=== PATIENT | male | born 1950 | race Caucasian/White ===

== ENCOUNTER 2017-07-26 08:55 | Inpatient (IN) | payer MEDICARE, OTHER ==
[~2017-07-26] VITALS: Ht 182.9 cm; Wt 92.6 kg
[2017-07-26] VITALS (19 sets, daily range): BP systolic 104–133; BP diastolic 60–84; PULSE 81–120; RESP 14–25; TEMP 99.1–101.7; O2SAT 87–100
[~2017-07-26 08:55] MED LIST: ASPI81TA82 PO; KLOR20TA6 PO; MULT-65 PO; PROT40TA PO; SODI1 PO; TOPR50TA PO; VITA100T54 PO
[2017-07-26] MEDS ORDERED: PROPOFOL 1000 MG/100 ML INJ 100 ML ONE (09:00)
[2017-07-26] MEDS ORDERED: PROPOFOL 1000 MG/100 ML INJ 100 ML IV PRN (09:15)
[2017-07-26] MEDS ORDERED: VANCOMYCIN INJ 1,000 MG in SODIUM CHLOR 0.9% 250 ML INJ 250 ML IV ONE (09:15)
[2017-07-26] MEDS ORDERED: SODIUM CHLOR 0.9% 1000 ML INJ 1,000 ML IV ONE ×2 (09:15)
[2017-07-26] MEDS ORDERED: fentaNYL DRIP 250 ML IV PRN ×2 (09:15→12:00)
[2017-07-26] MEDS ORDERED: AZTREONAM INJ 1,000 MG in SODIUM CHLORIDE 0.9% INJ 100 ML IV ONE (09:15)
[2017-07-26 09:35] LABS: BASOPHIL # 0.2 TH/MM3 (0-0.2); HEMATOCRIT 32.4 % (39.0-51.0); HEMO FLAGS DIFF FINAL; LYMPH % 13.5 % (9.0-44.0); LYMPHOCYTE # 2.2 TH/MM3 (1.0-4.8); MEAN CELL VOLUME 93.3 FL (80.0-100.0); MEAN CORPUSCULAR HEMOGLOBIN 31.1 PG (27.0-34.0); MEAN CORPUSCULAR HGB CONC 33.4 % (32.0-36.0); NEUT % 74.5 % (16.0-70.0); PLATELET COUNT 391 TH/MM3 (150-450); RED BLOOD COUNT 3.47 MIL/MM3 (4.50-5.90); RED CELL DISTRIBUTION WIDTH 21.6 % (11.6-17.2); WHITE BLOOD COUNT 16.1 TH/MM3 (4.0-11.0)
[2017-07-26 09:46] LABS: BLOOD, URINE SMALL (NEG); COMMENT (UR) CULTURE INDICATED; CULTURE IF INDICATED CULTURE INDICATED; GLUCOSE,URINE NEG (NEG); HYALINE CAST, URINE 7 /lpf (RARE); KETONE, URINE 10 mg/dL (NEG); MUCUS URINE FEW /lpf (OCC); NITRITE,URINE NEG (NEG); PH, URINE 5.5 (5.0-8.5); SQUAMOUS EPITHELIAL CELL URINE 1 /hpf (0-5); URINE COLOR YELLOW (YELLW/STRAW)
[2017-07-26 09:47] LABS: BLOOD GAS BASE EXCESS -4.5 mmol/L (-2-2); BLOOD GAS CARBOXYHEMOGLOBIN 1.5 % (0-4); BLOOD GAS HCO3 19 mmol/L (22-26); BLOOD GAS METHEMOGLOBIN 0.3 % (0-2); BLOOD GAS O2 HGB SATURATION 99 % (90-100); BLOOD GAS OXYGEN CONTENT 13.9 Vol % (12.0-20.0); BLOOD GAS PCO2 30 mmHg (38-42); BLOOD GAS PO2 306 mmHG (61-120); BLOOD GAS TOTAL HGB 9.5 G/DL (12.0-16.0); CRITICAL VALUE NO; DRAW SITE LT BRACHIAL; FIO2 100 %; NUMBER OF ARTERIAL PUNCTURES 1; OXYGEN DEVICE VENT; STAT YES; TEMP CORR TO 98.6; ULNAR PULSE PRESENT; VENT SETTINGS AC500/16/PEEP5
[2017-07-26 09:48] LABS: APTT (PATIENT) 32.9 SEC (24.3-30.1); INTERNATIONAL NORMALIZED RATIO 1.4 RATIO
[2017-07-26] MEDS ORDERED: ETOMIDATE 20 MG/10 ML VIAL ONE (09:48)
[2017-07-26] MEDS ORDERED: SUCCINYLCHOLINE CHLORIDE 200 MG/10 ML VIAL ONE (09:48)
[2017-07-26 09:49] LABS: ANION GAP 10 MEQ/L (5-15); AST (GOT) 31 U/L (15-37); BICARBONATE 21.2 MEQ/L (21.0-32.0); BLOOD UREA NITROGEN 18 MG/DL (7-18); CHLORIDE 98 MEQ/L (98-107); GLOMERULAR FILTRATION RATE 69 ML/MIN (>89); POTASSIUM 4.7 MEQ/L (3.5-5.1); SODIUM (NA) 129 MEQ/L (136-145)
[2017-07-26 09:50] LABS: ALT (GPT) 14 U/L (12-78)
[2017-07-26 09:54] LABS: ALKALINE PHOSPHATASE 63 U/L (45-117); CREATINE KINASE 337 U/L (39-308); TOTAL BILIRUBIN ADULT 0.5 MG/DL (0.2-1.0)
[2017-07-26 10:01] LABS: BACTERIA, URINE FEW /hpf
[2017-07-26 10:06] LABS: CKMB 2.9 NG/ML (0.5-3.6)
--- NOTE | 2017-07-26 10:10 | RADRPT ---
EXAM DATE/TIME: 07/26/2017 09:42 [facility] COMPARISON: No previous studies available for comparison. INDICATIONS : Post procedure. Intubation. MEDICAL HISTORY : None. SURGICAL HISTORY : None. ENCOUNTER: Initial ACUITY: 1 day PAIN SCORE: Non-responsive. LOCATION: Bilateral chest FINDINGS: Endotracheal tube has its tip approximately 3 cm above the yunior in good position. A nasogastric tu be has its tip in the stomach. The heart is enlarged. The pulmonary vascular pattern is normal. Th e lungs are clear. CONCLUSION: 1. Endotracheal tube and nasogastric tube in good positions. 2. Cardiomegaly. 3. No acute focal pulmonary infiltrate or pulmonary vascular congestion. Reji Corcoran MD on July 26, 2017 at 10:01 Board Certified Radiologist. This report was verified electronically.
--- NOTE | 2017-07-26 10:11 | PD ---
HPI Chief Complaint: Altered Mental Status Time Seen by Provider: 09:05 Travel History International Travel<30 days: No (UTO) Contact w/Intl Traveler<30days: No (UTO) Traveled to known affect area: No (UTO) History of Present Illness HPI 67-year-old male was brought by EMS from local alf for altered mental status. Patient was found to have a fever and unresponsive this morning. Temperature was 102.5 at the local alf. Last seen normal was yesterday. EMS was called. Attempts to intubate the patient at the scene was unsuccessful. Patient was given bag valve mask assisted ventilation and transported to the ED for evaluation. Patient has history of hypertension, generalized weakness and anxiety. Patient also has history of alcohol dependence, atrial fibrillation. Patient on doxycycline, folic acid, lorazepam , magnesium oxide, metoprolol, multivitamins, calcium, thiamine. Patient was observed to have diarrhea in the ED. PFSH Past Medical History Cancer: Yes (PROSTATE, TREATED WITH RADIATION THERAPY, SKIN CANCER) Cardiovascular Problems: Yes (ATRIAL FIBRILLATION) Diabetes: No GERD: Yes Hepatitis: No Hiatal Hernia: No Hypertension: Yes Respiratory: No Thyroid Disease: No Past Surgical History Abdominal Surgery: Yes (INGUINAL HERNIA AND HYDROCELE SURGERY CHILD) Pacemaker: No Other Surgery: Yes Social History Alcohol Use: Yes Tobacco Use: No Substance Use: Yes Allergies-Medications (Allergen,Severity, Reaction): Coded Allergies: penicillin G (Unverified Allergy, Severe, ITCHINESS, 07/26/17) Reported Meds & Prescriptions Reported Meds & Active Scripts Active Review of Systems ROS Limitations: Altered Mental Status, Unresponsive Physical Exam Narrative GENERAL: Well-nourished, well-developed patient. SKIN: Focused skin assessment warm/dry. HEAD: Normocephalic. EYES: No scleral icterus. No injection or drainage. Pupils dilated nonreactive bilaterally NECK: Supple, trachea midline. No JVD or lymphadenopathy. CARDIOVASCULAR: Regular rate and rhythm without murmurs, gallops, or rubs. RESPIRATORY: Patient with agonal breathing. Rhonchi bibasilar. GASTROINTESTINAL: Abdomen soft, non-tender, nondistended. MUSCULOSKELETAL: No cyanosis, or edema. BACK: Nontender without obvious deformity. No CVA tenderness. Neurologic exam: Patient's unresponsive. Data Data Last Documented VS Vital Signs Date Time Temp Pulse Resp B/P (MAP) Pulse Ox O2 Delivery O2 Flow Rate FiO2 07/26/17 10:02 92 16 133/74 (93) 100 Ventilator 100 07/26/17 09:00 15.00 07/26/17 08:55 101.7 Orders Orders Propofol 1000 Mg/100 Ml Inj (Diprivan 10 (07/26/17 09:00) Electrocardiogram (07/26/17 09:05) Complete Blood Count With Diff (07/26/17 09:05) Comprehensive Metabolic Panel (07/26/17 09:05) Creatine Kinase (Cpk) (07/26/17 09:05) Troponin I (07/26/17 09:05) B-Type Natriuretic Peptide (07/26/17 09:05) Prothrombin Time / Inr (Pt) (07/26/17 09:05) Act Partial Throm Time (Ptt) (07/26/17 09:05) Arterial Blood Gas (Abg) (07/26/17 09:05) Blood Culture (07/26/17 09:05) Urinalysis - C+S If Indicated (07/26/17 09:05) Chest, Single Ap (07/26/17 09:05) Ct Brain W/O Iv Contrast(Rout) (07/26/17 09:05) Iv Access Insert/Monitor (07/26/17 09:05) Ecg Monitoring (07/26/17 09:05) Oximetry (07/26/17 09:05) Urinary Catheter Insert/Apply (07/26/17 09:05) Prem-Gastric Tube Insert/Mon (07/26/17 09:05) Sodium Chlor 0.9% 1000 Ml Inj (Ns 1000 M (07/26/17 09:15) Sodium Chlor 0.9% 1000 Ml Inj (Ns 1000 M (07/26/17 09:15) Propofol 1000 Mg/100 Ml Inj (Diprivan 10 (07/26/17 09:15) ^ Infusion (07/26/17 09:09) RASS (07/26/17 09:09) Neurological Rass Scale DANIEL.Q2H (07/26/17 09:09) Neurological Rass Scale Q30MX2,Q2HX4,Q4H (07/26/17 09:09) Fentanyl Drip (Fentanyl Drip) (07/26/17 09:15) Lactic Acid Sepsis Protocol (07/26/17 09:10) Restraints Non-Violent DANEIL.Q3H (07/26/17 09:11) Vancomycin Inj (Vancomycin Inj) (07/26/17 09:15) Aztreonam Inj (Azactam Inj) (07/26/17 09:15) Rotavirus Ag Detection (Stool) (07/26/17 09:13) C Diff Toxin Pcr (07/26/17 09:13) Etomidate Inj (Amidate Inj) (07/26/17 09:48) Succinylcholine Inj (Quelicin Inj) (07/26/17 09:48) CKMB (07/26/17 09:17) CKMB% (07/26/17 09:17) Urine Culture (07/26/17 09:17) Lumbar Puncture (07/26/17 ) Vital Signs (Adult) .On admission (07/26/17 10:11) Notify Radiology (07/26/17 10:11) Diet Npo (07/26/17 Lunch) Labs Laboratory Tests Test 07/26/17 09:17 07/26/17 09:40 White Blood Count 16.1 TH/MM3 Red Blood Count 3.47 MIL/MM3 Hemoglobin 10.8 GM/DL Hematocrit 32.4 % Mean Corpuscular Volume 93.3 FL Mean Corpuscular Hemoglobin 31.1 PG Mean Corpuscular Hemoglobin Concent 33.4 % Red Cell Distribution Width 21.6 % Platelet Count 391 TH/MM3 Mean Platelet Volume 8.9 FL Neutrophils (%) (Auto) 74.5 % Lymphocytes (%) (Auto) 13.5 % Monocytes (%) (Auto) 11.0 % Eosinophils (%) (Auto) 0.0 % Basophils (%) (Auto) 1.0 % Neutrophils # (Auto) 12.0 TH/MM3 Lymphocytes # (Auto) 2.2 TH/MM3 Monocytes # (Auto) 1.8 TH/MM3 Eosinophils # (Auto) 0.0 TH/MM3 Basophils # (Auto) 0.2 TH/MM3 CBC Comment DIFF FINAL Differential Comment Prothrombin Time 16.0 SEC Prothromb Time International Ratio 1.4 RATIO Activated Partial Thromboplast Time 32.9 SEC Urine Color YELLOW Urine Turbidity CLEAR Urine pH 5.5 Urine Specific [place] 1.035 Urine Protein 30 mg/dL Urine Glucose (UA) NEG mg/dL Urine Ketones 10 mg/dL Urine Occult Blood SMALL Urine Nitrite NEG Urine Bilirubin NEG Urine Urobilinogen 2.0 MG/DL Urine Leukocyte Esterase SMALL Urine RBC 14 /hpf Urine WBC 13 /hpf Urine Squamous Epithelial Cells 1 /hpf Urine Bacteria FEW /hpf Urine Hyaline Casts 7 /lpf Urine Mucus FEW /lpf Microscopic Urinalysis Comment CULTURE INDICATED Blood Urea Nitrogen 18 MG/DL Creatinine 1.07 MG/DL Random Glucose 106 MG/DL Total Protein 7.1 GM/DL Albumin 2.7 GM/DL Calcium Level 8.8 MG/DL Alkaline Phosphatase 63 U/L Aspartate Amino Transf (AST/SGOT) 31 U/L Alanine Aminotransferase (ALT/SGPT) 14 U/L Total Bilirubin 0.5 MG/DL Sodium Level 129 MEQ/L Potassium Level 4.7 MEQ/L Chloride Level 98 MEQ/L Carbon Dioxide Level 21.2 MEQ/L Anion Gap 10 MEQ/L Estimat Glomerular Filtration Rate 69 ML/MIN Lactic Acid Level 1.5 mmol/L Total Creatine Kinase 337 U/L Creatine Kinase MB 2.9 NG/ML Creatine Kinase MB % 0.9 % Troponin I 0.05 NG/ML B-Type Natriuretic Peptide 318 PG/ML Blood Gas Puncture Site LT BRACHIAL Blood Gas Patient Temperature 98.6 Blood Gas HCO3 19 mmol/L Blood Gas Base Excess -4.5 mmol/L Blood Gas Oxygen Saturation 99 % Arterial Blood pH 7.43 Arterial Blood Partial Pressure CO2 30 mmHg Arterial Blood Partial Pressure O2 306 mmHG Arterial Blood Oxygen Content 13.9 Vol % Arterial Blood Carboxyhemoglobin 1.5 % Arterial Blood Methemoglobin 0.3 % Blood Gas Hemoglobin 9.5 G/DL Oxygen Delivery Device VENT Blood Gas Ventilator Setting AC500/16/PEEP5 Blood Gas Inspired Oxygen 100 % [facility] Medical Decision Making Medical Screen Exam Complete: Yes Emergency Medical Condition: Yes Medical Record Reviewed: Yes Interpretation(s) 10:13 AM. ABG pH 7.43. PCO2 30. PO2 306. CBC WBC 16.1. Hemoglobin 10.8 hematocrit 32.4. Platelets 391. 74 neutrophil. Sodium 129. Lactic acid 1.5. BNP 318. Cardiac enzymes are normal. INR 1.4. UA positive with WBC and bacteria. Differential Diagnosis Differential diagnosis including sepsis, pneumonia, UTI, TIA, CVA, SD, dehydration, meningitis Narrative Course 67-year-old male was found unresponsive and fever this morning. Patient was intubated ED. Moderate amount of aspirated material suctioned from the ET tube post intubation. Patient was observed to have diarrhea in the ED. Stool culture and study pending. Normal saline solution 2 L IV bolus. Vancomycin 1 g IV. Azactam 1 g IV. Propofol and fentanyl as needed for sedation. Critical Care Narrative Aggregate critical care time was 90 minutes. Time to perform other separately billable procedures was not included in the critical care time. My time did not include minutes spent treating any other patients simultaneously or on activities that did not directly contribute to the patient's treatment. The services I provided to this patient were to treat and/or prevent clinically significant deterioration that could result in: I provided critical care services requiring my management, as noted below: Chart data review, documentation time, medication orders and management, vital sign assessments/reviewing monitor data, ordering and reviewing lab tests, ordering and interpreting/reviewing x-rays and diagnostic studies, care of the patient and discussion of the patient with the admitting physicians. Procedures Procedure Narrative After the risks and benefits were discussed the following procedure was performed: INTUBATION: The patient was put in optimal position for the procedure. The patient was intubated with a an 8 Wolof cuffed endotracheal tube. Tube placement was confirmed by visualization of the tube and balloon passing through the cords, capnometry and subsequent chest x-ray. Breath sounds were equal and well aerated bilaterally postintubation. No breath sounds over stomach. Patient tolerated procedure well. Diagnosis Primary Impression: Sepsis Qualified Codes: A41.9 - Sepsis, unspecified organism Additional Impressions: Respiratory failure Qualified Codes: J96.01 - Acute respiratory failure with hypoxia UTI (urinary tract infection) Qualified Codes: N30.00 - Acute cystitis without hematuria Hyponatremia Admitting Information Admitting Physician Requests: Mike Wilkinson MD Jul 26, 2017 10:10
[2017-07-26] MEDS ORDERED: Vancomycin Consult Pharmacy 1 EA OTHER SCH (10:30)
[2017-07-26] MEDS ORDERED: POTASSIUM CHLOR 20 MEQ PREMIX 100 ML IV PRN ×2 (10:30)
[2017-07-26] MEDS ORDERED: MAGNESIUM OXIDE 400 MG TAB PO PRN (10:30)
[2017-07-26] MEDS ORDERED: POTASSIUM PHOSPHATE MONOBASIC 500 MG TAB PO PRN (10:30)
[2017-07-26] MEDS ORDERED: RESP: ALBUTEROL 2.5 MG/IPRATROPIUM 0.5 MG NEB (PRN) INH (10:30)
[2017-07-26] MEDS ORDERED: SODIUM PHOSPHATE INJ 30 MMOL in SODIUM CHLOR 0.9% 250 ML INJ 240 ML IV PRN (10:30)
[2017-07-26] MEDS ORDERED: MISCELLANEOUS NURSING INFORMATION XX SCH (10:30)
[2017-07-26] MEDS ORDERED: ACETAMINOPHEN 325 MG TAB PO PRN (10:30)
[2017-07-26] MEDS ORDERED: POTASSIUM PHOSPHATE INJ 30 MMOL in SODIUM CHLOR 0.9% 250 ML INJ 250 ML IV PRN (10:30)
[2017-07-26] MEDS ORDERED: POTASSIUM PHOSPHATE MONOBASIC 500 MG TAB PO/TUBE PRN (10:30)
[2017-07-26] MEDS ORDERED: MAGNESIUM SULFATE INJ 2 GM in SODIUM CHLORIDE 0.9% INJ 96 ML IV PRN (10:30)
[2017-07-26] MEDS ORDERED: POTASSIUM CHLOR 40 MEQ PREMIX 100 ML IV PRN ×2 (10:30)
[2017-07-26] MEDS ORDERED: ONDANSETRON HCL 4 MG/2 ML VIAL IV PUSH PRN (10:30)
[2017-07-26] MEDS ORDERED: DEXTROSE 50% IN WATER 50 ML VIAL(D50) IV PUSH PRN (10:30)
[2017-07-26] MEDS ORDERED: MAGNESIUM SULFATE INJ 4 GM in SODIUM CHLORIDE 0.9% INJ 92 ML IV PRN (10:30)
[2017-07-26] MEDS ORDERED: CHLORHEXIDINE GLUCONATE 2 % 1 PACK (2 CLOTHS) TOP PRN (10:30)
[2017-07-26] MEDS ORDERED: DOXY100C PO (10:34)
[2017-07-26] MEDS ORDERED: MAGN400T2 PO (10:35)
[2017-07-26] MEDS ORDERED: MULTTAB67 PO (10:35)
[2017-07-26] MEDS ORDERED: VITA100T54 PO (10:35)
[2017-07-26] MEDS ORDERED: LORA0.5T PO (10:35)
[2017-07-26] MEDS ORDERED: [UNRECOGNIZED DRUG - CODE] PO (10:35)
[2017-07-26] MEDS ORDERED: METO25TA3 PO (10:35)
[2017-07-26] MEDS ORDERED: FOLI400T PO (10:35)
--- NOTE | 2017-07-26 10:58 | RADRPT ---
EXAM DATE/TIME: 07/26/2017 10:05 [facility] COMPARISON: No previous studies available for comparison. INDICATIONS : Altered mental status. RADIATION DOSE: 56.41 CTDIvol (mGy) MEDICAL HISTORY : Cardiovascular disease. Hypertension. Carcinoma, prostate. SURGICAL HISTORY : None. ENCOUNTER: Initial ACUITY: 1 day PAIN SCALE: Non-responsive LOCATION: cranial TECHNIQUE: Multiple contiguous axial images were obtained of the head. Using automated exposure control and adj ustment of the mA and/or kV according to patient size, radiation dose was kept as low as reasonably a chievable to obtain optimal diagnostic quality images. DICOM format image data is available electro nically for review and comparison. FINDINGS: CEREBRUM: Mild cerebral atrophy is noted. Moderate periventricular and subcortical white matter small vessel is chemic changes are noted bilaterally. No evidence of midline shift, mass lesion, hemorrhage or acute infarction. No extra-axial fluid collections are seen. POSTERIOR FOSSA: The cerebellum and brainstem are intact. The 4th ventricle is midline. The cerebellopontine angle i s unremarkable. EXTRACRANIAL: The visualized portion of the orbits is intact. SKULL: The calvaria is intact. No evidence of skull fracture. CONCLUSION: 1. Moderate periventricular and subcortical white matter small vessel ischemic changes bilaterally. 2. Mild cerebral atrophy. 3. No acute infarct, acute hemorrhage, mass effect or extra-axial fluid collections. Reji Corcoran MD on July 26, 2017 at 10:55 Board Certified Radiologist. This report was verified electronically.
[2017-07-26 11:24] LABS: C. DIFF EPI 027 PRESUMPTIVE NEGATIVE (NEGATIVE)
[2017-07-26] MEDS: INSULIN NovoLIN REGULAR SUPPLEMENTAL SCALE SQ SCH ×2 (12:00→18:00)
--- NOTE | 2017-07-26 13:00 | HHI.HP ---
HPI Service Critical Care Medicine Primary Care Physician Unknown Admission Diagnosis sepsis. Respiratory failure. UTI. Hyponatremia. Diagnosis: Chief Complaint: Fever, altered mental status Travel History International Travel<30 Days: No (UTO) Contact w/Intl Traveler <30 Da: No (UTO) Traveled to Known Affected Are: No (UTO) Sepsis Criteria SIRS Criteria (2 or more): Temp > 100.9 or < 96.8 Sepsis Criteria (SIRS+source): Infect source susp/known Severe Sepsis (+one): Organ Dysfunction Criteria Outcome: Meets sepsis criteria, Meets severe sepsis criteria History of Present Illness History of Present Illness HPI 67-year-old male who is a shelter resident with a medical history significant for alcohol dependence, atrial fibrillation, hypertension, generalized weakness and anxiety was brought to the ER by EMS for altered mental status. Patient was noted to have fever and been started on doxycycline a day prior to admission. He had a temperature of 102.5 at the shelter this morning. EMS attempt at intubating patient at the scene was unsuccessful. He was brought to the ER with bag valve mask assisted ventilation. Patient was intubated in the ER following his arrival and placed on mechanical ventilation. He was diagnosed to have sepsis and was initiated on empiric antibiotics including IV vancomycin and aztreonam obtaining blood and sputum cultures. A lumbar puncture was ordered to be done by IR. Patient was accepted for admission by critical care medicine service. When I evaluated the patient in the ER he was sedated with propofol, orally intubated on mechanical ventilation. The ER nurse he just had significant diarrhea which tested negative for C. difficile. History was obtained by reviewing records and discussion with ER physician and nursing staff. PFSH Past Medical History Cancer: Yes (PROSTATE, TREATED WITH RADIATION THERAPY, SKIN CANCER) Cardiovascular Problems: Yes (ATRIAL FIBRILLATION) Diabetes: No GERD: Yes Hepatitis: No Hiatal Hernia: No Hypertension: Yes Respiratory: No Thyroid Disease: No Past Surgical History Abdominal Surgery: Yes (INGUINAL HERNIA AND HYDROCELE SURGERY CHILD) Pacemaker: No Other Surgery: Yes Social History Alcohol Use: Yes Tobacco Use: No Substance Use: Yes Allergies-Medications (Allergen,Severity, Reaction): Coded Allergies: penicillin G (Unverified Allergy, Severe, ITCHINESS, 07/26/17) Reported Meds & Prescriptions Reported Meds & Active Scripts Active Calcium, doxycycline, folic acid, lorazepam 0.5 mg by mouth every 8 hourly when necessary, magnesium oxide, metoprolol 25 mg by mouth twice a day, MVI, thiamine Review of Systems ROS Limitations: Altered Mental Status, Unresponsive, orally intubated on mechanical ventilation Physical Exam Vital Signs Vital Signs Date Time Temp Pulse Resp B/P (MAP) Pulse Ox O2 Delivery O2 Flow Rate FiO2 07/26/17 12:19 07/26/17 12:12 100 15.00 07/26/17 11:40 100 40 07/26/17 11:23 100.8 81 14 115/60 (78) 100 Ventilator 45 07/26/17 10:25 100.9 81 14 120/70 (87) 100 Ventilator 45 07/26/17 10:22 100 100 07/26/17 10:02 92 16 133/74 (93) 100 Ventilator 100 07/26/17 09:50 100 45 07/26/17 09:20 100 100 07/26/17 09:15 100 07/26/17 09:00 16 100 Ventilator 100 07/26/17 09:00 100 07/26/17 09:00 96 Bag Valve 15.00 07/26/17 08:55 101.7 120 16 130/84 (99) 87 Physical Exam HEENT/ Neuro: Sedated, orally intubated, Pallor present, no icterus, tongue/ mucosa moist. Pupils 3 mm bilaterally equal and reactive to light. Neck: Neck stiffness noted, No JVD Chest/Pulm: on mech vent, good air entry bilaterally, no wheezing or crackles. Bilateral rhonchi. CVS: S1-S2 irregular, no murmur GI/abdomen: soft, nontender, bowel sounds sluggish Extremities: warm bilaterally, no edema Laboratory Laboratory Tests Test 07/26/17 09:17 07/26/17 09:40 White Blood Count 16.1 Red Blood Count 3.47 Hemoglobin 10.8 Hematocrit 32.4 Mean Corpuscular Volume 93.3 Mean Corpuscular Hemoglobin 31.1 Mean Corpuscular Hemoglobin Concent 33.4 Red Cell Distribution Width 21.6 Platelet Count 391 Mean Platelet Volume 8.9 Neutrophils (%) (Auto) 74.5 Lymphocytes (%) (Auto) 13.5 Monocytes (%) (Auto) 11.0 Eosinophils (%) (Auto) 0.0 Basophils (%) (Auto) 1.0 Neutrophils # (Auto) 12.0 Lymphocytes # (Auto) 2.2 Monocytes # (Auto) 1.8 Eosinophils # (Auto) 0.0 Basophils # (Auto) 0.2 CBC Comment DIFF FINAL Differential Comment Prothrombin Time 16.0 Prothromb Time International Ratio 1.4 Activated Partial Thromboplast Time 32.9 Urine Color YELLOW Urine Turbidity CLEAR Urine pH 5.5 Urine Specific [place] 1.035 Urine Protein 30 Urine Glucose (UA) NEG Urine Ketones 10 Urine Occult Blood SMALL Urine Nitrite NEG Urine Bilirubin NEG Urine Urobilinogen 2.0 Urine Leukocyte Esterase SMALL Urine RBC 14 Urine WBC 13 Urine Squamous Epithelial Cells 1 Urine Bacteria FEW Urine Hyaline Casts 7 Urine Mucus FEW Microscopic Urinalysis Comment CULTURE INDICATED Stool C. difficile Toxin (PCR) NEGATIVE Stl C. difficile Toxin Epiderm 027 PRESUMPTIVE NEGATIVE Blood Urea Nitrogen 18 Creatinine 1.07 Random Glucose 106 Total Protein 7.1 Albumin 2.7 Calcium Level 8.8 Alkaline Phosphatase 63 Aspartate Amino Transf (AST/SGOT) 31 Alanine Aminotransferase (ALT/SGPT) 14 Total Bilirubin 0.5 Sodium Level 129 Potassium Level 4.7 Chloride Level 98 Carbon Dioxide Level 21.2 Anion Gap 10 Estimat Glomerular Filtration Rate 69 Lactic Acid Level 1.5 Total Creatine Kinase 337 Creatine Kinase MB 2.9 Creatine Kinase MB % 0.9 Troponin I 0.05 B-Type Natriuretic Peptide 318 Blood Gas Puncture Site LT BRACHIAL Blood Gas Patient Temperature 98.6 Blood Gas HCO3 19 Blood Gas Base Excess -4.5 Blood Gas Oxygen Saturation 99 Arterial Blood pH 7.43 Arterial Blood Partial Pressure CO2 30 Arterial Blood Partial Pressure O2 306 Arterial Blood Oxygen Content 13.9 Arterial Blood Carboxyhemoglobin 1.5 Arterial Blood Methemoglobin 0.3 Blood Gas Hemoglobin 9.5 Oxygen Delivery Device VENT Blood Gas Ventilator Setting AC500/16/PEEP5 Blood Gas Inspired Oxygen 100 Date/Time Source Procedure Growth Status 07/26/17 09:17 Blood Peripheral Aerobic Blood Culture Pending Received 07/26/17 09:17 Blood Peripheral Anaerobic Blood Culture Pending Received 07/26/17 09:17 Stool Stool Rotavirus Antigen - Final NEGATIVE - ROTAVIRUS ANTIGEN IS ABSEN... Complete 07/26/17 10:40 Sputum Endotracheal Gram Stain Pending Received 07/26/17 10:40 Sputum Endotracheal Sputum Culture Pending Received 07/26/17 09:17 Urine Random Urine Urine Culture Pending Received Result Diagram: 07/26/1791607/26/1717 Imaging Last Impressions Head CT 07/26/17904 Signed Impressions: Service Date/Time: Wednesday, July 26, 2017 10:05 - CONCLUSION: 1. Moderate periventricular and subcortical white matter small vessel ischemic changes bilaterally. 2. Mild cerebral atrophy. 3. No acute infarct, acute hemorrhage , mass effect or extra-axial fluid collections. Reji Corcoran MD Chest X-Ray 07/26/17904 Signed Impressions: Service Date/Time: Wednesday, July 26, 2017 09:42 - CONCLUSION: 1. Endotracheal tube and nasogastric tube in good positions. 2. Cardiomegaly. 3. No acute focal pulmonary infiltrate or pulmonary vascular congestion. Reji Corcoran MD Septic Shock Reassessment Heart: Irregular Lungs: Course Skin: Warm Peripheral Pulses: Bounding Right Radial Capillary Refill: Brisk Caprini VTE Risk Assessment Caprini VTE Risk Assessment: Mod/High Risk (score >= 2) Caprini Risk Assessment Model Point Value = 1 Point Value = 2 Point Value = 3 Point Value = 5 Age 41-60 Minor surgery BMI > 25 kg/m2 Swollen legs Varicose veins or History of unexplained or recurrent spontaneous Oral contraceptives or hormone replacement Sepsis (< 1 month) Serious lung disease, including pneumonia (< 1 month) Abnormal pulmonary function Acute myocardial infarction Congestive heart failure (< 1 month) History of inflammatory bowel disease Medical patient at bed rest Age 61-74 Arthroscopic surgery Major open surgery (> 45 min) Laparoscopic surgery (> 45 min) Malignancy Confined to bed (> 72 hours) Immobilizing plaster cast Central venous access Age >= 75 History of VTE Family history of VTE Factor V Leiden Prothrombin [id number] Lupus anticoagulant Anticardiolipin antibodies Elevated serum homocysteine Heparin-induced thrombocytopenia Other congenital or acquired thrombophilia Stroke (< 1 month) Elective arthroplasty Hip, pelvis, or leg fracture Acute spinal cord injury (< 1 month) Prophylaxis Regimen Total Risk Factor Score Risk Level Prophylaxis Regimen 0-1 Low Early ambulation 2 Moderate Order ONE of the following: *Sequential Compression Device (SCD) *Heparin 5000 units SQ BID 3-4 Higher Order ONE of the following medications: *Heparin 5000 units SQ TID *Enoxaparin/Lovenox 40 mg SQ daily (WT < 150 kg, CrCl > 30 mL/min) *Enoxaparin/Lovenox 30 mg SQ daily (WT < 150 kg, CrCl > 10-29 mL/min) *Enoxaparin/Lovenox 30 mg SQ BID (WT < 150 kg, CrCl > 30 mL/min) AND/OR *Sequential Compression Device (SCD) 5 or more Highest Order ONE of the following medications: *Heparin 5000 units SQ TID (Preferred with Epidurals) *Enoxaparin/Lovenox 40 mg SQ daily (WT < 150 kg, CrCl > 30 mL/min) *Enoxaparin/Lovenox 30 mg SQ daily (WT < 150 kg, CrCl > 10-29 mL/min) *Enoxaparin/Lovenox 30 mg SQ BID (WT < 150 kg, CrCl > 30 mL/min) AND *Sequential Compression Device (SCD) Assessment and Plan Assessment and Plan 67-year-old male with: Severe Sepsis Encephalopathy : Delirium secondary to sepsis vs possible meningitis, worsened by hyponatremia Hyponatremia Suspected aspiration (prehospital) Pneumonia alcohol dependence atrial fibrillation H/o hypertension H/o generalized weakness anxiety Plan: Neuro: Sedation with propofol while intubated, daily sedation vacation. Awaiting lumbar puncture for CSF studies and culture. Follow neuro status. We' ll obtain EEG. Cardiovascular: IV hydration, watch for hypotension. Resume beta bell tomorrow if no hypotension or if patient has issues with A. fib with RVR. Pulmonary: Continue mechanical ventilation, vent bundle, bronchodilators as needed. Sputum sent for Gram stain and cultures. Suspect aspiration. Daily C Pap trials starting tomorrow. GI/liver: Start tube feeds and advanced to goal as tolerated. Renal/: IV hydration, strict intake output, monitor and replete elect lites, follow BUN/creatinine. Hyponatremia noted. On normal saline currently. Follow sodium. ID: Follow-up cultures. CSF to be sent for Gram stain and cultures following LP. Empiric antibiotic coverage with IV aztreonam/vancomycin/Flagyl. ID consult requested. Heme: Follow CBC and coags. Endocrine: SSI for glycemic control if needed. Prophylaxis: Pepcid/SCDs/subcutaneous heparin on hold for lumbar puncture. Discussed with ID physician Dr. Mcdonnell who will be evaluating patient. Condition critical Time spent on critical care excluding procedures 60 minutes Kvng Orellana MD Jul 26, 2017 13:00
[2017-07-26 13:35] LABS: BLOOD GAS BASE EXCESS -4.4 mmol/L (-2-2); BLOOD GAS CARBOXYHEMOGLOBIN 1.5 % (0-4); BLOOD GAS HCO3 19 mmol/L (22-26); BLOOD GAS METHEMOGLOBIN 0.8 % (0-2); BLOOD GAS O2 HGB SATURATION 96 % (90-100); BLOOD GAS OXYGEN CONTENT 13.3 Vol % (12.0-20.0); BLOOD GAS PCO2 31 mmHg (38-42); BLOOD GAS PO2 109 mmHg (61-120); BLOOD GAS TOTAL HGB 9.7 G/DL (12.0-16.0); TEMP CORR TO 98.6
[2017-07-26 13:36] LABS: CRITICAL VALUE NO; OXYGEN DEVICE VENTILATOR
[2017-07-26 13:37] LABS: DRAW SITE RT RADIAL; FIO2 40 %; NUMBER OF ARTERIAL PUNCTURES 1; STAT NO; ULNAR PULSE PRESENT
--- NOTE | 2017-07-26 14:02 | PD.CONS ---
History of Present Illness Service Infectious Diseases Consult Requested By Dr Jon Orellana Reason for Consult Evaluate patient with sepsis Primary Care Physician Unknown Diagnoses: History of Present Illness Patient seen and examined. Records reviewed. Patient is a 67-year-old male, and to the hospital for fever and unresponsiveness on the day of admission. He was apparently normal the day prior to admission. However the day prior to admission he had a temperature and apparently was started on doxycycline. EMS was called, and they tried intubating the patient but was not successful. He had a fever of 102+ on the day of admission. Patient in the ED got intubated, and apparently during intubation there was a lot of what looks like stomach contents during the intubation. Was no mention that he had any nausea or vomiting prior to admission. No mention of any diarrhea or any shortness of breath or congestion. CT of the head did not show any acute infarct or bleed. Chest x- ray was normal. He had diarrhea, and the stool tested negative for C. difficile toxin. His urinalysis showed some mild pyuria. A Garcia was inserted in the emergency room. Infectious disease consultation has been requested to evaluate the patient. Review of Systems ROS Limitations: Clinical Condition, Intubated Past Family Social History Allergies: Coded Allergies: penicillin G (Unverified Allergy, Severe, ITCHINESS, 07/26/17) Past Medical History Skin cancer Prostate CA Atrial fib GERD Hypertension Past Surgical History Inguinal Hernia surgery [place] Reported Medications I attest that I obtained, updated or reviewed the home and current medications. Reported Meds & Active Scripts Active Reported Vitamin B-1 (Thiamine HCl) 100 Mg Tab 100 Mg PO DAILY Parva-Robert 250 Tablet (Calcium Carb, Gluconate/Vit D2) 250 Mg Calcium-100 Unit Tablet 1 Tab PO DAILY Multiple Vitamin 1 Tab 1 Tab PO DAILY Metoprolol Tartrate 25 Mg Tab 25 Mg PO BID Magnesium Oxide 400 Mg Tab 400 Mg PO DAILY Lorazepam 0.5 Mg Tab 0.5 Mg PO Q8H PRN Folic Acid 0.4 Mg Tab 1 Mg PO DAILY Doxycycline Hyclate 100 Mg Cap 100 Mg PO BID Active Ordered Medications I attest that I obtained, updated or reviewed the home and current medications. Current Medications Medications (Trade) Dose Ordered Sig/Bunny Route Start Time Stop Time Status Last Admin Fentanyl Citrate 250 ml @ 5 mls/hr TITRATE PRN IV 07/26/17 12:00 Propofol 100 ml @ 2.46 mls/hr TITRATE PRN IV 07/26/17 12:00 (Mag-Ox) 800 mg UNSCH PRN PO 07/26/17 10:30 Magnesium Sulfate 4 gm/Sodium Chloride 100 ml @ 50 mls/hr UNSCH PRN IV 07/26/17 10:30 Magnesium Sulfate 2 gm/Sodium Chloride 100 ml @ 50 mls/hr UNSCH PRN IV 07/26/17 10:30 Potassium Chloride 100 ml @ 50 mls/hr Q2H PRN IV 07/26/17 10:30 Potassium Chloride 100 ml @ 50 mls/hr Q2H PRN IV 07/26/17 10:30 Potassium Chloride 100 ml @ 50 mls/hr Q2H PRN IV 07/26/17 10:30 Potassium Chloride 100 ml @ 25 mls/hr UNSCH PRN IV 07/26/17 10:30 (K-Phos) 2,000 mg Q4H PRN PO 07/26/17 10:30 (K-Phos) 2,000 mg UNSCH PRN PO/TUBE 07/26/17 10:30 Potassium Phosphate 30 mmol/ Sodium Chloride 260 ml @ 42 mls/hr UNSCH PRN IV 07/26/17 10:30 Sodium Phosphate 30 mmol/Sodium Chloride 250 ml @ 42 mls/hr UNSCH PRN IV 07/26/17 10:30 (Peridex 0.12% Liq) 15 ml BID@08,20 MT 07/26/17 20:00 (D50w (Vial) Inj) 25 ml UNSCH PRN IV PUSH 07/26/17 10:30 (NovoLIN R SUPPLEMENTAL SCALE) 1 Q6HR SQ 07/26/17 12:00 (Duoneb Neb) 1 ampule Q6HR NEB INH 07/26/17 16:00 (Duoneb Neb) 1 ampule Q2HR NEB PRN INH 07/26/17 10:30 Sodium Chloride 1,000 ml @ 84 mls/hr [id number] IV 07/26/17 11:30 (Tylenol) 650 mg Q6H PRN PO 07/26/17 10:30 (Pepcid Inj) 20 mg Q12HR IV PUSH 07/26/17 21:00 (Zofran Inj) 4 mg Q6H PRN IV PUSH 07/26/17 10:30 Miscellaneous Information 1 Q361D XX 07/26/17 10:30 (Chlorhexidine 2% Cloth) 3 pack Taper DAILY@04 TOP 07/27/17 04:00 07/23/18 03:59 (Chlorhexidine 2% Cloth) 3 pack UNSCH PRN TOP 07/26/17 10:30 Pharmacy Profile Note 0 ml @ 0 mls/hr UNSCH OTHER 07/26/17 10:30 Metronidazole 100 ml @ 100 mls/hr Q8H IV 07/26/17 12:00 Aztreonam 2000 mg/ Sodium Chloride 100 ml @ 200 mls/hr Q8H IV 07/26/17 17:00 (Folate) 1 mg DAILY PO 07/27/17 09:00 (Mag-Ox) 400 mg DAILY@1100 PO 07/27/17 11:00 (Vitamin B1) 100 mg DAILY PO 07/27/17 09:00 (Oscal-D 250-125) 250 mg DAILY PO 07/27/17 09:00 (Theragran) 1 tab DAILY PO 07/27/17 09:00 Vancomycin HCl 1500 mg/Sodium Chloride 515 ml @ 250 mls/hr Q12H IV 07/26/17 18:00 Miscellaneous Information SPECIFIC LAB TO BE DRAWN:VANCOMYCIN TROUGH DATE TO... ONCE ONCE .XX 07/28/17 05:45 07/28/17 05:46 Family History Non-contributory Social History Resides in SNF Prior hx of ETOH No smoking No illicit drugs Physical Exam Vital Signs Vital Signs Date Time Temp Pulse Resp B/P (MAP) Pulse Ox O2 Delivery O2 Flow Rate FiO2 07/26/17 12:19 07/26/17 12:15 97 40 07/26/17 12:12 100 15.00 07/26/17 11:40 100 40 07/26/17 11:23 100.8 81 14 115/60 (78) 100 Ventilator 45 07/26/17 10:25 100.9 81 14 120/70 (87) 100 Ventilator 45 07/26/17 10:22 100 100 07/26/17 10:02 92 16 133/74 (93) 100 Ventilator 100 07/26/17 09:50 100 45 07/26/17 09:20 100 100 07/26/17 09:15 100 07/26/17 09:00 16 100 Ventilator 100 07/26/17 09:00 100 07/26/17 09:00 96 Bag Valve 15.00 07/26/17 08:55 101.7 120 16 130/84 (99) 87 Physical Exam GENERAL: Patient is a well-nourished, well-developed male, sedated, intubated , not in respiratory distress. SKIN: Warm and dry. No generalized rash, no ecchymoses and no evidence of embolic lesions. HEAD: Atraumatic. Normocephalic. No temporal wasting, or tenderness. EYES: [place] conjunctiva. No petechia or hemorrhage. Pupils equal, round and reactive to light. No scleral icterus. No injection or drainage. EARS, NOSE AND THROAT: Nose without bleeding or purulent nasal discharge. He is orally intubated. NECK: Trachea midline. Supple CARDIOVASCULAR: Regular rate and rhythm. There is a systolic murmur heard on the left precordium. RESPIRATORY: Clear to auscultation. Coarse breath sounds bilaterally. Breath sounds equal bilaterally. No rales, wheezing or rhonchi ABDOMEN: Soft, nondistended, no reaction to palpation. Bowel sounds present and normoactive. No guarding. No organomegaly. EXTREMITIES: No clubbing, cyanosis, or edema.No joint effusion, has good ROM. No calf tenderness. Well perfused and warm. NEUROLOGICAL: Sedated, no Babinski, no ankle clonus PSYCHIATRIC: Unable to assess LINE: No evidence of infection Laboratory Laboratory Tests Test 07/26/17 09:17 07/26/17 09:40 07/26/17 13:17 White Blood Count 16.1 Red Blood Count 3.47 Hemoglobin 10.8 Hematocrit 32.4 Mean Corpuscular Volume 93.3 Mean Corpuscular Hemoglobin 31.1 Mean Corpuscular Hemoglobin Concent 33.4 Red Cell Distribution Width 21.6 Platelet Count 391 Mean Platelet Volume 8.9 Neutrophils (%) (Auto) 74.5 Lymphocytes (%) (Auto) 13.5 Monocytes (%) (Auto) 11.0 Eosinophils (%) (Auto) 0.0 Basophils (%) (Auto) 1.0 Neutrophils # (Auto) 12.0 Lymphocytes # (Auto) 2.2 Monocytes # (Auto) 1.8 Eosinophils # (Auto) 0.0 Basophils # (Auto) 0.2 CBC Comment DIFF FINAL Differential Comment Prothrombin Time 16.0 Prothromb Time International Ratio 1.4 Activated Partial Thromboplast Time 32.9 Urine Color YELLOW Urine Turbidity CLEAR Urine pH 5.5 Urine Specific [place] 1.035 Urine Protein 30 Urine Glucose (UA) NEG Urine Ketones 10 Urine Occult Blood SMALL Urine Nitrite NEG Urine Bilirubin NEG Urine Urobilinogen 2.0 Urine Leukocyte Esterase SMALL Urine RBC 14 Urine WBC 13 Urine Squamous Epithelial Cells 1 Urine Bacteria FEW Urine Hyaline Casts 7 Urine Mucus FEW Microscopic Urinalysis Comment CULTURE INDICATED Stool C. difficile Toxin (PCR) NEGATIVE Stl C. difficile Toxin Epiderm 027 PRESUMPTIVE NEGATIVE Blood Urea Nitrogen 18 Creatinine 1.07 Random Glucose 106 Total Protein 7.1 Albumin 2.7 Calcium Level 8.8 Alkaline Phosphatase 63 Aspartate Amino Transf (AST/SGOT) 31 Alanine Aminotransferase (ALT/SGPT) 14 Total Bilirubin 0.5 Sodium Level 129 Potassium Level 4.7 Chloride Level 98 Carbon Dioxide Level 21.2 Anion Gap 10 Estimat Glomerular Filtration Rate 69 Lactic Acid Level 1.5 Total Creatine Kinase 337 Creatine Kinase MB 2.9 Creatine Kinase MB % 0.9 Troponin I 0.05 B-Type Natriuretic Peptide 318 Blood Gas Puncture Site LT BRACHIAL RT RADIAL Blood Gas Patient Temperature 98.6 98.6 Blood Gas HCO3 19 19 Blood Gas Base Excess -4.5 -4.4 Blood Gas Oxygen Saturation 99 96 Arterial Blood pH 7.43 7.41 Arterial Blood Partial Pressure CO2 30 31 Arterial Blood Partial Pressure O2 306 109 Arterial Blood Oxygen Content 13.9 13.3 Arterial Blood Carboxyhemoglobin 1.5 1.5 Arterial Blood Methemoglobin 0.3 0.8 Blood Gas Hemoglobin 9.5 9.7 Oxygen Delivery Device VENT VENTILATOR Blood Gas Ventilator Setting AC500/16/PEEP5 Blood Gas Inspired Oxygen 100 40 Date/Time Source Procedure Growth Status 07/26/17 09:17 Blood Peripheral Aerobic Blood Culture Pending Received 07/26/17 09:17 Blood Peripheral Anaerobic Blood Culture Pending Received 07/26/17 09:17 Stool Stool Rotavirus Antigen - Final NEGATIVE - ROTAVIRUS ANTIGEN IS ABSEN... Complete 07/26/17 10:40 Sputum Endotracheal Gram Stain Pending Received 07/26/17 10:40 Sputum Endotracheal Sputum Culture Pending Received 07/26/17 09:17 Urine Random Urine Urine Culture Pending Received Result Diagram: 07/26/1791607/26/[address] 07/26/17904 Signed Impressions: Service Date/Time: Wednesday, July 26, 2017 10:05 - CONCLUSION: 1. Moderate periventricular and subcortical white matter small vessel ischemic changes bilaterally. 2. Mild cerebral atrophy. 3. No acute infarct, acute hemorrhage , mass effect or extra-axial fluid collections. Reji Corcoran MD Chest X-Ray 07/26/17 0905 Signed Impressions: Service Date/Time: Wednesday, July 26, 2017 09:42 - CONCLUSION: 1. Endotracheal tube and nasogastric tube in good positions. 2. Cardiomegaly. 3. No acute focal pulmonary infiltrate or pulmonary vascular congestion. Reji Corcoran MD Assessment and Plan Assessment and Plan IMPRESSION Sepsis on presentation, acute febrile illness, patient SNF resident, prob aspirated Respiratory failure, likely aspiration Hx ETOH abuse Mild pyuria, no garcia in [place] RECOMMENDATION Follow C/S LP has been ordered because of ?meningitis, difficult to flex neck Continue empiric Abx: Vancomycin, Azactam Repeat CXR in AM Monitor progress Follow temps Will determine course of Abx depending on his clinical course I will follow along with you Thank you for this consultation Discussed Condition With D/W Sindhu Cagle MD Jul 26, 2017 14:02
[2017-07-26] MEDS: PROPOFOL 1000 MG/100 ML INJ 100 ML IV PRN ×2 (14:22→21:17)
[2017-07-26] MEDS: metroNIDAZOLE 500 MG INJ 100 ML IV SCH ×2 (14:48→20:13)
[2017-07-26] MEDS: SODIUM CHLOR 0.9% 1000 ML INJ 1,000 ML IV SCH ×2 (14:49→21:17)
[2017-07-26] MEDS: AZTREONAM INJ 2,000 MG in SODIUM CHLORIDE 0.9% INJ 100 ML IV SCH (16:24)
--- NOTE | 2017-07-26 17:46 | PD.RAD ---
Post Procedure Progress Note Pre Procedure Diagnosis: (1) Sepsis Post Procedure Diagnosis: (1) Sepsis Procedure Date: Jul 26, 2017 Supervising Radiologist: Herbert Lion Proceduralist/Assist: Hallie Ricks, RT(R), Madeline Monroy RT(R)(CV) Anesthesia: Local Plan of Activity Patient to Unit: Critical Care Patient Condition: Critical See PACS Report for procedural detail/treatment Spinal Procedure Lumbar Puncture L3-L4 Fluid Removal (CCs): 11 Fluid Description: Herbert Cid MD Jul 26, 2017 17:45
--- NOTE | 2017-07-26 17:58 | RADRPT ---
EXAM DATE/TIME: 07/26/2017 17:11 [facility] COMPARISON: No previous studies available for comparison. INDICATIONS : Pattient with fever and AMS. MEDICAL HISTORY : 1. ETOH abuse 2. A fib 3. Prostate cancer 4. HTN SURGICAL HISTORY : 1.Hernia repair ENCOUNTER: Initial ACUITY: 1 day PAIN SCORE: Nonresponsive. LUMBAR PUNCTURE TIME: 1720 hours FLUORO TIME: 0.9 minutes IMAGE SERIES: 1 ACCESS LEVEL: L4-5 FLUID: 11 cc of clear CSF was collected and sent to the laboratory for analysis. PROCEDURE : 1. Fluoroscopic guided lumbar puncture. The risks, benefits and alternatives to the procedure were explained and verbal and written consent w as obtained. The site was prepped in sterile fashion. Full sterile technique was used, including ca p, mask, sterile gloves and gown and a large sterile sheet. Hand hygiene and 2% chlorhexidine and/or betadine/alcohol prep was utilized per protocol for cutaneous antisepsis. The skin and subcutaneous tissues were infiltrated with local anesthetic solution. With fluoroscopic guidance the lumbar thecal sac was punctured at the level above. The fluid describ ed above was removed without difficulty. The patient tolerated the procedure well and there were no complications. CONCLUSION: Uncomplicated fluoroscopically guided lumbar puncture. Herbert Lion MD on July 26, 2017 at 17:57 Board Certified Radiologist. This report was verified electronically.
[2017-07-26] MEDS ORDERED: VANCOMYCIN INJ 1,500 MG in SODIUM CHLORID 0.9% 500 ML INJ 500 ML IV SCH (18:00)
[2017-07-26 19:09] LABS: GROSS BLOOD TUBE #1 0 (0); GROSS BLOOD TUBE #2 0 (0); SUPERNATE COLOR TUBE #1 CLEAR (CLEAR); SUPERNATE COLOR TUBE #2 CLEAR (CLEAR); VOLUME TUBE # 2 2.5 ML
[2017-07-26 19:10] LABS: SUPERNATE COLOR TUBE #3 CLEAR (CLEAR); SUPERNATE COLOR TUBE #4 CLEAR (CLEAR); VOLUME TUBE # 4 1.8 ML
[2017-07-26 19:11] LABS: CSF LYMPHOCYTES 4 %; CSF MONOCYTES 4 %; CSF NEUTROPHILS 92 %; WBC TUBE #4 27 /MM3 (0-10)
[2017-07-26] MEDS: VANCOMYCIN INJ 1,500 MG in SODIUM CHLORID 0.9% 500 ML INJ 500 ML IV SCH (20:13)
[2017-07-26] MEDS: CHLORHEXIDINE 0.12% (ORAL KIT) 15 ML CUP MT SCH (20:13)
[2017-07-26] MEDS: FAMOTIDINE 20 MG/2 ML VIAL IV PUSH SCH (20:14)
[2017-07-26] MEDS: RESP: ALBUTEROL 2.5 MG/IPRATROPIUM 0.5 MG NEB (SCH) INH (20:53)
--- NOTE | 2017-07-26 21:21 | EKG ---
Date Performed: 07/26/2017 Time Performed: 09:43:01 PTAGE: 67 years EKG: ATRIAL FIBRILLATION LOW QRS VOLTAGE IN EXTREMITY LEADS MODERATE T-WAVE ABNORMALITY ABNORMAL ECG PREVIOUS TRACING : 07/20/2004 12.55 Compared to the previous tracing SR no longer present DOCTOR: Delmer Altman Interpretating Date/Time 07/26/2017 21:21:17
[2017-07-26] MEDS ORDERED: VANCOMYCIN INJ 1,250 MG in SODIUM CHLOR 0.9% 250 ML INJ 250 ML IV SCH (21:30)
--- NOTE | 2017-07-26 21:57 | MG ---
cc: OMAR SAMSON MD Lab No: Date: 07/26/2017 Age: Sex: M Race: DATE OF [address] Orellana MEDICAL HISTORY Fever, altered mental status, unresponsive, history of hypertension, anxiety, alcohol dependence atrial fibrillation, prostate cancer, skin cancer, substance use. MEDICATIONS 1. Diprivan. 2. Doxycycline. 3. Folic acid. 4. Lorazepam. 5. Magnesium oxide. 6. Metoprolol. 7. Thiamine. DESCRIPTION The background activity is 5-6 theta, located posteriorly bilateral and symmetrical superimposed by beta activity. Hyperventilation was not done. Photic stimulation did not elicit driving response. The EEG recording is contaminated by excessive movement artifact. There were no electrographic seizures or epileptiform discharges noted during the recording. During the recording there is reported shivering with no electroencephalographic correlate is evident. INTERPRETATION This is a drowsy EEG. Generalized background slowing may indicate an encephalopathic pattern that may be related to medication effect, metabolic, or hypoxic encephalopathy. Absence of electrographic seizures or epileptiform discharges does not rule out diagnosis of epilepsy. Beta activity is a nonspecific finding that may be related to medication adverse effect like benzos or barbiturates. Clinical correlation is recommended. Omar Samson MD RGO/KK /9:36 PM /9:50 PM MTDD
[2017-07-27] VITALS (37 sets, daily range): BP systolic 104–152; BP diastolic 65–95; PULSE 77–109; RESP 20–35; TEMP 97.1–98.8; O2SAT 96–100
[2017-07-27] MEDS: AZTREONAM INJ 2,000 MG in SODIUM CHLORIDE 0.9% INJ 100 ML IV SCH ×3 (00:23→18:10)
[2017-07-27] MEDS: RESP: ALBUTEROL 2.5 MG/IPRATROPIUM 0.5 MG NEB (SCH) INH ×3 (03:50→21:15)
[2017-07-27] MEDS: metroNIDAZOLE 500 MG INJ 100 ML IV SCH ×3 (03:55→23:38)
[2017-07-27] MEDS: CHLORHEXIDINE GLUCONATE 2 % 1 PACK (2 CLOTHS) TOP SCH (03:55)
[2017-07-27] MEDS: PROPOFOL 1000 MG/100 ML INJ 100 ML IV PRN (03:56)
[2017-07-27] MEDS: INSULIN NovoLIN REGULAR SUPPLEMENTAL SCALE SQ SCH ×5 (06:00→23:40)
[2017-07-27] MEDS: CHLORHEXIDINE 0.12% (ORAL KIT) 15 ML CUP MT SCH ×2 (07:40→20:00)
[2017-07-27] MEDS: VANCOMYCIN INJ 1,500 MG in SODIUM CHLORID 0.9% 500 ML INJ 500 ML IV SCH ×2 (07:40→23:00)
[2017-07-27] MEDS: THIAMINE HCL 100 MG TAB PO SCH (09:31)
[2017-07-27] MEDS: FAMOTIDINE 20 MG/2 ML VIAL IV PUSH SCH ×2 (09:31→23:37)
[2017-07-27] MEDS: MULTIVITAMIN TAB PO SCH (09:31)
[2017-07-27] MEDS: FOLIC ACID 1 MG TAB PO SCH (09:31)
[2017-07-27] MEDS: CALCIUM/VITAMIN D 250 MG/125 U TAB PO SCH (09:31)
[2017-07-27] MEDS: MAGNESIUM OXIDE 400 MG TAB PO SCH (09:31)
--- NOTE | 2017-07-27 10:29 | HHI.IDPN ---
Subjective Subjective Remarks Patient is a 67-year-old male, and to the hospital for fever and unresponsiveness on the day of admission. He was apparently normal the day prior to admission. However the day prior to admission he had a temperature and apparently was started on doxycycline. EMS was called, and they tried intubating the patient but was not successful. He had a fever of 102+ on the day of admission. Patient in the ED got intubated, and apparently during intubation there was a lot of what looks like stomach contents during the intubation. Was no mention that he had any nausea or vomiting prior to admission. No mention of any diarrhea or any shortness of breath or congestion. CT of the head did not show any acute infarct or bleed. Chest x- ray was normal. He had diarrhea, and the stool tested negative for C. difficile toxin. His urinalysis showed some mild pyuria. A Garcia was inserted in the emergency room. Infectious disease consultation has been requested to evaluate the patient. Notes reviewed Temps ok BP ok He is on CPAP Has a lot of secretions from mouth, drooling CXR with increased infiltrate on R Legio and pneumo Ag negative INfluenza neg BC pending Sputum pending LP 27 WBC, mostly neutrophil, protein slightly up Antibiotics I attest that I obtained, updated or reviewed the home and current medications. Azactam Flagyl Vancomycin Current Medications Medications (Trade) Dose Ordered Sig/Bunny Route Start Time Stop Time Status Last Admin Fentanyl Citrate 250 ml @ 5 mls/hr TITRATE PRN IV 07/26/17 12:00 Propofol 100 ml @ 2.46 mls/hr TITRATE PRN IV 07/26/17 12:00 07/27/17 03:56 (Mag-Ox) 800 mg UNSCH PRN PO 07/26/17 10:30 Magnesium Sulfate 4 gm/Sodium Chloride 100 ml @ 50 mls/hr UNSCH PRN IV 07/26/17 10:30 Magnesium Sulfate 2 gm/Sodium Chloride 100 ml @ 50 mls/hr UNSCH PRN IV 07/26/17 10:30 Potassium Chloride 100 ml @ 50 mls/hr Q2H PRN IV 07/26/17 10:30 Potassium Chloride 100 ml @ 50 mls/hr Q2H PRN IV 07/26/17 10:30 Potassium Chloride 100 ml @ 50 mls/hr Q2H PRN IV 07/26/17 10:30 Potassium Chloride 100 ml @ 25 mls/hr UNSCH PRN IV 07/26/17 10:30 (K-Phos) 2,000 mg Q4H PRN PO 07/26/17 10:30 (K-Phos) 2,000 mg UNSCH PRN PO/TUBE 07/26/17 10:30 Potassium Phosphate 30 mmol/ Sodium Chloride 260 ml @ 42 mls/hr UNSCH PRN IV 07/26/17 10:30 Sodium Phosphate 30 mmol/Sodium Chloride 250 ml @ 42 mls/hr UNSCH PRN IV 07/26/17 10:30 (Peridex 0.12% Liq) 15 ml BID@08,20 MT 07/26/17 20:00 07/27/17 07:40 (D50w (Vial) Inj) 25 ml UNSCH PRN IV PUSH 07/26/17 10:30 (NovoLIN R SUPPLEMENTAL SCALE) 1 Q6HR SQ 07/26/17 12:00 (Duoneb Neb) 1 ampule Q6HR NEB INH 07/26/17 16:00 07/27/17 03:50 (Duoneb Neb) 1 ampule Q2HR NEB PRN INH 07/26/17 10:30 Sodium Chloride 1,000 ml @ 84 mls/hr [id number] IV 07/26/17 11:30 07/26/17 14:49 (Tylenol) 650 mg Q6H PRN PO 07/26/17 10:30 (Pepcid Inj) 20 mg Q12HR IV PUSH 07/26/17 21:00 07/27/17 09:31 (Zofran Inj) 4 mg Q6H PRN IV PUSH 07/26/17 10:30 Miscellaneous Information 1 [id number] XX 07/26/17 10:30 (Chlorhexidine 2% Cloth) 3 pack Taper DAILY@04 TOP 07/27/17 04:00 07/23/18 03:59 07/27/17 03:55 (Chlorhexidine 2% Cloth) 3 pack UNSCH PRN TOP 07/26/17 10:30 Pharmacy Profile Note 0 ml @ 0 mls/hr UNSCH OTHER 07/26/17 10:30 Metronidazole 100 ml @ 100 mls/hr Q8H IV 07/26/17 12:00 07/27/17 03:55 Aztreonam 2000 mg/ Sodium Chloride 100 ml @ 200 mls/hr Q8H IV 07/26/17 17:00 07/27/17 10:07 (Folate) 1 mg DAILY PO 07/27/17 09:00 07/27/17 09:31 (Mag-Ox) 400 mg DAILY@1100 PO 07/27/17 11:00 07/27/17 09:31 (Vitamin B1) 100 mg DAILY PO 07/27/17 09:00 07/27/17 09:31 (Oscal-D 250-125) 250 mg DAILY PO 07/27/17 09:00 07/27/17 09:31 (Theragran) 1 tab DAILY PO 07/27/17 09:00 07/27/17 09:31 Miscellaneous Information SPECIFIC LAB TO BE DRAWN:VANCOMYCIN TROUGH DATE TO... ONCE ONCE .XX 07/28/17 07:45 07/28/17 07:46 Vancomycin HCl 1500 mg/Sodium Chloride 515 ml @ 250 mls/hr Q12H IV 07/26/17 20:00 07/27/17 07:40 Lines PIV Past Medical History Skin cancer Prostate CA Atrial fib GERD Hypertension Past Surgical History Inguinal Hernia surgery Hydroco[place] Allergies: Coded Allergies: penicillin G (Unverified Allergy, Severe, ITCHINESS, 07/26/17) Objective . Vital Signs Date Time Temp Pulse Resp B/P (MAP) Pulse Ox O2 Delivery O2 Flow Rate FiO2 07/27/17 07:57 100 35 07/27/17 06:00 79 07/27/17 04:08 100 35 07/27/17 04:00 77 07/27/17 04:00 98.3 77 23 115/68 (84) 100 07/27/17 04:00 35 07/27/17 02:00 83 07/27/17 01:06 100 35 07/27/17 00:00 40 07/27/17 00:00 82 07/27/17 00:00 98.7 82 22 104/67 (79) 100 07/26/17 22:09 100 40 07/26/17 22:00 82 07/26/17 20:00 40 07/26/17 20:00 85 07/26/17 20:00 99.1 85 25 104/63 (77) 99 07/26/17 19:10 99 40 07/26/17 17:00 100 100 07/26/17 16:04 99 40 07/26/17 16:00 35 07/26/17 16:00 100.6 07/26/17 12:19 07/26/17 12:15 97 40 07/26/17 12:12 100 15.00 07/26/17 11:40 100 40 07/26/17 11:23 100.8 81 14 115/60 (78) 100 Ventilator 45 07/26/17 10:25 100.9 81 14 120/70 (87) 100 Ventilator 45 07/26/17 10:22 100 100 07/27/17 07/27/17 07/28/17 15:00 23:00 07:00 Intake Total 48 ml Balance 48 ml Intake IV Total 48 ml . Laboratory Tests Test 07/26/17 09:17 White Blood Count 16.1 TH/MM3 Red Blood Count 3.47 MIL/MM3 Hemoglobin 10.8 GM/DL Hematocrit 32.4 % Mean Corpuscular Volume 93.3 FL Mean Corpuscular Hemoglobin 31.1 PG Mean Corpuscular Hemoglobin Concent 33.4 % Red Cell Distribution Width 21.6 % Platelet Count 391 TH/MM3 Mean Platelet Volume 8.9 FL Neutrophils (%) (Auto) 74.5 % Lymphocytes (%) (Auto) 13.5 % Monocytes (%) (Auto) 11.0 % Eosinophils (%) (Auto) 0.0 % Basophils (%) (Auto) 1.0 % Neutrophils # (Auto) 12.0 TH/MM3 Lymphocytes # (Auto) 2.2 TH/MM3 Monocytes # (Auto) 1.8 TH/MM3 Eosinophils # (Auto) 0.0 TH/MM3 Basophils # (Auto) 0.2 TH/MM3 CBC Comment DIFF FINAL Differential Comment Laboratory Tests Test 07/26/17 09:17 Blood Urea Nitrogen 18 MG/DL Creatinine 1.07 MG/DL Random Glucose 106 MG/DL Total Protein 7.1 GM/DL Albumin 2.7 GM/DL Calcium Level 8.8 MG/DL Alkaline Phosphatase 63 U/L Aspartate Amino Transf (AST/SGOT) 31 U/L Alanine Aminotransferase (ALT/SGPT) 14 U/L Total Bilirubin 0.5 MG/DL Sodium Level 129 MEQ/L Potassium Level 4.7 MEQ/L Chloride Level 98 MEQ/L Carbon Dioxide Level 21.2 MEQ/L Anion Gap 10 MEQ/L Estimat Glomerular Filtration Rate 69 ML/MIN Lactic Acid Level 1.5 mmol/L Total Creatine Kinase 337 U/L Creatine Kinase MB 2.9 NG/ML Creatine Kinase MB % 0.9 % Troponin I 0.05 NG/ML B-Type Natriuretic Peptide 318 PG/ML Microbiology Date/Time Source Procedure Growth Status 07/26/17 09:17 Blood Peripheral Aerobic Blood Culture Pending Received 07/26/17 09:17 Blood Peripheral Anaerobic Blood Culture Pending Received 07/26/17 09:02 Blood Peripheral Aerobic Blood Culture Pending Received 07/26/17 09:02 Blood Peripheral Anaerobic Blood Culture Pending Received 07/26/17 17:20 Cerebral Spinal Fluid Lumbar Puncture Gram Stain - Final Resulted 07/26/17 17:20 Cerebral Spinal Fluid Lumbar Puncture CSF Culture - Preliminary NO GROWTH IN 24 HOURS. Resulted 07/26/17 09:17 Stool Stool Rotavirus Antigen - Final NEGATIVE - ROTAVIRUS ANTIGEN IS ABSEN... Complete 07/26/17 18:45 Nasal Washing Influenza Types A,B Antigen (VICTORIA) - Final NEGATIVE FOR FLU A AND B ANTIGEN.... Complete 07/26/17 10:40 Sputum Endotracheal Gram Stain - Final Resulted 07/26/17 10:40 Sputum Endotracheal Sputum Culture Pending Resulted 07/26/17 09:17 Urine Catheterized Urine Legionella Antigen - Final PRESUMPTIVE NEGATIVE FOR LEGIONELLA P... Complete 07/26/17 09:17 Urine Catheterized Urine Streptococcus pneumoniae Antigen (M - Final PRESUMPTIVE NEGATIVE FOR STREPTOCOCCU... Complete 07/26/17 09:17 Urine Random Urine Urine Culture Pending Received Imaging Head CT 07/26/17904 Signed Impressions: Service Date/Time: Wednesday, July 26, 2017 10:05 - CONCLUSION: 1. Moderate periventricular and subcortical white matter small vessel ischemic changes bilaterally. 2. Mild cerebral atrophy. 3. No acute infarct, acute hemorrhage , mass effect or extra-axial fluid collections. Reji Corcoran MD Chest X-Ray 07/26/17904 Signed Impressions: Service Date/Time: Wednesday, July 26, 2017 09:42 - CONCLUSION: 1. Endotracheal tube and nasogastric tube in good positions. 2. Cardiomegaly. 3. No acute focal pulmonary infiltrate or pulmonary vascular congestion. Reji Corcoran MD Lumbar Puncture Fluoroscopy 07/26/17 0000 Signed Impressions: Service Date/Time: Wednesday, July 26, 2017 17:11 - CONCLUSION: Uncomplicated fluoroscopically guided lumbar puncture. Herbert Lion MD Physical Exam GENERAL: Awake, on the vent, NAD SKIN: Warm and dry. No generalized rash, no ecchymoses and no evidence of embolic lesions. HEAD: Atraumatic. Normocephalic. No temporal wasting, or tenderness. EYES: [place] conjunctiva. No petechia or hemorrhage. Pupils equal, round and reactive to light. No scleral icterus. No injection or drainage. EARS, NOSE AND THROAT: Nose without bleeding or purulent nasal discharge. He is orally intubated. NECK: Trachea midline. Supple CARDIOVASCULAR: Regular rate and rhythm. There is a systolic murmur heard on the left precordium. RESPIRATORY: Clear to auscultation. Coarse breath sounds bilaterally. Breath sounds equal bilaterally. No rales, wheezing or rhonchi ABDOMEN: Soft, nondistended, not tender. Bowel sounds present and normoactive. No guarding. No organomegaly. EXTREMITIES: No clubbing, cyanosis, or edema.No joint effusion, has good ROM. No calf tenderness. Well perfused and warm. NEUROLOGICAL: Awake and focusing PSYCHIATRIC: Unable to assess LINE: No evidence of infection Assessment & Plan Remarks IMPRESSION Sepsis on presentation, acute febrile illness, patient SNF resident, prob aspirated Encephalopathy, ?SZ episode LP only 27 WBC Respiratory failure, likely aspiration Hx ETOH abuse Mild pyuria, no garcia in [place] RECOMMENDATION Follow C/S Continue empiric Abx: Vancomycin, Azactam Monitor progress Follow temps Will determine course of Abx depending on his clinical course Weaning per CCM D/W Sindhu Cagle MD Jul 27, 2017 10:29
--- NOTE | 2017-07-27 10:35 | RADRPT ---
EXAM DATE/TIME: 07/27/2017 08:54 [facility] COMPARISON: CHEST SINGLE AP, July 26, 2017, 9:42. INDICATIONS : Respiratory Failure. MEDICAL HISTORY : Cardiovascular disease. Hypertension. Carcinoma, prostate SURGICAL HISTORY : None. ENCOUNTER: Subsequent ACUITY: 2 days PAIN SCORE: Non-responsive. LOCATION: Bilateral chest FINDINGS: The endotracheal tube has its tip 4 cm above the yunior. The nasogastric is coiled in the stomach. Left basilar atelectasis is noted. The heart is stable. The pulmonary vascular pattern is normal. The lungs are otherwise clear. CONCLUSION: 1. Endotracheal tube and nasogastric tube in good positions. 2. Left basilar atelectasis. Reji Corcoran MD on July 27, 2017 at 10:25 Board Certified Radiologist. This report was verified electronically.
[2017-07-27] MEDS: SODIUM CHLOR 0.9% 1000 ML INJ 1,000 ML IV SCH ×2 (11:21→23:37)
--- NOTE | 2017-07-27 11:28 | HHI.CCPN ---
Subjective Remarks/Hospital Course 07/26: 67-year-old male who is a shelter resident with a medical history significant for alcohol dependence, atrial fibrillation, hypertension, generalized weakness and anxiety was brought to the ER by EMS for altered mental status. Patient was noted to have fever and been started on doxycycline a day prior to admission. He had a temperature of 102.5 at the shelter this morning. EMS attempt at intubating patient at the scene was unsuccessful. He was brought to the ER with bag valve mask assisted ventilation. Patient was intubated in the ER following his arrival and placed on mechanical ventilation. He was diagnosed to have sepsis and was initiated on empiric antibiotics including IV vancomycin and aztreonam obtaining blood and sputum cultures. A lumbar puncture was ordered to be done by IR. Patient was accepted for admission by critical care medicine service. When I evaluated the patient in the ER he was sedated with propofol, orally intubated on mechanical ventilation. The ER nurse he just had significant diarrhea which tested negative for C. difficile. History was obtained by reviewing records and discussion with ER physician and nursing staff. 07/27: Arousable off sedation, has spontaneous eye opening. Orally intubated on mechanical ventilation currently. Objective Vital Signs Date Time Temp Pulse Resp B/P (MAP) Pulse Ox O2 Delivery O2 Flow Rate FiO2 07/27/17 07:57 100 35 07/27/17 06:00 79 07/27/17 04:00 98.3 23 115/68 (84) 07/26/17 12:12 15.00 07/26/17 11:23 Ventilator Intake and Output 07/27/17 07/27/17 07/28/17 08:00 16:00 00:00 Intake Total 348 ml Output Total 650 ml Balance -302 ml Result Diagram: 07/26/1717 07/26/17916 Other Results Microbiology Date/Time Source Procedure Growth Status 07/26/17 09:17 Stool Stool Rotavirus Antigen - Final NEGATIVE - ROTAVIRUS ANTIGEN IS ABSEN... Complete 07/26/17 18:45 Nasal Washing Influenza Types A,B Antigen ([facility]CTORIA) - Final NEGATIVE FOR FLU A AND B ANTIGEN.... Complete 07/26/17 09:17 Urine Catheterized Urine Legionella Antigen - Final PRESUMPTIVE NEGATIVE FOR LEGIONELLA P... Complete 07/26/17 09:17 Urine Catheterized Urine Streptococcus pneumoniae Antigen (M - Final PRESUMPTIVE NEGATIVE FOR STREPTOCOCCU... Complete Laboratory Tests Test 07/26/17 13:17 Blood Gas Puncture Site RT RADIAL Blood Gas Patient Temperature 98.6 Blood Gas HCO3 19 mmol/L (22-26) Blood Gas Base Excess -4.4 mmol/L (-2-2) Blood Gas Oxygen Saturation 96 % (90-100) Arterial Blood pH 7.41 (7.380-7.420) Arterial Blood Partial Pressure CO2 31 mmHg (38-42) Arterial Blood Partial Pressure O2 109 mmHg (61-120) Arterial Blood Oxygen Content 13.3 Vol % (12.0-20.0) Arterial Blood Carboxyhemoglobin 1.5 % (0-4) Arterial Blood Methemoglobin 0.8 % (0-2) Blood Gas Hemoglobin 9.7 G/DL (12.0-16.0) Oxygen Delivery Device VENTILATOR Blood Gas Ventilator Setting Blood Gas Inspired Oxygen 40 % Imaging Last Impressions Head CT 07/26/17904 Signed Impressions: Service Date/Time: Wednesday, July 26, 2017 10:05 - CONCLUSION: 1. Moderate periventricular and subcortical white matter small vessel ischemic changes bilaterally. 2. Mild cerebral atrophy. 3. No acute infarct, acute hemorrhage , mass effect or extra-axial fluid collections. Reji Corcoran MD Chest X-Ray 07/26/17904 Signed Impressions: Service Date/Time: Wednesday, July 26, 2017 09:42 - CONCLUSION: 1. Endotracheal tube and nasogastric tube in good positions. 2. Cardiomegaly. 3. No acute focal pulmonary infiltrate or pulmonary vascular congestion. Reji Corcoran MD Objective Remarks HEENT/ Neuro: Arouses off sedation, orally intubated, Pallor present, no icterus , tongue/ mucosa moist. Pupils 3 mm bilaterally equal and reactive to light. Not following commands, attempts to upper extremities but not much movement. Neck: Neck stiffness noted, No JVD Chest/Pulm: on mech vent, good air entry bilaterally, no wheezing or crackles. Bilateral rhonchi. CVS: S1-S2 irregular, no murmur GI/abdomen: soft, nontender, bowel sounds sluggish Extremities: warm bilaterally, no edema A/P Assessment and Plan 67-year-old male with: Severe Sepsis Encephalopathy : Delirium secondary to sepsis vs possible meningitis, worsened by hyponatremia Hyponatremia Suspected aspiration (prehospital) Pneumonia alcohol dependence atrial fibrillation H/o hypertension H/o generalized weakness anxiety Plan: Neuro: Sedation with propofol while intubated, daily sedation vacation. Status post lumbar puncture - CSF with elevated WBCs at 27 slightly elevated protein and normal glucose, culture pending the CSF does not suggest bacterial meningitis. Follow neuro status. F/U EEG. Cardiovascular: IV hydration, watch for hypotension. Resume beta bell if no hypotension or if patient has issues with A. fib with RVR. Pulmonary: On mechanical ventilation, vent bundle, bronchodilators as needed. Sputum sent for Gram stain and cultures. Suspect aspiration. Daily C Pap trials to decide extubation GI/liver: Continue tube feeds and advance to goal as tolerated. Hold this morning for possible extubation if patient tolerates C Pap trial Renal/: IV hydration, strict intake output, monitor and replete elect lites, follow BUN/creatinine. Hyponatremia noted. On normal saline currently. Follow sodium. ID: Follow-up cultures. CSF sent for Gram stain and cultures following LP. CSF with elevated WBCs slightly elevated protein. Empiric antibiotic coverage with IV aztreonam/vancomycin/Flagyl. ID consulted and following. Heme: Follow CBC and coags. . Endocrine: SSI for glycemic control if needed. Prophylaxis: Pepcid/SCDs/start subcutaneous heparin on 07/28 (was held for LP) Condition critical Time spent on critical care excluding procedures 35 minutes Kvng Orellana MD Jul 27, 2017 11:28
[2017-07-27 12:24] LABS: AUTOMATED NEUTROPHIL # 11.4 TH/MM3 (1.8-7.7); BASOPHIL # 0.1 TH/MM3 (0-0.2); BASOPHIL % 0.6 % (0.0-2.0); EOSINOPHIL # 0.1 TH/MM3 (0-0.4); HEMATOCRIT 30.2 % (39.0-51.0); HEMO FLAGS DIFF FINAL; LYMPH % 8.6 % (9.0-44.0); LYMPHOCYTE # 1.2 TH/MM3 (1.0-4.8); MEAN CELL VOLUME 95.9 FL (80.0-100.0); MEAN CORPUSCULAR HEMOGLOBIN 29.9 PG (27.0-34.0); MEAN CORPUSCULAR HGB CONC 31.1 % (32.0-36.0); MONO % 7.8 % (0.0-8.0); PLATELET COUNT 222 TH/MM3 (150-450); RED BLOOD COUNT 3.15 MIL/MM3 (4.50-5.90)
[2017-07-27 12:30] LABS: ALT (GPT) 9 U/L (12-78); ANION GAP 11 MEQ/L (5-15); AST (GOT) 33 U/L (15-37); BICARBONATE 20.1 MEQ/L (21.0-32.0); BLOOD UREA NITROGEN 13 MG/DL (7-18); CHLORIDE 102 MEQ/L (98-107); GLOMERULAR FILTRATION RATE 184 ML/MIN (>89); POTASSIUM 4.2 MEQ/L (3.5-5.1); SODIUM (NA) 133 MEQ/L (136-145)
[2017-07-27 12:31] LABS: ALKALINE PHOSPHATASE 61 U/L (45-117); TOTAL BILIRUBIN ADULT 0.4 MG/DL (0.2-1.0)
[2017-07-28] VITALS (20 sets, daily range): BP systolic 139–163; BP diastolic 77–104; PULSE 90–107; RESP 29–40; TEMP 98.1–100; O2SAT 92–99
[2017-07-28] MEDS: AZTREONAM INJ 2,000 MG in SODIUM CHLORIDE 0.9% INJ 100 ML IV SCH ×2 (02:18→08:01)
[2017-07-28] MEDS: CHLORHEXIDINE GLUCONATE 2 % 1 PACK (2 CLOTHS) TOP SCH (02:18)
[2017-07-28] MEDS: RESP: ALBUTEROL 2.5 MG/IPRATROPIUM 0.5 MG NEB (SCH) INH ×4 (03:26→20:01)
[2017-07-28] MEDS: INSULIN NovoLIN REGULAR SUPPLEMENTAL SCALE SQ SCH ×3 (06:00→18:00)
[2017-07-28] MEDS: metroNIDAZOLE 500 MG INJ 100 ML IV SCH ×3 (06:06→21:14)
[2017-07-28] MEDS: CHLORHEXIDINE 0.12% (ORAL KIT) 15 ML CUP MT SCH ×2 (08:00→20:00)
[2017-07-28] MEDS: MULTIVITAMIN TAB PO SCH (08:01)
[2017-07-28] MEDS: FAMOTIDINE 20 MG/2 ML VIAL IV PUSH SCH ×2 (08:01→21:13)
[2017-07-28] MEDS: CALCIUM/VITAMIN D 250 MG/125 U TAB PO SCH (08:01)
[2017-07-28] MEDS: THIAMINE HCL 100 MG TAB PO SCH (08:01)
[2017-07-28] MEDS: FOLIC ACID 1 MG TAB PO SCH (08:01)
[2017-07-28] MEDS ORDERED: PHARMACY ORDERED LAB ONE (10:45)
[2017-07-28] MEDS: VANCOMYCIN INJ 1,500 MG in SODIUM CHLORID 0.9% 500 ML INJ 500 ML IV SCH (14:35)
[2017-07-28] MEDS: SODIUM CHLOR 0.9% 1000 ML INJ 1,000 ML IV SCH (14:35)
[2017-07-28] MEDS: MAGNESIUM OXIDE 400 MG TAB PO SCH (14:36)
--- NOTE | 2017-07-28 14:56 | HHI.IDPN ---
Subjective Subjective Remarks Patient is a 67-year-old male, and to the hospital for fever and unresponsiveness on the day of admission. He was apparently normal the day prior to admission. However the day prior to admission he had a temperature and apparently was started on doxycycline. EMS was called, and they tried intubating the patient but was not successful. He had a fever of 102+ on the day of admission. Patient in the ED got intubated, and apparently during intubation there was a lot of what looks like stomach contents during the intubation. Was no mention that he had any nausea or vomiting prior to admission. No mention of any diarrhea or any shortness of breath or congestion. CT of the head did not show any acute infarct or bleed. Chest x- ray was normal. He had diarrhea, and the stool tested negative for C. difficile toxin. His urinalysis showed some mild pyuria. A Garcia was inserted in the emergency room. Infectious disease consultation has been requested to evaluate the patient. Notes reviewed Patient has been extubated Temps ok Good sats on RA Has moist cough CSF C/S negative Sputum normal jessica CXR with L base infiltrate Legio and pneumo Ag negative INfluenza neg BC pending Sputum pending LP 27 WBC, mostly neutrophil, protein slightly up Antibiotics I attest that I obtained, updated or reviewed the home and current medications. Azactam Flagyl Vancomycin Current Medications Medications (Trade) Dose Ordered Sig/Bunny Route Start Time Stop Time Status Last Admin Fentanyl Citrate 250 ml @ 5 mls/hr TITRATE PRN IV 07/26/17 12:00 Propofol 100 ml @ 2.46 mls/hr TITRATE PRN IV 07/26/17 12:00 07/27/17 03:56 (Mag-Ox) 800 mg UNSCH PRN PO 07/26/17 10:30 Magnesium Sulfate 4 gm/Sodium Chloride 100 ml @ 50 mls/hr UNSCH PRN IV 07/26/17 10:30 Magnesium Sulfate 2 gm/Sodium Chloride 100 ml @ 50 mls/hr UNSCH PRN IV 07/26/17 10:30 Potassium Chloride 100 ml @ 50 mls/hr Q2H PRN IV 07/26/17 10:30 Potassium Chloride 100 ml @ 50 mls/hr Q2H PRN IV 07/26/17 10:30 Potassium Chloride 100 ml @ 50 mls/hr Q2H PRN IV 07/26/17 10:30 Potassium Chloride 100 ml @ 25 mls/hr UNSCH PRN IV 07/26/17 10:30 (K-Phos) 2,000 mg Q4H PRN PO 07/26/17 10:30 (K-Phos) 2,000 mg UNSCH PRN PO/TUBE 07/26/17 10:30 Potassium Phosphate 30 mmol/ Sodium Chloride 260 ml @ 42 mls/hr UNSCH PRN IV 07/26/17 10:30 Sodium Phosphate 30 mmol/Sodium Chloride 250 ml @ 42 mls/hr UNSCH PRN IV 07/26/17 10:30 (Peridex 0.12% Liq) 15 ml BID@08,20 MT 07/26/17 20:00 07/27/17 07:40 (D50w (Vial) Inj) 25 ml UNSCH PRN IV PUSH 07/26/17 10:30 (NovoLIN R SUPPLEMENTAL SCALE) 1 Q6HR SQ 07/26/17 12:00 (Duoneb Neb) 1 ampule Q6HR NEB INH 07/26/17 16:00 07/28/17 08:46 (Duoneb Neb) 1 ampule Q2HR NEB PRN INH 07/26/17 10:30 Sodium Chloride 1,000 ml @ 84 mls/hr [id number] IV 07/26/17 11:30 07/28/17 14:35 (Tylenol) 650 mg Q6H PRN PO 07/26/17 10:30 (Pepcid Inj) 20 mg Q12HR IV PUSH 07/26/17 21:00 07/28/17 08:01 (Zofran Inj) 4 mg Q6H PRN IV PUSH 07/26/17 10:30 Miscellaneous Information 1 Q361D XX 07/26/17 10:30 (Chlorhexidine 2% Cloth) 3 pack Taper DAILY@04 TOP 07/27/17 04:00 07/23/18 03:59 07/28/17 02:18 (Chlorhexidine 2% Cloth) 3 pack UNSCH PRN TOP 07/26/17 10:30 Pharmacy Profile Note 0 ml @ 0 mls/hr UNSCH OTHER 07/26/17 10:30 Aztreonam 2000 mg/ Sodium Chloride 100 ml @ 200 mls/hr Q8H IV 07/26/17 17:00 07/28/17 08:01 (Folate) 1 mg DAILY PO 07/27/17 09:00 07/28/17 08:01 (Mag-Ox) 400 mg DAILY@1100 PO 07/27/17 11:00 07/28/17 14:36 (Vitamin B1) 100 mg DAILY PO 07/27/17 09:00 07/28/17 08:01 (Oscal-D 250-125) 250 mg DAILY PO 07/27/17 09:00 07/28/17 08:01 (Theragran) 1 tab DAILY PO 07/27/17 09:00 07/28/17 08:01 Metronidazole 100 ml @ 100 mls/hr Q8H IV 07/27/17 23:00 07/28/17 14:28 Vancomycin HCl 1500 mg/Sodium Chloride 515 ml @ 250 mls/hr Q12H IV 07/27/17 23:00 07/28/17 14:35 Lines PIV Past Medical History Skin cancer Prostate CA Atrial fib GERD Hypertension Past Surgical History Inguinal Hernia surgery Hydrocoele Allergies: Coded Allergies: penicillin G (Unverified Allergy, Severe, ITCHINESS, 07/26/17) Objective . Vital Signs Date Time Temp Pulse Resp B/P (MAP) Pulse Ox O2 Delivery O2 Flow Rate FiO2 07/28/17 14:00 94 29 163/88 (113) 94 07/28/17 13:00 91 31 153/92 (112) 93 07/28/17 12:00 92 29 157/97 (117) 94 07/28/17 12:00 98.1 07/28/17 10:00 99 32 150/82 (104) 95 07/28/17 09:00 100 33 145/86 (105) 99 07/28/17 08:46 96 21 07/28/17 08:00 90 31 142/88 (106) 98 07/28/17 08:00 98.6 07/28/17 08:00 95 07/28/17 06:00 96 07/28/17 04:00 107 07/28/17 04:00 98.6 107 36 139/91 (107) 95 07/28/17 02:00 91 07/28/17 00:00 98.3 98 35 161/77 (105) 96 07/28/17 00:00 98 07/27/17 22:00 109 07/27/17 21:13 99 Nasal Cannula 3.00 07/27/17 20:00 98.5 109 34 146/82 (103) 96 07/27/17 20:00 109 07/27/17 19:30 97 35 150/73 (98) 99 07/27/17 19:00 104 30 142/66 (91) 100 07/27/17 18:30 100 33 135/75 (95) 99 07/27/17 18:00 99 07/27/17 18:00 99 34 125/76 (92) 98 07/27/17 17:30 102 32 152/81 (104) 99 07/27/17 17:00 99 30 126/79 (95) 100 07/27/17 16:30 97 31 137/80 (99) 100 07/27/17 16:00 98.2 98 31 125/65 (85) 98 07/27/17 16:00 98 07/27/17 15:30 100 33 137/74 (95) 99 07/27/17 15:00 105 35 135/68 (90) 100 . Laboratory Tests Test 07/27/17 11:33 White Blood Count 14.0 TH/MM3 Red Blood Count 3.15 MIL/MM3 Hemoglobin 9.4 GM/DL Hematocrit 30.2 % Mean Corpuscular Volume 95.9 FL Mean Corpuscular Hemoglobin 29.9 PG Mean Corpuscular Hemoglobin Concent 31.1 % Red Cell Distribution Width 21.0 % Platelet Count 222 TH/MM3 Mean Platelet Volume 9.0 FL Neutrophils (%) (Auto) 82.0 % Lymphocytes (%) (Auto) 8.6 % Monocytes (%) (Auto) 7.8 % Eosinophils (%) (Auto) 1.0 % Basophils (%) (Auto) 0.6 % Neutrophils # (Auto) 11.4 TH/MM3 Lymphocytes # (Auto) 1.2 TH/MM3 Monocytes # (Auto) 1.1 TH/MM3 Eosinophils # (Auto) 0.1 TH/MM3 Basophils # (Auto) 0.1 TH/MM3 CBC Comment DIFF FINAL Differential Comment Laboratory Tests Test 07/27/17 11:33 Blood Urea Nitrogen 13 MG/DL Creatinine 0.46 MG/DL Random Glucose 103 MG/DL Total Protein 6.5 GM/DL Albumin 2.3 GM/DL Calcium Level 8.5 MG/DL Alkaline Phosphatase 61 U/L Aspartate Amino Transf (AST/SGOT) 33 U/L Alanine Aminotransferase (ALT/SGPT) 9 U/L Total Bilirubin 0.4 MG/DL Sodium Level 133 MEQ/L Potassium Level 4.2 MEQ/L Chloride Level 102 MEQ/L Carbon Dioxide Level 20.1 MEQ/L Anion Gap 11 MEQ/L Estimat Glomerular Filtration Rate 184 ML/MIN Microbiology Date/Time Source Procedure Growth Status 07/26/17 09:17 Blood Peripheral Aerobic Blood Culture - Preliminary NO GROWTH IN 2 DAYS Resulted 07/26/17 09:17 Blood Peripheral Anaerobic Blood Culture - Preliminary NO GROWTH IN 2 DAYS Resulted 07/26/17 09:02 Blood Peripheral Aerobic Blood Culture - Preliminary NO GROWTH IN 2 DAYS Resulted 07/26/17 09:02 Blood Peripheral Anaerobic Blood Culture - Preliminary NO GROWTH IN 2 DAYS Resulted 07/26/17 17:20 Cerebral Spinal Fluid Lumbar Puncture Gram Stain - Final Resulted 07/26/17 17:20 Cerebral Spinal Fluid Lumbar Puncture CSF Culture - Preliminary NO GROWTH IN 48 HOURS. Resulted 07/26/17 09:17 Stool Stool Rotavirus Antigen - Final NEGATIVE - ROTAVIRUS ANTIGEN IS ABSEN... Complete 07/26/17 18:45 Nasal Washing Influenza Types A,B Antigen (VICTORIA) - Final NEGATIVE FOR FLU A AND B ANTIGEN.... Complete 07/26/17 10:40 Sputum Endotracheal Gram Stain - Final Complete 07/26/17 10:40 Sputum Endotracheal Sputum Culture - Final HEAVY GROWTH NORMAL RESPIRATORY JESSICA Complete 07/26/17 09:17 Urine Catheterized Urine Legionella Antigen - Final PRESUMPTIVE NEGATIVE FOR LEGIONELLA P... Complete 07/26/17 09:17 Urine Catheterized Urine Streptococcus pneumoniae Antigen (M - Final PRESUMPTIVE NEGATIVE FOR STREPTOCOCCU... Complete 07/26/17 09:17 Urine Random Urine Urine Culture - Final NO GROWTH IN 48 HOURS. Complete Imaging Chest X-Ray 07/27/17 0000 Signed Impressions: Service Date/Time: Thursday, July 27, 2017 08:54 - CONCLUSION: 1. Endotracheal tube and nasogastric tube in good positions. 2. Left basilar atelectasis. Reji Corcoran MD Head CT 07/26/17 0905 Signed Impressions: Service Date/Time: Wednesday, July 26, 2017 10:05 - CONCLUSION: 1. Moderate periventricular and subcortical white matter small vessel ischemic changes bilaterally. 2. Mild cerebral atrophy. 3. No acute infarct, acute hemorrhage , mass effect or extra-axial fluid collections. Reji Corcoran MD Chest X-Ray 07/26/17904 Signed Impressions: Service Date/Time: Wednesday, July 26, 2017 09:42 - CONCLUSION: 1. Endotracheal tube and nasogastric tube in good positions. 2. Cardiomegaly. 3. No acute focal pulmonary infiltrate or pulmonary vascular congestion. Reji Corcoran MD Lumbar Puncture Fluoroscopy 07/26/17 Signed Impressions: Service Date/Time: Wednesday, July 26, 2017 17:11 - CONCLUSION: Uncomplicated fluoroscopically guided lumbar puncture. Herbert Lion MD Head CT 07/26/17904 Signed Impressions: Service Date/Time: Wednesday, July 26, 2017 10:05 - CONCLUSION: 1. Moderate periventricular and subcortical white matter small vessel ischemic changes bilaterally. 2. Mild cerebral atrophy. 3. No acute infarct, acute hemorrhage , mass effect or extra-axial fluid collections. Reji Corcoran MD Chest X-Ray 07/26/17904 Signed Impressions: Service Date/Time: Wednesday, July 26, 2017 09:42 - CONCLUSION: 1. Endotracheal tube and nasogastric tube in good positions. 2. Cardiomegaly. 3. No acute focal pulmonary infiltrate or pulmonary vascular congestion. Reji Corcoran MD Lumbar Puncture Fluoroscopy 07/26/17 Signed Impressions: Service Date/Time: Wednesday, July 26, 2017 17:11 - CONCLUSION: Uncomplicated fluoroscopically guided lumbar puncture. Herbert Lion MD Physical Exam GENERAL: Awake, NAD, has moist cough SKIN: Warm and dry. No generalized rash, no ecchymoses and no evidence of embolic lesions. HEAD: Atraumatic. Normocephalic. No temporal wasting, or tenderness. EYES: [place] conjunctiva. No petechia or hemorrhage. Pupils equal, round and reactive to light. No scleral icterus. No injection or drainage. EARS, NOSE AND THROAT: Nose without bleeding or purulent nasal discharge. NECK: Trachea midline. Supple CARDIOVASCULAR: Regular rate and rhythm. There is a systolic murmur heard on the left precordium. RESPIRATORY: Coarse breath sounds bilaterally. Breath sounds equal bilaterally. No rales, wheezing or rhonchi ABDOMEN: Soft, nondistended, not tender. Bowel sounds present and normoactive. No guarding. No organomegaly. EXTREMITIES: No clubbing, cyanosis, or edema. No calf tenderness. Well perfused and warm. NEUROLOGICAL: Awake and focusing PSYCHIATRIC: CAlm LINE: No evidence of infection Assessment & Plan Remarks IMPRESSION Sepsis on presentation, acute febrile illness, patient SNF resident, prob aspirated Encephalopathy, ?SZ episode LP only 27 WBC Respiratory failure, likely aspiration Hx ETOH abuse Mild pyuria, no garcia in [place] RECOMMENDATION Stop Vanco Change to Rocephin Stop Azactam Continue Flagyl Monitor progress Follow Sindhu Camarillo MD Jul 28, 2017 14:56
[2017-07-28] MEDS: cefTRIAXone INJ 2,000 MG in SODIUM CHLORIDE 0.9% INJ 100 ML IV SCH (17:32)
--- NOTE | 2017-07-28 18:08 | HHI.PR ---
Subjective Remarks Patient continues disoriented, agitated, confused. denies pain. Discussed with nursing. We'll order speech eval. Objective Vital Signs Date Time Temp Pulse Resp B/P (MAP) Pulse Ox O2 Delivery O2 Flow Rate FiO2 07/28/17 15:00 96 07/28/17 14:26 93 07/28/17 14:00 94 29 163/88 (113) 94 07/28/17 14:00 94 07/28/17 13:00 91 31 153/92 (112) 93 07/28/17 13:00 91 07/28/17 12:00 92 29 157/97 (117) 94 07/28/17 12:00 98.1 07/28/17 12:00 92 07/28/17 11:00 92 07/28/17 10:00 99 07/28/17 10:00 99 32 150/82 (104) 95 07/28/17 09:00 100 33 145/86 (105) 99 07/28/17 08:46 96 21 07/28/17 08:00 90 31 142/88 (106) 98 07/28/17 08:00 98.6 07/28/17 08:00 95 07/28/17 06:00 96 07/28/17 04:00 107 07/28/17 04:00 98.6 107 36 139/91 (107) 95 07/28/17 02:00 91 07/28/17 00:00 98.3 98 35 161/77 (105) 96 07/28/17 00:00 98 07/27/17 22:00 109 07/27/17 21:13 99 Nasal Cannula 3.00 07/27/17 20:00 98.5 109 34 146/82 (103) 96 07/27/17 20:00 109 07/27/17 19:30 97 35 150/73 (98) 99 07/27/17 19:00 104 30 142/66 (91) 100 07/27/17 18:30 100 33 135/75 (95) 99 I/O 07/27/17 07/27/17 07/27/17 07/28/17 07/28/17 07/28/17 07:00 15:00 23:00 07:00 15:00 23:00 Intake Total 300 ml 763 ml 666 ml 1800 ml 600 ml Output Total 650 ml 300 ml 450 ml Balance -350 ml 763 ml 366 ml 1350 ml 600 ml Intake IV Total 300 ml 763 ml 666 ml 1800 ml 600 ml Output Urine Total 650 ml 300 ml 450 ml # Bowel Movements 1 1 Result Diagram: 07/27/17 1133 07/27/17 1133 Objective Remarks GENERAL: Patient lying in bed restrained. Disoriented. SKIN: Warm and dry. HEAD: Normocephalic. EYES: No scleral icterus. No injection or drainage. NECK: Supple, trachea midline. No JVD or lymphadenopathy. CARDIOVASCULAR: Regular rate and rhythm without murmurs, gallops, or rubs. RESPIRATORY: Breath sounds equal bilaterally. No accessory muscle use. GASTROINTESTINAL: Abdomen soft, non-tender, nondistended. MUSCULOSKELETAL: No cyanosis, or edema. BACK: Nontender without obvious deformity. No CVA tenderness. A/P Assessment and Plan //Severe Sepsis //Encephalopathy : Delirium secondary to sepsis vs possible meningitis, worsened by Hyponatremia, fever, suspected aspiration -LP not concerning for meningitis. -Leukocytes 14.0 yesterday. Repeat CBC, CMP. -Still requiring restraints. -Start on Ativan twice daily, Seroquel for agitation. //Hyponatremia. Improving. Sodium 133. //Suspected aspiration pneumonia (prehospital) -Chest x-ray reviewed. Antibiotics as above. -Consult speech therapy -Continue antibiotics as per infectious disease. //alcohol dependence -Patient was at custodial, however unclear if he was still able to get alcohol. -Patient does have tachycardia, tachypnea, will place on Ativan for withdrawal. Continue to monitor. //atrial fibrillation H/o hypertension -Heart rate elevated in the 90s. Pressure reviewed and acceptable. Restart metoprolol. //H/o generalized weakness -Continue PT/OT Discharge Planning Continues disoriented, restrained. pending speech eval. pt/ot lives at custodial. Geovany Henriquez MD Jul 28, 2017 18:08
[2017-07-28] MEDS ORDERED: DEXTROSE 50% IN WATER 50 ML SYRINGE ONE (18:41)
[2017-07-28 18:48] LABS: AUTOMATED NEUTROPHIL # 7.7 TH/MM3 (1.8-7.7); BASOPHIL # 0.1 TH/MM3 (0-0.2); BASOPHIL % 0.9 % (0.0-2.0); EOSINOPHIL # 0.3 TH/MM3 (0-0.4); EOSINOPHIL % 3.1 % (0.0-4.0); HEMATOCRIT 26.3 % (39.0-51.0); HEMO FLAGS DIFF FINAL; LYMPH % 12.8 % (9.0-44.0); LYMPHOCYTE # 1.3 TH/MM3 (1.0-4.8); MEAN CELL VOLUME 93.6 FL (80.0-100.0); MEAN CORPUSCULAR HEMOGLOBIN 30.5 PG (27.0-34.0); MEAN CORPUSCULAR HGB CONC 32.6 % (32.0-36.0); MONO % 8.1 % (0.0-8.0); NEUT % 75.1 % (16.0-70.0); PLATELET COUNT 196 TH/MM3 (150-450); RED BLOOD COUNT 2.81 MIL/MM3 (4.50-5.90); RED CELL DISTRIBUTION WIDTH 21.8 % (11.6-17.2); WHITE BLOOD COUNT 10.2 TH/MM3 (4.0-11.0)
[2017-07-28 19:07] LABS: ALKALINE PHOSPHATASE 58 U/L (45-117); ALT (GPT) 9 U/L (12-78); ANION GAP 9 MEQ/L (5-15); AST (GOT) 23 U/L (15-37); BICARBONATE 21.2 MEQ/L (21.0-32.0); BLOOD UREA NITROGEN 9 MG/DL (7-18); CHLORIDE 106 MEQ/L (98-107); GLOMERULAR FILTRATION RATE 175 ML/MIN (>89); POTASSIUM 3.3 MEQ/L (3.5-5.1); SODIUM (NA) 136 MEQ/L (136-145); TOTAL BILIRUBIN ADULT 0.5 MG/DL (0.2-1.0)
[2017-07-28] MEDS ORDERED: LORazepam 1 MG TAB PO SCH (21:00)
[2017-07-28] MEDS: LORazepam 1 MG TAB PO SCH (21:14)
[2017-07-28] MEDS: QUEtiapine FUMARATE 25 MG TAB PO SCH (21:14)
[2017-07-28] MEDS: METOPROLOL TARTRATE 25 MG TAB PO SCH (21:14)
[2017-07-29] VITALS (48 sets, daily range): BP systolic 123–172; BP diastolic 80–102; PULSE 87–100; RESP 28–60; TEMP 97.8–99.5; O2SAT 94–100
[2017-07-29] MEDS ORDERED: ENALAPRILAT 1.25 MG/ML VIAL IV PUSH ONE (00:45)
[2017-07-29] MEDS: RESP: ALBUTEROL 2.5 MG/IPRATROPIUM 0.5 MG NEB (SCH) INH ×4 (04:00→20:24)
[2017-07-29] MEDS: CHLORHEXIDINE GLUCONATE 2 % 1 PACK (2 CLOTHS) TOP SCH (04:00)
[2017-07-29] MEDS: SODIUM CHLOR 0.9% 1000 ML INJ 1,000 ML IV SCH ×2 (04:33→11:00)
[2017-07-29] MEDS: INSULIN NovoLIN REGULAR SUPPLEMENTAL SCALE SQ SCH ×4 (04:34→18:00)
[2017-07-29] MEDS: metroNIDAZOLE 500 MG INJ 100 ML IV SCH ×3 (07:10→22:19)
[2017-07-29] MEDS: CHLORHEXIDINE 0.12% (ORAL KIT) 15 ML CUP MT SCH ×2 (08:00→20:00)
[2017-07-29] MEDS: CALCIUM/VITAMIN D 250 MG/125 U TAB PO SCH (09:00)
--- NOTE | 2017-07-29 13:57 | HHI.IDPN ---
Subjective Subjective Remarks Patient is a 67-year-old male, and to the hospital for fever and unresponsiveness on the day of admission. He was apparently normal the day prior to admission. However the day prior to admission he had a temperature and apparently was started on doxycycline. EMS was called, and they tried intubating the patient but was not successful. He had a fever of 102+ on the day of admission. Patient in the ED got intubated, and apparently during intubation there was a lot of what looks like stomach contents during the intubation. Was no mention that he had any nausea or vomiting prior to admission. No mention of any diarrhea or any shortness of breath or congestion. CT of the head did not show any acute infarct or bleed. Chest x- ray was normal. He had diarrhea, and the stool tested negative for C. difficile toxin. His urinalysis showed some mild pyuria. A Garcia was inserted in the emergency room. Infectious disease consultation has been requested to evaluate the patient. Notes reviewed Patient has been extubated Temps ok Good sats on RA Has moist cough CSF C/S negative Sputum normal jessica CXR with L base infiltrate Legio and pneumo Ag negative INfluenza neg BC pending Sputum pending LP 27 WBC, mostly neutrophil, protein slightly up Antibiotics I attest that I obtained, updated or reviewed the home and current medications. Rocephin Flagyl Current Medications Medications (Trade) Dose Ordered Sig/Bunny Route Start Time Stop Time Status Last Admin Fentanyl Citrate 250 ml @ 5 mls/hr TITRATE PRN IV 07/26/17 12:00 Propofol 100 ml @ 2.46 mls/hr TITRATE PRN IV 07/26/17 12:00 07/27/17 03:56 (Mag-Ox) 800 mg UNSCH PRN PO 07/26/17 10:30 Magnesium Sulfate 4 gm/Sodium Chloride 100 ml @ 50 mls/hr UNSCH PRN IV 07/26/17 10:30 Magnesium Sulfate 2 gm/Sodium Chloride 100 ml @ 50 mls/hr UNSCH PRN IV 07/26/17 10:30 Potassium Chloride 100 ml @ 50 mls/hr Q2H PRN IV 07/26/17 10:30 Potassium Chloride 100 ml @ 50 mls/hr Q2H PRN IV 07/26/17 10:30 Potassium Chloride 100 ml @ 50 mls/hr Q2H PRN IV 07/26/17 10:30 Potassium Chloride 100 ml @ 25 mls/hr UNSCH PRN IV 07/26/17 10:30 (K-Phos) 2,000 mg Q4H PRN PO 07/26/17 10:30 (K-Phos) 2,000 mg UNSCH PRN PO/TUBE 07/26/17 10:30 Potassium Phosphate 30 mmol/ Sodium Chloride 260 ml @ 42 mls/hr UNSCH PRN IV 07/26/17 10:30 Sodium Phosphate 30 mmol/Sodium Chloride 250 ml @ 42 mls/hr UNSCH PRN IV 07/26/17 10:30 (Peridex 0.12% Liq) 15 ml BID@08,20 MT 07/26/17 20:00 07/27/17 07:40 (D50w (Vial) Inj) 25 ml UNSCH PRN IV PUSH 07/26/17 10:30 07/28/17 18:43 (NovoLIN R SUPPLEMENTAL SCALE) 1 Q6HR SQ 07/26/17 12:00 (Duoneb Neb) 1 ampule Q6HR NEB INH 07/26/17 16:00 07/29/17 08:20 (Duoneb Neb) 1 ampule Q2HR NEB PRN INH 07/26/17 10:30 Sodium Chloride 1,000 ml @ 84 mls/hr [id number] IV 07/26/17 11:30 07/29/17 04:33 (Tylenol) 650 mg Q6H PRN PO 07/26/17 10:30 (Pepcid Inj) 20 mg Q12HR IV PUSH 07/26/17 21:00 07/28/17 21:13 (Zofran Inj) 4 mg Q6H PRN IV PUSH 07/26/17 10:30 Miscellaneous Information 1 Q361D XX 07/26/17 10:30 (Chlorhexidine 2% Cloth) 3 pack Taper DAILY@04 TOP 07/27/17 04:00 07/23/18 03:59 07/28/17 02:18 (Chlorhexidine 2% Cloth) 3 pack UNSCH PRN TOP 07/26/17 10:30 (Folate) 1 mg DAILY PO 07/27/17 09:00 07/28/17 08:01 (Mag-Ox) 400 mg DAILY@1100 PO 07/27/17 11:00 07/28/17 14:36 (Vitamin B1) 100 mg DAILY PO 07/27/17 09:00 07/28/17 08:01 (Oscal-D 250-125) 250 mg DAILY PO 07/27/17 09:00 07/28/17 08:01 (Theragran) 1 tab DAILY PO 07/27/17 09:00 07/28/17 08:01 Metronidazole 100 ml @ 100 mls/hr Q8H IV 07/27/17 23:00 07/29/17 07:10 Ceftriaxone Sodium 2000 mg/ Sodium Chloride 100 ml @ 200 mls/hr Q24H IV 07/28/17 16:00 07/28/17 17:32 (Lopressor) 25 mg BID PO 07/28/17 21:00 07/28/17 21:14 (SEROquel) 25 mg BID PO 07/28/17 21:00 07/28/17 21:14 (Ativan) 0.5 mg Q12HR PO 07/28/17 21:00 07/28/17 21:14 Lines PIV Past Medical History Skin cancer Prostate CA Atrial fib GERD Hypertension Past Surgical History Inguinal Hernia surgery Hydrocoele Allergies: Coded Allergies: penicillin G (Unverified Allergy, Severe, ITCHINESS, 07/26/17) Objective . Vital Signs Date Time Temp Pulse Resp B/P (MAP) Pulse Ox O2 Delivery O2 Flow Rate FiO2 07/29/17 08:21 98 Nasal Cannula 3.00 07/29/17 06:00 98 07/29/17 04:00 99.4 95 36 123/96 (105) 96 07/29/17 04:00 95 07/29/17 02:00 92 07/29/17 00:00 93 07/29/17 00:00 99.5 93 39 159/85 (109) 99 07/28/17 22:00 94 07/28/17 20:01 97 Nasal Cannula 4.00 07/28/17 20:00 100.0 104 40 156/104 (121) 92 07/28/17 20:00 104 07/28/17 18:00 99 07/28/17 18:00 99 33 156/86 (109) 94 07/28/17 17:00 105 32 149/91 (110) 94 07/28/17 17:00 105 07/28/17 16:00 106 07/28/17 16:00 98.8 07/28/17 16:00 106 35 148/81 (103) 93 07/28/17 15:00 96 07/28/17 14:26 93 07/28/17 14:00 94 29 163/88 (113) 94 07/28/17 14:00 94 . Laboratory Tests Test 07/28/17 17:47 White Blood Count 10.2 TH/MM3 Red Blood Count 2.81 MIL/MM3 Hemoglobin 8.6 GM/DL Hematocrit 26.3 % Mean Corpuscular Volume 93.6 FL Mean Corpuscular Hemoglobin 30.5 PG Mean Corpuscular Hemoglobin Concent 32.6 % Red Cell Distribution Width 21.8 % Platelet Count 196 TH/MM3 Mean Platelet Volume 9.1 FL Neutrophils (%) (Auto) 75.1 % Lymphocytes (%) (Auto) 12.8 % Monocytes (%) (Auto) 8.1 % Eosinophils (%) (Auto) 3.1 % Basophils (%) (Auto) 0.9 % Neutrophils # (Auto) 7.7 TH/MM3 Lymphocytes # (Auto) 1.3 TH/MM3 Monocytes # (Auto) 0.8 TH/MM3 Eosinophils # (Auto) 0.3 TH/MM3 Basophils # (Auto) 0.1 TH/MM3 CBC Comment DIFF FINAL Differential Comment Laboratory Tests Test 07/28/17 17:47 Blood Urea Nitrogen 9 MG/DL Creatinine 0.48 MG/DL Random Glucose 92 MG/DL Total Protein 6.3 GM/DL Albumin 2.3 GM/DL Calcium Level 8.6 MG/DL Alkaline Phosphatase 58 U/L Aspartate Amino Transf (AST/SGOT) 23 U/L Alanine Aminotransferase (ALT/SGPT) 9 U/L Total Bilirubin 0.5 MG/DL Sodium Level 136 MEQ/L Potassium Level 3.3 MEQ/L Chloride Level 106 MEQ/L Carbon Dioxide Level 21.2 MEQ/L Anion Gap 9 MEQ/L Estimat Glomerular Filtration Rate 175 ML/MIN Microbiology Date/Time Source Procedure Growth Status 07/26/17 17:20 Cerebral Spinal Fluid Lumbar Puncture Gram Stain - Final Complete 07/26/17 17:20 Cerebral Spinal Fluid Lumbar Puncture CSF Culture - Final NO GROWTH IN 72 HOURS Complete 07/26/17 18:45 Nasal Washing Influenza Types A,B Antigen ([facility]) - Final NEGATIVE FOR FLU A AND B ANTIGEN.... Complete Imaging Chest X-Ray 07/27/17 Signed Impressions: Service Date/Time: Thursday, July 27, 2017 08:54 - CONCLUSION: 1. Endotracheal tube and nasogastric tube in good positions. 2. Left basilar atelectasis. Reji Corcoran MD Head CT 07/26/17904 Signed Impressions: Service Date/Time: Wednesday, July 26, 2017 10:05 - CONCLUSION: 1. Moderate periventricular and subcortical white matter small vessel ischemic changes bilaterally. 2. Mild cerebral atrophy. 3. No acute infarct, acute hemorrhage , mass effect or extra-axial fluid collections. Reji Corcoran MD Chest X-Ray 07/26/17904 Signed Impressions: Service Date/Time: Wednesday, July 26, 2017 09:42 - CONCLUSION: 1. Endotracheal tube and nasogastric tube in good positions. 2. Cardiomegaly. 3. No acute focal pulmonary infiltrate or pulmonary vascular congestion. Reji Corcoran MD Lumbar Puncture Fluoroscopy 07/26/17 Signed Impressions: Service Date/Time: Wednesday, July 26, 2017 17:11 - CONCLUSION: Uncomplicated fluoroscopically guided lumbar puncture. Herbert Lion MD Head CT 07/26/17904 Signed Impressions: Service Date/Time: Wednesday, July 26, 2017 10:05 - CONCLUSION: 1. Moderate periventricular and subcortical white matter small vessel ischemic changes bilaterally. 2. Mild cerebral atrophy. 3. No acute infarct, acute hemorrhage , mass effect or extra-axial fluid collections. Reji Corcoran MD Chest X-Ray 07/26/17904 Signed Impressions: Service Date/Time: Wednesday, July 26, 2017 09:42 - CONCLUSION: 1. Endotracheal tube and nasogastric tube in good positions. 2. Cardiomegaly. 3. No acute focal pulmonary infiltrate or pulmonary vascular congestion. Reji Corcoran MD Lumbar Puncture Fluoroscopy 07/26/17 Signed Impressions: Service Date/Time: Wednesday, July 26, 2017 17:11 - CONCLUSION: Uncomplicated fluoroscopically guided lumbar puncture. Herbert Lion MD Physical Exam GENERAL: Awake, NAD, occ answers SKIN: Warm and dry. No generalized rash, no ecchymoses and no evidence of embolic lesions. HEAD: Atraumatic. Normocephalic. No temporal wasting, or tenderness. EYES: [place] conjunctiva. No petechia or hemorrhage. Pupils equal, round and reactive to light. No scleral icterus. No injection or drainage. EARS, NOSE AND THROAT: Nose without bleeding or purulent nasal discharge. NECK: Trachea midline. Supple CARDIOVASCULAR: Regular rate and rhythm. There is a systolic murmur heard on the left precordium. RESPIRATORY: Coarse breath sounds bilaterally. e. No guarding. No organomegaly. EXTREMITIES: No clubbing, cyanosis, or edema. No calf tenderness. Well perfused and warm. NEUROLOGICAL: Awake and focusing PSYCHIATRIC: CAlm LINE: No evidence of infection Assessment & Plan Remarks IMPRESSION Sepsis on presentation, acute febrile illness, patient SNF resident, prob aspirated Encephalopathy, ?SZ episode LP only 27 WBC Respiratory failure, likely aspiration - stable post extubation Hx ETOH abuse Mild pyuria, no garcia in [place] RECOMMENDATION Change to Rocephin Continue Flagyl Give 7 days Abx If able to swallow, could change Abx to oral Monitor progress Clinically doing well from ID standpoint D/W Sindhu Cagle MD Jul 29, 2017 13:57
[2017-07-29] MEDS: THIAMINE HCL 100 MG TAB PO SCH (14:51)
[2017-07-29] MEDS: MAGNESIUM OXIDE 400 MG TAB PO SCH (14:51)
[2017-07-29] MEDS: FOLIC ACID 1 MG TAB PO SCH (14:51)
[2017-07-29] MEDS: METOPROLOL TARTRATE 25 MG TAB PO SCH ×2 (14:51→22:19)
[2017-07-29] MEDS: LORazepam 1 MG TAB PO SCH ×2 (14:51→22:19)
[2017-07-29] MEDS: MULTIVITAMIN TAB PO SCH (14:52)
[2017-07-29] MEDS: QUEtiapine FUMARATE 25 MG TAB PO SCH ×2 (14:52→22:19)
[2017-07-29] MEDS: FAMOTIDINE 20 MG/2 ML VIAL IV PUSH SCH ×2 (14:52→22:18)
--- NOTE | 2017-07-29 15:46 | HHI.PR ---
Subjective Remarks In bed, appears sleepy, confused . No fever or chills. Doesn't interact much . Denies any pain . With some sob, not coughing. No n/v/d/c. Failed swallow eval Objective Vitals Vital Signs Date Time Temp Pulse Resp B/P (MAP) Pulse Ox O2 Delivery O2 Flow Rate FiO2 07/29/17 14:30 93 07/29/17 14:15 96 07/29/17 14:00 92 07/29/17 13:45 95 07/29/17 13:30 92 07/29/17 13:15 92 07/29/17 13:00 94 07/29/17 12:45 93 07/29/17 12:30 92 07/29/17 12:30 97.9 92 32 158/87 (110) 100 07/29/17 12:15 92 36 153/83 (106) 98 07/29/17 12:15 92 07/29/17 12:00 94 30 154/95 (114) 99 07/29/17 12:00 94 07/29/17 11:45 96 32 172/86 (114) 95 07/29/17 11:30 95 35 152/90 (110) 97 07/29/17 11:15 92 31 145/84 (104) 97 07/29/17 11:00 91 29 143/83 (103) 97 07/29/17 10:45 92 31 146/90 (108) 98 07/29/17 10:30 100 34 162/91 (114) 98 07/29/17 10:15 93 30 135/80 (98) 96 07/29/17 10:00 94 07/29/17 10:00 95 28 161/85 (110) 97 07/29/17 09:47 96 34 153/87 (109) 97 07/29/17 09:45 95 32 159/100 (119) 98 07/29/17 09:30 98 38 170/99 (122) 98 07/29/17 09:15 96 33 158/88 (111) 98 07/29/17 09:00 96 33 151/92 (111) 97 07/29/17 08:45 99 32 163/84 (110) 98 07/29/17 08:30 95 35 150/95 (113) 100 07/29/17 08:21 98 Nasal Cannula 3.00 07/29/17 08:15 97 31 156/86 (109) 97 07/29/17 08:00 97.9 07/29/17 08:00 97 07/29/17 08:00 97 29 154/94 (114) 97 07/29/17 06:00 98 07/29/17 04:00 99.4 95 36 123/96 (105) 96 07/29/17 04:00 95 07/29/17 02:00 92 07/29/17 00:00 93 07/29/17 00:00 99.5 93 39 159/85 (109) 99 07/28/17 22:00 94 07/28/17 20:01 97 Nasal Cannula 4.00 07/28/17 20:00 100.0 104 40 156/104 (121) 92 07/28/17 20:00 104 07/28/17 18:00 99 07/28/17 18:00 99 33 156/86 (109) 94 07/28/17 17:00 105 32 149/91 (110) 94 07/28/17 17:00 105 07/28/17 16:00 106 07/28/17 16:00 98.8 07/28/17 16:00 106 35 148/81 (103) 93 I/O 07/28/17 07/28/17 07/28/17 07/29/17 07/29/17 07/29/17 07:00 15:00 23:00 07:00 15:00 23:00 Intake Total 1800 ml 1820 ml 1089 ml Output Total 450 ml 500 ml 450 ml Balance 1350 ml 1320 ml 639 ml Intake Oral 120 ml 0 ml IV Total 1800 ml 1700 ml 1089 ml Output Urine Total 450 ml 500 ml 450 ml # Bowel Movements 0 0 Result Diagram: 07/28/17 1747 07/28/17 1747 Imaging Last Impressions Chest X-Ray 07/27/17 0000 Signed Impressions: Service Date/Time: Thursday, July 27, 2017 08:54 - CONCLUSION: 1. Endotracheal tube and nasogastric tube in good positions. 2. Left basilar atelectasis. Reji Corcoran MD Head CT 07/26/17 0905 Signed Impressions: Service Date/Time: Wednesday, July 26, 2017 10:05 - CONCLUSION: 1. Moderate periventricular and subcortical white matter small vessel ischemic changes bilaterally. 2. Mild cerebral atrophy. 3. No acute infarct, acute hemorrhage , mass effect or extra-axial fluid collections. Reji Corcoran MD Lumbar Puncture Fluoroscopy 07/26/17 0000 Signed Impressions: Service Date/Time: Wednesday, July 26, 2017 17:11 - CONCLUSION: Uncomplicated fluoroscopically guided lumbar puncture. Herbert Lion MD Objective Remarks GENERAL: Patient lying in bed restrained. Disoriented. SKIN: Warm and dry. HEAD: Normocephalic. EYES: No scleral icterus. No injection or drainage. NECK: Supple, trachea midline. No JVD or lymphadenopathy. CARDIOVASCULAR: Regular rate and rhythm without murmurs, gallops, or rubs. RESPIRATORY: Breath sounds equal bilaterally. No accessory muscle use. GASTROINTESTINAL: Abdomen soft, non-tender, nondistended. MUSCULOSKELETAL: No cyanosis, or edema. BACK: Nontender without obvious deformity. No CVA tenderness. A/P Assessment and Plan Severe Sepsis Encephalopathy : Delirium secondary to sepsis vs possible meningitis, worsened by Hyponatremia, fever, suspected aspiration LP not concerning for meningitis. Leukocytes 14.0 yesterday. Repeat CBC, CMP. Still requiring restraints. Start on Ativan twice daily, Seroquel for agitation. Hyponatremia. Improving. Sodium 133. Suspected aspiration pneumonia (prehospital) Chest x-ray reviewed. Antibiotics as above. Consult speech therapy Continue antibiotics as per infectious disease. NPO, started tube feedings as he failed swallow eval Dysphagia Hypoglycemia 2/2 no PO intake, received 1 amp dextrose, BS better controlled, hypoglycemic protocol, insert tube feedings, as he failed swallow evaluation . Start TF Jevity 1.5 w/goal rate of 60 ml/hr. Quick Sketch Artist also consulted for eval. Patient might be a candidate for PEG tube Alcohol dependence Patient was at care home, however unclear if he was still able to get alcohol. Patient does have tachycardia, tachypnea, will place on Ativan for withdrawal. Continue to monitor. Atrial fibrillation H/o hypertension Heart rate elevated in the 90s. Pressure reviewed and acceptable. Restart metoprolol. H/o generalized weakness -Continue PT/OT Discharge Planning Continues disoriented, restrained. Failed speech evaluation, ordered feeding tube dunhoff, to evaluate patien tmight need PEG tube. Quick Sketch Artist consulted for feeding tube PT/OT Lives at care home. Alysa Espinoza MD Jul 29, 2017 15:46
--- NOTE | 2017-07-29 15:57 | RADRPT ---
EXAM DATE/TIME: 07/29/2017 14:40 [facility] COMPARISON: No previous studies available for comparison. INDICATIONS : Post NG tube placement. MEDICAL HISTORY : Cardiovascular disease. Hypertension. Carcinoma, prostate SURGICAL HISTORY : None. ENCOUNTER: Initial ACUITY: 1 day PAIN SCORE: 0/10 LOCATION: abdomen FINDINGS: Feeding tube fundus of the stomach. Nonspecific large and small bowel gas. CONCLUSION: Tube fundus of the stomach Eric Duarte MD FACR on July 29, 2017 at 15:54 Board Certified Radiologist. This report was verified electronically.
[2017-07-29] MEDS: cefTRIAXone INJ 2,000 MG in SODIUM CHLORIDE 0.9% INJ 100 ML IV SCH (19:15)
[2017-07-30] VITALS (14 sets, daily range): BP systolic 159–176; BP diastolic 85–92; PULSE 92–107; RESP 33–62; TEMP 98.4–99.9; O2SAT 97–100
[2017-07-30] MEDS: RESP: ALBUTEROL 2.5 MG/IPRATROPIUM 0.5 MG NEB (SCH) INH ×3 (03:36→15:33)
[2017-07-30] MEDS: CHLORHEXIDINE GLUCONATE 2 % 1 PACK (2 CLOTHS) TOP SCH (04:00)
[2017-07-30] MEDS: metroNIDAZOLE 500 MG INJ 100 ML IV SCH ×3 (05:44→22:44)
[2017-07-30] MEDS: INSULIN NovoLIN REGULAR SUPPLEMENTAL SCALE SQ SCH ×4 (05:45→18:00)
[2017-07-30] MEDS: SODIUM CHLOR 0.9% 1000 ML INJ 1,000 ML IV SCH ×3 (05:45→22:46)
[2017-07-30 06:26] LABS: AUTOMATED NEUTROPHIL # 6.1 TH/MM3 (1.8-7.7); BASOPHIL # 0.1 TH/MM3 (0-0.2); BASOPHIL % 1.1 % (0.0-2.0); EOSINOPHIL # 0.4 TH/MM3 (0-0.4); EOSINOPHIL % 4.9 % (0.0-4.0); HEMATOCRIT 26.4 % (39.0-51.0); HEMO FLAGS DIFF FINAL; LYMPH % 14.8 % (9.0-44.0); LYMPHOCYTE # 1.3 TH/MM3 (1.0-4.8); MEAN CELL VOLUME 92.8 FL (80.0-100.0); MEAN CORPUSCULAR HEMOGLOBIN 30.6 PG (27.0-34.0); MEAN CORPUSCULAR HGB CONC 32.9 % (32.0-36.0); MONO % 7.6 % (0.0-8.0); NEUT % 71.6 % (16.0-70.0); PLATELET COUNT 227 TH/MM3 (150-450); RED BLOOD COUNT 2.85 MIL/MM3 (4.50-5.90); RED CELL DISTRIBUTION WIDTH 21.5 % (11.6-17.2); WHITE BLOOD COUNT 8.5 TH/MM3 (4.0-11.0)
[2017-07-30 06:43] LABS: BICARBONATE 20.8 MEQ/L (21.0-32.0); MAGNESIUM 1.4 MG/DL (1.5-2.5); POTASSIUM 3.1 MEQ/L (3.5-5.1)
--- NOTE | 2017-07-30 08:27 | HHI.PR ---
Subjective Remarks More awake and alert today, knows his name. Says she a no pain at this time. Feels sob. Has nausea no vomiting , no diarrhea. Started tube feedings yesterday. Feels tired and appears chronically ill . Objective Vitals Vital Signs Date Time Temp Pulse Resp B/P (MAP) Pulse Ox O2 Delivery O2 Flow Rate FiO2 07/30/17 06:00 101 07/30/17 04:00 93 07/30/17 04:00 99.5 93 53 166/91 (116) 97 07/30/17 02:00 92 07/30/17 00:00 99.3 92 62 165/92 (116) 97 07/30/17 00:00 92 07/29/17 22:00 93 07/29/17 20:00 91 07/29/17 20:00 97.8 91 35 158/102 (120) 98 07/29/17 19:00 91 38 150/90 (110) 98 07/29/17 19:00 91 07/29/17 18:45 89 07/29/17 18:45 89 39 160/94 (116) 98 07/29/17 18:30 89 52 146/86 (106) 98 07/29/17 18:30 89 07/29/17 18:15 87 07/29/17 18:15 87 40 146/88 (107) 99 07/29/17 18:00 90 45 138/88 (105) 95 07/29/17 18:00 90 07/29/17 17:45 89 07/29/17 17:45 89 42 152/87 (108) 97 07/29/17 17:30 89 39 148/101 (117) 98 07/29/17 17:30 89 07/29/17 17:15 87 07/29/17 17:15 87 30 135/82 (99) 97 07/29/17 17:00 87 07/29/17 17:00 87 44 130/84 (99) 94 07/29/17 16:45 88 07/29/17 16:45 88 39 123/88 (100) 97 07/29/17 16:30 87 32 143/82 (102) 96 07/29/17 16:30 87 07/29/17 16:15 88 07/29/17 16:15 88 59 127/82 (97) 95 07/29/17 16:00 98.4 07/29/17 16:00 89 07/29/17 16:00 89 60 139/88 (105) 97 07/29/17 14:30 93 07/29/17 14:15 96 07/29/17 14:00 92 07/29/17 13:45 95 07/29/17 13:30 92 07/29/17 13:15 92 07/29/17 13:00 94 07/29/17 12:45 93 07/29/17 12:30 92 07/29/17 12:30 97.9 92 32 158/87 (110) 100 07/29/17 12:15 92 36 153/83 (106) 98 07/29/17 12:15 92 07/29/17 12:00 94 30 154/95 (114) 99 07/29/17 12:00 94 07/29/17 11:45 96 32 172/86 (114) 95 07/29/17 11:30 95 35 152/90 (110) 97 07/29/17 11:15 92 31 145/84 (104) 97 07/29/17 11:00 91 29 143/83 (103) 97 07/29/17 10:45 92 31 146/90 (108) 98 07/29/17 10:30 100 34 162/91 (114) 98 07/29/17 10:15 93 30 135/80 (98) 96 07/29/17 10:00 94 07/29/17 10:00 95 28 161/85 (110) 97 07/29/17 09:47 96 34 153/87 (109) 97 07/29/17 09:45 95 32 159/100 (119) 98 07/29/17 09:30 98 38 170/99 (122) 98 07/29/17 09:15 96 33 158/88 (111) 98 07/29/17 09:00 96 33 151/92 (111) 97 07/29/17 08:45 99 32 163/84 (110) 98 07/29/17 08:30 95 35 150/95 (113) 100 I/O 07/29/17 07/29/17 07/29/17 07/30/17 07/30/17 07/30/17 07:00 15:00 23:00 07:00 15:00 23:00 Intake Total 1089 ml 340 ml 2778 ml Output Total 450 ml 750 ml 450 ml Balance 639 ml -410 ml 2328 ml Intake Oral 0 ml 120 ml IV Total 1089 ml 100 ml 2036 ml Tube Feeding 742 ml Other 120 ml Output Urine Total 450 ml 750 ml 450 ml # Bowel Movements 0 0 1 Result Diagram: 07/30/17 0446 07/30/17 0446 Imaging Last Impressions Abdomen X-Ray 07/29/17 0000 Signed Impressions: Service Date/Time: Saturday, July 29, 2017 14:40 - CONCLUSION: Tube fundus of the stomach Eric Duarte MD FACR Chest X-Ray 07/27/17 0000 Signed Impressions: Service Date/Time: Thursday, July 27, 2017 08:54 - CONCLUSION: 1. Endotracheal tube and nasogastric tube in good positions. 2. Left basilar atelectasis. Reji Corcoran MD Head CT 07/26/17 0905 Signed Impressions: Service Date/Time: Wednesday, July 26, 2017 10:05 - CONCLUSION: 1. Moderate periventricular and subcortical white matter small vessel ischemic changes bilaterally. 2. Mild cerebral atrophy. 3. No acute infarct, acute hemorrhage , mass effect or extra-axial fluid collections. Reji Corcoran MD Lumbar Puncture Fluoroscopy 07/26/17 0000 Signed Impressions: Service Date/Time: Wednesday, July 26, 2017 17:11 - CONCLUSION: Uncomplicated fluoroscopically guided lumbar puncture. Herbert Lion MD Objective Remarks GENERAL: Patient lying in bed in restraines. More awake today. Disoriented. Appears chorionically ill. SKIN: Warm and dry. HEAD: Normocephalic. EYES: No scleral icterus. No injection or drainage. NECK: Supple, trachea midline. No JVD or lymphadenopathy. CARDIOVASCULAR: Regular rate and rhythm without murmurs, gallops, or rubs. RESPIRATORY: Breath sounds equal bilaterally. No accessory muscle use. GASTROINTESTINAL: Abdomen soft, non-tender, nondistended. MUSCULOSKELETAL: No cyanosis, or edema. BACK: Nontender without obvious deformity. No CVA tenderness. A/P Assessment and Plan Severe Sepsis Encephalopathy : Delirium secondary to sepsis vs possible meningitis, worsened by Hyponatremia, fever, suspected aspiration LP not concerning for meningitis. Leukocytes 14.0 yesterday. Repeat CBC, CMP. Still requiring restraints. Start on Ativan twice daily, Seroquel for agitation. Hyponatremia. Improving. Sodium 133. Suspected aspiration pneumonia (prehospital), patient resides to residential, likely aspiration pneumonia Chest x-ray reviewed. Antibiotics as above. Consult speech therapy Continue antibiotics as per infectious disease. NPO, started tube feedings as he failed swallow eval Seen by ID specilait appreciate recommendations. Change to Rocephin, Continue Flagyl, Give 7 days Abx. If able to swallow, could change Abx to oral per ID specialist Dysphagia Hypoglycemia 2/2 no PO intake, received 1 amp dextrose, BS better controlled, hypoglycemic protocol, insert tube feedings, as he failed swallow evaluation . Start TF Jevity 1.5 w/goal rate of 60 ml/hr. Six Sigma Black Belt Engineer also consulted for eval. Patient might be a candidate for PEG tube Alcohol dependence Patient was at residential, however unclear if he was still able to get alcohol. Patient does have tachycardia, tachypnea, will place on Ativan for withdrawal. Continue to monitor. Atrial fibrillation H/o hypertension Heart rate elevated in the 90s. Pressure reviewed and acceptable. Restart metoprolol. H/o generalized weakness -Continue PT/OT Discharge Planning Continues disoriented, restrained. Failed speech evaluation, ordered feeding tube dubhoff, to evaluate patient might need PEG tube. Six Sigma Black Belt Engineer consulted for feeding tube. PT/OT Lives at residential. Alysa Espinoza MD Jul 30, 2017 08:27
[2017-07-30] MEDS: CALCIUM/VITAMIN D 250 MG/125 U TAB PO SCH (10:24)
[2017-07-30] MEDS: MAGNESIUM OXIDE 400 MG TAB PO SCH (10:25)
[2017-07-30] MEDS: METOPROLOL TARTRATE 25 MG TAB PO SCH ×2 (10:25→22:45)
[2017-07-30] MEDS: QUEtiapine FUMARATE 25 MG TAB PO SCH ×2 (10:25→22:45)
[2017-07-30] MEDS: THIAMINE HCL 100 MG TAB PO SCH (10:25)
[2017-07-30] MEDS: FOLIC ACID 1 MG TAB PO SCH (10:25)
[2017-07-30] MEDS: LORazepam 1 MG TAB PO SCH ×2 (10:25→22:46)
[2017-07-30] MEDS: FAMOTIDINE 20 MG/2 ML VIAL IV PUSH SCH ×2 (10:26→22:45)
[2017-07-30] MEDS: MULTIVITAMIN TAB PO SCH (10:26)
[2017-07-30] MEDS: CHLORHEXIDINE 0.12% (ORAL KIT) 15 ML CUP MT SCH ×2 (10:27→20:00)
[2017-07-30] MEDS: cefTRIAXone INJ 2,000 MG in SODIUM CHLORIDE 0.9% INJ 100 ML IV SCH (17:01)
[2017-07-30] MEDS ORDERED: POTASSIUM BICARBONATE 25 MEQ EFFERVESCENT TAB PO ONE (17:45)
[2017-07-30] MEDS ORDERED: MAGNESIUM OXIDE 400 MG TAB PO ONE (17:45)
[2017-07-31] VITALS (11 sets, daily range): BP systolic 135–177; BP diastolic 80–103; PULSE 85–101; RESP 18–39; TEMP 97–100.9; O2SAT 89–100
[2017-07-31] MEDS: SODIUM CHLOR 0.9% 1000 ML INJ 1,000 ML IV SCH ×2 (01:55→11:03)
[2017-07-31] MEDS: CHLORHEXIDINE GLUCONATE 2 % 1 PACK (2 CLOTHS) TOP SCH (04:00)
[2017-07-31] MEDS: INSULIN NovoLIN REGULAR SUPPLEMENTAL SCALE SQ SCH ×4 (06:00→17:45)
[2017-07-31 06:12] LABS: AUTOMATED NEUTROPHIL # 6.4 TH/MM3 (1.8-7.7); BASOPHIL # 0.1 TH/MM3 (0-0.2); EOSINOPHIL # 0.4 TH/MM3 (0-0.4); EOSINOPHIL % 4.1 % (0.0-4.0); HEMATOCRIT 26.4 % (39.0-51.0); HEMO FLAGS DIFF FINAL; LYMPH % 16.5 % (9.0-44.0); LYMPHOCYTE # 1.5 TH/MM3 (1.0-4.8); MEAN CELL VOLUME 92.8 FL (80.0-100.0); MEAN CORPUSCULAR HEMOGLOBIN 30.4 PG (27.0-34.0); MEAN CORPUSCULAR HGB CONC 32.7 % (32.0-36.0); NEUT % 68.4 % (16.0-70.0); PLATELET COUNT 224 TH/MM3 (150-450); RED BLOOD COUNT 2.84 MIL/MM3 (4.50-5.90); RED CELL DISTRIBUTION WIDTH 21.6 % (11.6-17.2); WHITE BLOOD COUNT 9.3 TH/MM3 (4.0-11.0)
[2017-07-31] MEDS: metroNIDAZOLE 500 MG INJ 100 ML IV SCH ×3 (06:35→23:17)
[2017-07-31 06:39] LABS: BICARBONATE 24.7 MEQ/L (21.0-32.0); MAGNESIUM 1.3 MG/DL (1.5-2.5); POTASSIUM 3.1 MEQ/L (3.5-5.1)
--- NOTE | 2017-07-31 07:46 | HHI.DS ---
Discharge Summary Admission Date Jul 26, 2017 at 10:33 Admitting Diagnosis sepsis. Respiratory failure. UTI. Hyponatremia. Brief History - From Admission History of Present Illness HPI 67-year-old male who is a longterm resident with a medical history significant for alcohol dependence, atrial fibrillation, hypertension, generalized weakness and anxiety was brought to the ER by EMS for altered mental status. Patient was noted to have fever and been started on doxycycline a day prior to admission. He had a temperature of 102.5 at the longterm this morning. EMS attempt at intubating patient at the scene was unsuccessful. He was brought to the ER with bag valve mask assisted ventilation. Patient was intubated in the ER following his arrival and placed on mechanical ventilation. He was diagnosed to have sepsis and was initiated on empiric antibiotics including IV vancomycin and aztreonam obtaining blood and sputum cultures. A lumbar puncture was ordered to be done by IR. Patient was accepted for admission by critical care medicine service. When I evaluated the patient in the ER he was sedated with propofol, orally intubated on mechanical ventilation. The ER nurse he just had significant diarrhea which tested negative for C. difficile. History was obtained by reviewing records and discussion with ER physician and nursing staff. PFSH Past Medical History Cancer: Yes (PROSTATE, TREATED WITH RADIATION THERAPY, SKIN CANCER) Cardiovascular Problems: Yes (ATRIAL FIBRILLATION) Diabetes: No GERD: Yes Hepatitis: No Hiatal Hernia: No Hypertension: Yes Respiratory: No Thyroid Disease: No Past Surgical History Abdominal Surgery: Yes (INGUINAL HERNIA AND HYDROCELE SURGERY CHILD) Pacemaker: No Other Surgery: Yes Social History Alcohol Use: Yes Tobacco Use: No Substance Use: Yes Allergies-Medications (Allergen,Severity, Reaction): Coded Allergies: penicillin G (Unverified Allergy, Severe, ITCHINESS, 07/26/17) Reported Meds & Prescriptions Reported Meds & Active Scripts Active Calcium, doxycycline, folic acid, lorazepam 0.5 mg by mouth every 8 hourly when necessary, magnesium oxide, metoprolol 25 mg by mouth twice a day, MVI, thiamine Review of Systems ROS Limitations: Altered Mental Status, Unresponsive, orally intubated on mechanical ventilation CBC/BMP: 07/31/17 0439 07/31/17 0439 Significant Findings Laboratory Tests Test 07/28/17 14:15 07/28/17 17:47 07/30/17 04:46 07/31/17 04:39 Vancomycin Level Trough 12.3 MCG/ML (5.0-10.0) Red Blood Count 2.81 MIL/MM3 (4.50-5.90) 2.85 MIL/MM3 (4.50-5.90) 2.84 MIL/MM3 (4.50-5.90) Hemoglobin 8.6 GM/DL (13.0-17.0) 8.7 GM/DL (13.0-17.0) 8.6 GM/DL (13.0-17.0) Hematocrit 26.3 % (39.0-51.0) 26.4 % (39.0-51.0) 26.4 % (39.0-51.0) Red Cell Distribution Width 21.8 % (11.6-17.2) 21.5 % (11.6-17.2) 21.6 % (11.6-17.2) Neutrophils (%) (Auto) 75.1 % (16.0-70.0) 71.6 % (16.0-70.0) Monocytes (%) (Auto) 8.1 % (0.0-8.0) 10.0 % (0.0-8.0) Creatinine 0.48 MG/DL (0.60-1.30) 0.44 MG/DL (0.60-1.30) 0.51 MG/DL (0.60-1.30) Total Protein 6.3 GM/DL (6.4-8.2) Albumin 2.3 GM/DL (3.4-5.0) Alanine Aminotransferase (ALT/SGPT) 9 U/L (12-78) Potassium Level 3.3 MEQ/L (3.5-5.1) 3.1 MEQ/L (3.5-5.1) 3.1 MEQ/L (3.5-5.1) Eosinophils (%) (Auto) 4.9 % (0.0-4.0) 4.1 % (0.0-4.0) Blood Urea Nitrogen 6 MG/DL (7-18) 6 MG/DL (7-18) Magnesium Level 1.4 MG/DL (1.5-2.5) 1.3 MG/DL (1.5-2.5) Carbon Dioxide Level 20.8 MEQ/L (21.0-32.0) Random Glucose 120 MG/DL (74-106) Calcium Level 8.3 MG/DL (8.5-10.1) PE at Discharge GENERAL: Patient lying in bed in restraines. More awake today. Disoriented. Appears chorionically ill. SKIN: Warm and dry. HEAD: Normocephalic. EYES: No scleral icterus. No injection or drainage. NECK: Supple, trachea midline. No JVD or lymphadenopathy. CARDIOVASCULAR: Regular rate and rhythm without murmurs, gallops, or rubs. RESPIRATORY: Breath sounds equal bilaterally. No accessory muscle use. GASTROINTESTINAL: Abdomen soft, non-tender, nondistended. MUSCULOSKELETAL: No cyanosis, or edema. BACK: Nontender without obvious deformity. No CVA tenderness. Alysa Espinoza MD Jul 31, 2017 07:46
--- NOTE | 2017-07-31 07:46 | HHI.PR ---
Subjective Remarks In bed more awake and alert. Denies chest pain or sob. Still on restraints as he is agitated on/off. With temp 100.9 overnight. NPO might need PEG tube. Objective Vitals Vital Signs Date Time Temp Pulse Resp B/P (MAP) Pulse Ox O2 Delivery O2 Flow Rate FiO2 07/31/17 06:00 96 07/31/17 04:00 96 07/31/17 04:00 99.5 96 150/93 (112) 99 07/31/17 02:00 98 07/31/17 00:00 100.9 95 161/89 (113) 89 07/31/17 00:00 95 07/30/17 22:00 101 07/30/17 20:00 107 07/30/17 20:00 99.9 107 159/85 (109) 97 07/30/17 19:45 98 Nasal Cannula 4.00 07/30/17 18:00 101 07/30/17 16:00 98.8 97 38 161/89 (113) 97 07/30/17 16:00 97 07/30/17 14:00 93 07/30/17 12:00 95 07/30/17 12:00 98.6 95 35 164/86 (112) 99 07/30/17 10:00 95 07/30/17 08:00 98.4 98 33 176/87 (116) 07/30/17 08:00 98 I/O 07/30/17 07/30/17 07/30/17 07/31/17 07/31/17 07/31/17 07:00 15:00 23:00 07:00 15:00 23:00 Intake Total 2778 ml 1922 ml 737 ml Output Total 450 ml 350 ml 350 ml Balance 2328 ml 1572 ml 387 ml IV Total 2036 ml 1200 ml 100 ml Tube Feeding 742 ml 722 ml 637 ml Output Urine Total 450 ml 350 ml 350 ml # Bowel Movements 1 2 3 Result Diagram: 07/31/17 0439 07/31/17438 Imaging Last Impressions Abdomen X-Ray 07/29/17 0000 Signed Impressions: Service Date/Time: Saturday, July 29, 2017 14:40 - CONCLUSION: Tube fundus of the stomach Eric Duarte MD FACR Chest X-Ray 07/27/17 0000 Signed Impressions: Service Date/Time: Thursday, July 27, 2017 08:54 - CONCLUSION: 1. Endotracheal tube and nasogastric tube in good positions. 2. Left basilar atelectasis. Reji Corcoran MD Head CT 07/26/17 0905 Signed Impressions: Service Date/Time: Wednesday, July 26, 2017 10:05 - CONCLUSION: 1. Moderate periventricular and subcortical white matter small vessel ischemic changes bilaterally. 2. Mild cerebral atrophy. 3. No acute infarct, acute hemorrhage , mass effect or extra-axial fluid collections. Reji Corcoran MD Lumbar Puncture Fluoroscopy 07/26/17 0000 Signed Impressions: Service Date/Time: Wednesday, July 26, 2017 17:11 - CONCLUSION: Uncomplicated fluoroscopically guided lumbar puncture. Herbert Lion MD Objective Remarks GENERAL: Patient lying in bed in restraines. More awake today. Disoriented. Appears chorionically ill. SKIN: Warm and dry. HEAD: Normocephalic. EYES: No scleral icterus. No injection or drainage. NECK: Supple, trachea midline. No JVD or lymphadenopathy. CARDIOVASCULAR: Regular rate and rhythm without murmurs, gallops, or rubs. RESPIRATORY: Breath sounds equal bilaterally. No accessory muscle use. GASTROINTESTINAL: Abdomen soft, non-tender, nondistended. MUSCULOSKELETAL: No cyanosis, or edema. BACK: Nontender without obvious deformity. No CVA tenderness. A/P Assessment and Plan Severe Sepsis Encephalopathy : Delirium secondary to sepsis vs possible meningitis, worsened by Hyponatremia, fever, suspected aspiration LP not concerning for meningitis. Leukocytes 14.0 yesterday. Repeat CBC, CMP. Still requiring restraints. Start on Ativan twice daily, Seroquel for agitation. Hyponatremia. Improving. Sodium 133. Suspected aspiration pneumonia (prehospital), [facility], likely aspiration pneumonia Chest x-ray reviewed. Antibiotics as above. Consult speech therapy Continue antibiotics as per infectious disease. NPO, started tube feedings as he failed swallow eval Seen by ID specilait appreciate recommendations. Change to Rocephin, Continue Flagyl, Give 7 days Abx. If able to swallow, could change Abx to oral per ID specialist Dysphagia Hypoglycemia 2/2 no PO intake, received 1 amp dextrose, BS better controlled, hypoglycemic protocol, insert tube feedings, as he failed swallow evaluation . Started TF Jevity 1.5 w/goal rate of 60 ml/hr. General Car Yard Supervisor also consulted for eval. Patient might be a candidate for PEG tube Alcohol dependence Patient was at jail, however unclear if he was still able to get alcohol. Patient does have tachycardia, tachypnea, will place on Ativan for withdrawal. Continue to monitor. Atrial fibrillation H/o hypertension Heart rate elevated in the 90s. Pressure reviewed and acceptable. Restart metoprolol. H/o generalized weakness -Continue PT/OT Discharge Planning Continues disoriented, restrained. Failed speech evaluation, ordered feeding tube dubhoff, patient might need PEG tube. General Car Yard Supervisor consulted for feeding tube. Started TF Jevity 1.5 w/goal rate of 60 ml/hr. PT/OT Lives at jail. Alysa Espinoza MD Jul 31, 2017 07:46
[2017-07-31] MEDS ORDERED: POTASSIUM CHLORIDE 25 MEQ EFFERVESCENT TAB PO ONE (08:00)
[2017-07-31] MEDS ORDERED: LORazepam 1 MG TAB PO PRN (08:15)
[2017-07-31] MEDS: THIAMINE HCL 100 MG TAB PO SCH (08:24)
[2017-07-31] MEDS: QUEtiapine FUMARATE 25 MG TAB PO SCH ×2 (08:24→20:41)
[2017-07-31] MEDS: METOPROLOL TARTRATE 25 MG TAB PO SCH ×2 (08:24→20:44)
[2017-07-31] MEDS: FOLIC ACID 1 MG TAB PO SCH (08:24)
[2017-07-31] MEDS: MULTIVITAMIN TAB PO SCH (08:24)
[2017-07-31] MEDS: CHLORHEXIDINE 0.12% (ORAL KIT) 15 ML CUP MT SCH ×2 (08:25→20:45)
[2017-07-31] MEDS: FAMOTIDINE 20 MG/2 ML VIAL IV PUSH SCH ×2 (08:25→20:44)
[2017-07-31] MEDS: MAGNESIUM SULFATE 1 GM PREMIX 100 ML IV SCH ×2 (08:25→11:02)
[2017-07-31] MEDS: CALCIUM/VITAMIN D 250 MG/125 U TAB PO SCH (08:26)
[2017-07-31] MEDS: MAGNESIUM OXIDE 400 MG TAB PO SCH (11:51)
[2017-07-31] MEDS: cefTRIAXone INJ 2,000 MG in SODIUM CHLORIDE 0.9% INJ 100 ML IV SCH (17:46)
[2017-08-01] VITALS (7 sets, daily range): BP systolic 150–173; BP diastolic 70–98; PULSE 77–104; RESP 19–22; TEMP 97–98.9; O2SAT 95–99
[2017-08-01] MEDS: INSULIN NovoLIN REGULAR SUPPLEMENTAL SCALE SQ SCH ×4 (00:01→18:16)
[2017-08-01] MEDS: CHLORHEXIDINE GLUCONATE 2 % 1 PACK (2 CLOTHS) TOP SCH (03:56)
[2017-08-01] MEDS: metroNIDAZOLE 500 MG INJ 100 ML IV SCH ×2 (05:58→15:38)
[2017-08-01] MEDS: QUEtiapine FUMARATE 25 MG TAB PO SCH (08:22)
[2017-08-01] MEDS: CALCIUM/VITAMIN D 250 MG/125 U TAB PO SCH (08:22)
[2017-08-01] MEDS: THIAMINE HCL 100 MG TAB PO SCH (08:22)
[2017-08-01] MEDS: MULTIVITAMIN TAB PO SCH (08:22)
[2017-08-01] MEDS: METOPROLOL TARTRATE 25 MG TAB PO SCH (08:22)
[2017-08-01] MEDS: FOLIC ACID 1 MG TAB PO SCH (08:22)
[2017-08-01] MEDS: FAMOTIDINE 20 MG/2 ML VIAL IV PUSH SCH ×2 (08:23→20:58)
[2017-08-01] MEDS ORDERED: POTASSIUM CHLORIDE 10 MEQ CONTROLLED RELEASE TAB PO ONE (09:30)
[2017-08-01 10:18] LABS: AUTOMATED NEUTROPHIL # 5.8 TH/MM3 (1.8-7.7); BASOPHIL # 0.1 TH/MM3 (0-0.2); BASOPHIL % 0.6 % (0.0-2.0); EOSINOPHIL # 0.6 TH/MM3 (0-0.4); EOSINOPHIL % 6.9 % (0.0-4.0); HEMATOCRIT 25.8 % (39.0-51.0); HEMO FLAGS DIFF FINAL; LYMPH % 16.3 % (9.0-44.0); LYMPHOCYTE # 1.4 TH/MM3 (1.0-4.8); MEAN CELL VOLUME 90.6 FL (80.0-100.0); MEAN CORPUSCULAR HEMOGLOBIN 29.5 PG (27.0-34.0); MEAN CORPUSCULAR HGB CONC 32.5 % (32.0-36.0); MONO % 8.8 % (0.0-8.0); NEUT % 67.4 % (16.0-70.0); PLATELET COUNT 249 TH/MM3 (150-450); RED BLOOD COUNT 2.85 MIL/MM3 (4.50-5.90); RED CELL DISTRIBUTION WIDTH 21.4 % (11.6-17.2); WHITE BLOOD COUNT 8.6 TH/MM3 (4.0-11.0)
[2017-08-01] MEDS: CHLORHEXIDINE 0.12% (ORAL KIT) 15 ML CUP MT SCH ×2 (10:35→20:00)
[2017-08-01] MEDS: MAGNESIUM OXIDE 400 MG TAB PO SCH (10:39)
--- NOTE | 2017-08-01 10:52 | HHI.PR ---
Subjective Remarks Follow-up for altered mental status and infection Patient able to give me his name. Otherwise he is not able to answer any questions but he can follow commands. I did as if he any shortness of breathing and he stated yes. Deny any pain. Discussed with patient's nurse. Patient currently restraints secondary to confusion which is causing him to pull out lines and tubes and endanger himself and others. Objective Vitals Vital Signs Date Time Temp Pulse Resp B/P (MAP) Pulse Ox O2 Delivery O2 Flow Rate FiO2 08/01/17 07:54 97.6 77 20 158/89 (112) 95 08/01/17 04:00 97.7 104 22 168/90 (116) 95 08/01/17 00:00 97.0 83 20 150/70 (96) 98 07/31/17 21:10 99 Nasal Cannula 4.00 07/31/17 20:00 97.0 92 22 160/80 (106) 100 07/31/17 16:54 98.3 101 18 177/103 (127) 96 07/31/17 12:00 97.8 85 18 135/83 (100) 100 I/O 07/31/17 07/31/17 07/31/17 08/01/17 08/01/17 08/01/17 07:00 15:00 23:00 07:00 15:00 23:00 Intake Total 737 ml 544 ml 1727 ml 200 ml Output Total 350 ml 350 ml 450 ml Balance 387 ml 194 ml 1727 ml -450 ml 200 ml IV Total 100 ml 200 ml 1158 ml Tube Feeding 637 ml 344 ml 569 ml Tube Irrigant 200 ml Output Urine Total 350 ml 350 ml 450 ml # Bowel Movements 3 0 1 1 Result Diagram: 08/01/17 0843 07/31/17 0439 Objective Remarks GENERAL: Patient lying in bed in restraints. NECK: Supple, trachea midline. No JVD or lymphadenopathy. CARDIOVASCULAR: Regular rate and rhythm without murmurs, gallops, or rubs. RESPIRATORY: Diffuse rhonchi and cough during examination. No accessory muscle use. GASTROINTESTINAL: Abdomen soft, non-tender, nondistended. NEURO: Awake and does follow commands and can only give me his first name. Motor grossly intact. Medications and IVs Current Medications Propofol 100 ml @ As Directed STK-MED ONCE .ROUTE ; Start 07/26/17 at 09:00; Stop 07/26/17 at 09:01; Status DC Sodium Chloride 1,000 ml @ 999 mls/hr BOLUS ONCE IV Last administered on 09:35; Start 07/26/17 at 09:15; Stop 07/26/17 at 10:15; Status DC Sodium Chloride 1,000 ml @ 999 mls/hr BOLUS ONCE IV Last administered on 09:36; Start 07/26/17 at 09:15; Stop 07/26/17 at 10:15; Status DC Propofol 100 ml @ 0 mls/hr TITRATE PRN IV Ordered RASS Last administered on 09:35; Start 07/26/17 at 09:15; Stop 07/26/17 at 11:31; Status DC Fentanyl Citrate 250 ml @ 5 mls/hr TITRATE PRN IV SEDATION; Start 07/26/17 at 09:15; Stop 07/26/17 at 11:32; Status DC Vancomycin HCl 1000 mg/Sodium Chloride 250 ml @ 250 mls/hr ONCE ONCE IV Last administered on 07/26/17 09:52; Start 07/26/17 at 09:15; Stop 07/26/17 at 10 :14; Status DC Aztreonam 1000 mg/ Sodium Chloride 100 ml @ 200 mls/hr ONCE ONCE IV Last administered on 07/26/17 10:56; Start 07/26/17 at 09:15; Stop 07/26/17 at 09 :44; Status DC Etomidate (Amidate Inj) 20 mg STK-MED ONCE .ROUTE ; Start 07/26/17 at 09:48; Stop 07/26/17 at 09:49; Status DC Succinylcholine Chloride (Quelicin Inj) 200 mg STK-MED ONCE .ROUTE ; Start at 09:48; Stop 07/26/17 at 09:49; Status DC Fentanyl Citrate 250 ml @ 5 mls/hr TITRATE PRN IV SEDATION; Start 07/26/17 at 12:00 Propofol 100 ml @ 2.46 mls/hr TITRATE PRN IV SEDATION Last administered on 03:56; Start 07/26/17 at 12:00 Magnesium Oxide (Mag-Ox) 800 mg UNSCH PRN PO For Magnesium 1.2 - 1.6 mg/dL; Start 07/26/17 at 10:30; Stop 08/01/17 at 08:31; Status DC Magnesium Sulfate 4 gm/Sodium Chloride 100 ml @ 50 mls/hr UNSCH PRN IV For Magnesium 0.9 - 1.1 mg/dL; Start 07/26/17 at 10:30; Stop 08/01/17 at 08:31; Status DC Magnesium Sulfate 2 gm/Sodium Chloride 100 ml @ 50 mls/hr UNSCH PRN IV For Magnesium 1.2 - 1.6 mg/dL; Start 07/26/17 at 10:30; Stop 08/01/17 at 08:31; Status DC Potassium Chloride 100 ml @ 50 mls/hr Q2H PRN IV For Potassium 2.8 - 3.2 mEq/L ; Start 07/26/17 at 10:30; Stop 08/01/17 at 08:31; Status DC Potassium Chloride 100 ml @ 50 mls/hr Q2H PRN IV For Potassium 3.3 - 3.5 mEq/L ; Start 07/26/17 at 10:30; Stop 08/01/17 at 08:31; Status DC Potassium Chloride 100 ml @ 50 mls/hr Q2H PRN IV For Potassium 2.8 - 3.2 mEq/L ; Start 07/26/17 at 10:30; Stop 08/01/17 at 08:31; Status DC Potassium Chloride 100 ml @ 25 mls/hr UNSCH PRN IV For Potassium 3.3 - 3.5 mEq /L; Start 07/26/17 at 10:30; Stop 08/01/17 at 08:31; Status DC Potassium Phosphate (K-Phos) 2,000 mg Q4H PRN PO For Phosphorus < 2.5 mg/dL; Start 07/26/17 at 10:30; Stop 08/01/17 at 08:31; Status DC Potassium Phosphate (K-Phos) 2,000 mg UNSCH PRN PO/TUBE SEE LABEL COMMENTS; Start 07/26/17 at 10:30; Stop 08/01/17 at 08:31; Status DC Potassium Phosphate 30 mmol/ Sodium Chloride 260 ml @ 42 mls/hr UNSCH PRN IV SEE LABEL COMMENTS; Start 07/26/17 at 10:30; Stop 08/01/17 at 08:31; Status DC Sodium Phosphate 30 mmol/Sodium Chloride 250 ml @ 42 mls/hr UNSCH PRN IV For Phosphorus < 2.5 mg/dL; Start 07/26/17 at 10:30; Stop 08/01/17 at 08:31; Status DC Chlorhexidine Gluconate (Peridex 0.12% Liq) 15 ml BID@08,20 MT Last administered on 08/01/17 10:35; Start 07/26/17 at 20:00 Dextrose (D50w (Vial) Inj) 25 ml UNSCH PRN IV PUSH HYPOGLYCEMIA-SEE COMMENTS Last administered on 07/28/17 18:43; Start 07/26/17 at 10:30 Insulin Human Regular (NovoLIN R SUPPLEMENTAL SCALE) 1 Q6HR SQ ; Start at 12:00 Albuterol/ Ipratropium (Duoneb Neb) 1 ampule Q6HR NEB INH Last administered on 07/30/17 15:33; Start 07/26/17 at 16:00; Stop 07/30/17 at 15:59; Status DC Albuterol/ Ipratropium (Duoneb Neb) 1 ampule Q2HR NEB PRN INH WHEEZING; Start 07/26/17 at 10:30 Sodium Chloride 1,000 ml @ 84 mls/hr [id number] IV Last administered on 01:55; Start 07/26/17 at 11:30 Acetaminophen (Tylenol) 650 mg Q6H PRN PO PAIN 1-10 AND/OR FEVER >101F Last administered on 07/30/17 23:18; Start 07/26/17 at 10:30 Famotidine (Pepcid Inj) 20 mg Q12HR IV PUSH Last administered on 08/01/17 08: 23; Start 07/26/17 at 21:00 Ondansetron HCl (Zofran Inj) 4 mg Q6H PRN IV PUSH NAUSEA OR VOMITING; Start at 10:30 Miscellaneous Information 1 [id number] XX ; Start 07/26/17 at 10:30 Chlorhexidine Gluconate (Chlorhexidine 2% Cloth) Taper DAILY@04 TOP Last administered on 07/31/17 04:00; Start 07/27/17 at 04:00; Stop 10/28/18 at 03: 59 Chlorhexidine Gluconate (Chlorhexidine 2% Cloth) 3 pack UNSCH PRN TOP HYGIENIC CARE; Start 07/26/17 at 10:30 Pharmacy Profile Note 0 ml @ 0 mls/hr UNSCH OTHER ; Start 07/26/17 at 10:30; Stop 07/28/17 at 14:58; Status DC Metronidazole 100 ml @ 100 mls/hr Q8H IV Last administered on 07/27/17 11:21 ; Start 07/26/17 at 12:00; Stop 07/27/17 at 23:24; Status DC Aztreonam 2000 mg/ Sodium Chloride 100 ml @ 200 mls/hr Q8H IV Last administered on 07/28/17 08:01; Start 07/26/17 at 17:00; Stop 07/28/17 at 14: 58; Status DC Vancomycin HCl 1250 mg/Sodium Chloride 262.5 ml @ 250 mls/hr Q12H IV ; Start 07/26/17 at 21:30; Status UNV Folic Acid (Folate) 1 mg DAILY PO Last administered on 08/01/17 08:22; Start 07/27/17 at 09:00 Magnesium Oxide (Mag-Ox) 400 mg DAILY@1100 PO Last administered on 08/01/17 10 :39; Start 07/27/17 at 11:00 Thiamine HCl (Vitamin B1) 100 mg DAILY PO Last administered on 08/01/17 08:22 ; Start 07/27/17 at 09:00 Calcium/Vitamin D (Oscal-D 250-125) 250 mg DAILY PO Last administered on 08:22; Start 07/27/17 at 09:00 Multivitamins (Theragran) 1 tab DAILY PO Last administered on 08/01/17 08:22; Start 07/27/17 at 09:00 Vancomycin HCl 1500 mg/Sodium Chloride 515 ml @ 250 mls/hr Q12H IV ; Start at 18:00; Stop 07/26/17 at 20:03; Status DC Miscellaneous Information SPECIFIC LAB TO BE DRAWN:VANCOMYCIN TROUGH DATE TO... ONCE ONCE .XX ; Start 07/28/17 at 10:45; Stop 07/28/17 at 10:46; Status DC Vancomycin HCl 1500 mg/Sodium Chloride 515 ml @ 250 mls/hr Q12H IV Last administered on 07/27/17 07:40; Start 07/26/17 at 20:00; Stop 07/27/17 at 23: 25; Status DC Metronidazole 100 ml @ 100 mls/hr Q8H IV Last administered on 08/01/17 05:58 ; Start 07/27/17 at 23:00; Stop 08/02/17 at 12:00 Vancomycin HCl 1500 mg/Sodium Chloride 515 ml @ 250 mls/hr Q12H IV Last administered on 07/28/17 14:35; Start 07/27/17 at 23:00; Stop 07/28/17 at 14:58 ; Status DC Ceftriaxone Sodium 2000 mg/ Sodium Chloride 100 ml @ 200 mls/hr Q24H IV Last administered on 07/31/17 17:46; Start 07/28/17 at 16:00; Stop 08/02/17 at 23:00 Metoprolol Tartrate (Lopressor) 25 mg BID PO Last administered on 08/01/17 08: 22; Start 07/28/17 at 21:00 Lorazepam (Ativan) 1 mg Q12HR PO ; Start 07/28/17 at 21:00; Stop 07/28/17 at 21: 00; Status DC Quetiapine Fumarate (SEROquel) 25 mg BID PO Last administered on 08/01/17 08: 22; Start 07/28/17 at 21:00 Lorazepam (Ativan) 0.5 mg Q12HR PO Last administered on 07/30/17 22:46; Start 07/28/17 at 21:00; Stop 07/31/17 at 08:02; Status DC Dextrose (D50w (Syr) Inj) 50 ml STK-MED ONCE .ROUTE ; Start 07/28/17 at 18:41; Stop 07/28/17 at 18:42; Status DC Enalaprilat (Vasotec Inj) 1.25 mg ONCE ONCE IV PUSH Last administered on 04:33; Start 07/29/17 at 00:45; Stop 07/29/17 at 00:46; Status DC Enalaprilat (Vasotec Inj) 2.5 mg Q6H PRN IV PUSH SBP>160, DBP>90; Start at 09:45 Potassium Bicarbonate (Effer-K Eff) 50 meq ONCE ONCE PO Last administered on 07/30/17 18:29; Start 07/30/17 at 17:45; Stop 07/30/17 at 17:53; Status DC Magnesium Oxide (Mag-Ox) 800 mg ONCE ONCE PO Last administered on 07/30/17 18 :30; Start 07/30/17 at 17:45; Stop 07/30/17 at 17:53; Status DC Potassium Bicarb/ Potassium Chloride (K-Lyte Cl Eff) 50 meq ONCE ONCE PO Last administered on 07/31/17 08:24; Start 07/31/17 at 08:00; Stop 07/31/17 at 08:01; Status DC Lorazepam (Ativan) 0.5 mg Q12HR PRN PO anxiety ; Start 07/31/17 at 08:15 Magnesium Sulfate/ Dextrose 100 ml @ 100 mls/hr Q1H IV Last administered on 11:02; Start 07/31/17 at 09:00; Stop 07/31/17 at 10:59; Status DC Potassium Chloride (KCl) 30 meq ONCE ONCE PO ; Start 08/01/17 at 09:30; Stop 08/01/17 at 10:48; Status DC Potassium Bicarb/ Potassium Chloride (K-Lyte Cl Eff) 25 meq ONCE ONCE PO ; Start 08/01/17 at 11:00; Stop 08/01/17 at 11:01 A/P Assessment and Plan Severe Sepsis Encephalopathy : Delirium secondary to sepsis vs possible meningitis, worsened by Hyponatremia, fever, suspected aspiration LP not concerning for meningitis. Leukocytes 14.0 yesterday. Repeat CBC, CMP. Still requiring restraints but mental status improving. on Ativan twice daily, Seroquel for agitation. Discussed with patient's nurse if it continues to improve we'll need to try to remove restraints to see how he does without restraints. Hyponatremia. Improving. Sodium 133. Suspected aspiration pneumonia (prehospital), patient resides to [facility], likely aspiration pneumonia Chest x-ray reviewed. Antibiotics as above. Speech therapist consulted. Continue antibiotics as per infectious disease. NPO, started tube feedings as he failed swallow eval Seen by ID specilait appreciate recommendations. Change to Rocephin, Continue Flagyl, Give 7 days Abx. If able to swallow, could change Abx to oral per ID specialist Dysphagia Hypoglycemia 2/2 no PO intake, received 1 amp dextrose, BS better controlled, hypoglycemic protocol, insert tube feedings, as he failed swallow evaluation . on TF Jevity 1.5 w/goal rate of 60 ml/hr. Oil Dispenser also consulted for eval. Alcohol dependence Patient was at [facility], however unclear if he was still able to get alcohol. We'll continue to monitor clinically. Atrial fibrillation H/o hypertension Heart rate elevated in the 90s. Pressure reviewed and acceptable. On metoprolol. H/o generalized weakness -Continue PT/OT Discharge Planning Discussed with patient's nurse today if his confusion resolves and he is not agitated will try to remove restraints to see how he does. Celestina Tobin MD Aug 01, 2017 10:52
[2017-08-01 10:54] LABS: BICARBONATE 25.8 MEQ/L (21.0-32.0); POTASSIUM 3.4 MEQ/L (3.5-5.1)
[2017-08-01] MEDS ORDERED: POTASSIUM CHLORIDE 25 MEQ EFFERVESCENT TAB PO ONE (11:00)
[2017-08-01] MEDS: SODIUM CHLOR 0.9% 1000 ML INJ 1,000 ML IV SCH (13:47)
[2017-08-01] MEDS: cefTRIAXone INJ 2,000 MG in SODIUM CHLORIDE 0.9% INJ 100 ML IV SCH (16:45)
--- NOTE | 2017-08-01 21:56 | RADRPT ---
EXAM DATE/TIME: 08/01/2017 21:24 [facility] COMPARISON: ABDOMEN SINGLE VIEW, July 29, 2017, 14:40. CHEST SINGLE AP, July 27, 2017, 8:54. INDICATIONS : Dobhoff reinsertion. MEDICAL HISTORY : Cardiovascular disease. Hypertension Carcinoma, prostatic. SURGICAL HISTORY : None. ENCOUNTER: Initial ACUITY: 1 day PAIN SCORE: 0/10 LOCATION: Left abdomen FINDINGS: Single view of the abdomen demonstrates feeding tube distal tip in the proximal stomach. There is mil d diffuse gaseous distention similar to the prior study. Otherwise, no significant change. CONCLUSION: Feeding tube distal tip in the proximal stomach. Mik Leslie MD on August 01, 2017 at 21:53 Board Certified Radiologist. This report was verified electronically.
[2017-08-02] VITALS (9 sets, daily range): BP systolic 138–170; BP diastolic 78–108; PULSE 80–92; RESP 18–20; TEMP 97.4–98.7; O2SAT 97–98
[2017-08-02] MEDS: METOPROLOL TARTRATE 25 MG TAB PO SCH ×3 (00:18→20:10)
[2017-08-02] MEDS: QUEtiapine FUMARATE 25 MG TAB PO SCH ×2 (00:18→08:34)
[2017-08-02] MEDS: ENALAPRILAT 2.5 MG/2 ML VIAL IV PUSH PRN ×2 (01:18→18:48)
--- NOTE | 2017-08-02 01:54 | RADRPT ---
EXAM DATE/TIME: 08/02/2017 01:23 [facility] COMPARISON: ABDOMEN SINGLE VIEW, July 29, 2017, 14:40. INDICATIONS : Dobhoff placement. MEDICAL HISTORY : Cardiovascular disease. Hypertension Carcinoma, prostatic. SURGICAL HISTORY : None. ENCOUNTER: Subsequent ACUITY: 4 - 6 days PAIN SCORE: 0/10 LOCATION: Bilateral abdomen FINDINGS: Examination of the abdomen demonstrates a normal bowel gas pattern. No free air is identified. No o rganomegaly is evident. Osseous structures are intact. CONCLUSION: No evidence of obstruction. Dobbhoff tube in the antrum of the stomach Herbert Lion MD on August 02, 2017 at 1:52 Board Certified Radiologist. This report was verified electronically.
[2017-08-02] MEDS: metroNIDAZOLE 500 MG INJ 100 ML IV SCH ×2 (01:59→06:44)
[2017-08-02] MEDS: CHLORHEXIDINE GLUCONATE 2 % 1 PACK (2 CLOTHS) TOP SCH (04:00)
[2017-08-02] MEDS: SODIUM CHLOR 0.9% 1000 ML INJ 1,000 ML IV SCH ×2 (04:51→22:15)
[2017-08-02] MEDS: INSULIN NovoLIN REGULAR SUPPLEMENTAL SCALE SQ SCH ×4 (06:00→18:05)
[2017-08-02] MEDS: CALCIUM/VITAMIN D 250 MG/125 U TAB PO SCH (08:34)
[2017-08-02] MEDS: MULTIVITAMIN TAB PO SCH (08:34)
[2017-08-02] MEDS: FAMOTIDINE 20 MG/2 ML VIAL IV PUSH SCH ×2 (08:34→20:10)
[2017-08-02] MEDS: THIAMINE HCL 100 MG TAB PO SCH (08:35)
[2017-08-02] MEDS: FOLIC ACID 1 MG TAB PO SCH (08:35)
[2017-08-02] MEDS: CHLORHEXIDINE 0.12% (ORAL KIT) 15 ML CUP MT SCH ×2 (08:35→20:00)
[2017-08-02] MEDS: amLODIPine BESYLATE 5 MG TAB PO SCH (09:59)
--- NOTE | 2017-08-02 10:00 | HHI.PR ---
Subjective Remarks Follow-up for medical conditions and assessment plan Patient is sleeping and hard to keep up. I spoke to his nurse who stated that he was awake this morning and still confused but able to tell him his first name and follows some commands. He also stated that patient is having diarrhea but does not have a bad odor to it. Otherwise no other events overnight. Objective Vitals Vital Signs Date Time Temp Pulse Resp B/P (MAP) Pulse Ox O2 Delivery O2 Flow Rate FiO2 08/02/17 09:27 97 Nasal Cannula 2.00 08/02/17 05:33 98.3 92 19 163/95 (117) 98 08/02/17 00:30 98.4 89 19 170/94 (119) 98 08/01/17 21:58 98 Nasal Cannula 2.00 08/01/17 20:30 98.5 93 19 173/98 (123) 97 08/01/17 16:29 98.9 93 20 155/88 (110) 97 08/01/17 12:23 97.9 85 20 158/87 (110) 99 I/O 08/01/17 08/01/17 08/01/17 08/02/17 08/02/17 08/02/17 07:00 15:00 23:00 07:00 15:00 23:00 Intake Total 200 ml 540 ml Output Total 450 ml 251 ml 550 ml Balance -450 ml 200 ml 289 ml -550 ml Tube Feeding 540 ml Tube Irrigant 200 ml Output Urine Total 450 ml 250 ml 550 ml Stool Total 1 ml # Voids 1 # Bowel Movements 1 1 1 Result Diagram: 08/01/1743 08/01/17 0843 Objective Remarks GENERAL: Patient lying in bed in restraints. NECK: Supple, trachea midline. No JVD or lymphadenopathy. CARDIOVASCULAR: Regular rate and rhythm without murmurs, gallops, or rubs. RESPIRATORY: Diffuse rhonchi. No accessory muscle use. GASTROINTESTINAL: Abdomen soft, non-tender, nondistended. NEURO: Patient very sleepy but does wake up with stimuli. Medications and IVs Current Medications Propofol 100 ml @ As Directed STK-MED ONCE .ROUTE ; Start 07/26/17 at 09:00; Stop 07/26/17 at 09:01; Status DC Sodium Chloride 1,000 ml @ 999 mls/hr BOLUS ONCE IV Last administered on t 09:35; Start 07/26/17 at 09:15; Stop 07/26/17 at 10:15; Status DC Sodium Chloride 1,000 ml @ 999 mls/hr BOLUS ONCE IV Last administered on 09:36; Start 07/26/17 at 09:15; Stop 07/26/17 at 10:15; Status DC Propofol 100 ml @ 0 mls/hr TITRATE PRN IV Ordered RASS Last administered on 09:35; Start 07/26/17 at 09:15; Stop 07/26/17 at 11:31; Status DC Fentanyl Citrate 250 ml @ 5 mls/hr TITRATE PRN IV SEDATION; Start 07/26/17 at 09:15; Stop 07/26/17 at 11:32; Status DC Vancomycin HCl 1000 mg/Sodium Chloride 250 ml @ 250 mls/hr ONCE ONCE IV Last administered on 07/26/17 09:52; Start 07/26/17 at 09:15; Stop 07/26/17 at 10 :14; Status DC Aztreonam 1000 mg/ Sodium Chloride 100 ml @ 200 mls/hr ONCE ONCE IV Last administered on 07/26/17 10:56; Start 07/26/17 at 09:15; Stop 07/26/17 at 09 :44; Status DC Etomidate (Amidate Inj) 20 mg STK-MED ONCE .ROUTE ; Start 07/26/17 at 09:48; Stop 07/26/17 at 09:49; Status DC Succinylcholine Chloride (Quelicin Inj) 200 mg STK-MED ONCE .ROUTE ; Start at 09:48; Stop 07/26/17 at 09:49; Status DC Fentanyl Citrate 250 ml @ 5 mls/hr TITRATE PRN IV SEDATION; Start 07/26/17 at 12:00 Propofol 100 ml @ 2.46 mls/hr TITRATE PRN IV SEDATION Last administered on 03:56; Start 07/26/17 at 12:00 Magnesium Oxide (Mag-Ox) 800 mg UNSCH PRN PO For Magnesium 1.2 - 1.6 mg/dL; Start 07/26/17 at 10:30; Stop 08/01/17 at 08:31; Status DC Magnesium Sulfate 4 gm/Sodium Chloride 100 ml @ 50 mls/hr UNSCH PRN IV For Magnesium 0.9 - 1.1 mg/dL; Start 07/26/17 at 10:30; Stop 08/01/17 at 08:31; Status DC Magnesium Sulfate 2 gm/Sodium Chloride 100 ml @ 50 mls/hr UNSCH PRN IV For Magnesium 1.2 - 1.6 mg/dL; Start 07/26/17 at 10:30; Stop 08/01/17 at 08:31; Status DC Potassium Chloride 100 ml @ 50 mls/hr Q2H PRN IV For Potassium 2.8 - 3.2 mEq/L ; Start 07/26/17 at 10:30; Stop 08/01/17 at 08:31; Status DC Potassium Chloride 100 ml @ 50 mls/hr Q2H PRN IV For Potassium 3.3 - 3.5 mEq/L ; Start 07/26/17 at 10:30; Stop 08/01/17 at 08:31; Status DC Potassium Chloride 100 ml @ 50 mls/hr Q2H PRN IV For Potassium 2.8 - 3.2 mEq/L ; Start 07/26/17 at 10:30; Stop 08/01/17 at 08:31; Status DC Potassium Chloride 100 ml @ 25 mls/hr UNSCH PRN IV For Potassium 3.3 - 3.5 mEq /L; Start 07/26/17 at 10:30; Stop 08/01/17 at 08:31; Status DC Potassium Phosphate (K-Phos) 2,000 mg Q4H PRN PO For Phosphorus < 2.5 mg/dL; Start 07/26/17 at 10:30; Stop 08/01/17 at 08:31; Status DC Potassium Phosphate (K-Phos) 2,000 mg UNSCH PRN PO/TUBE SEE LABEL COMMENTS; Start 07/26/17 at 10:30; Stop 08/01/17 at 08:31; Status DC Potassium Phosphate 30 mmol/ Sodium Chloride 260 ml @ 42 mls/hr UNSCH PRN IV SEE LABEL COMMENTS; Start 07/26/17 at 10:30; Stop 08/01/17 at 08:31; Status DC Sodium Phosphate 30 mmol/Sodium Chloride 250 ml @ 42 mls/hr UNSCH PRN IV For Phosphorus < 2.5 mg/dL; Start 07/26/17 at 10:30; Stop 08/01/17 at 08:31; Status DC Chlorhexidine Gluconate (Peridex 0.12% Liq) 15 ml BID@08,20 MT Last administered on 08/02/17 08:35; Start 07/26/17 at 20:00 Dextrose (D50w (Vial) Inj) 25 ml UNSCH PRN IV PUSH HYPOGLYCEMIA-SEE COMMENTS Last administered on 07/28/17 18:43; Start 07/26/17 at 10:30 Insulin Human Regular (NovoLIN R SUPPLEMENTAL SCALE) 1 Q6HR SQ ; Start at 12:00 Albuterol/ Ipratropium (Duoneb Neb) 1 ampule Q6HR NEB INH Last administered on 07/30/17 15:33; Start 07/26/17 at 16:00; Stop 07/30/17 at 15:59; Status DC Albuterol/ Ipratropium (Duoneb Neb) 1 ampule Q2HR NEB PRN INH WHEEZING Last administered on 08/01/17 21:56; Start 07/26/17 at 10:30 Sodium Chloride 1,000 ml @ 84 mls/hr [id number] IV Last administered on 04:51; Start 07/26/17 at 11:30 Acetaminophen (Tylenol) 650 mg Q6H PRN PO PAIN 1-10 AND/OR FEVER >101F Last administered on 07/30/17 23:18; Start 07/26/17 at 10:30 Famotidine (Pepcid Inj) 20 mg Q12HR IV PUSH Last administered on 08/02/17 08: 34; Start 07/26/17 at 21:00 Ondansetron HCl (Zofran Inj) 4 mg Q6H PRN IV PUSH NAUSEA OR VOMITING; Start at 10:30 Miscellaneous Information 1 Q361D XX ; Start 07/26/17 at 10:30 Chlorhexidine Gluconate (Chlorhexidine 2% Cloth) Taper DAILY@04 TOP Last administered on 07/31/17 04:00; Start 07/27/17 at 04:00; Stop 07/23/18 at 03: 59 Chlorhexidine Gluconate (Chlorhexidine 2% Cloth) 3 pack UNSCH PRN TOP HYGIENIC CARE; Start 07/26/17 at 10:30 Pharmacy Profile Note 0 ml @ 0 mls/hr UNSCH OTHER ; Start 07/26/17 at 10:30; Stop 07/28/17 at 14:58; Status DC Metronidazole 100 ml @ 100 mls/hr Q8H IV Last administered on 07/27/17 11:21 ; Start 07/26/17 at 12:00; Stop 07/27/17 at 23:24; Status DC Aztreonam 2000 mg/ Sodium Chloride 100 ml @ 200 mls/hr Q8H IV Last administered on 07/28/17 08:01; Start 07/26/17 at 17:00; Stop 07/28/17 at 14: 58; Status DC Vancomycin HCl 1250 mg/Sodium Chloride 262.5 ml @ 250 mls/hr Q12H IV ; Start 07/26/17 at 21:30; Status UNV Folic Acid (Folate) 1 mg DAILY PO Last administered on 08/02/17 08:35; Start 07/27/17 at 09:00 Magnesium Oxide (Mag-Ox) 400 mg DAILY@1100 PO Last administered on 08/01/17 10 :39; Start 07/27/17 at 11:00 Thiamine HCl (Vitamin B1) 100 mg DAILY PO Last administered on 08/02/17 08:35 ; Start 07/27/17 at 09:00 Calcium/Vitamin D (Oscal-D 250-125) 250 mg DAILY PO Last administered on 08:34; Start 07/27/17 at 09:00 Multivitamins (Theragran) 1 tab DAILY PO Last administered on 08/02/17 08:34; Start 07/27/17 at 09:00 Vancomycin HCl 1500 mg/Sodium Chloride 515 ml @ 250 mls/hr Q12H IV ; Start at 18:00; Stop 07/26/17 at 20:03; Status DC Miscellaneous Information SPECIFIC LAB TO BE DRAWN:VANCOMYCIN TROUGH DATE TO... ONCE ONCE .XX ; Start 07/28/17 at 10:45; Stop 07/28/17 at 10:46; Status DC Vancomycin HCl 1500 mg/Sodium Chloride 515 ml @ 250 mls/hr Q12H IV Last administered on 07/27/17 07:40; Start 07/26/17 at 20:00; Stop 07/27/17 at 23: 25; Status DC Metronidazole 100 ml @ 100 mls/hr Q8H IV Last administered on 08/02/17 06:44 ; Start 07/27/17 at 23:00; Stop 08/02/17 at 12:00 Vancomycin HCl 1500 mg/Sodium Chloride 515 ml @ 250 mls/hr Q12H IV Last administered on 07/28/17 14:35; Start 07/27/17 at 23:00; Stop 07/28/17 at 14:58 ; Status DC Ceftriaxone Sodium 2000 mg/ Sodium Chloride 100 ml @ 200 mls/hr Q24H IV Last administered on 08/01/17 16:45; Start 07/28/17 at 16:00; Stop 08/02/17 at 23:00 Metoprolol Tartrate (Lopressor) 25 mg BID PO Last administered on 08/02/17 08: 34; Start 07/28/17 at 21:00 Lorazepam (Ativan) 1 mg Q12HR PO ; Start 07/28/17 at 21:00; Stop 07/28/17 at 21: 00; Status DC Quetiapine Fumarate (SEROquel) 25 mg BID PO Last administered on 08/02/17 08: 34; Start 07/28/17 at 21:00; Stop 08/02/17 at 09:41; Status DC Lorazepam (Ativan) 0.5 mg Q12HR PO Last administered on 07/30/17 22:46; Start 07/28/17 at 21:00; Stop 07/31/17 at 08:02; Status DC Dextrose (D50w (Syr) Inj) 50 ml STK-MED ONCE .ROUTE ; Start 07/28/17 at 18:41; Stop 07/28/17 at 18:42; Status DC Enalaprilat (Vasotec Inj) 1.25 mg ONCE ONCE IV PUSH Last administered on 04:33; Start 07/29/17 at 00:45; Stop 07/29/17 at 00:46; Status DC Enalaprilat (Vasotec Inj) 2.5 mg Q6H PRN IV PUSH SBP>160, DBP>90 Last administered on 08/02/17 01:18; Start 07/30/17 at 09:45 Potassium Bicarbonate (Effer-K Eff) 50 meq ONCE ONCE PO Last administered on 07/30/17 18:29; Start 07/30/17 at 17:45; Stop 07/30/17 at 17:53; Status DC Magnesium Oxide (Mag-Ox) 800 mg ONCE ONCE PO Last administered on 07/30/17 18 :30; Start 07/30/17 at 17:45; Stop 07/30/17 at 17:53; Status DC Potassium Bicarb/ Potassium Chloride (K-Lyte Cl Eff) 50 meq ONCE ONCE PO Last administered on 07/31/17 08:24; Start 07/31/17 at 08:00; Stop 07/31/17 at 08:01; Status DC Lorazepam (Ativan) 0.5 mg Q12HR PRN PO anxiety ; Start 07/31/17 at 08:15; Stop 08/02/17 at 09:41; Status DC Magnesium Sulfate/ Dextrose 100 ml @ 100 mls/hr Q1H IV Last administered on 11:02; Start 07/31/17 at 09:00; Stop 07/31/17 at 10:59; Status DC Potassium Chloride (KCl) 30 meq ONCE ONCE PO ; Start 08/01/17 at 09:30; Stop 08/01/17 at 10:48; Status DC Potassium Bicarb/ Potassium Chloride (K-Lyte Cl Eff) 25 meq ONCE ONCE PO Last administered on 08/01/17 13:47; Start 08/01/17 at 11:00; Stop 08/01/17 at 11:01; Status DC Amlodipine Besylate (Norvasc) 5 mg DAILY PO ; Start 08/02/17 at 09:15 A/P Assessment and Plan Severe Sepsis Encephalopathy : Delirium secondary to sepsis vs possible meningitis, worsened by Hyponatremia, fever, suspected aspiration LP not concerning for meningitis. Leukocytes 14.0 yesterday. Repeat CBC, CMP. Still requiring restraints but patient is very sleepy today. Will DC Seroquel due to sedation. He was not getting any Ativan but will also discontinue that. Hyponatremia, resolved Today sodium is 139 Suspected aspiration pneumonia (prehospital), patient resides to half-way, likely aspiration pneumonia Chest x-ray reviewed. Antibiotics as above. Speech therapist consulted. Continue antibiotics as per infectious disease. NPO, started tube feedings as he failed swallow eval Seen by ID specilait appreciate recommendations. Change to Rocephin, Continue Flagyl, Give 7 days Abx. If able to swallow, could change Abx to oral per ID specialist Dysphagia Hypoglycemia 2/2 no PO intake, received 1 amp dextrose, BS better controlled, hypoglycemic protocol, insert tube feedings, as he failed swallow evaluation . on TF Jevity 1.5 w/goal rate of 60 ml/hr. Locomotive Oiler also consulted for eval. Alcohol dependence Patient was at half-way, however unclear if he was still able to get alcohol. Will continue to monitor clinically. Atrial fibrillation H/o hypertension Heart rate elevated in the 90s. Pressure reviewed and acceptable. On metoprolol. H/o generalized weakness -Continue PT/OT Diarrhea he was given antibiotics and is currently on Flagyl. Will get C. difficile toxin. Continue to monitor. Uncontrolled hypertension Add amlodipine 5 mg by mouth daily. Patient also has when necessary IV Vasotec if unable to take oral medication. Discharge Planning Patient continues to be in restraints and confused. Celestina Tobin MD Aug 02, 2017 10:00
[2017-08-02] MEDS: MAGNESIUM OXIDE 400 MG TAB PO SCH (11:58)
--- NOTE | 2017-08-02 13:06 | HHI.IDPN ---
Subjective Subjective Remarks Patient is a 67-year-old male, and to the hospital for fever and unresponsiveness on the day of admission. He was apparently normal the day prior to admission. However the day prior to admission he had a temperature and apparently was started on doxycycline. EMS was called, and they tried intubating the patient but was not successful. He had a fever of 102+ on the day of admission. Patient in the ED got intubated, and apparently during intubation there was a lot of what looks like stomach contents during the intubation. Was no mention that he had any nausea or vomiting prior to admission. No mention of any diarrhea or any shortness of breath or congestion. CT of the head did not show any acute infarct or bleed. Chest x- ray was normal. He had diarrhea, and the stool tested negative for C. difficile toxin. His urinalysis showed some mild pyuria. A Garcia was inserted in the emergency room. Infectious disease consultation has been requested to evaluate the patient. Notes reviewed D/W RN Patient is lethargic Has Dobhoff tube for feeding and po meds To finish Abx today CSF C/S negative Sputum normal jessica CXR with L base infiltrate [place] and pneumo Ag negative INfluenza neg BC negative LP 27 WBC, mostly neutrophil, protein slightly up Antibiotics Rocephin Flagyl Lines PIV Past Medical History Skin cancer Prostate CA Atrial fib GERD Hypertension Past Surgical History Inguinal Hernia surgery [place] Allergies: Coded Allergies: penicillin G (Unverified Allergy, Severe, ITCHINESS, 07/26/17) Objective . Vital Signs Date Time Temp Pulse Resp B/P (MAP) Pulse Ox O2 Delivery O2 Flow Rate FiO2 08/02/17 12:14 97.4 80 20 162/94 (116) 97 08/02/17 09:27 97 Nasal Cannula 2.00 08/02/17 07:00 97.4 80 20 162/94 (116) 97 08/02/17 05:33 98.3 92 19 163/95 (117) 98 08/02/17 00:30 98.4 89 19 170/94 (119) 98 08/01/17 21:58 98 Nasal Cannula 2.00 08/01/17 20:30 98.5 93 19 173/98 (123) 97 08/01/17 16:29 98.9 93 20 155/88 (110) 97 08/02/17 08/02/17 08/03/17 15:00 23:00 07:00 Intake Total 1130 ml Balance 1130 ml Tube Feeding 830 ml Tube Irrigant 300 ml . Laboratory Tests Test 08/01/17 08:43 White Blood Count 8.6 TH/MM3 Red Blood Count 2.85 MIL/MM3 Hemoglobin 8.4 GM/DL Hematocrit 25.8 % Mean Corpuscular Volume 90.6 FL Mean Corpuscular Hemoglobin 29.5 PG Mean Corpuscular Hemoglobin Concent 32.5 % Red Cell Distribution Width 21.4 % Platelet Count 249 TH/MM3 Mean Platelet Volume 8.9 FL Neutrophils (%) (Auto) 67.4 % Lymphocytes (%) (Auto) 16.3 % Monocytes (%) (Auto) 8.8 % Eosinophils (%) (Auto) 6.9 % Basophils (%) (Auto) 0.6 % Neutrophils # (Auto) 5.8 TH/MM3 Lymphocytes # (Auto) 1.4 TH/MM3 Monocytes # (Auto) 0.8 TH/MM3 Eosinophils # (Auto) 0.6 TH/MM3 Basophils # (Auto) 0.1 TH/MM3 CBC Comment DIFF FINAL Differential Comment Laboratory Tests Test 08/01/17 08:43 Blood Urea Nitrogen 5 MG/DL Creatinine 0.43 MG/DL Random Glucose 108 MG/DL Calcium Level 8.6 MG/DL Sodium Level 139 MEQ/L Potassium Level 3.4 MEQ/L Chloride Level 104 MEQ/L Carbon Dioxide Level 25.8 MEQ/L Anion Gap 9 MEQ/L Estimat Glomerular Filtration Rate 199 ML/MIN Imaging Abdomen X-Ray 08/02/17 0000 Signed Impressions: Service Date/Time: Wednesday, August 02, 2017 01:23 - CONCLUSION: No evidence of obstruction. Dobbhoff tube in the antrum of the stomach Herbert Lion MD Chest X-Ray 08/01/17 0000 Signed Impressions: Service Date/Time: Tuesday, August 01, 2017 21:24 - CONCLUSION: Feeding tube distal tip in the proximal stomach. Mik Leslie MD Chest X-Ray 07/27/17 0000 Signed Impressions: Service Date/Time: Thursday, July 27, 2017 08:54 - CONCLUSION: 1. Endotracheal tube and nasogastric tube in good positions. 2. Left basilar atelectasis. Reji Corcoran MD Head CT 07/26/17904 Signed Impressions: Service Date/Time: Wednesday, July 26, 2017 10:05 - CONCLUSION: 1. Moderate periventricular and subcortical white matter small vessel ischemic changes bilaterally. 2. Mild cerebral atrophy. 3. No acute infarct, acute hemorrhage , mass effect or extra-axial fluid collections. Reji Corcoran MD Chest X-Ray 07/26/17904 Signed Impressions: Service Date/Time: Wednesday, July 26, 2017 09:42 - CONCLUSION: 1. Endotracheal tube and nasogastric tube in good positions. 2. Cardiomegaly. 3. No acute focal pulmonary infiltrate or pulmonary vascular congestion. Reji Corcoran MD Lumbar Puncture Fluoroscopy 07/26/17 Signed Impressions: Service Date/Time: Wednesday, July 26, 2017 17:11 - CONCLUSION: Uncomplicated fluoroscopically guided lumbar puncture. Herbert Lion MD Head CT 07/26/17904 Signed Impressions: Service Date/Time: Wednesday, July 26, 2017 10:05 - CONCLUSION: 1. Moderate periventricular and subcortical white matter small vessel ischemic changes bilaterally. 2. Mild cerebral atrophy. 3. No acute infarct, acute hemorrhage , mass effect or extra-axial fluid collections. Reji Corcoran MD Chest X-Ray 07/26/17904 Signed Impressions: Service Date/Time: Wednesday, July 26, 2017 09:42 - CONCLUSION: 1. Endotracheal tube and nasogastric tube in good positions. 2. Cardiomegaly. 3. No acute focal pulmonary infiltrate or pulmonary vascular congestion. Reji Corcoran MD Lumbar Puncture Fluoroscopy 07/26/17 Signed Impressions: Service Date/Time: Wednesday, July 26, 2017 17:11 - CONCLUSION: Uncomplicated fluoroscopically guided lumbar puncture. Herbert Lion MD Physical Exam GENERAL: Lethargic, not in distress SKIN: Warm and dry. No generalized rash, no ecchymoses and no evidence of embolic lesions. HEAD: Atraumatic. Normocephalic. No temporal wasting, or tenderness. EYES: [place] conjunctiva. No petechia or hemorrhage. Pupils equal, round and reactive to light. No scleral icterus. EARS, NOSE AND THROAT: Nose without bleeding or purulent nasal discharge. NECK: Trachea midline. Supple CARDIOVASCULAR: Regular rate and rhythm. There is a systolic murmur heard on the left precordium. RESPIRATORY: Has scattered wheezing R>L EXTREMITIES: No clubbing, cyanosis, or edema. No calf tenderness. Well perfused and warm. NEUROLOGICAL: Lethargic PSYCHIATRIC: Unable to assess LINE: No evidence of infection Assessment & Plan Remarks IMPRESSION Sepsis on presentation, acute febrile illness, patient SNF resident, prob aspirated Encephalopathy, ?SZ episode - has lethargy again LP only 27 WBC Respiratory failure, likely aspiration - stable post extubation Hx ETOH abuse Mild pyuria, no garcia in [place] RECOMMENDATION Change to Rocephin Continue Flagyl To finish Abx today Spoke with RN, sister and brother willl be coming to visit Needs to address treatment plans and goals D/W Sindhu Cagle MD Aug 02, 2017 13:06
[2017-08-02] MEDS: cefTRIAXone INJ 2,000 MG in SODIUM CHLORIDE 0.9% INJ 100 ML IV SCH (15:31)
--- NOTE | 2017-08-02 18:37 | HHI.PR ---
Subjective Remarks Follow-up for altered mental status and infection Pt encountered laying a bed, spoke when his name was called. Upon examination a heart murmur was noted and he reported he had it "for about 6 -8 years". Pt was in wrist restraints yet complied with requests. He denied pain/discomfort. Pt denied fever, cough, shortness of breath, malaise. Objective Vitals Vital Signs Date Time Temp Pulse Resp B/P (MAP) Pulse Ox O2 Delivery O2 Flow Rate FiO2 08/02/17 17:44 98.7 80 20 170/108 (128) 97 08/02/17 12:14 97.4 80 20 162/94 (116) 97 08/02/17 09:27 97 Nasal Cannula 2.00 08/02/17 07:00 97.4 80 20 162/94 (116) 97 08/02/17 05:33 98.3 92 19 163/95 (117) 98 08/02/17 00:30 98.4 89 19 170/94 (119) 98 08/01/17 21:58 98 Nasal Cannula 2.00 08/01/17 20:30 98.5 93 19 173/98 (123) 97 I/O 08/01/17 08/01/17 08/01/17 08/02/17 08/02/17 08/02/17 07:00 15:00 23:00 07:00 15:00 23:00 Intake Total 200 ml 540 ml 1130 ml 0 ml Output Total 450 ml 251 ml 550 ml Balance -450 ml 200 ml 289 ml -550 ml 1130 ml 0 ml Intake Oral 0 ml Tube Feeding 540 ml 830 ml Tube Irrigant 200 ml 300 ml Output Urine Total 450 ml 250 ml 550 ml Stool Total 1 ml # Voids 1 # Bowel Movements 1 1 1 3 Result Diagram: 08/01/17 0843 08/01/17 0843 Imaging Last Impressions Abdomen X-Ray 08/02/17 0000 Signed Impressions: Service Date/Time: Wednesday, August 02, 2017 01:23 - CONCLUSION: No evidence of obstruction. Dobbhoff tube in the antrum of the stomach Herbert Lion MD Chest X-Ray 08/01/17 0000 Signed Impressions: Service Date/Time: Tuesday, August 01, 2017 21:24 - CONCLUSION: Feeding tube distal tip in the proximal stomach. Mik Leslie MD Head CT 07/26/17 0905 Signed Impressions: Service Date/Time: Wednesday, July 26, 2017 10:05 - CONCLUSION: 1. Moderate periventricular and subcortical white matter small vessel ischemic changes bilaterally. 2. Mild cerebral atrophy. 3. No acute infarct, acute hemorrhage , mass effect or extra-axial fluid collections. Reji Corcoran MD Lumbar Puncture Fluoroscopy 07/26/17 0000 Signed Impressions: Service Date/Time: Wednesday, July 26, 2017 17:11 - CONCLUSION: Uncomplicated fluoroscopically guided lumbar puncture. Herbert Lion MD Objective Remarks GENERAL: Pt encountered laying abed, NAD, in wrist restraints. SKIN: Warm and dry. HEAD: Normocephalic. EYES: No scleral icterus. No injection or drainage. NECK: Supple, trachea midline. No lymphadenopathy. CARDIOVASCULAR: Regular rate and rhythm without gallops or rubs. Systolic murmur noted 3/6. RESPIRATORY: Breath sounds equal bilaterally. No accessory muscle use. GASTROINTESTINAL: Abdomen soft, non-tender, nondistended. MUSCULOSKELETAL: No cyanosis, or edema. PSYCHIATRIC: Pt was alert at start of interview but became lethargic as session continued. He could not name current location, month, year, or [place] president. He stated the President was "[place]" and then said "that's not right." Medications and IVs Current Medications Medications (Trade) Dose Ordered Sig/Bunny Route Start Time Stop Time Status Last Admin Fentanyl Citrate 250 ml @ 5 mls/hr TITRATE PRN IV 07/26/17 12:00 Propofol 100 ml @ 2.46 mls/hr TITRATE PRN IV 07/26/17 12:00 07/27/17 03:56 (Peridex 0.12% Liq) 15 ml BID@08,20 MT 07/26/17 20:00 08/02/17 08:35 (D50w (Vial) Inj) 25 ml UNSCH PRN IV PUSH 07/26/17 10:30 07/28/17 18:43 (NovoLIN R SUPPLEMENTAL SCALE) 1 Q6HR SQ 07/26/17 12:00 (Duoneb Neb) 1 ampule Q2HR NEB PRN INH 07/26/17 10:30 08/01/17 21:56 Sodium Chloride 1,000 ml @ 84 mls/hr [id number] IV 07/26/17 11:30 08/02/17 04:51 (Tylenol) 650 mg Q6H PRN PO 07/26/17 10:30 07/30/17 23:18 (Pepcid Inj) 20 mg Q12HR IV PUSH 07/26/17 21:00 08/02/17 08:34 (Zofran Inj) 4 mg Q6H PRN IV PUSH 07/26/17 10:30 Miscellaneous Information 1 Q361D XX 07/26/17 10:30 (Chlorhexidine 2% Cloth) Taper DAILY@04 TOP 07/27/17 04:00 07/23/18 03:59 07/31/17 04:00 (Chlorhexidine 2% Cloth) 3 pack UNSCH PRN TOP 07/26/17 10:30 (Folate) 1 mg DAILY PO 07/27/17 09:00 08/02/17 08:35 (Mag-Ox) 400 mg DAILY@1100 PO 07/27/17 11:00 08/02/17 11:58 (Vitamin B1) 100 mg DAILY PO 07/27/17 09:00 08/02/17 08:35 (Oscal-D 250-125) 250 mg DAILY PO 07/27/17 09:00 08/02/17 08:34 (Theragran) 1 tab DAILY PO 07/27/17 09:00 08/02/17 08:34 Ceftriaxone Sodium 2000 mg/ Sodium Chloride 100 ml @ 200 mls/hr Q24H IV 07/28/17 16:00 08/02/17 23:00 08/02/17 15:31 (Lopressor) 25 mg BID PO 07/28/17 21:00 08/02/17 08:34 (Vasotec Inj) 2.5 mg Q6H PRN IV PUSH 07/30/17 09:45 08/02/17 01:18 (Norvasc) 5 mg DAILY PO 08/02/17 09:15 08/02/17 09:59 Urinary Catheter: Yes A/P Assessment and Plan 67-year-old male who is a prison resident with a medical history significant for alcohol dependence, atrial fibrillation, hypertension, generalized weakness and anxiety was brought to the ER by EMS for altered mental status. Behavioral issues: Pt in wrist restraints. Monitor behavior. Sepsis: Antibiotics continue. Afebrile. Hypertension: PRN medication administered. Severe Sepsis Encephalopathy : Delirium secondary to sepsis vs possible meningitis, worsened by Hyponatremia, fever, suspected aspiration LP not concerning for meningitis. Leukocytes 14.0 yesterday. Repeat CBC, CMP. Still requiring restraints but patient is very sleepy today. Will DC Seroquel due to sedation. He was not getting any Ativan but will also discontinue that. Hyponatremia, resolved Today sodium is 139 Suspected aspiration pneumonia (prehospital), patient resides to prison, likely aspiration pneumonia Chest x-ray reviewed. Antibiotics as above. Speech therapist consulted. Continue antibiotics as per infectious disease. NPO, started tube feedings as he failed swallow eval Seen by ID specialist appreciate recommendations. Change to Rocephin, Continue Flagyl, Give 7 days Abx. If able to swallow, could change Abx to oral per ID specialist Dysphagia Hypoglycemia 2/2 no PO intake, received 1 amp dextrose, BS better controlled, hypoglycemic protocol, insert tube feedings, as he failed swallow evaluation . on TF Jevity 1.5 w/goal rate of 60 ml/hr. Highway Technician also consulted for eval. Alcohol dependence Patient was at prison, however unclear if he was still able to get alcohol. Will continue to monitor clinically. Atrial fibrillation H/o hypertension Heart rate elevated in the 90s. Pressure reviewed and acceptable. On metoprolol. H/o generalized weakness -Continue PT/OT Diarrhea he was given antibiotics and is currently on Flagyl. Will get C. difficile toxin. Continue to monitor. Uncontrolled hypertension Add amlodipine 5 mg by mouth daily. Patient also has when necessary IV Vasotec if unable to take oral medication. Discussed with pt, RN, and Dr. Tobin. Discharge Planning Patient continues to be in restraints and confused. Plan is for pt to evidence appropriate behavior and be out of restraints before being transferred to a receiving facility. Attending Statement Patient continues to be in restraints and confused. Plan is for pt to evidence appropriate behavior and be out of restraints before he can be discharged to a receiving facility. Gold De Leon Jr. Aug 02, 2017 18:37
--- NOTE | 2017-08-02 23:54 | RADRPT ---
EXAM DATE/TIME: 08/02/2017 23:28 [facility] COMPARISON: ABDOMEN SINGLE VIEW, August 02, 2017, 1:23. INDICATIONS : Dobhoff placement. MEDICAL HISTORY : Cardiovascular disease. Carcinoma, prostatic. Hypertension. SURGICAL HISTORY : None. ENCOUNTER: Subsequent ACUITY: 4 - 6 days PAIN SCORE: Non-responsive. LOCATION: upper quadrant abdomen. FINDINGS: Examination of the abdomen demonstrates a normal bowel gas pattern. No free air is identified. No o rganomegaly is evident. Osseous structures are intact. CONCLUSION: No evidence of obstruction. Dobbhoff tube in the body the stomach Herbert iLon MD on August 02, 2017 at 23:53 Board Certified Radiologist. This report was verified electronically.
[2017-08-03] VITALS (7 sets, daily range): BP systolic 140–170; BP diastolic 83–92; PULSE 80–97; RESP 18–20; TEMP 97.5–98.1; O2SAT 95–98
--- NOTE | 2017-08-03 01:59 | RADRPT ---
EXAM DATE/TIME: 08/03/2017 01:33 [facility] COMPARISON: ABDOMEN SINGLE VIEW, August 02, 2017, 23:28. INDICATIONS : Dobhoff placement. MEDICAL HISTORY : Hypertension. Cardiovascular disease. Carcinoma, prostatic. SURGICAL HISTORY : None. ENCOUNTER: Subsequent ACUITY: 4 - 6 days PAIN SCORE: Non-responsive. LOCATION: upper quadrant abdomen. FINDINGS: Examination of the abdomen demonstrates a normal bowel gas pattern. No free air is identified. No o rganomegaly is evident. Osseous structures are intact. CONCLUSION: No evidence of obstruction. Dobbhoff tube in the stomach Herbert Lion MD on August 03, 2017 at 1:58 Board Certified Radiologist. This report was verified electronically.
[2017-08-03] MEDS: CHLORHEXIDINE GLUCONATE 2 % 1 PACK (2 CLOTHS) TOP SCH (04:00)
[2017-08-03] MEDS: INSULIN NovoLIN REGULAR SUPPLEMENTAL SCALE SQ SCH ×4 (05:49→17:15)
[2017-08-03] MEDS: CHLORHEXIDINE 0.12% (ORAL KIT) 15 ML CUP MT SCH ×2 (08:00→21:57)
[2017-08-03] MEDS: METOPROLOL TARTRATE 25 MG TAB PO SCH ×2 (08:39→21:57)
[2017-08-03] MEDS: FOLIC ACID 1 MG TAB PO SCH (08:39)
[2017-08-03] MEDS: THIAMINE HCL 100 MG TAB PO SCH (08:39)
[2017-08-03] MEDS: CALCIUM/VITAMIN D 250 MG/125 U TAB PO SCH (08:39)
[2017-08-03] MEDS: MULTIVITAMIN TAB PO SCH (08:40)
[2017-08-03] MEDS: amLODIPine BESYLATE 5 MG TAB PO SCH (08:40)
--- NOTE | 2017-08-03 10:21 | HHI.PR ---
Subjective Remarks Follow-up for pneumonia and altered mental status Patient is confused but is much more alert today. He also follows commands. He is able to give me his first and last name but cannot tell me location and date. He stated that he thinks he is at home. Patient has no complaints. Deny any pain or shortness of breathing. Otherwise no other acute events. Objective Vitals Vital Signs Date Time Temp Pulse Resp B/P (MAP) Pulse Ox O2 Delivery O2 Flow Rate FiO2 08/03/17 09:59 140/83 (102) 08/03/17 08:00 97.9 90 18 158/91 (113) 98 08/03/17 07:18 97.5 97 20 156/92 (113) 97 08/03/17 01:15 97.6 82 20 152/90 (110) 96 08/02/17 20:09 89 143/78 (99) 08/02/17 20:00 97.6 80 18 138/83 (101) 98 08/02/17 17:44 98.7 80 20 170/108 (128) 97 08/02/17 12:14 97.4 80 20 162/94 (116) 97 I/O 08/02/17 08/02/17 08/02/17 08/03/17 08/03/17 08/03/17 07:00 15:00 23:00 07:00 15:00 23:00 Intake Total 1130 ml 0 ml Output Total 550 ml Balance -550 ml 1130 ml 0 ml Intake Oral 0 ml Tube Feeding 830 ml Tube Irrigant 300 ml Output Urine Total 550 ml # Bowel Movements 3 Result Diagram: 08/01/1743 08/01/17 0843 Objective Remarks GENERAL: Patient lying in bed in restraints and is not agitated. NECK: Supple, trachea midline. No JVD or lymphadenopathy. CARDIOVASCULAR: Regular rate and rhythm without murmurs, gallops, or rubs. RESPIRATORY: Diffuse rhonchi. No accessory muscle use. GASTROINTESTINAL: Abdomen soft, non-tender, nondistended. NEURO: Patient is alert but confused. He does follow commands. Motor is grossly intact. Medications and IVs Current Medications Propofol 100 ml @ As Directed STK-MED ONCE .ROUTE ; Start 07/26/17 at 09:00; Stop 07/26/17 at 09:01; Status DC Sodium Chloride 1,000 ml @ 999 mls/hr BOLUS ONCE IV Last administered on 09:35; Start 07/26/17 at 09:15; Stop 07/26/17 at 10:15; Status DC Sodium Chloride 1,000 ml @ 999 mls/hr BOLUS ONCE IV Last administered on 09:36; Start 07/26/17 at 09:15; Stop 07/26/17 at 10:15; Status DC Propofol 100 ml @ 0 mls/hr TITRATE PRN IV Ordered RASS Last administered on 09:35; Start 07/26/17 at 09:15; Stop 07/26/17 at 11:31; Status DC Fentanyl Citrate 250 ml @ 5 mls/hr TITRATE PRN IV SEDATION; Start 07/26/17 at 09:15; Stop 07/26/17 at 11:32; Status DC Vancomycin HCl 1000 mg/Sodium Chloride 250 ml @ 250 mls/hr ONCE ONCE IV Last administered on 07/26/17 09:52; Start 07/26/17 at 09:15; Stop 07/26/17 at 10 :14; Status DC Aztreonam 1000 mg/ Sodium Chloride 100 ml @ 200 mls/hr ONCE ONCE IV Last administered on 07/26/17 10:56; Start 07/26/17 at 09:15; Stop 07/26/17 at 09 :44; Status DC Etomidate (Amidate Inj) 20 mg STK-MED ONCE .ROUTE ; Start 07/26/17 at 09:48; Stop 07/26/17 at 09:49; Status DC Succinylcholine Chloride (Quelicin Inj) 200 mg STK-MED ONCE .ROUTE ; Start at 09:48; Stop 07/26/17 at 09:49; Status DC Fentanyl Citrate 250 ml @ 5 mls/hr TITRATE PRN IV SEDATION; Start 07/26/17 at 12:00 Propofol 100 ml @ 2.46 mls/hr TITRATE PRN IV SEDATION Last administered on 03:56; Start 07/26/17 at 12:00 Magnesium Oxide (Mag-Ox) 800 mg UNSCH PRN PO For Magnesium 1.2 - 1.6 mg/dL; Start 07/26/17 at 10:30; Stop 08/01/17 at 08:31; Status DC Magnesium Sulfate 4 gm/Sodium Chloride 100 ml @ 50 mls/hr UNSCH PRN IV For Magnesium 0.9 - 1.1 mg/dL; Start 07/26/17 at 10:30; Stop 08/01/17 at 08:31; Status DC Magnesium Sulfate 2 gm/Sodium Chloride 100 ml @ 50 mls/hr UNSCH PRN IV For Magnesium 1.2 - 1.6 mg/dL; Start 07/26/17 at 10:30; Stop 08/01/17 at 08:31; Status DC Potassium Chloride 100 ml @ 50 mls/hr Q2H PRN IV For Potassium 2.8 - 3.2 mEq/L ; Start 07/26/17 at 10:30; Stop 08/01/17 at 08:31; Status DC Potassium Chloride 100 ml @ 50 mls/hr Q2H PRN IV For Potassium 3.3 - 3.5 mEq/L ; Start 07/26/17 at 10:30; Stop 08/01/17 at 08:31; Status DC Potassium Chloride 100 ml @ 50 mls/hr Q2H PRN IV For Potassium 2.8 - 3.2 mEq/L ; Start 07/26/17 at 10:30; Stop 08/01/17 at 08:31; Status DC Potassium Chloride 100 ml @ 25 mls/hr UNSCH PRN IV For Potassium 3.3 - 3.5 mEq /L; Start 07/26/17 at 10:30; Stop 08/01/17 at 08:31; Status DC Potassium Phosphate (K-Phos) 2,000 mg Q4H PRN PO For Phosphorus < 2.5 mg/dL; Start 07/26/17 at 10:30; Stop 08/01/17 at 08:31; Status DC Potassium Phosphate (K-Phos) 2,000 mg UNSCH PRN PO/TUBE SEE LABEL COMMENTS; Start 07/26/17 at 10:30; Stop 08/01/17 at 08:31; Status DC Potassium Phosphate 30 mmol/ Sodium Chloride 260 ml @ 42 mls/hr UNSCH PRN IV SEE LABEL COMMENTS; Start 07/26/17 at 10:30; Stop 08/01/17 at 08:31; Status DC Sodium Phosphate 30 mmol/Sodium Chloride 250 ml @ 42 mls/hr UNSCH PRN IV For Phosphorus < 2.5 mg/dL; Start 07/26/17 at 10:30; Stop 08/01/17 at 08:31; Status DC Chlorhexidine Gluconate (Peridex 0.12% Liq) 15 ml BID@08,20 MT Last administered on 08/03/17 08:00; Start 07/26/17 at 20:00 Dextrose (D50w (Vial) Inj) 25 ml UNSCH PRN IV PUSH HYPOGLYCEMIA-SEE COMMENTS Last administered on 07/28/17 18:43; Start 07/26/17 at 10:30 Insulin Human Regular (NovoLIN R SUPPLEMENTAL SCALE) 1 Q6HR SQ ; Start at 12:00 Albuterol/ Ipratropium (Duoneb Neb) 1 ampule Q6HR NEB INH Last administered on 07/30/17 15:33; Start 07/26/17 at 16:00; Stop 07/30/17 at 15:59; Status DC Albuterol/ Ipratropium (Duoneb Neb) 1 ampule Q2HR NEB PRN INH WHEEZING Last administered on 08/01/17 21:56; Start 07/26/17 at 10:30 Sodium Chloride 1,000 ml @ 84 mls/hr [id number] IV Last administered on 22:15; Start 07/26/17 at 11:30 Acetaminophen (Tylenol) 650 mg Q6H PRN PO PAIN 1-10 AND/OR FEVER >101F Last administered on 07/30/17 23:18; Start 07/26/17 at 10:30 Famotidine (Pepcid Inj) 20 mg Q12HR IV PUSH Last administered on 08/02/17 20: 10; Start 07/26/17 at 21:00 Ondansetron HCl (Zofran Inj) 4 mg Q6H PRN IV PUSH NAUSEA OR VOMITING; Start at 10:30 Miscellaneous Information 1 Q361D XX ; Start 07/26/17 at 10:30 Chlorhexidine Gluconate (Chlorhexidine 2% Cloth) Taper DAILY@04 TOP Last administered on 07/31/17 04:00; Start 07/27/17 at 04:00; Stop 07/23/18 at 03: 59 Chlorhexidine Gluconate (Chlorhexidine 2% Cloth) 3 pack UNSCH PRN TOP HYGIENIC CARE; Start 07/26/17 at 10:30 Pharmacy Profile Note 0 ml @ 0 mls/hr UNSCH OTHER ; Start 07/26/17 at 10:30; Stop 07/28/17 at 14:58; Status DC Metronidazole 100 ml @ 100 mls/hr Q8H IV Last administered on 07/27/17 11:21 ; Start 07/26/17 at 12:00; Stop 07/27/17 at 23:24; Status DC Aztreonam 2000 mg/ Sodium Chloride 100 ml @ 200 mls/hr Q8H IV Last administered on 07/28/17 08:01; Start 07/26/17 at 17:00; Stop 07/28/17 at 14: 58; Status DC Vancomycin HCl 1250 mg/Sodium Chloride 262.5 ml @ 250 mls/hr Q12H IV ; Start 07/26/17 at 21:30; Status UNV Folic Acid (Folate) 1 mg DAILY PO Last administered on 08/03/17 08:39; Start 07/27/17 at 09:00 Magnesium Oxide (Mag-Ox) 400 mg DAILY@1100 PO Last administered on 08/02/17 11 :58; Start 07/27/17 at 11:00 Thiamine HCl (Vitamin B1) 100 mg DAILY PO Last administered on 08/03/17 08:39 ; Start 07/27/17 at 09:00 Calcium/Vitamin D (Oscal-D 250-125) 250 mg DAILY PO Last administered on 08:39; Start 07/27/17 at 09:00 Multivitamins (Theragran) 1 tab DAILY PO Last administered on 08/03/17 08:40; Start 07/27/17 at 09:00 Vancomycin HCl 1500 mg/Sodium Chloride 515 ml @ 250 mls/hr Q12H IV ; Start at 18:00; Stop 07/26/17 at 20:03; Status DC Miscellaneous Information SPECIFIC LAB TO BE DRAWN:VANCOMYCIN TROUGH DATE TO... ONCE ONCE .XX ; Start 07/28/17 at 10:45; Stop 07/28/17 at 10:46; Status DC Vancomycin HCl 1500 mg/Sodium Chloride 515 ml @ 250 mls/hr Q12H IV Last administered on 07/27/17 07:40; Start 07/26/17 at 20:00; Stop 07/27/17 at 23: 25; Status DC Metronidazole 100 ml @ 100 mls/hr Q8H IV Last administered on 08/02/17 06:44 ; Start 07/27/17 at 23:00; Stop 08/02/17 at 12:00; Status DC Vancomycin HCl 1500 mg/Sodium Chloride 515 ml @ 250 mls/hr Q12H IV Last administered on 07/28/17 14:35; Start 07/27/17 at 23:00; Stop 07/28/17 at 14:58 ; Status DC Ceftriaxone Sodium 2000 mg/ Sodium Chloride 100 ml @ 200 mls/hr Q24H IV Last administered on 08/02/17 15:31; Start 07/28/17 at 16:00; Stop 08/02/17 at 23:00 ; Status DC Metoprolol Tartrate (Lopressor) 25 mg BID PO Last administered on 08/03/17 08: 39; Start 07/28/17 at 21:00 Lorazepam (Ativan) 1 mg Q12HR PO ; Start 07/28/17 at 21:00; Stop 07/28/17 at 21: 00; Status DC Quetiapine Fumarate (SEROquel) 25 mg BID PO Last administered on 08/02/17 08: 34; Start 07/28/17 at 21:00; Stop 08/02/17 at 09:41; Status DC Lorazepam (Ativan) 0.5 mg Q12HR PO Last administered on 07/30/17 22:46; Start 07/28/17 at 21:00; Stop 07/31/17 at 08:02; Status DC Dextrose (D50w (Syr) Inj) 50 ml STK-MED ONCE .ROUTE ; Start 07/28/17 at 18:41; Stop 07/28/17 at 18:42; Status DC Enalaprilat (Vasotec Inj) 1.25 mg ONCE ONCE IV PUSH Last administered on 04:33; Start 07/29/17 at 00:45; Stop 07/29/17 at 00:46; Status DC Enalaprilat (Vasotec Inj) 2.5 mg Q6H PRN IV PUSH SBP>160, DBP>90 Last administered on 08/02/17 18:48; Start 07/30/17 at 09:45 Potassium Bicarbonate (Effer-K Eff) 50 meq ONCE ONCE PO Last administered on 07/30/17 18:29; Start 07/30/17 at 17:45; Stop 07/30/17 at 17:53; Status DC Magnesium Oxide (Mag-Ox) 800 mg ONCE ONCE PO Last administered on 07/30/17 18 :30; Start 07/30/17 at 17:45; Stop 07/30/17 at 17:53; Status DC Potassium Bicarb/ Potassium Chloride (K-Lyte Cl Eff) 50 meq ONCE ONCE PO Last administered on 07/31/17 08:24; Start 07/31/17 at 08:00; Stop 07/31/17 at 08:01; Status DC Lorazepam (Ativan) 0.5 mg Q12HR PRN PO anxiety ; Start 07/31/17 at 08:15; Stop 08/02/17 at 09:41; Status DC Magnesium Sulfate/ Dextrose 100 ml @ 100 mls/hr Q1H IV Last administered on 11:02; Start 07/31/17 at 09:00; Stop 07/31/17 at 10:59; Status DC Potassium Chloride (KCl) 30 meq ONCE ONCE PO ; Start 08/01/17 at 09:30; Stop 08/01/17 at 10:48; Status DC Potassium Bicarb/ Potassium Chloride (K-Lyte Cl Eff) 25 meq ONCE ONCE PO Last administered on 08/01/17 13:47; Start 08/01/17 at 11:00; Stop 08/01/17 at 11:01; Status DC Amlodipine Besylate (Norvasc) 5 mg DAILY PO Last administered on 08/03/17 08: 40; Start 08/02/17 at 09:15 A/P Assessment and Plan Severe Sepsis Encephalopathy : Delirium secondary to sepsis vs possible meningitis, worsened by Hyponatremia, fever, suspected aspiration LP not concerning for meningitis. Leukocytes 14.0 yesterday. Repeat CBC, CMP. Still requiring restraints but patient is very sleepy today. Patient much more alert today but confused. He may have an underlying dementia due to his alcoholism. Hyponatremia, resolved Today sodium is 139 Suspected aspiration pneumonia (prehospital), [facility], likely aspiration pneumonia Chest x-ray reviewed. Antibiotics as above. Continue antibiotics as per infectious disease. NPO, started tube feedings as he failed swallow eval Seen by ID specilait appreciate recommendations. Change to Rocephin, Continue Flagyl, Give 7 days Abx. If able to swallow, could change Abx to oral per ID specialist Since patient is much more alert today and does follow commands will consult speech therapist for swallow eval. Dysphagia Hypoglycemia 2/2 no PO intake, received 1 amp dextrose, BS better controlled, hypoglycemic protocol, insert tube feedings, as he failed swallow evaluation . on TF Jevity 1.5 w/goal rate of 60 ml/hr. Patient much more alert today will consult speech therapist for a swallow eval. Alcohol dependence Patient was at jail, however unclear if he was still able to get alcohol. Will continue to monitor clinically. Atrial fibrillation H/o hypertension Heart rate elevated in the 90s. Pressure reviewed and acceptable. On metoprolol. H/o generalized weakness -Continue PT/OT Diarrhea Patient currently on Flagyl. C. difficile negative. Uncontrolled hypertension Blood pressure better controlled on amlodipine. Patient also has when necessary IV Vasotec if unable to take oral medication. Discharge Planning Patient is alert. He is confused but not agitated. He may have a underlying dementia secondary to his alcoholism. Since he is alert and following commands will have speech therapist reevaluate his swallowing. Discussed with patient's nurse. Celestina Tobin MD Aug 03, 2017 10:21
[2017-08-03] MEDS: SODIUM CHLOR 0.9% 1000 ML INJ 1,000 ML IV SCH (10:56)
[2017-08-03] MEDS: MAGNESIUM OXIDE 400 MG TAB PO SCH (10:56)
[2017-08-03] MEDS: FAMOTIDINE 20 MG/2 ML VIAL IV PUSH SCH ×2 (10:56→21:56)
[2017-08-03] MEDS: ENALAPRILAT 2.5 MG/2 ML VIAL IV PUSH PRN (22:04)
[2017-08-04] VITALS (7 sets, daily range): BP systolic 138–169; BP diastolic 79–98; PULSE 77–99; RESP 18–20; TEMP 97.8–99; O2SAT 93–97
[2017-08-04] MEDS: INSULIN NovoLIN REGULAR SUPPLEMENTAL SCALE SQ SCH ×4 (00:14→18:12)
[2017-08-04] MEDS ORDERED: amLODIPine BESYLATE 5 MG TAB PO ONE (02:30)
[2017-08-04] MEDS: SODIUM CHLOR 0.9% 1000 ML INJ 1,000 ML IV SCH ×4 (02:30→16:51)
[2017-08-04] MEDS: CHLORHEXIDINE GLUCONATE 2 % 1 PACK (2 CLOTHS) TOP SCH (03:34)
[2017-08-04 05:51] LABS: C. DIFF EPI 027 PRESUMPTIVE NEGATIVE (NEGATIVE)
[2017-08-04] MEDS: CHLORHEXIDINE 0.12% (ORAL KIT) 15 ML CUP MT SCH ×2 (08:00→20:16)
[2017-08-04 08:07] LABS: HEMATOCRIT 26.9 % (39.0-51.0); MEAN CELL VOLUME 89.7 FL (80.0-100.0); MEAN CORPUSCULAR HEMOGLOBIN 29.8 PG (27.0-34.0); MEAN CORPUSCULAR HGB CONC 33.2 % (32.0-36.0); PLATELET COUNT 328 TH/MM3 (150-450); RED CELL DISTRIBUTION WIDTH 21.9 % (11.6-17.2); REVIEW FLAG FINAL; WHITE BLOOD COUNT 8.2 TH/MM3 (4.0-11.0)
[2017-08-04 08:21] LABS: BICARBONATE 26.5 MEQ/L (21.0-32.0); POTASSIUM 3.5 MEQ/L (3.5-5.1)
[2017-08-04] MEDS: THIAMINE HCL 100 MG TAB PO SCH (08:32)
[2017-08-04] MEDS: METOPROLOL TARTRATE 25 MG TAB PO SCH ×2 (08:32→20:15)
[2017-08-04] MEDS: CALCIUM/VITAMIN D 250 MG/125 U TAB PO SCH (08:32)
[2017-08-04] MEDS: MULTIVITAMIN TAB PO SCH (08:32)
[2017-08-04] MEDS: FOLIC ACID 1 MG TAB PO SCH (08:32)
[2017-08-04] MEDS: amLODIPine BESYLATE 5 MG TAB PO SCH (08:32)
[2017-08-04] MEDS: FAMOTIDINE 20 MG/2 ML VIAL IV PUSH SCH ×2 (08:33→20:15)
--- NOTE | 2017-08-04 09:34 | HHI.PR ---
Subjective Remarks Follow-up for confusion Patient is awake but confused. He is restrained. He is not agitated. He does follow commands. He is not able to give me his name, location or answer really any questions. Spoke to patient's nurse who stated that he is more agitated at night. Objective Vitals Vital Signs Date Time Temp Pulse Resp B/P (MAP) Pulse Ox O2 Delivery O2 Flow Rate FiO2 08/04/17 08:18 98.6 99 18 169/98 (121) 97 08/04/17 04:00 99.0 95 20 150/89 (109) 95 08/04/17 00:00 97.8 77 18 164/93 (116) 93 08/03/17 20:00 98.1 93 18 170/87 (114) 95 08/03/17 16:00 97.9 80 18 160/90 (113) 96 08/03/17 12:00 97.7 83 18 159/87 (111) 95 08/03/17 09:59 140/83 (102) I/O 08/03/17 08/03/17 08/03/17 08/04/17 08/04/17 08/04/17 07:00 15:00 23:00 07:00 15:00 23:00 Intake Total 400 ml 457 ml 661 ml Output Total 400 ml Balance 400 ml 457 ml 661 ml -400 ml IV Total 457 ml 661 ml Tube Feeding 400 ml Output Urine Total 400 ml # Voids 2 # Bowel Movements 1 1 Result Diagram: 08/04/17 0707 08/04/17 0707 Objective Remarks GENERAL: Patient lying in bed in restraints and is not agitated. NECK: Supple, trachea midline. No JVD or lymphadenopathy. CARDIOVASCULAR: Regular rate and rhythm without murmurs, gallops, or rubs. RESPIRATORY: CTA B/L. No accessory muscle use. GASTROINTESTINAL: Abdomen soft, non-tender, nondistended. NEURO: Patient is alert but confused. He does follow commands. Motor is grossly intact. Medications and IVs Current Medications Propofol 100 ml @ As Directed STK-MED ONCE .ROUTE ; Start 07/26/17 at 09:00; Stop 07/26/17 at 09:01; Status DC Sodium Chloride 1,000 ml @ 999 mls/hr BOLUS ONCE IV Last administered on t 09:35; Start 07/26/17 at 09:15; Stop 07/26/17 at 10:15; Status DC Sodium Chloride 1,000 ml @ 999 mls/hr BOLUS ONCE IV Last administered on 09:36; Start 07/26/17 at 09:15; Stop 07/26/17 at 10:15; Status DC Propofol 100 ml @ 0 mls/hr TITRATE PRN IV Ordered RASS Last administered on 09:35; Start 07/26/17 at 09:15; Stop 07/26/17 at 11:31; Status DC Fentanyl Citrate 250 ml @ 5 mls/hr TITRATE PRN IV SEDATION; Start 07/26/17 at 09:15; Stop 07/26/17 at 11:32; Status DC Vancomycin HCl 1000 mg/Sodium Chloride 250 ml @ 250 mls/hr ONCE ONCE IV Last administered on 07/26/17 09:52; Start 07/26/17 at 09:15; Stop 07/26/17 at 10 :14; Status DC Aztreonam 1000 mg/ Sodium Chloride 100 ml @ 200 mls/hr ONCE ONCE IV Last administered on 07/26/17 10:56; Start 07/26/17 at 09:15; Stop 07/26/17 at 09 :44; Status DC Etomidate (Amidate Inj) 20 mg STK-MED ONCE .ROUTE ; Start 07/26/17 at 09:48; Stop 07/26/17 at 09:49; Status DC Succinylcholine Chloride (Quelicin Inj) 200 mg STK-MED ONCE .ROUTE ; Start at 09:48; Stop 07/26/17 at 09:49; Status DC Fentanyl Citrate 250 ml @ 5 mls/hr TITRATE PRN IV SEDATION; Start 07/26/17 at 12:00 Propofol 100 ml @ 2.46 mls/hr TITRATE PRN IV SEDATION Last administered on 03:56; Start 07/26/17 at 12:00 Magnesium Oxide (Mag-Ox) 800 mg UNSCH PRN PO For Magnesium 1.2 - 1.6 mg/dL; Start 07/26/17 at 10:30; Stop 08/01/17 at 08:31; Status DC Magnesium Sulfate 4 gm/Sodium Chloride 100 ml @ 50 mls/hr UNSCH PRN IV For Magnesium 0.9 - 1.1 mg/dL; Start 07/26/17 at 10:30; Stop 08/01/17 at 08:31; Status DC Magnesium Sulfate 2 gm/Sodium Chloride 100 ml @ 50 mls/hr UNSCH PRN IV For Magnesium 1.2 - 1.6 mg/dL; Start 07/26/17 at 10:30; Stop 08/01/17 at 08:31; Status DC Potassium Chloride 100 ml @ 50 mls/hr Q2H PRN IV For Potassium 2.8 - 3.2 mEq/L ; Start 07/26/17 at 10:30; Stop 08/01/17 at 08:31; Status DC Potassium Chloride 100 ml @ 50 mls/hr Q2H PRN IV For Potassium 3.3 - 3.5 mEq/L ; Start 07/26/17 at 10:30; Stop 08/01/17 at 08:31; Status DC Potassium Chloride 100 ml @ 50 mls/hr Q2H PRN IV For Potassium 2.8 - 3.2 mEq/L ; Start 07/26/17 at 10:30; Stop 08/01/17 at 08:31; Status DC Potassium Chloride 100 ml @ 25 mls/hr UNSCH PRN IV For Potassium 3.3 - 3.5 mEq /L; Start 07/26/17 at 10:30; Stop 08/01/17 at 08:31; Status DC Potassium Phosphate (K-Phos) 2,000 mg Q4H PRN PO For Phosphorus < 2.5 mg/dL; Start 07/26/17 at 10:30; Stop 08/01/17 at 08:31; Status DC Potassium Phosphate (K-Phos) 2,000 mg UNSCH PRN PO/TUBE SEE LABEL COMMENTS; Start 07/26/17 at 10:30; Stop 08/01/17 at 08:31; Status DC Potassium Phosphate 30 mmol/ Sodium Chloride 260 ml @ 42 mls/hr UNSCH PRN IV SEE LABEL COMMENTS; Start 07/26/17 at 10:30; Stop 08/01/17 at 08:31; Status DC Sodium Phosphate 30 mmol/Sodium Chloride 250 ml @ 42 mls/hr UNSCH PRN IV For Phosphorus < 2.5 mg/dL; Start 07/26/17 at 10:30; Stop 08/01/17 at 08:31; Status DC Chlorhexidine Gluconate (Peridex 0.12% Liq) 15 ml BID@08,20 MT Last administered on 08/04/17 08:00; Start 07/26/17 at 20:00 Dextrose (D50w (Vial) Inj) 25 ml UNSCH PRN IV PUSH HYPOGLYCEMIA-SEE COMMENTS Last administered on 07/28/17 18:43; Start 07/26/17 at 10:30 Insulin Human Regular (NovoLIN R SUPPLEMENTAL SCALE) 1 Q6HR SQ ; Start at 12:00 Albuterol/ Ipratropium (Duoneb Neb) 1 ampule Q6HR NEB INH Last administered on 07/30/17 15:33; Start 07/26/17 at 16:00; Stop 07/30/17 at 15:59; Status DC Albuterol/ Ipratropium (Duoneb Neb) 1 ampule Q2HR NEB PRN INH WHEEZING Last administered on 08/01/17 21:56; Start 07/26/17 at 10:30 Sodium Chloride 1,000 ml @ 84 mls/hr [id number] IV Last administered on 02:30; Start 07/26/17 at 11:30 Acetaminophen (Tylenol) 650 mg Q6H PRN PO PAIN 1-10 AND/OR FEVER >101F Last administered on 07/30/17 23:18; Start 07/26/17 at 10:30 Famotidine (Pepcid Inj) 20 mg Q12HR IV PUSH Last administered on 08/04/17 08: 33; Start 07/26/17 at 21:00 Ondansetron HCl (Zofran Inj) 4 mg Q6H PRN IV PUSH NAUSEA OR VOMITING; Start at 10:30 Miscellaneous Information 1 [id number] XX ; Start 07/26/17 at 10:30 Chlorhexidine Gluconate (Chlorhexidine 2% Cloth) Taper DAILY@04 TOP Last administered on 07/31/17 04:00; Start 07/27/17 at 04:00; Stop 07/23/18 at 03: 59 Chlorhexidine Gluconate (Chlorhexidine 2% Cloth) 3 pack UNSCH PRN TOP HYGIENIC CARE; Start 07/26/17 at 10:30 Pharmacy Profile Note 0 ml @ 0 mls/hr UNSCH OTHER ; Start 07/26/17 at 10:30; Stop 07/28/17 at 14:58; Status DC Metronidazole 100 ml @ 100 mls/hr Q8H IV Last administered on 07/27/17 11:21 ; Start 07/26/17 at 12:00; Stop 07/27/17 at 23:24; Status DC Aztreonam 2000 mg/ Sodium Chloride 100 ml @ 200 mls/hr Q8H IV Last administered on 07/28/17 08:01; Start 07/26/17 at 17:00; Stop 07/28/17 at 14: 58; Status DC Vancomycin HCl 1250 mg/Sodium Chloride 262.5 ml @ 250 mls/hr Q12H IV ; Start 07/26/17 at 21:30; Status UNV Folic Acid (Folate) 1 mg DAILY PO Last administered on 08/04/17 08:32; Start 07/27/17 at 09:00 Magnesium Oxide (Mag-Ox) 400 mg DAILY@1100 PO Last administered on 08/03/17 10 :56; Start 07/27/17 at 11:00 Thiamine HCl (Vitamin B1) 100 mg DAILY PO Last administered on 08/04/17 08:32 ; Start 07/27/17 at 09:00 Calcium/Vitamin D (Oscal-D 250-125) 250 mg DAILY PO Last administered on 08:32; Start 07/27/17 at 09:00 Multivitamins (Theragran) 1 tab DAILY PO Last administered on 08/04/17 08:32; Start 07/27/17 at 09:00 Vancomycin HCl 1500 mg/Sodium Chloride 515 ml @ 250 mls/hr Q12H IV ; Start at 18:00; Stop 07/26/17 at 20:03; Status DC Miscellaneous Information SPECIFIC LAB TO BE DRAWN:VANCOMYCIN TROUGH DATE TO... ONCE ONCE .XX ; Start 07/28/17 at 10:45; Stop 07/28/17 at 10:46; Status DC Vancomycin HCl 1500 mg/Sodium Chloride 515 ml @ 250 mls/hr Q12H IV Last administered on 07/27/17 07:40; Start 07/26/17 at 20:00; Stop 07/27/17 at 23: 25; Status DC Metronidazole 100 ml @ 100 mls/hr Q8H IV Last administered on 08/02/17 06:44 ; Start 07/27/17 at 23:00; Stop 08/02/17 at 12:00; Status DC Vancomycin HCl 1500 mg/Sodium Chloride 515 ml @ 250 mls/hr Q12H IV Last administered on 07/28/17 14:35; Start 07/27/17 at 23:00; Stop 07/28/17 at 14:58 ; Status DC Ceftriaxone Sodium 2000 mg/ Sodium Chloride 100 ml @ 200 mls/hr Q24H IV Last administered on 08/02/17 15:31; Start 07/28/17 at 16:00; Stop 08/02/17 at 23:00 ; Status DC Metoprolol Tartrate (Lopressor) 25 mg BID PO Last administered on 08/04/17 08: 32; Start 07/28/17 at 21:00 Lorazepam (Ativan) 1 mg Q12HR PO ; Start 07/28/17 at 21:00; Stop 07/28/17 at 21: 00; Status DC Quetiapine Fumarate (SEROquel) 25 mg BID PO Last administered on 08/02/17 08: 34; Start 07/28/17 at 21:00; Stop 08/02/17 at 09:41; Status DC Lorazepam (Ativan) 0.5 mg Q12HR PO Last administered on 07/30/17 22:46; Start 07/28/17 at 21:00; Stop 07/31/17 at 08:02; Status DC Dextrose (D50w (Syr) Inj) 50 ml STK-MED ONCE .ROUTE ; Start 07/28/17 at 18:41; Stop 07/28/17 at 18:42; Status DC Enalaprilat (Vasotec Inj) 1.25 mg ONCE ONCE IV PUSH Last administered on 04:33; Start 07/29/17 at 00:45; Stop 07/29/17 at 00:46; Status DC Enalaprilat (Vasotec Inj) 2.5 mg Q6H PRN IV PUSH SBP>160, DBP>90 Last administered on 08/03/17 22:04; Start 07/30/17 at 09:45 Potassium Bicarbonate (Effer-K Eff) 50 meq ONCE ONCE PO Last administered on 07/30/17 18:29; Start 07/30/17 at 17:45; Stop 07/30/17 at 17:53; Status DC Magnesium Oxide (Mag-Ox) 800 mg ONCE ONCE PO Last administered on 07/30/17 18 :30; Start 07/30/17 at 17:45; Stop 07/30/17 at 17:53; Status DC Potassium Bicarb/ Potassium Chloride (K-Lyte Cl Eff) 50 meq ONCE ONCE PO Last administered on 07/31/17 08:24; Start 07/31/17 at 08:00; Stop 07/31/17 at 08:01; Status DC Lorazepam (Ativan) 0.5 mg Q12HR PRN PO anxiety ; Start 07/31/17 at 08:15; Stop 08/02/17 at 09:41; Status DC Magnesium Sulfate/ Dextrose 100 ml @ 100 mls/hr Q1H IV Last administered on 11:02; Start 07/31/17 at 09:00; Stop 07/31/17 at 10:59; Status DC Potassium Chloride (KCl) 30 meq ONCE ONCE PO ; Start 08/01/17 at 09:30; Stop 08/01/17 at 10:48; Status DC Potassium Bicarb/ Potassium Chloride (K-Lyte Cl Eff) 25 meq ONCE ONCE PO Last administered on 08/01/17 13:47; Start 08/01/17 at 11:00; Stop 08/01/17 at 11:01; Status DC Amlodipine Besylate (Norvasc) 5 mg DAILY PO Last administered on 08/04/17 08: 32; Start 08/02/17 at 09:15 Amlodipine Besylate (Norvasc) 5 mg ONCE ONCE PO Last administered on 02:29; Start 08/04/17 at 02:30; Stop 08/04/17 at 02:31; Status DC A/P Assessment and Plan Severe Sepsis Encephalopathy : Delirium secondary to sepsis vs possible meningitis, worsened by Hyponatremia, fever, suspected aspiration ? Underlying dementia LP not concerning for meningitis. Leukocytes 14.0 yesterday. Repeat CBC, CMP. Patient still requiring restraints due to intermittent agitation. Term observation he has not been agitated. Will try Seroquel at night since twice a day made him too sedated and nurse stated that he is more agitated at night. Will need to consult psychiatrist to help manage agitation. Hyponatremia, resolved Today sodium is 139 Suspected aspiration pneumonia (prehospital), patient resides to [facility], likely aspiration pneumonia Chest x-ray reviewed. Antibiotics as above. Continue antibiotics as per infectious disease. NPO, started tube feedings as he failed swallow eval Seen by ID specilait appreciate recommendations. Change to Rocephin, Continue Flagyl, Give 7 days Abx. If able to swallow, could change Abx to oral per ID specialist Dysphagia, improved most likely due to confusion Patient had a repeat swallow eval and speech therapist recommend pured diet with honey thick.. Order was placed yesterday. Alcohol dependence Patient was at [facility], however unclear if he was still able to get alcohol. Will continue to monitor clinically. Atrial fibrillation H/o hypertension Heart rate elevated in the 90s. Pressure reviewed and acceptable. On metoprolol. H/o generalized weakness -Continue PT/OT Diarrhea Patient currently on Flagyl. C. difficile negative. Uncontrolled hypertension Increase amlodipine to 10 mg by mouth daily. Discharge Planning Patient is alert. He is confused but not agitated. He may have a underlying dementia secondary to his alcoholism. He continues to require restraints due to agitation at night but since I had patient he has not been agitated with me. Patient needs to be off restraints in order to be discharged to a SNF. Celestina Tobin MD Aug 04, 2017 09:34
--- NOTE | 2017-08-04 10:04 | HHI.IDPN ---
Subjective Subjective Remarks Patient is a 67-year-old male, and to the hospital for fever and unresponsiveness on the day of admission. He was apparently normal the day prior to admission. However the day prior to admission he had a temperature and apparently was started on doxycycline. EMS was called, and they tried intubating the patient but was not successful. He had a fever of 102+ on the day of admission. Patient in the ED got intubated, and apparently during intubation there was a lot of what looks like stomach contents during the intubation. Was no mention that he had any nausea or vomiting prior to admission. No mention of any diarrhea or any shortness of breath or congestion. CT of the head did not show any acute infarct or bleed. Chest x- ray was normal. He had diarrhea, and the stool tested negative for C. difficile toxin. His urinalysis showed some mild pyuria. A Garcia was inserted in the emergency room. Infectious disease consultation has been requested to evaluate the patient. Notes reviewed Patient is awake, confused Swallowing eval noted - pureed consistency Completed Abx 08/02 Temps ok Patient is lethargic CSF C/S negative Sputum normal jessica CXR with L base infiltrate [place] and pneumo Ag negative INfluenza neg BC negative LP 27 WBC, mostly neutrophil, protein slightly up Antibiotics None Completed 08/02 Lines PIV Past Medical History Skin cancer Prostate CA Atrial fib GERD Hypertension Past Surgical History Inguinal Hernia surgery [place] Allergies: Coded Allergies: penicillin G (Unverified Allergy, Severe, ITCHINESS, 07/26/17) Objective . Vital Signs Date Time Temp Pulse Resp B/P (MAP) Pulse Ox O2 Delivery O2 Flow Rate FiO2 08/04/17 08:18 98.6 99 18 169/98 (121) 97 08/04/17 04:00 99.0 95 20 150/89 (109) 95 08/04/17 00:00 97.8 77 18 164/93 (116) 93 08/03/17 20:00 98.1 93 18 170/87 (114) 95 08/03/17 16:00 97.9 80 18 160/90 (113) 96 08/03/17 12:00 97.7 83 18 159/87 (111) 95 08/04/17 08/04/17 08/05/17 15:00 23:00 07:00 Output Total 400 ml Balance -400 ml Output Urine Total 400 ml # Bowel Movements 1 . Laboratory Tests Test 08/04/17 07:07 White Blood Count 8.2 TH/MM3 Red Blood Count 3.00 MIL/MM3 Hemoglobin 8.9 GM/DL Hematocrit 26.9 % Mean Corpuscular Volume 89.7 FL Mean Corpuscular Hemoglobin 29.8 PG Mean Corpuscular Hemoglobin Concent 33.2 % Red Cell Distribution Width 21.9 % Platelet Count 328 TH/MM3 Mean Platelet Volume 8.8 FL Laboratory Tests Test 08/04/17 07:07 Blood Urea Nitrogen 7 MG/DL Creatinine 0.46 MG/DL Random Glucose 89 MG/DL Calcium Level 8.8 MG/DL Sodium Level 136 MEQ/L Potassium Level 3.5 MEQ/L Chloride Level 100 MEQ/L Carbon Dioxide Level 26.5 MEQ/L Anion Gap 10 MEQ/L Estimat Glomerular Filtration Rate 184 ML/MIN Imaging Abdomen X-Ray 08/02/17 0000 Signed Impressions: Service Date/Time: Wednesday, August 02, 2017 01:23 - CONCLUSION: No evidence of obstruction. Dobbhoff tube in the antrum of the stomach Herbert Lion MD Chest X-Ray 08/01/17 0000 Signed Impressions: Service Date/Time: Tuesday, August 01, 2017 21:24 - CONCLUSION: Feeding tube distal tip in the proximal stomach. Mik Leslie MD Chest X-Ray 07/27/17 0000 Signed Impressions: Service Date/Time: Thursday, July 27, 2017 08:54 - CONCLUSION: 1. Endotracheal tube and nasogastric tube in good positions. 2. Left basilar atelectasis. Reji Corcoran MD Head CT 07/26/17904 Signed Impressions: Service Date/Time: Wednesday, July 26, 2017 10:05 - CONCLUSION: 1. Moderate periventricular and subcortical white matter small vessel ischemic changes bilaterally. 2. Mild cerebral atrophy. 3. No acute infarct, acute hemorrhage , mass effect or extra-axial fluid collections. Reji Corcoran MD Chest X-Ray 07/26/17904 Signed Impressions: Service Date/Time: Wednesday, July 26, 2017 09:42 - CONCLUSION: 1. Endotracheal tube and nasogastric tube in good positions. 2. Cardiomegaly. 3. No acute focal pulmonary infiltrate or pulmonary vascular congestion. Reji Corcoran MD Lumbar Puncture Fluoroscopy 10/31/17 0000 Signed Impressions: Service Date/Time: Wednesday, July 26, 2017 17:11 - CONCLUSION: Uncomplicated fluoroscopically guided lumbar puncture. Herbert Lion MD Head CT 07/26/17904 Signed Impressions: Service Date/Time: Wednesday, July 26, 2017 10:05 - CONCLUSION: 1. Moderate periventricular and subcortical white matter small vessel ischemic changes bilaterally. 2. Mild cerebral atrophy. 3. No acute infarct, acute hemorrhage , mass effect or extra-axial fluid collections. Reji Corcoran MD Chest X-Ray 07/26/17904 Signed Impressions: Service Date/Time: Wednesday, July 26, 2017 09:42 - CONCLUSION: 1. Endotracheal tube and nasogastric tube in good positions. 2. Cardiomegaly. 3. No acute focal pulmonary infiltrate or pulmonary vascular congestion. Reji Corcoran MD Lumbar Puncture Fluoroscopy 07/26/17 0000 Signed Impressions: Service Date/Time: Wednesday, July 26, 2017 17:11 - CONCLUSION: Uncomplicated fluoroscopically guided lumbar puncture. Herbert Lion MD Physical Exam GENERAL: awake, not in distress SKIN: Warm and dry. No generalized rash, no ecchymoses and no evidence of embolic lesions. HEAD: Atraumatic. Normocephalic. No temporal wasting, or tenderness. EYES: [place] conjunctiva. No petechia or hemorrhage. Pupils equal, round and reactive to light. No scleral icterus. EARS, NOSE AND THROAT: Nose without bleeding or purulent nasal discharge. NECK: Trachea midline. Supple CARDIOVASCULAR: Regular rate and rhythm. There is a systolic murmur heard on the left precordium. RESPIRATORY: Has scattered wheezing R>L EXTREMITIES: No clubbing, cyanosis, or edema. No calf tenderness. Well perfused and warm. NEUROLOGICAL: Awake PSYCHIATRIC: not agitated LINE: No evidence of infection Assessment & Plan Remarks IMPRESSION Sepsis on presentation, acute febrile illness, patient SNF resident, prob aspirated - resolved - S/P Abx Rx Encephalopathy LP only 27 WBC Respiratory failure, likely aspiration - stable post extubation Hx ETOH abuse Mild pyuria, no garcia in [place] RECOMMENDATION Seems clinically stable from ID standpoint He is off Abx I will sign off Please reconsult if with any new ID issue or question Sindhu Mcdonnell MD 9, 2017 10:04
[2017-08-04] MEDS: MAGNESIUM OXIDE 400 MG TAB PO SCH (10:34)
--- NOTE | 2017-08-04 16:17 | PD.PSY.CON ---
Provisional Diagnosis Admission Date Jul 26, 2017 at 10:33 [place]. Delirium superimposed to dementia History of Present Illness Service Psychiatry Consult Requested By Medical team Reason for Consult Agitation Primary Care Physician Unknown HPI 67-year-old male who is a half-way resident with a medical history significant for dementia, alcohol dependence in the past, atrial fibrillation, hypertension, generalized weakness and anxiety was brought to the ER by EMS for altered mental status. Patient was noted to have fever and been started on doxycycline a day prior to admission. He was transferred to the ICU, treated for suspected meningitis, pneumonia, UTI, sepsis. Patient consulted to psychiatry due to agitation in the floor. On psychiatric evaluation patient is restrained in 2 points, alert, superficially cooperative, doesn't remember the reason of the hospitalization. The patient doesn't know where he is or the date. Patient answer simple questions, reports good mood, says that he feels okay, denies pain or distress. Denies suicidal and homicidal ideation, he denies visual and auditory hallucinations. No agitation or aggressive behavior or paranoia or delusions are observed at this moment. Review of Systems Except as stated in HPI: all other systems reviewed are Neg Past Family Social History Coded Allergies: penicillin G (Unverified Allergy, Severe, ITCHINESS, 07/26/17) Reported Medications Thiamine (Vitamin B-1) 100 Mg Tab, 100 MG PO DAILY for Nutritional Supplement, TAB 0 Refills 07/26/17 Calcium Carb, Gluconate/Vit D2 (Parva-Robert 250 Tablet) 250 Mg Calcium-100 Unit Tablet, 1 TAB PO DAILY 07/26/17 Multiple Vitamin (Multiple Vitamin) 1 Tab, 1 TAB PO DAILY for Nutritional Supplement, TAB 0 Refills 07/26/17 Metoprolol Tartrate (Metoprolol Tartrate) 25 Mg Tab, 25 MG PO BID, TAB 0 Refills 07/26/17 Magnesium Oxide (Magnesium Oxide) 400 Mg Tab, 400 MG PO DAILY for Nutritional Supplement, TAB 0 Refills 07/26/17 Lorazepam (Lorazepam) 0.5 Mg Tab, 0.5 MG PO Q8H Y for ANXIETY, TAB 0 Refills 07/26/17 Folic Acid (Folic Acid) 0.4 Mg Tab, 1 MG PO DAILY for Nutritional Supplement, TAB 0 Refills 07/26/17 Doxycycline Hyclate (Doxycycline Hyclate) 100 Mg Cap, 100 MG PO BID for Infection, CAP 0 Refills 07/26/17 Current Medications Medications (Trade) Dose Ordered Sig/Bunny Route Start Time Stop Time Status Last Admin (Peridex 0.12% Liq) 15 ml BID@08,20 MT 07/26/17 20:00 08/04/17 08:00 (D50w (Vial) Inj) 25 ml UNSCH PRN IV PUSH 07/26/17 10:30 07/28/17 18:43 (NovoLIN R SUPPLEMENTAL SCALE) 1 Q6HR SQ 07/26/17 12:00 (Duoneb Neb) 1 ampule Q2HR NEB PRN INH 07/26/17 10:30 08/01/17 21:56 Sodium Chloride 1,000 ml @ 84 mls/hr [id number] IV 07/26/17 11:30 08/04/17 10:34 (Tylenol) 650 mg Q6H PRN PO 07/26/17 10:30 07/30/17 23:18 (Pepcid Inj) 20 mg Q12HR IV PUSH 07/26/17 21:00 08/04/17 08:33 (Zofran Inj) 4 mg Q6H PRN IV PUSH 07/26/17 10:30 Miscellaneous Information 1 Q361D XX 07/26/17 10:30 (Chlorhexidine 2% Cloth) Taper DAILY@04 TOP 07/27/17 04:00 07/23/18 03:59 07/31/17 04:00 (Chlorhexidine 2% Cloth) 3 pack UNSCH PRN TOP 07/26/17 10:30 (Folate) 1 mg DAILY PO 07/27/17 09:00 08/04/17 08:32 (Mag-Ox) 400 mg DAILY@1100 PO 07/27/17 11:00 08/04/17 10:34 (Vitamin B1) 100 mg DAILY PO 07/27/17 09:00 08/04/17 08:32 (Oscal-D 250-125) 250 mg DAILY PO 07/27/17 09:00 08/04/17 08:32 (Theragran) 1 tab DAILY PO 07/27/17 09:00 08/04/17 08:32 (Lopressor) 25 mg BID PO 07/28/17 21:00 08/04/17 08:32 (Vasotec Inj) 2.5 mg Q6H PRN IV PUSH 07/30/17 09:45 08/03/17 22:04 (SEROquel) 25 mg HS PO 08/04/17 21:00 (Norvasc) 10 mg DAILY PO 08/04/17 09:45 Physical Exam Vital Signs Vital Signs Date Time Temp Pulse Resp B/P (MAP) Pulse Ox O2 Delivery O2 Flow Rate FiO2 08/04/17 12:22 99.0 89 18 138/79 (98) 97 08/04/17 09:15 Nasal Cannula 2.00 I/O 08/04/17 08/04/17 08/05/17 08:00 16:00 00:00 Intake Total 661 ml Output Total 400 ml Balance 261 ml Lab Results Test 08/04/17 04:30 08/04/17 07:07 Stool C. difficile Toxin (PCR) NEGATIVE Stl C. difficile Toxin Epiderm 027 PRESUMPTIVE NEGATIVE White Blood Count 8.2 TH/MM3 Red Blood Count 3.00 MIL/MM3 Hemoglobin 8.9 GM/DL Hematocrit 26.9 % Mean Corpuscular Volume 89.7 FL Mean Corpuscular Hemoglobin 29.8 PG Mean Corpuscular Hemoglobin Concent 33.2 % Red Cell Distribution Width 21.9 % Platelet Count 328 TH/MM3 Mean Platelet Volume 8.8 FL Blood Urea Nitrogen 7 MG/DL Creatinine 0.46 MG/DL Random Glucose 89 MG/DL Calcium Level 8.8 MG/DL Sodium Level 136 MEQ/L Potassium Level 3.5 MEQ/L Chloride Level 100 MEQ/L Carbon Dioxide Level 26.5 MEQ/L Anion Gap 10 MEQ/L Estimat Glomerular Filtration Rate 184 ML/MIN Date/Time Source Procedure Growth Status 07/26/17 09:17 Blood Peripheral Aerobic Blood Culture - Final NO GROWTH IN 5 DAYS Complete 07/26/17 09:17 Blood Peripheral Anaerobic Blood Culture - Final NO GROWTH IN 5 DAYS Complete 07/26/17 17:20 Cerebral Spinal Fluid Lumbar Puncture Gram Stain - Final Complete 07/26/17 17:20 Cerebral Spinal Fluid Lumbar Puncture CSF Culture - Final NO GROWTH IN 72 HOURS Complete 07/26/17 09:17 Stool Stool Rotavirus Antigen - Final NEGATIVE - ROTAVIRUS ANTIGEN IS ABSEN... Complete 07/26/17 18:45 Nasal Washing Influenza Types A,B Antigen (VICTORIA) - Final NEGATIVE FOR FLU A AND B ANTIGEN.... Complete 07/26/17 09:17 Urine Catheterized Urine Legionella Antigen - Final PRESUMPTIVE NEGATIVE FOR LEGIONELLA P... Complete 07/26/17 09:17 Urine Catheterized Urine Streptococcus pneumoniae Antigen (M - Final PRESUMPTIVE NEGATIVE FOR STREPTOCOCCU... Complete Mental Status Examination Appearance: Appropriate Consciousness: Clouded Orientation: Person Motor Activity: Normal gait Speech: Unremarkable Language: Adequate Fund of Knowledge: Adequate Attention and Concentration: Adequate Memory: Impaired Mood: Appropriate Affect: Irritable Thought Process & Associations: Loose associations Thought Content: Thought blocking Hallucination Type: None Delusion Type: None Suicidal Ideation: No Suicidal Plan: No Suicidal Intention: No Homicidal Ideation: No Homicidal Plan: No Homicidal Intention: No Insight: Fair Judgment: Impulsive Assessment & Plan Problem List: (1) Delirium due to general medical condition ICD Codes: F05 - Delirium due to known physiological condition Assessment & Plan: On psychiatric evaluation the patient is confused, disoriented, unable to participate in the psychiatric assessment due to the level of cognitive impairment. No agitation, no aggressive behavior, no paranoia or delusions present at this moment. As per conversation with nurse in charge patient had periodic agitation, but in the last hours he has been quiet calm. Agree with Seroquel 25 mg twice a day. Could add Haldol 1-2 mg IM every 8 hours aggressive behavior and agitation. Patient does not meet criteria for psychiatric admission. We'll follow-up. Assessment & Plan Estimated LOS: Earl Sellers MD Aug 04, 2017 16:17
[2017-08-04] MEDS: QUEtiapine FUMARATE 25 MG TAB PO SCH (20:15)
[2017-08-05] VITALS (7 sets, daily range): BP systolic 122–183; BP diastolic 84–93; PULSE 80–145; RESP 20–22; TEMP 97.5–98.5; O2SAT 92–97
[2017-08-05] MEDS: ENALAPRILAT 2.5 MG/2 ML VIAL IV PUSH PRN (01:17)
[2017-08-05] MEDS: CHLORHEXIDINE GLUCONATE 2 % 1 PACK (2 CLOTHS) TOP SCH (04:08)
[2017-08-05] MEDS: INSULIN NovoLIN REGULAR SUPPLEMENTAL SCALE SQ SCH ×4 (06:12→17:33)
[2017-08-05] MEDS: CHLORHEXIDINE 0.12% (ORAL KIT) 15 ML CUP MT SCH ×2 (08:00→20:00)
[2017-08-05 08:01] LABS: HEMATOCRIT 26.8 % (39.0-51.0); MEAN CELL VOLUME 90.6 FL (80.0-100.0); MEAN CORPUSCULAR HEMOGLOBIN 29.3 PG (27.0-34.0); MEAN CORPUSCULAR HGB CONC 32.3 % (32.0-36.0); PLATELET COUNT 354 TH/MM3 (150-450); RED BLOOD COUNT 2.96 MIL/MM3 (4.50-5.90); RED CELL DISTRIBUTION WIDTH 22.4 % (11.6-17.2); REVIEW FLAG FINAL; WHITE BLOOD COUNT 8.3 TH/MM3 (4.0-11.0)
[2017-08-05] MEDS: MULTIVITAMIN TAB PO SCH (08:25)
[2017-08-05] MEDS: FOLIC ACID 1 MG TAB PO SCH (08:25)
[2017-08-05] MEDS: CALCIUM/VITAMIN D 250 MG/125 U TAB PO SCH (08:26)
[2017-08-05] MEDS: THIAMINE HCL 100 MG TAB PO SCH (08:26)
[2017-08-05] MEDS: METOPROLOL TARTRATE 25 MG TAB PO SCH ×2 (08:26→20:47)
[2017-08-05] MEDS: FAMOTIDINE 20 MG/2 ML VIAL IV PUSH SCH ×2 (08:27→20:48)
[2017-08-05 08:35] LABS: BICARBONATE 23.8 MEQ/L (21.0-32.0); POTASSIUM 3.6 MEQ/L (3.5-5.1)
--- NOTE | 2017-08-05 11:08 | HHI.PR ---
Subjective Remarks Follow-up for confusion Patient continues to be confused but does answer some questions and follow commands. When I asked him to see doing he said okay. When I asked him his first and last name was not able to give me that. He denies any shortness of breathing or pain. During the interview he speaks to me while his eyes are shut. Currently he is off restraints. Objective Vitals Vital Signs Date Time Temp Pulse Resp B/P (MAP) Pulse Ox O2 Delivery O2 Flow Rate FiO2 08/05/17 11:03 97 1.00 08/05/17 08:00 98.5 99 22 153/91 (111) 93 08/05/17 04:00 98.1 92 21 171/88 (115) 92 08/05/17 00:00 97.9 80 20 183/93 (123) 93 08/04/17 21:21 Nasal Cannula 1.00 08/04/17 20:00 98.2 86 20 145/80 (101) 94 08/04/17 16:31 98.2 90 18 143/96 (112) 93 08/04/17 12:22 99.0 89 18 138/79 (98) 97 I/O 08/04/17 08/04/17 08/04/17 08/05/17 08/05/17 08/05/17 07:00 15:00 23:00 07:00 15:00 23:00 Intake Total 661 ml 980 ml 649 ml Output Total 550 ml 375 ml 600 ml Balance 661 ml -550 ml 605 ml 49 ml IV Total 661 ml 980 ml 649 ml Output Urine Total 550 ml 375 ml 600 ml # Voids 1 # Bowel Movements 2 Result Diagram: 08/05/1771708/05/1718 Objective Remarks GENERAL: Patient lying in bed NECK: Supple, trachea midline. No JVD or lymphadenopathy. CARDIOVASCULAR: Regular rate and rhythm without murmurs, gallops, or rubs. RESPIRATORY: CTA B/L. No accessory muscle use. GASTROINTESTINAL: Abdomen soft, non-tender, nondistended. NEURO: Patient is alert but confused. He does follow commands. Motor is grossly intact. Medications and IVs Current Medications Propofol 100 ml @ As Directed STK-MED ONCE .ROUTE ; Start 07/26/17 at 09:00; Stop 07/26/17 at 09:01; Status DC Sodium Chloride 1,000 ml @ 999 mls/hr BOLUS ONCE IV Last administered on 09:35; Start 07/26/17 at 09:15; Stop 07/26/17 at 10:15; Status DC Sodium Chloride 1,000 ml @ 999 mls/hr BOLUS ONCE IV Last administered on 09:36; Start 07/26/17 at 09:15; Stop 07/26/17 at 10:15; Status DC Propofol 100 ml @ 0 mls/hr TITRATE PRN IV Ordered RASS Last administered on 09:35; Start 07/26/17 at 09:15; Stop 07/26/17 at 11:31; Status DC Fentanyl Citrate 250 ml @ 5 mls/hr TITRATE PRN IV SEDATION; Start 07/26/17 at 09:15; Stop 07/26/17 at 11:32; Status DC Vancomycin HCl 1000 mg/Sodium Chloride 250 ml @ 250 mls/hr ONCE ONCE IV Last administered on 07/26/17 09:52; Start 07/26/17 at 09:15; Stop 07/26/17 at 10 :14; Status DC Aztreonam 1000 mg/ Sodium Chloride 100 ml @ 200 mls/hr ONCE ONCE IV Last administered on 07/26/17 10:56; Start 07/26/17 at 09:15; Stop 07/26/17 at 09 :44; Status DC Etomidate (Amidate Inj) 20 mg STK-MED ONCE .ROUTE ; Start 07/26/17 at 09:48; Stop 07/26/17 at 09:49; Status DC Succinylcholine Chloride (Quelicin Inj) 200 mg STK-MED ONCE .ROUTE ; Start at 09:48; Stop 07/26/17 at 09:49; Status DC Fentanyl Citrate 250 ml @ 5 mls/hr TITRATE PRN IV SEDATION; Start 07/26/17 at 12:00; Stop 08/04/17 at 11:15; Status DC Propofol 100 ml @ 2.46 mls/hr TITRATE PRN IV SEDATION Last administered on 03:56; Start 07/26/17 at 12:00; Stop 08/04/17 at 11:15; Status DC Magnesium Oxide (Mag-Ox) 800 mg UNSCH PRN PO For Magnesium 1.2 - 1.6 mg/dL; Start 07/26/17 at 10:30; Stop 08/01/17 at 08:31; Status DC Magnesium Sulfate 4 gm/Sodium Chloride 100 ml @ 50 mls/hr UNSCH PRN IV For Magnesium 0.9 - 1.1 mg/dL; Start 07/26/17 at 10:30; Stop 08/01/17 at 08:31; Status DC Magnesium Sulfate 2 gm/Sodium Chloride 100 ml @ 50 mls/hr UNSCH PRN IV For Magnesium 1.2 - 1.6 mg/dL; Start 07/26/17 at 10:30; Stop 08/01/17 at 08:31; Status DC Potassium Chloride 100 ml @ 50 mls/hr Q2H PRN IV For Potassium 2.8 - 3.2 mEq/L ; Start 07/26/17 at 10:30; Stop 08/01/17 at 08:31; Status DC Potassium Chloride 100 ml @ 50 mls/hr Q2H PRN IV For Potassium 3.3 - 3.5 mEq/L ; Start 07/26/17 at 10:30; Stop 08/01/17 at 08:31; Status DC Potassium Chloride 100 ml @ 50 mls/hr Q2H PRN IV For Potassium 2.8 - 3.2 mEq/L ; Start 07/26/17 at 10:30; Stop 08/01/17 at 08:31; Status DC Potassium Chloride 100 ml @ 25 mls/hr UNSCH PRN IV For Potassium 3.3 - 3.5 mEq /L; Start 07/26/17 at 10:30; Stop 08/01/17 at 08:31; Status DC Potassium Phosphate (K-Phos) 2,000 mg Q4H PRN PO For Phosphorus < 2.5 mg/dL; Start 07/26/17 at 10:30; Stop 08/01/17 at 08:31; Status DC Potassium Phosphate (K-Phos) 2,000 mg UNSCH PRN PO/TUBE SEE LABEL COMMENTS; Start 07/26/17 at 10:30; Stop 08/01/17 at 08:31; Status DC Potassium Phosphate 30 mmol/ Sodium Chloride 260 ml @ 42 mls/hr UNSCH PRN IV SEE LABEL COMMENTS; Start 07/26/17 at 10:30; Stop 08/01/17 at 08:31; Status DC Sodium Phosphate 30 mmol/Sodium Chloride 250 ml @ 42 mls/hr UNSCH PRN IV For Phosphorus < 2.5 mg/dL; Start 07/26/17 at 10:30; Stop 08/01/17 at 08:31; Status DC Chlorhexidine Gluconate (Peridex 0.12% Liq) 15 ml BID@08,20 MT Last administered on 08/05/17 08:00; Start 07/26/17 at 20:00 Dextrose (D50w (Vial) Inj) 25 ml UNSCH PRN IV PUSH HYPOGLYCEMIA-SEE COMMENTS Last administered on 07/28/17 18:43; Start 07/26/17 at 10:30 Insulin Human Regular (NovoLIN R SUPPLEMENTAL SCALE) 1 Q6HR SQ ; Start at 12:00 Albuterol/ Ipratropium (Duoneb Neb) 1 ampule Q6HR NEB INH Last administered on 07/30/17 15:33; Start 07/26/17 at 16:00; Stop 07/30/17 at 15:59; Status DC Albuterol/ Ipratropium (Duoneb Neb) 1 ampule Q2HR NEB PRN INH WHEEZING Last administered on 08/01/17 21:56; Start 07/26/17 at 10:30 Sodium Chloride 1,000 ml @ 84 mls/hr [id number] IV Last administered on 16:51; Start 07/26/17 at 11:30 Acetaminophen (Tylenol) 650 mg Q6H PRN PO PAIN 1-10 AND/OR FEVER >101F Last administered on 07/30/17 23:18; Start 07/26/17 at 10:30 Famotidine (Pepcid Inj) 20 mg Q12HR IV PUSH Last administered on 08/05/17 08: 27; Start 07/26/17 at 21:00 Ondansetron HCl (Zofran Inj) 4 mg Q6H PRN IV PUSH NAUSEA OR VOMITING; Start at 10:30 Miscellaneous Information 1 Q361D XX ; Start 07/26/17 at 10:30 Chlorhexidine Gluconate (Chlorhexidine 2% Cloth) Taper DAILY@04 TOP Last administered on 07/31/17 04:00; Start 07/27/17 at 04:00; Stop 07/23/18 at 03: 59 Chlorhexidine Gluconate (Chlorhexidine 2% Cloth) 3 pack UNSCH PRN TOP HYGIENIC CARE; Start 07/26/17 at 10:30 Pharmacy Profile Note 0 ml @ 0 mls/hr UNSCH OTHER ; Start 07/26/17 at 10:30; Stop 07/28/17 at 14:58; Status DC Metronidazole 100 ml @ 100 mls/hr Q8H IV Last administered on 07/27/17 11:21 ; Start 07/26/17 at 12:00; Stop 07/27/17 at 23:24; Status DC Aztreonam 2000 mg/ Sodium Chloride 100 ml @ 200 mls/hr Q8H IV Last administered on 07/28/17 08:01; Start 07/26/17 at 17:00; Stop 07/28/17 at 14: 58; Status DC Vancomycin HCl 1250 mg/Sodium Chloride 262.5 ml @ 250 mls/hr Q12H IV ; Start 07/26/17 at 21:30; Status UNV Folic Acid (Folate) 1 mg DAILY PO Last administered on 08/05/17 08:25; Start 07/27/17 at 09:00 Magnesium Oxide (Mag-Ox) 400 mg DAILY@1100 PO Last administered on 08/04/17 10 :34; Start 07/27/17 at 11:00 Thiamine HCl (Vitamin B1) 100 mg DAILY PO Last administered on 08/05/17 08:26 ; Start 07/27/17 at 09:00 Calcium/Vitamin D (Oscal-D 250-125) 250 mg DAILY PO Last administered on 08:26; Start 07/27/17 at 09:00 Multivitamins (Theragran) 1 tab DAILY PO Last administered on 08/05/17 08:25 ; Start 07/27/17 at 09:00 Vancomycin HCl 1500 mg/Sodium Chloride 515 ml @ 250 mls/hr Q12H IV ; Start at 18:00; Stop 07/26/17 at 20:03; Status DC Miscellaneous Information SPECIFIC LAB TO BE DRAWN:VANCOMYCIN TROUGH DATE TO... ONCE ONCE .XX ; Start 07/28/17 at 10:45; Stop 07/28/17 at 10:46; Status DC Vancomycin HCl 1500 mg/Sodium Chloride 515 ml @ 250 mls/hr Q12H IV Last administered on 07/27/17 07:40; Start 07/26/17 at 20:00; Stop 07/27/17 at 23: 25; Status DC Metronidazole 100 ml @ 100 mls/hr Q8H IV Last administered on 08/02/17 06:44 ; Start 07/27/17 at 23:00; Stop 08/02/17 at 12:00; Status DC Vancomycin HCl 1500 mg/Sodium Chloride 515 ml @ 250 mls/hr Q12H IV Last administered on 07/28/17 14:35; Start 07/27/17 at 23:00; Stop 07/28/17 at 14:58 ; Status DC Ceftriaxone Sodium 2000 mg/ Sodium Chloride 100 ml @ 200 mls/hr Q24H IV Last administered on 08/02/17 15:31; Start 07/28/17 at 16:00; Stop 08/02/17 at 23:00 ; Status DC Metoprolol Tartrate (Lopressor) 25 mg BID PO Last administered on 08/05/17 08 :26; Start 07/28/17 at 21:00 Lorazepam (Ativan) 1 mg Q12HR PO ; Start 07/28/17 at 21:00; Stop 07/28/17 at 21: 00; Status DC Quetiapine Fumarate (SEROquel) 25 mg BID PO Last administered on 08/02/17 08: 34; Start 07/28/17 at 21:00; Stop 08/02/17 at 09:41; Status DC Lorazepam (Ativan) 0.5 mg Q12HR PO Last administered on 07/30/17 22:46; Start 07/28/17 at 21:00; Stop 07/31/17 at 08:02; Status DC Dextrose (D50w (Syr) Inj) 50 ml STK-MED ONCE .ROUTE ; Start 07/28/17 at 18:41; Stop 07/28/17 at 18:42; Status DC Enalaprilat (Vasotec Inj) 1.25 mg ONCE ONCE IV PUSH Last administered on 04:33; Start 07/29/17 at 00:45; Stop 07/29/17 at 00:46; Status DC Enalaprilat (Vasotec Inj) 2.5 mg Q6H PRN IV PUSH SBP>160, DBP>90 Last administered on 08/05/17 01:17; Start 07/30/17 at 09:45 Potassium Bicarbonate (Effer-K Eff) 50 meq ONCE ONCE PO Last administered on 07/30/17 18:29; Start 07/30/17 at 17:45; Stop 07/30/17 at 17:53; Status DC Magnesium Oxide (Mag-Ox) 800 mg ONCE ONCE PO Last administered on 07/30/17 18 :30; Start 07/30/17 at 17:45; Stop 07/30/17 at 17:53; Status DC Potassium Bicarb/ Potassium Chloride (K-Lyte Cl Eff) 50 meq ONCE ONCE PO Last administered on 07/31/17 08:24; Start 07/31/17 at 08:00; Stop 07/31/17 at 08:01; Status DC Lorazepam (Ativan) 0.5 mg Q12HR PRN PO anxiety ; Start 07/31/17 at 08:15; Stop 08/02/17 at 09:41; Status DC Magnesium Sulfate/ Dextrose 100 ml @ 100 mls/hr Q1H IV Last administered on 11:02; Start 07/31/17 at 09:00; Stop 07/31/17 at 10:59; Status DC Potassium Chloride (KCl) 30 meq ONCE ONCE PO ; Start 08/01/17 at 09:30; Stop 08/01/17 at 10:48; Status DC Potassium Bicarb/ Potassium Chloride (K-Lyte Cl Eff) 25 meq ONCE ONCE PO Last administered on 08/01/17 13:47; Start 08/01/17 at 11:00; Stop 08/01/17 at 11:01; Status DC Amlodipine Besylate (Norvasc) 5 mg DAILY PO Last administered on 08/04/17 08: 32; Start 08/02/17 at 09:15; Stop 08/04/17 at 09:37; Status DC Amlodipine Besylate (Norvasc) 5 mg ONCE ONCE PO Last administered on 02:29; Start 08/04/17 at 02:30; Stop 08/04/17 at 02:31; Status DC Quetiapine Fumarate (SEROquel) 25 mg HS PO Last administered on 08/04/17 20:15 ; Start 08/04/17 at 21:00 Amlodipine Besylate (Norvasc) 10 mg DAILY PO Last administered on 08/05/17 08 :25; Start 08/04/17 at 09:45 Lisinopril (Prinivil) 10 mg DAILY PO ; Start 08/05/17 at 10:00 A/P Assessment and Plan Severe Sepsis Encephalopathy : Delirium secondary to sepsis vs possible meningitis, worsened by Hyponatremia, fever, suspected aspiration ? Underlying dementia LP not concerning for meningitis. Leukocytes 14.0 yesterday. Appreciate psychiatrist's recommendation with agitation. Continue Seroquel 25 mg by mouth twice a day and Haldol when necessary. Hyponatremia, resolved Today sodium is 139 Suspected aspiration pneumonia (prehospital), patient resides to shelter, likely aspiration pneumonia Chest x-ray reviewed. Antibiotics as above. Continue antibiotics as per infectious disease. Patient complaint course of antibiotics while hospitalized. Dysphagia, improved most likely due to confusion Patient had a repeat swallow eval and speech therapist recommend pured diet with honey thick. Alcohol dependence Patient was at shelter, however unclear if he was still able to get alcohol. Will continue to monitor clinically. Atrial fibrillation H/o hypertension Heart rate elevated in the 90s. Pressure reviewed and acceptable. On metoprolol. H/o generalized weakness -Continue PT/OT Uncontrolled hypertension on amlodipine to 10 mg by mouth daily. Will add lisinopril. Discharge Planning Once agitation is controlled and patient improves his oral intake he can be discharged to a SNF. Celestina Tobin MD Aug 05, 2017 11:08
[2017-08-05] MEDS: MAGNESIUM OXIDE 400 MG TAB PO SCH (11:49)
[2017-08-05] MEDS: LISINOPRIL 10 MG TAB PO SCH (11:49)
[2017-08-05] MEDS: QUEtiapine FUMARATE 25 MG TAB PO SCH (20:47)
[2017-08-05] MEDS: SODIUM CHLOR 0.9% 1000 ML INJ 1,000 ML IV SCH (21:45)
[2017-08-06] VITALS: BP 135/74; PULSE 83; RESP 20; TEMP 98.5; O2SAT 96
[2017-08-06 04:00] VITALS: BP 99/56; PULSE 75; RESP 20; TEMP 98.6; O2SAT 96
[2017-08-06] MEDS: CHLORHEXIDINE GLUCONATE 2 % 1 PACK (2 CLOTHS) TOP SCH (04:00)
[2017-08-06] MEDS: INSULIN NovoLIN REGULAR SUPPLEMENTAL SCALE SQ SCH ×3 (05:34→11:28)
[2017-08-06 07:36] LABS: HEMATOCRIT 30.3 % (39.0-51.0); MEAN CELL VOLUME 90.5 FL (80.0-100.0); PLATELET COUNT 370 TH/MM3 (150-450); RED BLOOD COUNT 3.35 MIL/MM3 (4.50-5.90); RED CELL DISTRIBUTION WIDTH 22.3 % (11.6-17.2); REVIEW FLAG FINAL; WHITE BLOOD COUNT 7.9 TH/MM3 (4.0-11.0)
[2017-08-06 08:00] VITALS: BP 165/94; PULSE 97; RESP 19; TEMP 99; O2SAT 93
[2017-08-06 08:08] LABS: BICARBONATE 24.2 MEQ/L (21.0-32.0); POTASSIUM 4.1 MEQ/L (3.5-5.1)
[2017-08-06] MEDS: FOLIC ACID 1 MG TAB PO SCH (08:27)
[2017-08-06] MEDS: FAMOTIDINE 20 MG/2 ML VIAL IV PUSH SCH (08:27)
[2017-08-06] MEDS: CHLORHEXIDINE 0.12% (ORAL KIT) 15 ML CUP MT SCH (08:27)
[2017-08-06] MEDS: LISINOPRIL 10 MG TAB PO SCH (08:27)
[2017-08-06] MEDS: THIAMINE HCL 100 MG TAB PO SCH (08:28)
[2017-08-06] MEDS: CALCIUM/VITAMIN D 250 MG/125 U TAB PO SCH (08:28)
[2017-08-06] MEDS: METOPROLOL TARTRATE 25 MG TAB PO SCH (08:28)
[2017-08-06] MEDS: MULTIVITAMIN TAB PO SCH (08:28)
[2017-08-06] MEDS: SODIUM CHLOR 0.9% 1000 ML INJ 1,000 ML IV SCH (09:02)
--- NOTE | 2017-08-06 10:14 | HHI.PR ---
Subjective Remarks In bed, off restraints since yesterday. No n/v/d/c. Denies chest pain or sob. No fever or chills. Pleasantly confused. Objective Vitals Vital Signs Date Time Temp Pulse Resp B/P (MAP) Pulse Ox O2 Delivery O2 Flow Rate FiO2 08/06/17 08:00 99.0 97 19 165/94 (117) 93 08/06/17 04:00 98.6 75 20 99/56 (70) 96 08/06/17 00:00 98.5 83 20 135/74 (94) 96 08/05/17 20:00 97.5 145 20 122/85 (97) 94 08/05/17 16:00 97.9 80 22 150/84 (106) 92 08/05/17 12:00 97.7 82 20 151/88 (109) 95 08/05/17 11:03 97 1.00 I/O 08/05/17 08/05/17 08/05/17 08/06/17 08/06/17 08/06/17 07:00 15:00 23:00 07:00 15:00 23:00 Intake Total 649 ml 120 ml Output Total 600 ml 500 ml Balance 49 ml -380 ml Intake Oral 120 ml IV Total 649 ml Output Urine Total 600 ml 500 ml # Voids 2 # Bowel Movements 1 2 Result Diagram: 08/06/17 0541 08/06/17 0541 Imaging Last Impressions Abdomen X-Ray 08/03/17 0000 Signed Impressions: Service Date/Time: Thursday, August 03, 2017 01:33 - CONCLUSION: No evidence of obstruction. Dobbhoff tube in the stomach Herbert Lion MD Chest X-Ray 08/01/17 0000 Signed Impressions: Service Date/Time: Tuesday, August 01, 2017 21:24 - CONCLUSION: Feeding tube distal tip in the proximal stomach. Mik Leslie MD Head CT 07/26/17 0905 Signed Impressions: Service Date/Time: Wednesday, July 26, 2017 10:05 - CONCLUSION: 1. Moderate periventricular and subcortical white matter small vessel ischemic changes bilaterally. 2. Mild cerebral atrophy. 3. No acute infarct, acute hemorrhage , mass effect or extra-axial fluid collections. Reji Corcoran MD Lumbar Puncture Fluoroscopy 07/26/17 0000 Signed Impressions: Service Date/Time: Wednesday, July 26, 2017 17:11 - CONCLUSION: Uncomplicated fluoroscopically guided lumbar puncture. Herbert Lion MD Objective Remarks GENERAL: Patient lying in bed in restraines. More awake today. Disoriented. Appears chorionically ill. SKIN: Warm and dry. HEAD: Normocephalic. EYES: No scleral icterus. No injection or drainage. NECK: Supple, trachea midline. No JVD or lymphadenopathy. CARDIOVASCULAR: Regular rate and rhythm without murmurs, gallops, or rubs. RESPIRATORY: Breath sounds equal bilaterally. No accessory muscle use. GASTROINTESTINAL: Abdomen soft, non-tender, nondistended. MUSCULOSKELETAL: No cyanosis, or edema. BACK: Nontender without obvious deformity. No CVA tenderness. A/P Assessment and Plan Severe Sepsis Encephalopathy : Delirium secondary to sepsis vs possible meningitis, worsened by Hyponatremia, fever, suspected aspiration ? Underlying dementia LP not concerning for meningitis. Leukocytes 14.0 yesterday. Appreciate psychiatrist's recommendation with agitation. Continue Seroquel 25 mg by mouth twice a day and Haldol when necessary. Hyponatremia, resolved Today sodium is 139 Suspected aspiration pneumonia (prehospital), patient resides to intermediate, likely aspiration pneumonia Chest x-ray reviewed. Antibiotics as above. Continue antibiotics as per infectious disease. Patient complaint course of antibiotics while hospitalized. Dysphagia, improved most likely due to confusion Patient had a repeat swallow eval and speech therapist recommend pured diet with honey thick. Alcohol dependence Patient was at intermediate, however unclear if he was still able to get alcohol. Will continue to monitor clinically. Atrial fibrillation H/o hypertension Heart rate elevated in the 90s. Pressure reviewed and acceptable. On metoprolol. H/o generalized weakness -Continue PT/OT Uncontrolled hypertension on amlodipine to 10 mg by mouth daily. Will add lisinopril. Discharge Planning Once agitation is controlled and patient improves his oral intake he can be discharged to a SNF. DC to SNF when arrangements done. Case management following for DC plan. Alysa Espinoza MD Aug 06, 2017 10:14
[2017-08-06] MEDS ORDERED: LORA0.5T PO (10:15)
--- NOTE | 2017-08-06 10:18 | HHI.DS ---
Discharge Summary Admission Date Jul 26, 2017 at 10:33 Discharge Date: Aug 06, 2017 Admitting Diagnosis sepsis. Respiratory failure. UTI. Hyponatremia. (1) Alcohol abuse ICD Code: F10.10 - Alcohol abuse, uncomplicated Status: Acute (2) Delirium due to general medical condition ICD Code: F05 - Delirium due to known physiological condition (3) Sepsis ICD Code: A41.9 - Sepsis, unspecified organism Procedures none Brief History - From Admission History of Present Illness HPI 67-year-old male who is a [facility] with a medical history significant for alcohol dependence, atrial fibrillation, hypertension, generalized weakness and anxiety was brought to the ER by EMS for altered mental status. Patient was noted to have fever and been started on doxycycline a day prior to admission. He had a temperature [facility] 102.5 [facility] the [facility] this [facility]. EMS attempt at intubating patient at the scene was unsuccessful. He was brought to the ER with bag valve mask assisted ventilation. Patient was intubated in the ER following his arrival and placed on mechanical ventilation. He was diagnosed to have sepsis and was initiated on empiric antibiotics including IV vancomycin and aztreonam obtaining blood and sputum cultures. A lumbar puncture was ordered to be done by IR. Patient was accepted for admission by critical care medicine service. When I evaluated the patient in the ER he was sedated with propofol, orally intubated on mechanical ventilation. The ER nurse he just had significant diarrhea which tested negative for C. difficile. History was obtained by reviewing records and discussion with ER physician and nursing staff. PFSH Past Medical History Cancer: Yes (PROSTATE, TREATED WITH RADIATION THERAPY, SKIN CANCER) Cardiovascular Problems: Yes (ATRIAL FIBRILLATION) Diabetes: No GERD: Yes Hepatitis: No Hiatal Hernia: No Hypertension: Yes Respiratory: No Thyroid Disease: No Past Surgical History Abdominal Surgery: Yes (INGUINAL HERNIA AND HYDROCELE SURGERY CHILD) Pacemaker: No Other Surgery: Yes Social History Alcohol Use: Yes Tobacco Use: No Substance Use: Yes Allergies-Medications (Allergen,Severity, Reaction): Coded Allergies: penicillin G (Unverified Allergy, Severe, ITCHINESS, 07/26/17) Reported Meds & Prescriptions Reported Meds & Active Scripts Active Calcium, doxycycline, folic acid, lorazepam 0.5 mg by mouth every 8 hourly when necessary, magnesium oxide, metoprolol 25 mg by mouth twice a day, MVI, thiamine Review of Systems ROS Limitations: Altered Mental Status, Unresponsive, orally intubated on mechanical ventilation CBC/BMP: 08/06/17 0541 08/06/17 0541 Significant Findings Laboratory Tests Test 08/04/17 04:30 08/04/17 07:07 08/05/17 07:18 08/06/17 05:41 Red Blood Count 3.00 MIL/MM3 (4.50-5.90) 2.96 MIL/MM3 (4.50-5.90) 3.35 MIL/MM3 (4.50-5.90) Hemoglobin 8.9 GM/DL (13.0-17.0) 8.7 GM/DL (13.0-17.0) 9.7 GM/DL (13.0-17.0) Hematocrit 26.9 % (39.0-51.0) 26.8 % (39.0-51.0) 30.3 % (39.0-51.0) Red Cell Distribution Width 21.9 % (11.6-17.2) 22.4 % (11.6-17.2) 22.3 % (11.6-17.2) Creatinine 0.46 MG/DL (0.60-1.30) 0.48 MG/DL (0.60-1.30) 0.54 MG/DL (0.60-1.30) Blood Urea Nitrogen 6 MG/DL (7-18) 5 MG/DL (7-18) Sodium Level 134 MEQ/L (136-145) 133 MEQ/L (136-145) Imaging Last Impressions Abdomen X-Ray 08/03/17 0000 Signed Impressions: Service Date/Time: Thursday, August 03, 2017 01:33 - CONCLUSION: No evidence of obstruction. Dobbhoff tube in the stomach Herbert Lion MD Chest X-Ray 08/01/17 0000 Signed Impressions: Service Date/Time: Tuesday, August 01, 2017 21:24 - CONCLUSION: Feeding tube distal tip in the proximal stomach. Mik Leslie MD Head CT 07/26/17 0905 Signed Impressions: Service Date/Time: Wednesday, July 26, 2017 10:05 - CONCLUSION: 1. Moderate periventricular and subcortical white matter small vessel ischemic changes bilaterally. 2. Mild cerebral atrophy. 3. No acute infarct, acute hemorrhage , mass effect or extra-axial fluid collections. Reji Corcoran MD Lumbar Puncture Fluoroscopy 07/26/17 0000 Signed Impressions: Service Date/Time: Wednesday, July 26, 2017 17:11 - CONCLUSION: Uncomplicated fluoroscopically guided lumbar puncture. Herbert Lion MD PE at Discharge GENERAL: Patient lying in bed NECK: Supple, trachea midline. No JVD or lymphadenopathy. CARDIOVASCULAR: Regular rate and rhythm without murmurs, gallops, or rubs. RESPIRATORY: CTA B/L. No accessory muscle use. GASTROINTESTINAL: Abdomen soft, non-tender, nondistended. NEURO: Patient is alert but confused. He does follow commands. Motor is grossly intact. Hospital Course Severe Sepsis Encephalopathy : Delirium secondary to sepsis vs possible meningitis, worsened by Hyponatremia, fever, suspected aspiration ? Underlying dementia LP not concerning for meningitis. Leukocytes back to normal Finished course of antibiotic. Appreciate psychiatrist's recommendation with agitation. Continue Seroquel 25 mg by mouth twice a day and Haldol when necessary. Hyponatremia, resolved Today sodium is 139 Suspected aspiration pneumonia (prehospital), [facility], likely aspiration pneumonia Chest x-ray reviewed. Antibiotics as above. Continue antibiotics as per infectious disease. Patient complaint course of antibiotics while hospitalized. Dysphagia, improved most likely due to confusion Patient had a repeat swallow eval and speech therapist recommend pured diet with honey thick. Alcohol dependence Patient was at [facility], however unclear if he was still able to get alcohol. Will continue to monitor clinically. Atrial fibrillation H/o hypertension Heart rate elevated in the 90s. Pressure reviewed and acceptable. On metoprolol. H/o generalized weakness -Continue PT/OT Uncontrolled hypertension on amlodipine to 10 mg by mouth daily. Will add lisinopril. DC to SNF in stable condition to follow up as OP with PCP and consultants. Pt Condition on Discharge: Stable Discharge Disposition: Discharge to SNF Discharge Time: > 30 minutes Discharge Instructions DIET: Follow Instructions for: Heart Healthy Diet Activities you can perform: Regular-No Restrictions Follow up Referrals: PCP Follow-up - 2-3 Days New Medications: Lisinopril (Lisinopril) 10 Mg Tab 10 MG PO DAILY for Blood Pressure Management, #30 TAB Quetiapine (Seroquel) 25 Mg Tab 25 MG PO HS for Agitation, #30 TAB Continued Medications: Calcium Carb, Gluconate/Vit D2 (Parva-Robert 250 Tablet) 250 Mg Calcium-100 Unit Tablet 1 TAB PO DAILY Doxycycline Hyclate (Doxycycline Hyclate) 100 Mg Cap 100 MG PO BID for Infection, CAP 0 Refills Folic Acid (Folic Acid) 0.4 Mg Tab 1 MG PO DAILY for Nutritional Supplement, TAB 0 Refills Lorazepam (Lorazepam) 0.5 Mg Tab 0.5 MG PO Q8H PRN for ANXIETY, #10 TAB 0 Refills (This prescription has been renewed) Magnesium Oxide (Magnesium Oxide) 400 Mg Tab 400 MG PO DAILY for Nutritional Supplement, TAB 0 Refills Metoprolol Tartrate (Metoprolol Tartrate) 25 Mg Tab 25 MG PO BID, TAB 0 Refills Multiple Vitamin (Multiple Vitamin) 1 Tab 1 TAB PO DAILY for Nutritional Supplement, TAB 0 Refills Thiamine (Vitamin B-1) 100 Mg Tab 100 MG PO DAILY for Nutritional Supplement, TAB 0 Refills Alysa Espinoza MD Aug 06, 2017 10:18
[2017-08-06] MEDS: MAGNESIUM OXIDE 400 MG TAB PO SCH (10:26)
[2017-08-06] MEDS ORDERED: SERO25TA PO (12:21)
[2017-08-06] MEDS ORDERED: LISI10TA3 PO (12:21)
--- NOTE | 2017-08-10 08:43 | PQ ---
Physician Query Response Document PATIENT: MARLON ESPINOZA : 1950 ADMIT DATE: 07/26/2017 10:33 AM DISCH DATE: 08/06/2017 2:33 PM RESPONDING PROVIDER #: mcosma QUERY TEXT: Conflicting Documentation Clarification A single mention or documentation of multiple diagnoses for the same clinical presentation appears in the record. Please clarify the diagnosis/diagnoses: Encephalopathy versus delirium. If patient d oes have encephalopathy, please clarify type/cause if known. Please also document if the condition is: -- Confirmed and current -- Confirmed, treated and resolved -- Ruled out -- Other, please specify If you have any additional questions/comments and/or concerns, please do not hesitate to reach out to the CDI/Coding Hotline, Ext. [phone]. The patient's Clinical Indicators include: Discharge Summary (Hospital Course) + H EEG report 07/26/17: Generalized background slowing may indicate an encephalopathic pattern that may be related to medication effect, metabolic, or hypoxic encephalopathy. ID Progress note 07/27/17: Encephalopathy, ?SZ episode Progress Notes beginning 08/03/17: He may have a underlying dementia secondary to his alcoholism. Query created by: Claudia Staton on 08/09/2017 1:11 PM RESPONSE TEXT: Patient with encephalopathy multifactorial metabolic with hyponatremia, EtOH use, underling dementia Electronically signed by: Alysa Espinoza MD 08/10/2017 8:39 AM
--- NOTE | 2017-08-10 11:19 | PQ ---
Physician Query Response Document PATIENT: MARLON ESPINOZA : 1950 ADMIT DATE: 07/26/2017 10:33 AM DISCH DATE: 08/06/2017 2:33 PM RESPONDING PROVIDER #: mcosma QUERY TEXT: Respiratory Failure Acuity and Type Respiratory Failure is documented in the Medical Record. Please specify the type and acuity (includes suspected or probable) Such as: -- Acute respiratory failure - With hypoxia - With hypercapnia -- Chronic respiratory failure - With hypoxia - With hypercapnia -- Acute on chronic respiratory failure - With hypoxia - With hypercapnia -- Other, please specify If you have any additional questions/comments and/or concerns, please do not hesitate to reach out to the CDI/Coding Hotline, Ext. [phone]. The patient's Clinical Indicators include: H Patient was intubated in the ED shortly after arrival (approx. 9:15 am) Orders: Orders :?Arterial Blood Gas (Abg) (07/26/17 09:05) Unable to document exact time ABG was drawn. Interpretation(s): 10:13 AM. ABG pH 7.43. PCO2 30. PO 2 306. Patient also diagnosed with aspiration pneumonia. From ED report: Moderate amount of aspirated mate rial suctioned from the ET tube post intubation. Query created by: Claudia Staton on 08/09/2017 12:58 PM RESPONSE TEXT: Acute respiratory failure 2/2 aspiration pneumonia Electronically signed by: Alysa Espinoza MD 08/10/2017 11:15 AM
== END 2017-08-06 14:33 | DRG 871 ==
LOC: NEPE 08:55 → NEDA 10:33 → HIME 12:05 → N05A 07-31 12:19
PROVIDERS: ADMIT Hospitalist; ATTEND Hospitalist
PROC: 0BH17EZ Insertion of Endotracheal Airway into Trachea, Via Natural or Artificial Opening (ICD-10-PCS; principal; 2017-07-26)
PROC: 5A1945Z Respiratory Ventilation, 24-96 Consecutive Hours (ICD-10-PCS; 2017-07-26)
PROC: 009U3ZX Drainage of Spinal Canal, Percutaneous Approach, Diagnostic (ICD-10-PCS; 2017-07-26)
DX: A41.9 Sepsis, unspecified organism (principal); R65.21 Severe sepsis with septic shock; J96.00 Acute respiratory failure, unspecified whether with hypoxia or hypercapnia; J69.0 Pneumonitis due to inhalation of food and vomit; G93.41 Metabolic encephalopathy; R13.10 Dysphagia, unspecified; E87.1 Hypo-osmolality and hyponatremia; N39.0 Urinary tract infection, site not specified; I48.91 Unspecified atrial fibrillation; F03.90 Unspecified dementia, unspecified severity, without behavioral disturbance, psychotic disturbance, mood disturbance, and anxiety; F10.20 Alcohol dependence, uncomplicated; F41.9 Anxiety disorder, unspecified; I51.7 Cardiomegaly; I10 Essential (primary) hypertension; R19.7 Diarrhea, unspecified; K21.9 Gastro-esophageal reflux disease without esophagitis; Z78.1 Physical restraint status; R01.1 Cardiac murmur, unspecified; Z85.46 Personal history of malignant neoplasm of prostate; Z92.3 Personal history of irradiation; Z85.828 Personal history of other malignant neoplasm of skin
CPT/HCPCS: 31500; 36600; 43753; 51702; 62270; 70450; 71010; 74000; 76937; 77003; 80048; 80053; 80202; 81001; 82550; 82552; 82805; 82945; 82948; 83605; 83735; 83880; 84100; 84157; 84484; 85025; 85027; 85610; 85730; 87040; 87070; 87086; 87205; 87425; 87449; 87493; 87641; 87804; 89051; 93005; 94002; 94003; 94640; 94664; 95819; 96365; 96368; 99292; J0330; J0696; J3370; J3475; J7030; J7040; J7050

== ENCOUNTER 2017-12-11 14:01 | Inpatient (IN) | payer MEDICARE ==
[~2017-12-11] VITALS: Ht 172.7 cm; Wt 83.2 kg
[~2017-12-11 14:01] MED LIST changes: -ASPI81TA82 PO; +DOXY100C PO; +FOLI400T PO; -KLOR20TA6 PO; +LISI10TA3 PO; +LORA0.5T PO; +MAGN400T2 PO; +METO25TA3 PO; -MULT-65 PO; +MULTTAB67 PO; -PROT40TA PO; +SERO25TA PO; -SODI1 PO; -TOPR50TA PO; +[UNRECOGNIZED DRUG - CODE] PO
[2017-12-11 14:18] VITALS: BP 125/68; PULSE 75; RESP 19; TEMP 97.9; O2SAT 99
[2017-12-11] MEDS ORDERED: SODIUM CHLOR 0.9% 1000 ML INJ 1,000 ML IV ONE (14:24)
--- NOTE | 2017-12-11 14:29 | PD ---
HPI Chief Complaint: General Weakness Time Seen by Provider: 14:17 Travel History International Travel<30 days: No Contact w/Intl Traveler<30days: No History of Present Illness HPI 67-year-old male presents to the emergency department via EMS for evaluation of generalized weakness. Patient is a poor historian. He states that he feels generally weak and complains of generalized body aches. Patient states that he was laying on the floor for 2 days when his brother arrived and called 911. According to the nurse, EMS stated that the patient was hypotensive on scene. He received 1 L of IV fluids prior to arrival. According to the chart, the patient has history of atrial fibrillation, hypertension. The patient cannot recall what medications he is on. Patient denies any chest pain or shortness of breath. He denies headache. He does have abdominal pain to palpation on exam. No fevers or chills. According to EMS, the patient is alcohol dependent. No exacerbating or alleviating factors. Moderate severity. PFSH Past Medical History Anxiety: Yes Cancer: Yes (PROSTATE, TREATED WITH RADIATION THERAPY, SKIN CANCER) Cardiovascular Problems: Yes (ATRIAL FIBRILLATION) Diabetes: No Diminished Hearing: No GERD: Yes Hepatitis: No Hiatal Hernia: No Hypertension: Yes Musculoskeletal: No Neurologic: No Respiratory: No Thyroid Disease: No Past Surgical History Abdominal Surgery: Yes (INGUINAL HERNIA AND HYDROCELE SURGERY CHILD) Pacemaker: No Other Surgery: Yes Social History Alcohol Use: Yes (HX OF ALCOHOLISM) Tobacco Use: No Substance Use: Yes Allergies-Medications (Allergen,Severity, Reaction): Coded Allergies: penicillin G (Unverified Allergy, Severe, ITCHINESS, 07/26/17) Reported Meds & Prescriptions Reported Meds & Active Scripts Active Lisinopril 10 Mg Tab 10 Mg PO DAILY Seroquel (Quetiapine Fumarate) 25 Mg Tab 25 Mg PO HS Lorazepam 0.5 Mg Tab 0.5 Mg PO Q8H PRN Reported Vitamin B-1 (Thiamine HCl) 100 Mg Tab 100 Mg PO DAILY Parva-Robert 250 Tablet (Calcium Carb, Gluconate/Vit D2) 250 Mg Calcium-100 Unit Tablet 1 Tab PO DAILY Multiple Vitamin 1 Tab 1 Tab PO DAILY Metoprolol Tartrate 25 Mg Tab 25 Mg PO BID Magnesium Oxide 400 Mg Tab 400 Mg PO DAILY Folic Acid 0.4 Mg Tab 1 Mg PO DAILY Doxycycline Hyclate 100 Mg Cap 100 Mg PO BID Review of Systems Except as stated in HPI: all other systems reviewed are Neg Physical Exam Narrative GENERAL: Well-nourished, well-developed male patient, afebrile. Patient is alert. He is oriented to person, place. He thought the year was 2016 and the month was September. SKIN: Focused skin assessment warm/dry. HEAD: Normocephalic. Atraumatic. EYES: No scleral icterus. No injection or drainage. NECK: Supple, trachea midline. No JVD or lymphadenopathy. CARDIOVASCULAR: Regular rate and rhythm without murmurs, gallops, or rubs. RESPIRATORY: Breath sounds equal bilaterally. No accessory muscle use. Lung sounds are clear to auscultation. GASTROINTESTINAL: Abdomen soft and nondistended. He has generalized tenderness to palpation. MUSCULOSKELETAL: No cyanosis, or edema. BACK: Nontender without obvious deformity. No CVA tenderness. Data Data Last Documented VS Vital Signs Date Time Temp Pulse Resp B/P (MAP) Pulse Ox O2 Delivery O2 Flow Rate FiO2 12/11/17 14:45 Room Air 12/11/17 14:18 97.9 75 19 125/68 (87) 99 Orders Orders Electrocardiogram (12/11/17 14:24) Complete Blood Count With Diff (12/11/17 14:24) Comprehensive Metabolic Panel (12/11/17 14:24) Magnesium (Mg) (12/11/17 14:24) Ckmb (Isoenzyme) Profile (12/11/17 14:24) Troponin I (12/11/17 14:24) Act Partial Throm Time (Ptt) (12/11/17 14:24) Prothrombin Time / Inr (Pt) (12/11/17 14:24) Urinalysis - C+S If Indicated (12/11/17 14:24) Chest, Single Ap (12/11/17 14:24) Ct Brain W/O Iv Contrast(Rout) (12/11/17 14:24) Ecg Monitoring (12/11/17 14:24) Iv Access Insert/Monitor (12/11/17 14:24) Oximetry (12/11/17 14:24) Sodium Chloride 0.9% Flush (Ns Flush) (12/11/17 14:30) Sodium Chlor 0.9% 1000 Ml Inj (Ns 1000 M (12/11/17 14:24) Ammonia (12/11/17 14:24) Alcohol (Ethanol) (12/11/17 14:24) Lipase (12/11/17 14:24) Lorazepam Inj (Ativan Inj) (12/11/17 15:45) CKMB (12/11/17 14:35) CKMB% (12/11/17 14:35) Ct Abd/Pel W/O Iv Contrast (12/11/17 ) Potassium Chloride (Kcl) (12/11/17 16:45) Lorazepam Inj (Ativan Inj) (12/11/17 17:00) Admit To Inpatient (12/11/17 ) Code Status (12/11/17 16:52) Vital Signs (Adult) Q4H (12/11/17 16:52) Activity Oob Ad Belem (12/11/17 16:52) [place] / Telemetry .CONTINUOUS (12/11/17 16:52) Intake + Output DANIEL.QSHIFT (12/11/17 16:52) Notify Dr: Other (12/11/17 16:52) Diet Npo (12/11/17 Dinner) Sodium Chlor 0.9% 1000 Ml Inj (Ns 1000 M (12/11/17 16:52) Admit Order (Ed Use Only) (12/11/17 16:58) Sodium Chloride 0.9% Flush (Ns Flush) (12/11/17 17:00) Sodium Chloride 0.9% Flush (Ns Flush) (12/11/17 21:00) Acetaminophen (Tylenol) (12/11/17 17:00) Ondansetron Inj (Zofran Inj) (12/11/17 17:00) Comprehensive Metabolic Panel (12/12/17 06:00) Complete Blood Count With Diff (12/12/17 06:00) Creatine Kinase (Cpk) (12/11/17 16:52) Creatine Kinase (Cpk) (12/11/17 22:52) Troponin I (12/11/17 16:52) Troponin I (12/11/17 22:52) Prothrombin Time / Inr (Pt) (12/12/17 06:00) Lipase (12/12/17 06:00) Resp Oxygen Riki C Titrat 1-4 L (12/11/17 ) Pt Request For Service (12/11/17 16:52) Case Management Consult (12/11/17 16:52) Scd Bilateral/Knee High DANIEL.BID (12/11/17 16:52) Naloxone Inj (Narcan Inj) (12/11/17 17:00) Sennosides (Senokot) (12/11/17 17:00) Bisacodyl Supp (Dulcolax Supp) (12/11/17 17:00) Lactulose Liq (Lactulose Liq) (12/11/17 18:00) Inpatient Certification (12/11/17 ) Vital Signs (Adult) Q4H (12/11/17 16:52) Bedside Glucose DANIEL.CSUGAR (12/11/17 16:52) Intake + Output DANIEL.QSHIFT (12/11/17 16:52) Neuro Checks Q4H (12/11/17 16:52) Alcohol Withdrawal Asmt-Ciwa Q4HX18 (12/11/17 16:52) ^ Seizure Precautions (12/11/17 16:52) Multivitamin Inj (Mvi-12 Inj)... (12/11/17 17:00) Thiamine Inj (Thiamine Inj) (12/11/17 17:00) Thiamine (Vit B1) (Vitamin B1) (12/15/17 09:00) Consult Cm-Etoh Abuse Dc Plan (12/11/17 ) Lorazepam (Ativan) (12/11/17 17:00) Lorazepam Inj (Ativan Inj) (12/11/17 17:00) Lorazepam (Ativan) (12/11/17 17:00) Lorazepam Inj (Ativan Inj) (12/11/17 17:00) Heparin Inj (Heparin Inj) (12/11/17 17:00) Labs Laboratory Tests Test 12/11/17 14:33 12/11/17 14:35 12/11/17 15:15 White Blood Count 7.4 TH/MM3 Red Blood Count 3.80 MIL/MM3 Hemoglobin 12.2 GM/DL Hematocrit 37.0 % Mean Corpuscular Volume 97.5 FL Mean Corpuscular Hemoglobin 32.1 PG Mean Corpuscular Hemoglobin Concent 32.9 % Red Cell Distribution Width 20.2 % Platelet Count 165 TH/MM3 Mean Platelet Volume 10.0 FL Neutrophils (%) (Auto) 65.1 % Lymphocytes (%) (Auto) 12.7 % Monocytes (%) (Auto) 19.1 % Eosinophils (%) (Auto) 2.3 % Basophils (%) (Auto) 0.8 % Neutrophils # (Auto) 4.8 TH/MM3 Lymphocytes # (Auto) 0.9 TH/MM3 Monocytes # (Auto) 1.4 TH/MM3 Eosinophils # (Auto) 0.2 TH/MM3 Basophils # (Auto) 0.1 TH/MM3 CBC Comment DIFF FINAL Differential Comment Blood Urea Nitrogen 112 MG/DL Creatinine 2.26 MG/DL Random Glucose 106 MG/DL Total Protein 7.5 GM/DL Albumin 3.3 GM/DL Calcium Level 8.9 MG/DL Magnesium Level 1.8 MG/DL Alkaline Phosphatase 80 U/L Aspartate Amino Transf (AST/SGOT) 22 U/L Alanine Aminotransferase (ALT/SGPT) 13 U/L Total Bilirubin 1.1 MG/DL Sodium Level 143 MEQ/L Potassium Level 3.2 MEQ/L Chloride Level 108 MEQ/L Carbon Dioxide Level 24.4 MEQ/L Anion Gap 11 MEQ/L Estimat Glomerular Filtration Rate 29 ML/MIN Total Creatine Kinase 172 U/L Creatine Kinase MB 3.2 NG/ML Troponin I 0.02 NG/ML Lipase 167 U/L Ethyl Alcohol Level LESS THAN 3 MG/DL Prothrombin Time 12.5 SEC Prothromb Time International Ratio 1.2 RATIO Activated Partial Thromboplast Time 26.6 SEC Urine Color YELLOW Urine Turbidity CLEAR Urine pH 5.5 Urine Specific [place] 1.015 Urine Protein TRACE mg/dL Urine Glucose (UA) NEG mg/dL Urine Ketones NEG mg/dL Urine Occult Blood NEG Urine Nitrite NEG Urine Bilirubin NEG Urine Urobilinogen LESS THAN 2.0 MG/DL Urine Leukocyte Esterase NEG Urine RBC LESS THAN 1 /hpf Urine WBC 1 /hpf Urine Mucus FEW /lpf Microscopic Urinalysis Comment CULT NOT INDICATED Ammonia 17 MCMOL/L MDM Medical Decision Making Medical Screen Exam Complete: Yes Emergency Medical Condition: Yes Medical Record Reviewed: Yes Interpretation(s) chest x-ray -CONCLUSION: Normal examination. CT brain CONCLUSION: 1. No acute findings. Cortical atrophy and white matter ischemic changes, chronic. CT abdomen/pelvis - CONCLUSION: 1. Cardiomegaly. 2. 2.8 simple cyst within the right kidney. 3. Atherosclerotic plaquing in the abdominal aorta. 4. Generative changes in the lumbar spine. 5. No findings to indicate bowel obstruction identified. Differential Diagnosis Rhabdomyolysis versus electrolyte abnormality versus dehydration versus UTI versus ACS versus pneumonia versus intracranial abnormality versus pancreatitis Narrative Course 67-year-old male presents to the emergency department via EMS for evaluation of generalized weakness. Patient states he has been lying on the floor for 2 days. He denies any fall but states he could not get up because of weakness. Patient is a poor historian. EKG, CBC, CMP, magnesium, CK, troponin, ammonia level, lipase, PTT, PT/INR, ammonia level, alcohol level, UA are ordered and pending. Chest x-ray, CT of the brain, CT abdomen/pelvis with IV contrast are ordered and pending. Patient is given normal saline 1 L IV bolus. EKG shows atrial fibrillation, heart rate 79, no acute ST changes. CBC shows no acute abnormality. CMP shows hypokalemia 3.2, BUN 112, creatinine 2.26. This is increased since his last creatinine on August 06, 2017 which was 0.54. CK is 172. Troponin is 0.02. Magnesium is 1.8. Ammonia is 17. Lipase is 167. Alcohol level is less than 3. Coags show no acute abnormality. Chest x-ray is normal. CT of the brain shows no acute findings. CT of the abdomen/ pelvis shows no acute findings. Patient is tremorous on exam. He is given Ativan 1 mg IV for possible alcohol withdrawal. Patient is given potassium 40 mEq p.o. Hospitalist was paged for admission Dr. Maldonado accepted admission. Diagnosis Primary Impression: Acute kidney injury Additional Impressions: Alcohol withdrawal Qualified Codes: F10.231 - Alcohol dependence with withdrawal delirium Altered mental status Qualified Codes: R41.82 - Altered mental status, unspecified Admitting Information Admitting Physician Requests: Admit JesusAudrey Dec 11, 2017 14:29
[2017-12-11] MEDS ORDERED: SODIUM CHLORIDE 0.9% FLUSH 10 ML FLUSH IVF PRN (14:30)
--- NOTE | 2017-12-11 14:50 | RADRPT ---
EXAM DATE/TIME: 12/11/2017 14:30 [facility] COMPARISON: CHEST SINGLE AP, August 01, 2017, 21:24. INDICATIONS : Weakness. Congestion. MEDICAL HISTORY : None. SURGICAL HISTORY : None. ENCOUNTER: Initial ACUITY: 1 day PAIN SCORE: Non-responsive. LOCATION: Bilateral chest FINDINGS: A single view of the chest demonstrates the lungs to be symmetrically aerated without evidence of mas s, infiltrate or effusion. The cardiomediastinal contours are unremarkable. Osseous structures are intact. CONCLUSION: Normal examination. Yola Holden MD on December 11, 2017 at 14:48 Board Certified Radiologist. This report was verified electronically.
[2017-12-11 15:04] LABS: AUTOMATED NEUTROPHIL # 4.8 TH/MM3 (1.8-7.7); BASOPHIL # 0.1 TH/MM3 (0-0.2); BASOPHIL % 0.8 % (0.0-2.0); EOSINOPHIL # 0.2 TH/MM3 (0-0.4); EOSINOPHIL % 2.3 % (0.0-4.0); HEMOGLOBIN 12.2 GM/DL (13.0-17.0); LYMPH % 12.7 % (9.0-44.0); LYMPHOCYTE # 0.9 TH/MM3 (1.0-4.8); MEAN CELL VOLUME 97.5 FL (80.0-100.0); MEAN CORPUSCULAR HEMOGLOBIN 32.1 PG (27.0-34.0); MEAN CORPUSCULAR HGB CONC 32.9 % (32.0-36.0); MONO % 19.1 % (0.0-8.0); MONOCYTE # 1.4 TH/MM3 (0-0.9); NEUT % 65.1 % (16.0-70.0); PLATELET COUNT 165 TH/MM3 (150-450); RED CELL DISTRIBUTION WIDTH 20.2 % (11.6-17.2); WHITE BLOOD COUNT 7.4 TH/MM3 (4.0-11.0)
[2017-12-11 15:25] LABS: ALBUMIN 3.3 GM/DL (3.4-5.0); ALT (GPT) 13 U/L (12-78); AST (GOT) 22 U/L (15-37); BICARBONATE 24.4 MEQ/L (21.0-32.0); BLOOD UREA NITROGEN 112 MG/DL (7-18); CALCIUM 8.9 MG/DL (8.5-10.1); CHLORIDE 108 MEQ/L (98-107); CREATININE 2.26 MG/DL (0.60-1.30); GLOMERULAR FILTRATION RATE 29 ML/MIN (>89); GLUCOSE,RANDOM 106 MG/DL (74-106); MAGNESIUM 1.8 MG/DL (1.5-2.5); SODIUM (NA) 143 MEQ/L (136-145)
[2017-12-11 15:28] LABS: ALKALINE PHOSPHATASE 80 U/L (45-117); TOTAL BILIRUBIN ADULT 1.1 MG/DL (0.2-1.0); TOTAL PROTEIN 7.5 GM/DL (6.4-8.2); TROPONIN I 0.02 NG/ML (0.02-0.05)
[2017-12-11 15:43] LABS: BILIRUBIN, URINE NEG (NEG); BLOOD, URINE NEG (NEG); GLUCOSE,URINE NEG (NEG); KETONE, URINE NEG (NEG); MUCUS URINE FEW /lpf (OCC); NITRITE,URINE NEG (NEG); PH, URINE 5.5 (5.0-8.5); URINE COLOR YELLOW (YELLW/STRAW); URINE LEUKOCYTE ESTERASE NEG (NEG)
[2017-12-11] MEDS ORDERED: LORazepam 2 MG/ML VIAL IV PUSH ONE ×2 (15:45→17:00)
[2017-12-11 15:52] LABS: INTERNATIONAL NORMALIZED RATIO 1.2 RATIO; PROTHROMBIN TIME - PATIENT 12.5 SEC (9.8-11.6)
--- NOTE | 2017-12-11 16:21 | RADRPT ---
EXAM DATE/TIME: 12/11/2017 16:11 [facility] COMPARISON: CT BRAIN W/O CONTRAST, July 26, 2017, 10:05. INDICATIONS : Dizziness and general weakness today. RADIATION DOSE: 64.87 CTDIvol (mGy) MEDICAL HISTORY : Carcinoma, prostate. Hypertension. SURGICAL HISTORY : None. ENCOUNTER: Initial ACUITY: 1 day PAIN SCALE: 4/10 LOCATION: Bilateral head TECHNIQUE: Multiple contiguous axial images were obtained of the head. Using automated exposure control and adj ustment of the mA and/or kV according to patient size, radiation dose was kept as low as reasonably a chievable to obtain optimal diagnostic quality images. DICOM format image data is available electro nically for review and comparison. FINDINGS: CEREBRUM: The ventricles are normal for age. No evidence of midline shift, mass lesion, hemorrhage or acute in farction. No extra-axial fluid collections are seen. POSTERIOR FOSSA: The cerebellum and brainstem are intact. The 4th ventricle is midline. The cerebellopontine angle i s unremarkable. EXTRACRANIAL: The visualized portion of the orbits is intact. SKULL: The calvaria is intact. No evidence of skull fracture. CONCLUSION: 1. No acute findings. Cortical atrophy and white matter ischemic changes, chronic. Ramez Sidhu MD on December 11, 2017 at 16:15 Board Certified Radiologist. This report was verified electronically.
--- NOTE | 2017-12-11 16:34 | RADRPT ---
EXAM DATE/TIME: 12/11/2017 16:14 [place] COMPARISON: CT BRAIN W/O CONTRAST, December 11, 2017, 16:11. INDICATIONS : Diffuse abdomen pain and diarrhea today. ORAL CONTRAST: No oral contrast ingested. RADIATION DOSE: 11.42 CTDIvol (mGy) MEDICAL HISTORY : Carcinoma, prostate. Hypertension. Hernia, inguinal. SURGICAL HISTORY : None. ENCOUNTER: Initial ACUITY: 1 day PAIN SCALE: 7/10 LOCATION: Bilateral abdomen TECHNIQUE: Volumetric scanning of the abdomen and pelvis was performed. Using automated exposure control and ad justment of the mA and/or kV according to patient size, radiation dose was kept as low as reasonably achievable to obtain optimal diagnostic quality images. DICOM format image data is available electro nically for review and comparison. FINDINGS: The limited portion of the lung base visualized is clear. The heart is enlarged. There is atheroscler otic plaquing in the coronary arteries. The appearance of the liver, spleen, pancreas, adrenal glands and left kidney is within normal limits by noncontrast CT imaging. Note is made of a 2.8 cm simple cyst arising from the right kidney. There is no free air or free fluid seen in the upper abdomen. The visualized loops of small and large bowel are unremarkable. The anterior abdominal wall is intact. The abdominal aorta is normal in caliber. There is atherosclerotic plaquing. No retroperitoneal adeno fidel is present. There is no free fluid within the pelvis. No iliac or inguinal adenopathy is present. The visualized osseous structures demonstrate degenerative changes throughout the spine but are other major intact. CONCLUSION: 1. Cardiomegaly. 2. 2.8 simple cyst within the right kidney. 3. Atherosclerotic plaquing in the abdominal aorta. 4. Generative changes in the lumbar spine. 5. No findings to indicate bowel obstruction identified. Spenser Duarte MD on December 11, 2017 at 16:29 Board Certified Radiologist. This report was verified electronically.
[2017-12-11] MEDS ORDERED: POTASSIUM CHLORIDE 20 MEQ CONTROLLED RELEASE TAB PO ONE (16:45)
--- NOTE | 2017-12-11 16:52 | HHI.HP ---
HPI Service [facility] Primary Care Physician Unknown Admission Diagnosis Diagnoses: Chief Complaint: Generalized Weakness Travel History International Travel<30 Days: No Contact w/Intl Traveler <30 Da: No History of Present Illness This is a pleasant 67 y/o male who was brought to Emergency room by EMS due to generalized weakness, He states that he feels generally weak and complains of generalized body aches. Patient states that he was laying on the floor for 2 days when his brother arrived and called 911. According to the nurse, EMS stated that the patient was hypotensive on scene. He received 1 L of IV fluids prior to arrival. According to the chart, the patient has history of atrial fibrillation, hypertension. The patient cannot recall what medications he is on. Patient denies any chest pain or shortness of breath. He denies headache. He does have abdominal pain to palpation on exam. No fevers or chills. According to EMS, the patient is alcohol dependent. No exacerbating or alleviating factors. Moderate severity. patient lethargic, shivering, not able to give information with electrolyte derangement on laboratory. acute kidney injury. Review of Systems Constitutional: DENIES: Fever, Chills, Change in appetite Endocrine: DENIES: Heat/cold intolerance Eyes: DENIES: Blurred vision, Eye pain Except as stated in HPI: all other systems reviewed are Neg Past Family Social History Past Medical History Anxiety disorder Prostate Cancer treated with radiation therapy Atrial Fibrillation GERD Hypertension Past Surgical History Inguinal hernia Hydrocele Reported Medications Reported Meds & Active Scripts Active Lisinopril 10 Mg Tab 10 Mg PO DAILY Seroquel (Quetiapine Fumarate) 25 Mg Tab 25 Mg PO HS Lorazepam 0.5 Mg Tab 0.5 Mg PO Q8H PRN Reported Vitamin B-1 (Thiamine HCl) 100 Mg Tab 100 Mg PO DAILY Parva-Robert 250 Tablet (Calcium Carb, Gluconate/Vit D2) 250 Mg Calcium-100 Unit Tablet 1 Tab PO DAILY Multiple Vitamin 1 Tab 1 Tab PO DAILY Metoprolol Tartrate 25 Mg Tab 25 Mg PO BID Magnesium Oxide 400 Mg Tab 400 Mg PO DAILY Folic Acid 0.4 Mg Tab 1 Mg PO DAILY Doxycycline Hyclate 100 Mg Cap 100 Mg PO BID Allergies: Coded Allergies: penicillin G (Unverified Allergy, Severe, ITCHINESS, 07/26/17) Active Ordered Medications Current Medications Medications (Trade) Dose Ordered Sig/Bunny Route Start Time Stop Time Status Last Admin (NS Flush) 2 ml UNSCH PRN IVF 12/11/17 14:30 Sodium Chloride 1,000 ml @ 100 mls/hr Q10H IV 12/11/17 16:52 (NS Flush) 2 ml UNSCH PRN IV FLUSH 12/11/17 17:00 (NS Flush) 2 ml BID IV FLUSH 12/11/17 21:00 (Tylenol) 650 mg Q4H PRN PO 12/11/17 17:00 (Zofran Inj) 4 mg Q6H PRN IVP 12/11/17 17:00 (Narcan Inj) 0.4 mg UNSCH PRN IV PUSH 12/11/17 17:00 (Senokot) 17.2 mg Q12H PRN PO 12/11/17 17:00 (Dulcolax Supp) 10 mg DAILY PRN RECTAL 12/11/17 17:00 (Lactulose Liq) 30 ml TID PO 12/11/17 18:00 Multivitamins 10 ml/Folic Acid 1 mg/Sodium Chloride 510.2 ml @ 125 mls/hr Q24H IV 12/11/17 18:00 12/16/17 17:59 Thiamine HCl 100 mg/Sodium Chloride 101 ml @ 100 mls/hr Q24H IV 12/11/17 18:00 12/14/17 17:59 (Vitamin B1) 100 mg DAILY PO 12/15/17 09:00 (Ativan) 1 mg Q4H PRN PO 12/11/17 17:00 (Ativan Inj) 1 mg Q4H PRN IV PUSH 12/11/17 17:00 (Ativan) 2 mg Q2H PRN PO 12/11/17 17:00 (Ativan Inj) 2 mg Q2H PRN IV PUSH 12/11/17 17:00 (Heparin Inj) 5,000 units Q12H SQ 12/11/17 17:00 Family History Unable to obtain at this time Social History Alcoholism Substance abuse Physical Exam Vital Signs Vital Signs Date Time Temp Pulse Resp B/P (MAP) Pulse Ox O2 Delivery O2 Flow Rate FiO2 3/18/18 14:45 Room Air 12/11/17 14:18 97.9 75 19 125/68 (87) 99 Physical Exam GENERAL: lethargic received Ativan, for withdrawal, also shivering. SKIN: Focused skin assessment warm/dry. HEAD: Normocephalic. Atraumatic. EYES: No scleral icterus. No injection or drainage. NECK: Supple, trachea midline. No JVD or lymphadenopathy. CARDIOVASCULAR: Regular rate and rhythm, systolic murmur RESPIRATORY: Breath sounds equal bilaterally. No accessory muscle use. Lung sounds are clear to auscultation. GASTROINTESTINAL: Abdomen soft and nondistended. He has generalized tenderness to palpation. MUSCULOSKELETAL: No cyanosis, or edema. Laboratory Laboratory Tests Test 12/11/17 14:33 12/11/17 14:35 12/11/17 15:15 White Blood Count 7.4 Red Blood Count 3.80 Hemoglobin 12.2 Hematocrit 37.0 Mean Corpuscular Volume 97.5 Mean Corpuscular Hemoglobin 32.1 Mean Corpuscular Hemoglobin Concent 32.9 Red Cell Distribution Width 20.2 Platelet Count 165 Mean Platelet Volume 10.0 Neutrophils (%) (Auto) 65.1 Lymphocytes (%) (Auto) 12.7 Monocytes (%) (Auto) 19.1 Eosinophils (%) (Auto) 2.3 Basophils (%) (Auto) 0.8 Neutrophils # (Auto) 4.8 Lymphocytes # (Auto) 0.9 Monocytes # (Auto) 1.4 Eosinophils # (Auto) 0.2 Basophils # (Auto) 0.1 CBC Comment DIFF FINAL Differential Comment Blood Urea Nitrogen 112 Creatinine 2.26 Random Glucose 106 Total Protein 7.5 Albumin 3.3 Calcium Level 8.9 Magnesium Level 1.8 Alkaline Phosphatase 80 Aspartate Amino Transf (AST/SGOT) 22 Alanine Aminotransferase (ALT/SGPT) 13 Total Bilirubin 1.1 Sodium Level 143 Potassium Level 3.2 Chloride Level 108 Carbon Dioxide Level 24.4 Anion Gap 11 Estimat Glomerular Filtration Rate 29 Total Creatine Kinase 172 Creatine Kinase MB 3.2 Troponin I 0.02 Lipase 167 Ethyl Alcohol Level LESS THAN 3 Prothrombin Time 12.5 Prothromb Time International Ratio 1.2 Activated Partial Thromboplast Time 26.6 Urine Color YELLOW Urine Turbidity CLEAR Urine pH 5.5 Urine Specific [place] 1.015 Urine Protein TRACE Urine Glucose (UA) NEG Urine Ketones NEG Urine Occult Blood NEG Urine Nitrite NEG Urine Bilirubin NEG Urine Urobilinogen LESS THAN 2.0 Urine Leukocyte Esterase NEG Urine RBC LESS THAN 1 Urine WBC 1 Urine Mucus FEW Microscopic Urinalysis Comment CULT NOT INDICATED Ammonia 17 Result Diagram: 12/11/17 1433 12/11/17 1435 Caprini VTE Risk Assessment Caprini VTE Risk Assessment: Mod/High Risk (score >= 2) Caprini Risk Assessment Model Point Value = 1 Point Value = 2 Point Value = 3 Point Value = 5 Age 41-60 Minor surgery BMI > 25 kg/m2 Swollen legs Varicose veins or History of unexplained or recurrent spontaneous Oral contraceptives or hormone replacement Sepsis (< 1 month) Serious lung disease, including pneumonia (< 1 month) Abnormal pulmonary function Acute myocardial infarction Congestive heart failure (< 1 month) History of inflammatory bowel disease Medical patient at bed rest Age 61-74 Arthroscopic surgery Major open surgery (> 45 min) Laparoscopic surgery (> 45 min) Malignancy Confined to bed (> 72 hours) Immobilizing plaster cast Central venous access Age >= 75 History of VTE Family history of VTE Factor V Leiden Prothrombin [id number] Lupus anticoagulant Anticardiolipin antibodies Elevated serum homocysteine Heparin-induced thrombocytopenia Other congenital or acquired thrombophilia Stroke (< 1 month) Elective arthroplasty Hip, pelvis, or leg fracture Acute spinal cord injury (< 1 month) Prophylaxis Regimen Total Risk Factor Score Risk Level Prophylaxis Regimen 0-1 Low Early ambulation 2 Moderate Order ONE of the following: *Sequential Compression Device (SCD) *Heparin 5000 units SQ BID 3-4 Higher Order ONE of the following medications: *Heparin 5000 units SQ TID *Enoxaparin/Lovenox 40 mg SQ daily (WT < 150 kg, CrCl > 30 mL/min) *Enoxaparin/Lovenox 30 mg SQ daily (WT < 150 kg, CrCl > 10-29 mL/min) *Enoxaparin/Lovenox 30 mg SQ BID (WT < 150 kg, CrCl > 30 mL/min) AND/OR *Sequential Compression Device (SCD) 5 or more Highest Order ONE of the following medications: *Heparin 5000 units SQ TID (Preferred with Epidurals) *Enoxaparin/Lovenox 40 mg SQ daily (WT < 150 kg, CrCl > 30 mL/min) *Enoxaparin/Lovenox 30 mg SQ daily (WT < 150 kg, CrCl > 10-29 mL/min) *Enoxaparin/Lovenox 30 mg SQ BID (WT < 150 kg, CrCl > 30 mL/min) AND *Sequential Compression Device (SCD) Assessment and Plan Assessment and Plan 1. Alcohol withdrawal patient on CIWA protocol received Ativan in Emergency room at this time lethargic, EKG shows atrial fibrillation, heart rate 79, no acute ST changes. CBC shows no acute abnormality. CMP shows hypokalemia 3.2 replacing, BUN 112, creatinine 2.26. This is increased since his last creatinine on August 06, 2017 which was 0.54. CK is 172. Troponin is 0.02. Magnesium is 1.8 replaced. Ammonia is 17. Lipase is 167. Alcohol level is less than 3. Coags show no acute abnormality. Chest x-ray is normal. CT of the brain shows no acute findings. CT of the abdomen/pelvis shows no acute findings. 2. Acute Kidney Injury on IV fluids 3. Anxiety disorder by history 4. prostate Cancer treated with radiation therapy 5. Atrial Fibrillation controlled rate. continue Beta bell, evidently not candidate for anticoagulation 6. Hypertension on the low level. on hold Lisinopril due to Acute kidney injury DVT prophylaxis with heparin renal dose Code Status Full code Discussed Condition With Audrey Lee Physician Certification 2 Midnight Certification Type: Admission for Inpatient Services Order for Inpatient Services The services are ordered in accordance with Medicare regulations or non- Medicare payer requirements, as applicable. In the case of services not specified as inpatient-only, they are appropriately provided as inpatient services in accordance with the 2-midnight benchmark. Estimated LOS (days): 3 days is the estimated time the patient will need to remain in the hospital, assuming treatment plan goals are met and no additional complications. Post-Hospital Plan: Not yet determined Rich Riley MD Dec 11, 2017 16:52
[2017-12-11] MEDS ORDERED: BISACODYL 10 MG SUPP RECTAL PRN (17:00)
[2017-12-11] MEDS ORDERED: SENNOSIDES 8.6 MG TAB PO PRN (17:00)
[2017-12-11] MEDS ORDERED: LORazepam 2 MG TAB PO PRN (17:00)
[2017-12-11] MEDS ORDERED: NALOXONE HCL 0.4 MG/ML AMP IV PUSH PRN (17:00)
[2017-12-11] MEDS ORDERED: ACETAMINOPHEN 325 MG TAB PO PRN (17:00)
[2017-12-11] MEDS ORDERED: ONDANSETRON HCL 4 MG/2 ML VIAL IVP PRN (17:00)
[2017-12-11] MEDS: THIAMINE INJ 100 MG in SODIUM CHLORIDE 0.9% INJ 100 ML IV SCH (18:00)
[2017-12-11] MEDS: MULTIVITAMIN INJ 10 ML, FOLIC ACID INJ 1 MG in SODIUM CHLORID 0.9% 500 ML INJ 500 ML IV SCH (18:00)
[2017-12-11] MEDS: LACTULOSE SYRUP 20 GM/30 ML CUP PO SCH (18:00)
[2017-12-11] MEDS: SODIUM CHLOR 0.9% 1000 ML INJ 1,000 ML IV SCH (18:17)
[2017-12-11 18:18] VITALS: BP 137/69; PULSE 70; RESP 21; O2SAT 98
[2017-12-11] MEDS: HEPARIN SODIUM - SQ 10,000 UNITS/ML VIAL SQ SCH (18:18)
[2017-12-11] MEDS ORDERED: MAGNESIUM SULFATE 1 GM PREMIX 100 ML IV SCH (19:00)
[2017-12-11] MEDS ORDERED: POTASSIUM CHLOR 20 MEQ PREMIX 100 ML IV ONE (19:00)
[2017-12-11 19:36] LABS: TROPONIN I LESS THAN 0.02 NG/ML (0.02-0.05)
[2017-12-11 20:00] VITALS: BP 130/66; PULSE 90; RESP 18; TEMP 98.2; O2SAT 99
[2017-12-11 21:00] VITALS: PULSE 61
[2017-12-11] MEDS: METOPROLOL TARTRATE 25 MG TAB PO SCH (21:00)
[2017-12-11] MEDS: SODIUM CHLORIDE 0.9% FLUSH 10 ML FLUSH IV FLUSH SCH (21:38)
[2017-12-11] MEDS: LORazepam 2 MG/ML VIAL IV PUSH PRN (22:26)
[2017-12-11 23:54] VITALS: BP 107/57; PULSE 98; RESP 18; TEMP 97.6
[2017-12-12] MEDS: SODIUM CHLOR 0.9% 1000 ML INJ 1,000 ML IV SCH ×2 (00:27→02:52)
[2017-12-12 01:31] LABS: TROPONIN I 0.03 NG/ML (0.02-0.05)
[2017-12-12] MEDS: LORazepam 2 MG/ML VIAL IV PUSH PRN ×5 (02:25→22:46)
[2017-12-12 04:21] VITALS: BP 109/79; PULSE 91; RESP 21; TEMP 98.6; O2SAT 94
[2017-12-12] MEDS: HEPARIN SODIUM - SQ 10,000 UNITS/ML VIAL SQ SCH ×2 (06:30→17:19)
[2017-12-12 08:00] VITALS: BP 119/61; PULSE 70; PULSE 79; RESP 18; TEMP 97.8; O2SAT 99
[2017-12-12 09:12] LABS: AUTOMATED NEUTROPHIL # 3.6 TH/MM3 (1.8-7.7); BASOPHIL % 0.8 % (0.0-2.0); EOSINOPHIL # 0.2 TH/MM3 (0-0.4); EOSINOPHIL % 2.7 % (0.0-4.0); HEMATOCRIT 32.8 % (39.0-51.0); HEMOGLOBIN 10.7 GM/DL (13.0-17.0); LYMPHOCYTE # 0.8 TH/MM3 (1.0-4.8); MEAN CELL VOLUME 98.1 FL (80.0-100.0); MEAN CORPUSCULAR HGB CONC 32.7 % (32.0-36.0); MEAN PLATELET VOLUME 9.8 FL (7.0-11.0); MONO % 19.6 % (0.0-8.0); MONOCYTE # 1.1 TH/MM3 (0-0.9); NEUT % 62.9 % (16.0-70.0); PLATELET COUNT 163 TH/MM3 (150-450); RED BLOOD COUNT 3.34 MIL/MM3 (4.50-5.90); RED CELL DISTRIBUTION WIDTH 19.7 % (11.6-17.2); WHITE BLOOD COUNT 5.7 TH/MM3 (4.0-11.0)
[2017-12-12 09:19] LABS: INTERNATIONAL NORMALIZED RATIO 1.2 RATIO; PROTHROMBIN TIME - PATIENT 12.3 SEC (9.8-11.6)
[2017-12-12 09:50] LABS: ALBUMIN 2.7 GM/DL (3.4-5.0); ALKALINE PHOSPHATASE 76 U/L (45-117); ALT (GPT) 10 U/L (12-78); AST (GOT) 21 U/L (15-37); BLOOD UREA NITROGEN 78 MG/DL (7-18); CALCIUM 8.6 MG/DL (8.5-10.1); CHLORIDE 117 MEQ/L (98-107); CREATININE 1.74 MG/DL (0.60-1.30); GLOMERULAR FILTRATION RATE 40 ML/MIN (>89); GLUCOSE,RANDOM 102 MG/DL (74-106); SODIUM (NA) 151 MEQ/L (136-145); TOTAL PROTEIN 6.4 GM/DL (6.4-8.2)
[2017-12-12] MEDS: METOPROLOL TARTRATE 25 MG TAB PO SCH ×2 (10:38→20:50)
[2017-12-12] MEDS: SODIUM CHLORIDE 0.9% FLUSH 10 ML FLUSH IV FLUSH SCH ×2 (10:38→20:51)
[2017-12-12] MEDS: LACTULOSE SYRUP 20 GM/30 ML CUP PO SCH ×3 (10:38→17:58)
--- NOTE | 2017-12-12 11:02 | HHI.PR ---
Subjective Remarks f/u for alcohol withdrawal patient is sedated but can be aroused but then goes back to sleep quickly. snoring. he received Ativan right before I saw him. Objective Vitals Vital Signs Date Time Temp Pulse Resp B/P (MAP) Pulse Ox O2 Delivery O2 Flow Rate FiO2 12/12/17 08:00 Room Air 12/12/17 08:00 70 12/12/17 04:21 98.6 91 21 109/79 (89) 94 12/11/17 23:54 97.6 98 18 107/57 (74) 12/11/17 23:00 Room Air 12/11/17 21:00 61 12/11/17 20:00 98.2 90 18 130/66 (87) 99 12/11/17 18:18 70 21 137/69 (91) 98 Room Air 12/11/17 14:45 Room Air 12/11/17 14:18 97.9 75 19 125/68 (87) 99 I/O 12/11/17 12/11/17 12/11/17 12/12/17 12/12/17 12/12/17 06:59 14:59 22:59 06:59 14:59 22:59 Intake Total 1998 ml 200 ml Balance 1998 ml 200 ml Intake IV Total 1998 ml 200 ml # Voids 3 # Bowel Movements 3 Result Diagram: 12/12/1785412/12/17 08 Objective Remarks GENERAL: in NAD snoring. CARDIOVASCULAR: Regular rate and rhythm without murmurs, gallops, or rubs. RESPIRATORY: Breath sounds equal bilaterally. No accessory muscle use. GASTROINTESTINAL: Abdomen soft, non-tender, nondistended. MUSCULOSKELETAL: No cyanosis, or edema. NEURO: response to noxious stimuli. He did mumble words. move all extremities grossly. Medications and IVs Current Medications Sodium Chloride (NS Flush) 2 ml UNSCH PRN IVF FLUSH AFTER USING IV ACCESS; Start 12/11/17 at 14:30 Sodium Chloride 1,000 ml @ 1,000 mls/hr Q1H ONCE IV Last administered on at 15:20; Start 12/11/17 at 14:24; Stop 12/11/17 at 15:23; Status DC Lorazepam (Ativan Inj) 1 mg ONCE ONCE IV PUSH Last administered on 12/11/17at 16:00; Start 12/11/17 at 15:45; Stop 12/11/17 at 15:46; Status DC Potassium Chloride (KCl) 40 meq ONCE ONCE PO ; Start 12/11/17 at 16:45; Stop at 18:25; Status DC Lorazepam (Ativan Inj) 1 mg ONCE ONCE IV PUSH Last administered on 12/11/17at 18:17; Start 12/11/17 at 17:00; Stop 12/11/17 at 17:01; Status DC Sodium Chloride 1,000 ml @ 100 mls/hr Q10H IV Last administered on 12/12/17at 00:27; Start 12/11/17 at 16:52; Stop 12/12/17 at 10:12; Status DC Sodium Chloride (NS Flush) 2 ml UNSCH PRN IV FLUSH FLUSH AFTER USING IV ACCESS ; Start 12/11/17 at 17:00 Sodium Chloride (NS Flush) 2 ml BID IV FLUSH Last administered on 12/12/17at 10: 38; Start 12/11/17 at 21:00 Acetaminophen (Tylenol) 650 mg Q4H PRN PO TEMP > 100.4; Start 12/11/17 at 17:00 Ondansetron HCl (Zofran Inj) 4 mg Q6H PRN IVP NAUSEA OR VOMITING; Start at 17:00 Naloxone HCl (Narcan Inj) 0.4 mg UNSCH PRN IV PUSH SEE LABEL COMMENTS; Start at 17:00 Sennosides (Senokot) 17.2 mg Q12H PRN PO Moderate constipation; Start 12/11/17 at 17:00 Bisacodyl (Dulcolax Supp) 10 mg DAILY PRN RECTAL SEVERE CONSITIPATION; Start at 17:00 Lactulose (Lactulose Liq) 30 ml TID PO Last administered on 12/12/17at 10:38; Start 12/11/17 at 18:00 Multivitamins 10 ml/Folic Acid 1 mg/Sodium Chloride 510.2 ml @ 125 mls/hr Q24H IV Last administered on 12/11/17at 18:00; Start 12/11/17 at 18:00; Stop at 17:59 Thiamine HCl 100 mg/Sodium Chloride 101 ml @ 100 mls/hr Q24H IV Last administered on 12/11/17at 18:00; Start 12/11/17 at 18:00; Stop 12/14/17 at 17:59 Thiamine HCl (Vitamin B1) 100 mg DAILY PO ; Start 12/15/17 at 09:00 Lorazepam (Ativan) 1 mg Q4H PRN PO CIWA 8 - 10; Start 12/11/17 at 17:00 Lorazepam (Ativan Inj) 1 mg Q4H PRN IV PUSH CIWA 8 - 10; Start 12/11/17 at 17: 00 Lorazepam (Ativan) 2 mg Q2H PRN PO CIWA 11-14; Start 12/11/17 at 17:00 Lorazepam (Ativan Inj) 2 mg Q2H PRN IV PUSH CIWA 11-14 Last administered on at 10:47; Start 12/11/17 at 17:00 Heparin Sodium (Porcine) (Heparin Inj) 5,000 units Q12H SQ Last administered on 12/12/17at 06:30; Start 12/11/17 at 17:00 Potassium Chloride 100 ml @ 50 mls/hr ONCE ONCE IV Last administered on at 21:47; Start 12/11/17 at 19:00; Stop 12/11/17 at 20:59; Status DC Magnesium Sulfate/ Dextrose 100 ml @ 100 mls/hr Q1H IV Last administered on at 21:38; Start 12/11/17 at 19:00; Stop 12/11/17 at 20:59; Status DC Metoprolol Tartrate (Lopressor) 25 mg BID PO Last administered on 12/12/17at 10: 38; Start 12/11/17 at 21:00 Sodium Chloride 1,000 ml @ 100 mls/hr Q10H IV ; Start 12/12/17 at 10:15 A/P Assessment and Plan This is a 67 y/o M with hx of alcoholism who p/w alcoholic withdrawals. Alcohol withdrawals -on [facility] protocol. will schedule librium -Na went from 143 to 151 so will change IVFs from NS to 1/2 NS. -continue with thiamine, Multivitamin. will start folate too. -seizures precautions. ARF -due to dehydration from alcoholism. -improving with IVFs. Cr 2.26 to 1.74. -continue with IVFs. Anxiety disorder -stable. hypokalemia -replenish as needed. Prostate Cancer -s/p radiation therapy Atrial Fibrillation controlled rate. - continue Beta bell, no candidate for anticoagulation due to multiple falls from alcoholism. Hypertension on the low level -on hold Lisinopril due to acute kidney injury. once improved can restart medication. DVT prophylaxis -heparin renally dose Celestina Tobin MD Dec 12, 2017 11:02
[2017-12-12] MEDS ORDERED: POTASSIUM CHLOR 10 MEQ PREMIX 100 ML IV ONE (11:30)
--- NOTE | 2017-12-12 11:52 | EKG ---
Date Performed: 12/11/2017 Time Performed: 15:47:41 PTAGE: 67 years EKG: ATRIAL FIBRILLATION LOW QRS VOLTAGE IN EXTREMITY LEADS MODERATE INTRAVENTRICULAR CONDUCTION DELAY ABNORMAL RHYTHM ECG PREVIOUS TRACING : 07/26/2017 09.43 DOCTOR: Joselyn Frederick Interpretating Date/Time 12/12/2017 11:50:48
[2017-12-12] MEDS: SODIUM CHLOR 0.45% 1000 ML INJ 1,000 ML IV SCH ×2 (11:59→20:15)
[2017-12-12 12:00] VITALS: BP 105/65; PULSE 88; RESP 18; TEMP 99.1; O2SAT 95
[2017-12-12 15:59] VITALS: PULSE 83
[2017-12-12 16:00] VITALS: BP 126/73; PULSE 87; RESP 18; TEMP 99; O2SAT 96
[2017-12-12] MEDS: THIAMINE INJ 100 MG in SODIUM CHLORIDE 0.9% INJ 100 ML IV SCH (16:38)
[2017-12-12] MEDS: MULTIVITAMIN INJ 10 ML, FOLIC ACID INJ 1 MG in SODIUM CHLORID 0.9% 500 ML INJ 500 ML IV SCH (18:00)
[2017-12-12 20:00] VITALS: BP 135/77; PULSE 82; PULSE 86; RESP 18; TEMP 96.6; O2SAT 99
[2017-12-13] VITALS (8 sets, daily range): BP systolic 108–147; BP diastolic 59–76; PULSE 72–103; RESP 18–22; TEMP 97.1–98.5; O2SAT 96–100
[2017-12-13] MEDS: LORazepam 2 MG/ML VIAL IV PUSH PRN ×6 (02:44→21:56)
[2017-12-13] MEDS: SODIUM CHLOR 0.45% 1000 ML INJ 1,000 ML IV SCH (02:47)
[2017-12-13] MEDS: HEPARIN SODIUM - SQ 10,000 UNITS/ML VIAL SQ SCH ×2 (04:42→18:41)
[2017-12-13 07:47] LABS: HEMOGLOBIN 10.7 GM/DL (13.0-17.0); MEAN CELL VOLUME 98.2 FL (80.0-100.0); MEAN CORPUSCULAR HGB CONC 32.5 % (32.0-36.0); MEAN PLATELET VOLUME 9.6 FL (7.0-11.0); PLATELET COUNT 183 TH/MM3 (150-450); RED BLOOD COUNT 3.36 MIL/MM3 (4.50-5.90); RED CELL DISTRIBUTION WIDTH 19.1 % (11.6-17.2); WHITE BLOOD COUNT 6.7 TH/MM3 (4.0-11.0)
[2017-12-13 08:33] LABS: BICARBONATE 19.1 MEQ/L (21.0-32.0); CALCIUM 8.8 MG/DL (8.5-10.1); CREATININE 1.42 MG/DL (0.60-1.30)
[2017-12-13] MEDS: METOPROLOL TARTRATE 25 MG TAB PO SCH ×2 (09:46→22:04)
[2017-12-13] MEDS: FOLIC ACID 1 MG TAB PO SCH (09:46)
[2017-12-13] MEDS: LACTULOSE SYRUP 20 GM/30 ML CUP PO SCH (09:47)
[2017-12-13] MEDS: SODIUM CHLORIDE 0.9% FLUSH 10 ML FLUSH IV FLUSH SCH ×2 (09:47→21:00)
--- NOTE | 2017-12-13 12:54 | HHI.PR ---
Subjective Remarks on Ativan for withdrawal when awakened- tremulous poor po intake not ff commands moves all extremities spontaneously- needs restraints- gets agitated Objective Vitals Vital Signs Date Time Temp Pulse Resp B/P (MAP) Pulse Ox O2 Delivery O2 Flow Rate FiO2 12/13/17 08:00 98.3 79 22 121/74 (90) 96 12/13/17 04:00 Room Air 12/13/17 04:00 98.2 98 20 147/67 (93) 97 12/13/17 00:00 79 12/13/17 00:00 Room Air 12/13/17 00:00 97.7 83 20 127/61 (83) 97 12/12/17 20:21 21 12/12/17 20:00 Room Air 12/12/17 20:00 82 12/12/17 20:00 96.6 86 18 135/77 (96) 99 12/12/17 16:00 99.0 87 18 126/73 (90) 96 12/12/17 15:59 83 I/O 12/12/17 12/12/17 12/12/17 12/13/17 12/13/17 12/13/17 06:59 14:59 22:59 06:59 14:59 22:59 Intake Total 200 ml 400 ml 101 ml Output Total 600 ml Balance 200 ml 400 ml 101 ml -600 ml Intake IV Total 200 ml 400 ml 101 ml Output Urine Total 600 ml # Voids 3 5 # Bowel Movements 3 1 2 Result Diagram: 12/13/17 0715 12/13/17 0715 Imaging Last Impressions Head CT 12/11/17 1424 Signed Impressions: Service Date/Time: Monday, December 11, 2017 16:11 - CONCLUSION: 1. No acute findings. Cortical atrophy and white matter ischemic changes, chronic. Ramez Sidhu MD Chest X-Ray 12/11/17 1424 Signed Impressions: Service Date/Time: Monday, December 11, 2017 14:30 - CONCLUSION: Normal examination. Yola Holden MD Abdomen/Pelvis CT 12/11/17 0000 Signed Impressions: Service Date/Time: Monday, December 11, 2017 16:14 - CONCLUSION: 1. Cardiomegaly. 2. 2.8 simple cyst within the right kidney. 3. Atherosclerotic plaquing in the abdominal aorta. 4. Generative changes in the lumbar spine. 5. No findings to indicate bowel obstruction identified. Spenser Duarte MD Objective Remarks lethargic anicteric dry oral mucosa no nuchal rigidity lungs- no rales regular rhythm abdomen- soft, good bowel sounds condom catheter in place extremities no edema A/P Assessment and Plan This is a 67 y/o M with hx of alcoholism who p/w alcoholic withdrawals. DTS- Alcohol withdrawals -on CIWA protocol -continue with thiamine, Multivitamin. will start folate too. -seizures precautions. ARF -due to dehydration from alcoholism. -improving with IVFs. Cr 2.26 to 1.74. -continue with IVFs. - change to D5 W with increase Na HYpernatremia- change IVF to D5W - ff lytes Anxiety disorder -stable. hypokalemia -replenish as needed. - po KCL x 1 today - IVF with KCL Prostate Cancer -s/p radiation therapy Atrial Fibrillation controlled rate. - continue Beta bell, no candidate for anticoagulation due to multiple falls from alcoholism. Hypertension on the low level -on hold Lisinopril due to acute kidney injury. once improved can restart medication. DVT prophylaxis -heparin renally dose Obi Merida MD Dec 13, 2017 12:54
[2017-12-13] MEDS ORDERED: POTASSIUM CHLOR 10 MEQ PREMIX 100 ML IV ONE (13:00)
[2017-12-13] MEDS: POTASSIUM BICARBONATE 25 MEQ EFFERVESCENT TAB PO SCH (14:18)
[2017-12-13] MEDS: POTASSIUM CHLORIDE INJ 40 MEQ in DEXTROSE 5% IN WATE 1000ML INJ 1,000 ML IV SCH ×2 (16:56)
[2017-12-13] MEDS: THIAMINE INJ 100 MG in SODIUM CHLORIDE 0.9% INJ 100 ML IV SCH (18:40)
[2017-12-13] MEDS: MULTIVITAMIN INJ 10 ML, FOLIC ACID INJ 1 MG in SODIUM CHLORID 0.9% 500 ML INJ 500 ML IV SCH (18:40)
[2017-12-14] VITALS (9 sets, daily range): BP systolic 128–163; BP diastolic 63–97; PULSE 75–101; RESP 17–20; TEMP 89.8–100.7; O2SAT 94–100
[2017-12-14] MEDS: LORazepam 2 MG/ML VIAL IV PUSH PRN ×4 (01:56→16:10)
[2017-12-14] MEDS: POTASSIUM CHLORIDE INJ 40 MEQ in DEXTROSE 5% IN WATE 1000ML INJ 1,000 ML IV SCH ×6 (01:56→21:36)
[2017-12-14] MEDS: HEPARIN SODIUM - SQ 10,000 UNITS/ML VIAL SQ SCH ×2 (05:33→17:10)
[2017-12-14] MEDS: POTASSIUM BICARBONATE 25 MEQ EFFERVESCENT TAB PO SCH (09:00)
[2017-12-14] MEDS: SODIUM CHLORIDE 0.9% FLUSH 10 ML FLUSH IV FLUSH SCH ×2 (09:00→22:16)
[2017-12-14] MEDS: FOLIC ACID 1 MG TAB PO SCH (09:00)
[2017-12-14] MEDS: METOPROLOL TARTRATE 25 MG TAB PO SCH ×2 (09:00→22:15)
[2017-12-14 10:20] LABS: BICARBONATE 21.1 MEQ/L (21.0-32.0); CALCIUM 8.8 MG/DL (8.5-10.1); CREATININE 1.2 MG/DL (0.60-1.30)
--- NOTE | 2017-12-14 13:08 | HHI.PR ---
Subjective Remarks drowsy- awakens easily restless- required restraints very thirstly when asked about his drinking if daily replied "pretty much" Objective Vitals Vital Signs Date Time Temp Pulse Resp B/P (MAP) Pulse Ox O2 Delivery O2 Flow Rate FiO2 12/14/17 12:00 98.3 96 20 137/80 (99) 100 12/14/17 08:00 98.3 81 20 140/71 (94) 98 12/14/17 08:00 Room Air 12/14/17 04:00 89.8 87 18 128/68 (88) 98 12/14/17 04:00 77 12/14/17 04:00 96 Room Air 21 12/14/17 04:00 98.8 87 18 128/68 (88) 98 12/14/17 00:00 85 12/14/17 00:00 98.1 77 18 134/70 (91) 99 12/14/17 00:00 96 Room Air 21 12/13/17 20:10 98.5 72 18 140/76 (97) 98 12/13/17 20:00 96 Room Air 21 12/13/17 20:00 103 12/13/17 17:00 97.3 73 20 108/59 (75) 99 12/13/17 16:15 97.1 76 18 127/75 (92) 100 I/O 12/13/17 12/13/17 12/13/17 12/14/17 12/14/17 12/14/17 07:00 15:00 23:00 07:00 15:00 23:00 Intake Total 611.2 ml Output Total 600 ml 900 ml 800 ml Balance -600 ml -900 ml 611.2 ml -800 ml Intake IV Total 611.2 ml Output Urine Total 600 ml 900 ml 800 ml # Bowel Movements 2 Result Diagram: 12/13/17 0715 12/14/17 0935 Imaging Last Impressions Head CT 12/11/171423 Signed Impressions: Service Date/Time: Monday, December 11, 2017 16:11 - CONCLUSION: 1. No acute findings. Cortical atrophy and white matter ischemic changes, chronic. Ramez Sidhu MD Chest X-Ray 12/11/171423 Signed Impressions: Service Date/Time: Monday, December 11, 2017 14:30 - CONCLUSION: Normal examination. Yola Holden MD Abdomen/Pelvis CT 12/11/17 0000 Signed Impressions: Service Date/Time: Monday, December 11, 2017 16:14 - CONCLUSION: 1. Cardiomegaly. 2. 2.8 simple cyst within the right kidney. 3. Atherosclerotic plaquing in the abdominal aorta. 4. Generative changes in the lumbar spine. 5. No findings to indicate bowel obstruction identified. Spenser Duarte MD Objective Remarks drowsy- not ff commands, speech soft anicteric very dry oral mucosa no nuchal rigidity lungs- no rales regular rhythm abdomen- soft, good bowel sounds condom catheter in place extremities no edema A/P Assessment and Plan This is a 67 y/o M with hx of alcoholism who p/w alcoholic withdrawals. DTS- Alcohol withdrawals -on CIWA protocol -continue with thiamine, Multivitamin. will start folate too. -seizures precautions. ARF- creatinine improving -due to dehydration from alcoholism. -improving with IVFs. Cr 2.26 to 1.74. -continue with IVFs. - D5 W with increase Na HYpernatremia- change IVF to D5W- trending down gradually - ff lytes Anxiety disorder - on benzo currentlu for Dts hypokalemia - IVF with KCL - bolus- D5W 500cc + 30 meq KCL to run for 3 hours Prostate Cancer -s/p radiation therapy Atrial Fibrillation controlled rate. - continue Beta ebll, no candidate for anticoagulation due to multiple falls from alcoholism. Hypertension -on hold Lisinopril due to acute kidney injury. consider restarting or change to other agent DVT prophylaxis -Obi Wooten MD Dec 14, 2017 13:08
[2017-12-14] MEDS ORDERED: DEXTROSE 5% IV ONE ×2 (14:00)
[2017-12-14] MEDS ORDERED: POTASSIUM CHLORIDE IV ONE ×2 (14:00)
[2017-12-14] MEDS ORDERED: WATER IV ONE ×2 (14:00)
[2017-12-14] MEDS: MULTIVITAMIN INJ 10 ML, FOLIC ACID INJ 1 MG in SODIUM CHLORID 0.9% 500 ML INJ 500 ML IV SCH (17:10)
[2017-12-15] VITALS (9 sets, daily range): BP systolic 102–138; BP diastolic 66–90; PULSE 80–91; RESP 17–20; TEMP 97.2–98; O2SAT 94–100
[2017-12-15] MEDS: POTASSIUM CHLORIDE INJ 40 MEQ in DEXTROSE 5% IN WATE 1000ML INJ 1,000 ML IV SCH ×4 (01:27→15:46)
[2017-12-15] MEDS: HEPARIN SODIUM - SQ 10,000 UNITS/ML VIAL SQ SCH ×2 (05:23→16:29)
[2017-12-15] MEDS: LORazepam 2 MG/ML VIAL IV PUSH PRN ×5 (05:24→21:04)
[2017-12-15] MEDS: POTASSIUM BICARBONATE 25 MEQ EFFERVESCENT TAB PO SCH (07:50)
[2017-12-15] MEDS: METOPROLOL TARTRATE 25 MG TAB PO SCH ×2 (07:50→21:04)
[2017-12-15] MEDS: FOLIC ACID 1 MG TAB PO SCH (07:51)
[2017-12-15] MEDS: SODIUM CHLORIDE 0.9% FLUSH 10 ML FLUSH IV FLUSH SCH ×2 (07:51→21:04)
[2017-12-15] MEDS ORDERED: THIAMINE HCL 100 MG TAB PO SCH (09:00)
--- NOTE | 2017-12-15 11:36 | HHI.PR ---
Subjective Remarks awake and alert, ff commands less tremulous thinks he is in [employer] Objective Vitals Vital Signs Date Time Temp Pulse Resp B/P (MAP) Pulse Ox O2 Delivery O2 Flow Rate FiO2 12/15/17 08:00 Room Air 12/15/17 07:00 97.2 87 19 126/84 (98) 98 12/15/17 04:00 97.3 89 20 130/90 (103) 95 12/15/17 04:00 80 12/15/17 00:00 97.7 89 19 135/89 (104) 98 12/15/17 00:00 83 12/14/17 20:30 87 12/14/17 20:30 94 Room Air 21 12/14/17 20:07 94 21 12/14/17 19:50 100.0 101 17 163/97 (119) 12/14/17 16:15 100.7 87 18 138/63 (88) 99 12/14/17 16:00 98.3 90 20 137/81 (99) 97 12/14/17 16:00 78 12/14/17 12:00 98.3 96 20 137/80 (99) 100 I/O 12/14/17 12/14/17 12/14/17 12/15/17 12/15/17 12/15/17 07:00 15:00 23:00 07:00 15:00 23:00 Intake Total 611.2 ml 0 ml Output Total 800 ml 900 ml Balance 611.2 ml -800 ml -900 ml 0 ml Intake Oral 0 ml IV Total 611.2 ml Output Urine Total 800 ml 900 ml # Voids 2 # Bowel Movements 0 0 Result Diagram: 12/13/17 0715 12/14/17 0935 Imaging Last Impressions Head CT 12/11/171423 Signed Impressions: Service Date/Time: Monday, December 11, 2017 16:11 - CONCLUSION: 1. No acute findings. Cortical atrophy and white matter ischemic changes, chronic. Ramez Sidhu MD Chest X-Ray 12/11/17 1424 Signed Impressions: Service Date/Time: Monday, December 11, 2017 14:30 - CONCLUSION: Normal examination. Yola Holden MD Abdomen/Pelvis CT 12/11/17 0000 Signed Impressions: Service Date/Time: Monday, December 11, 2017 16:14 - CONCLUSION: 1. Cardiomegaly. 2. 2.8 simple cyst within the right kidney. 3. Atherosclerotic plaquing in the abdominal aorta. 4. Generative changes in the lumbar spine. 5. No findings to indicate bowel obstruction identified. Spenser Duarte MD Objective Remarks more awake and alert, baseline ? dementia anicteric very dry oral mucosa no nuchal rigidity lungs- no rales regular rhythm abdomen- soft, good bowel sounds condom catheter in place extremities no edema A/P Assessment and Plan This is a 67 y/o M with hx of alcoholism who p/w alcoholic withdrawals. DTS- Alcohol withdrawals -on CIWA protocol -continue with thiamine, Multivitamin. folate too. -seizures precautions. ARF- creatinine improving -due to dehydration from alcoholism. -improving with IVFs. Cr 2.26 to 1.74. -continue with IVFs. - D5 W with increase Na - BMP now HYpernatremia- change IVF to D5W- trending down gradually - ff lytes Anxiety disorder - on benzo currentlu for Dts hypokalemia - IVF with KCL - ff Prostate Cancer -s/p radiation therapy Atrial Fibrillation controlled rate. - continue Beta bell, no candidate for anticoagulation due to multiple falls from alcoholism. Hypertension -on hold Lisinopril due to acute kidney injury. consider restarting or change to other agent DVT prophylaxis -heparin PT daily Obi Merida MD Dec 15, 2017 11:36
[2017-12-15] MEDS ORDERED: chlordiazePOXIDE 25 MG CAP PO PRN (11:45)
[2017-12-15 13:38] LABS: BICARBONATE 21.9 MEQ/L (21.0-32.0); CALCIUM 8.5 MG/DL (8.5-10.1); CREATININE 1.21 MG/DL (0.60-1.30)
[2017-12-15] MEDS: MULTIVITAMIN INJ 10 ML, FOLIC ACID INJ 1 MG in SODIUM CHLORID 0.9% 500 ML INJ 500 ML IV SCH (16:42)
[2017-12-16] VITALS (10 sets, daily range): BP systolic 97–145; BP diastolic 56–87; PULSE 70–99; RESP 17–19; TEMP 97.4–99.8; O2SAT 93–100
[2017-12-16] MEDS: POTASSIUM CHLORIDE INJ 40 MEQ in DEXTROSE 5% IN WATE 1000ML INJ 1,000 ML IV SCH ×2 (02:16)
[2017-12-16] MEDS: HEPARIN SODIUM - SQ 10,000 UNITS/ML VIAL SQ SCH ×2 (05:12→17:23)
[2017-12-16] MEDS: SODIUM CHLORIDE 0.9% FLUSH 10 ML FLUSH IV FLUSH SCH ×2 (08:31→20:55)
[2017-12-16] MEDS: METOPROLOL TARTRATE 25 MG TAB PO SCH ×2 (08:32→20:53)
[2017-12-16] MEDS: POTASSIUM BICARBONATE 25 MEQ EFFERVESCENT TAB PO SCH (08:32)
[2017-12-16] MEDS: FOLIC ACID 1 MG TAB PO SCH (08:32)
[2017-12-16 13:53] LABS: BICARBONATE 23.1 MEQ/L (21.0-32.0); CALCIUM 8.5 MG/DL (8.5-10.1); CREATININE 1.09 MG/DL (0.60-1.30)
--- NOTE | 2017-12-16 14:17 | HHI.PR ---
Subjective Remarks more awake and alert no nausea or vomiting- wanting to eat admits to alcohol use Objective Vitals Vital Signs Date Time Temp Pulse Resp B/P (MAP) Pulse Ox O2 Delivery O2 Flow Rate FiO2 12/16/17 12:20 70 12/16/17 12:03 97.6 88 18 97/62 (74) 99 12/16/17 08:16 97.8 84 18 110/72 (85) 100 12/16/17 08:00 Room Air 12/16/17 08:00 84 12/16/17 04:00 73 12/16/17 04:00 97.4 86 17 145/87 (106) 100 12/16/17 00:00 87 12/15/17 23:42 97.4 87 18 138/66 (90) 97 12/15/17 21:28 99 12/15/17 20:00 91 12/15/17 20:00 97.9 89 17 133/72 (92) 94 12/15/17 16:25 Room Air 12/15/17 16:25 98.0 80 18 128/72 (90) 100 12/15/17 16:00 90 I/O 12/15/17 12/15/17 12/15/17 12/16/17 12/16/17 12/16/17 07:00 15:00 23:00 07:00 15:00 23:00 Intake Total 0 ml 0 ml Output Total 1000 ml Balance 0 ml -1000 ml 0 ml Intake Oral 0 ml 0 ml Output Urine Total 1000 ml # Voids 2 2 4 # Bowel Movements 0 0 2 Result Diagram: 12/13/17 0715 12/16/17 1225 Imaging Last Impressions Head CT 12/11/171423 Signed Impressions: Service Date/Time: Monday, December 11, 2017 16:11 - CONCLUSION: 1. No acute findings. Cortical atrophy and white matter ischemic changes, chronic. Ramez Sidhu MD Chest X-Ray 12/11/17 142 Signed Impressions: Service Date/Time: Monday, December 11, 2017 14:30 - CONCLUSION: Normal examination. Yola Holden MD Abdomen/Pelvis CT 12/11/17 0000 Signed Impressions: Service Date/Time: Monday, December 11, 2017 16:14 - CONCLUSION: 1. Cardiomegaly. 2. 2.8 simple cyst within the right kidney. 3. Atherosclerotic plaquing in the abdominal aorta. 4. Generative changes in the lumbar spine. 5. No findings to indicate bowel obstruction identified. Spenser Duarte MD Objective Remarks more awake and alert- knows the year "hospital", stated his name" [facility]", gave his full home address anicteric no nuchal rigidity lungs- no rales regular rhythm abdomen- soft, good bowel sounds extremities no edema A/P Assessment and Plan This is a 67 y/o M with hx of alcoholism who p/w alcoholic withdrawals. DTS- Alcohol withdrawals -on CIWA protocol -continue with thiamine, Multivitamin. folate too. - Librium 25 mg po tid scheduled- gradually taper -seizures precautions. ARF- resolved- creatinine improved -due to poor po from alcoholism. -improving with IVFs. -continue with IVFs. -changed to D5 W with increase Na - BMP now - needs to be assisted with eating HYpernatremia- change IVF to D5W- trending down gradually - ff lytes hypokalemia- now with increase K DC KCL in IVF DC KCL po - recheck in am Prostate Cancer -s/p radiation therapy Atrial Fibrillation controlled rate. - continue Beta bell, no candidate for anticoagulation due to multiple falls from alcoholism. Hypertension - DC Lisinopril due to acute kidney injury. - ff BP - continue on BB DVT prophylaxis -heparin PT daily- out of bed to chair daily speech therapy ff- mechanical soft with thick nectar will definitely need rehab- very deconditioned CM consult Obi Merida MD Dec 16, 2017 14:17
[2017-12-16] MEDS: chlordiazePOXIDE 25 MG CAP PO SCH ×2 (14:57→17:07)
[2017-12-16] MEDS: DEXTROSE 5% IN WATE 1000ML INJ 1,000 ML IV SCH (15:00)
[2017-12-16] MEDS: LORazepam 1 MG TAB PO PRN (21:04)
[2017-12-17] VITALS (10 sets, daily range): BP systolic 96–143; BP diastolic 53–85; PULSE 62–93; RESP 17–22; TEMP 97.2–99.3; O2SAT 96–100
[2017-12-17] MEDS: LORazepam 2 MG/ML VIAL IV PUSH PRN (00:02)
[2017-12-17] MEDS: SODIUM CHLORIDE 0.9% FLUSH 10 ML FLUSH IV FLUSH PRN (00:02)
[2017-12-17] MEDS: HEPARIN SODIUM - SQ 10,000 UNITS/ML VIAL SQ SCH ×2 (04:57→18:40)
[2017-12-17] MEDS: DEXTROSE 5% IN WATE 1000ML INJ 1,000 ML IV SCH ×2 (04:59→23:23)
[2017-12-17] MEDS: METOPROLOL TARTRATE 25 MG TAB PO SCH ×2 (08:28→23:15)
[2017-12-17] MEDS: FOLIC ACID 1 MG TAB PO SCH (08:28)
[2017-12-17] MEDS: SODIUM CHLORIDE 0.9% FLUSH 10 ML FLUSH IV FLUSH SCH ×2 (08:29→21:00)
[2017-12-17] MEDS: chlordiazePOXIDE 25 MG CAP PO SCH ×3 (09:41→18:40)
[2017-12-17 11:32] LABS: BICARBONATE 23.8 MEQ/L (21.0-32.0); CREATININE 1.09 MG/DL (0.60-1.30)
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
[2017-12-17] MEDS: LORazepam 1 MG TAB PO PRN (23:15)
[2017-12-18] VITALS (11 sets, daily range): BP systolic 103–129; BP diastolic 56–78; PULSE 62–94; RESP 18–20; TEMP 97.1–99.1; O2SAT 95–100
[2017-12-18] MEDS: LORazepam 1 MG TAB PO PRN ×3 (03:32→21:18)
[2017-12-18] MEDS: HEPARIN SODIUM - SQ 10,000 UNITS/ML VIAL SQ SCH ×2 (05:49→17:13)
[2017-12-18 07:45] LABS: BICARBONATE 21.6 MEQ/L (21.0-32.0); CALCIUM 8.1 MG/DL (8.5-10.1); CREATININE 0.97 MG/DL (0.60-1.30)
[2017-12-18] MEDS: SODIUM CHLORIDE 0.9% FLUSH 10 ML FLUSH IV FLUSH SCH ×2 (08:56→21:00)
[2017-12-18] MEDS: FOLIC ACID 1 MG TAB PO SCH (08:56)
[2017-12-18] MEDS: chlordiazePOXIDE 25 MG CAP PO SCH ×3 (08:56→17:13)
[2017-12-18] MEDS: METOPROLOL TARTRATE 25 MG TAB PO SCH ×2 (08:56→21:16)
[2017-12-18] MEDS: DEXTROSE 5% IN WATE 1000ML INJ 1,000 ML IV SCH ×2 (13:25→23:42)
--- NOTE | 2017-12-18 20:03 | HHI.PR ---
Subjective Remarks Patient awake but disoriented to time and place Afebrile, per the nurse still high on CIWA protocol Objective Vitals Vital Signs Date Time Temp Pulse Resp B/P (MAP) Pulse Ox O2 Delivery O2 Flow Rate FiO2 12/18/17 18:43 97.8 85 106/75 (85) 99 12/18/17 16:27 81 12/18/17 12:52 97.8 80 109/62 (78) 100 12/18/17 09:00 Room Air 12/18/17 08:20 97.1 91 103/78 (86) 95 12/18/17 08:20 96 21 12/18/17 03:43 82 12/18/17 00:15 Room Air 12/18/17 00:09 84 12/18/17 00:00 97.8 84 20 129/67 (87) 99 I/O 12/17/17 12/17/17 12/17/17 12/18/17 12/18/17 12/18/17 07:00 15:00 23:00 07:00 15:00 23:00 Intake Total 1214 ml 480 ml 1863 ml Output Total 450 ml 400 ml Balance 1214 ml 30 ml 1463 ml Intake Oral 240 ml 480 ml 400 ml IV Total 974 ml 1463 ml Output Urine Total 450 ml 400 ml # Voids 3 # Bowel Movements 0 0 Result Diagram: 12/18/17 0700 Objective Remarks GENERAL: This is a frail ill-appearing 67 years old male who is somnolent SKIN: No rashes, warm and dry HEAD: Atraumatic. Normocephalic. EYES: Pupils equal round and reactive. Extraocular motions intact. No scleral icterus. ENT: Nose without bleeding, or drainage, Airway patent. NECK: Trachea midline. Supple CARDIOVASCULAR: Regular rate and rhythm 4 out of 6 systolic murmur RESPIRATORY: Fair air entry bilaterally. No wheezes, rales, or rhonchi. GASTROINTESTINAL: Abdomen soft, non-tender, nondistended. Positive bowel sounds MUSCULOSKELETAL: Extremities without clubbing, cyanosis, or edema. Pedal pulses appreciated NEUROLOGICAL: Somnolent . Moves all extremity. no focal neurological deficit A/P Assessment and Plan This is a 67 y/o M with hx of alcoholism who p/w alcoholic withdrawals. 12/17: Continue monitoring electrolyte BMP, patient and restrain will need 24 hours for your strain in order to be able to transfer to sniff, replace electrolytes as needed, repeated potassium today is 4 within normal 12/18: Continue current [facility] protocol care, I discussed with PT they recommended rehab at discharge, will proceed once patient become more stable DTS- Alcohol withdrawals -on [facility] protocol -continue with thiamine, Multivitamin. folate too. - Librium 25 mg po tid scheduled -seizures precautions. ARF- resolved- creatinine improved -due to poor po from alcoholism. -improving with IVFs. HYpernatremia- change IVF to D5W- trending down gradually - ff lytes hypokalemia-resolved yesterday with hyperkalemia 5.6: Resolved Prostate Cancer -s/p radiation therapy Atrial Fibrillation controlled rate. - continue Beta bell, no candidate for anticoagulation due to multiple falls from alcoholism. Hypertension - DC Lisinopril due to acute kidney injury. - ff BP - continue on BB DVT prophylaxis -heparin PT daily- out of bed to chair daily speech therapy ff- mechanical soft with thick nectar will definitely need rehab- very deconditioned Charmaine Monte MD Dec 18, 2017 20:03
[2017-12-18] MEDS: LORazepam 2 MG/ML VIAL IV PUSH PRN ×2 (23:33)
[2017-12-19 05:11] VITALS: BP 129/75; PULSE 66; RESP 20; TEMP 97.8; O2SAT 98
[2017-12-19] MEDS: HEPARIN SODIUM - SQ 10,000 UNITS/ML VIAL SQ SCH ×2 (05:13→17:13)
[2017-12-19 08:00] VITALS: BP 121/74; PULSE 61; PULSE 71; RESP 19; TEMP 97.6; O2SAT 97
[2017-12-19] MEDS: SODIUM CHLORIDE 0.9% FLUSH 10 ML FLUSH IV FLUSH SCH ×2 (08:12→20:21)
[2017-12-19] MEDS: chlordiazePOXIDE 25 MG CAP PO SCH ×3 (08:12→17:13)
[2017-12-19] MEDS: METOPROLOL TARTRATE 25 MG TAB PO SCH (08:12)
[2017-12-19] MEDS: FOLIC ACID 1 MG TAB PO SCH (08:12)
--- NOTE | 2017-12-19 10:47 | HHI.PR ---
Subjective Remarks I was called by the nurse patient is having +2.4 seconds I ordered a stat EKG which showed QT prolongation with a skipped beat Patient denied lightheaded or dizziness or chest pain however he does feel palpitation Physical exam reveal normal rhythm without murmur Objective Vitals Vital Signs Date Time Temp Pulse Resp B/P (MAP) Pulse Ox O2 Delivery O2 Flow Rate FiO2 12/19/17 08:00 97.6 61 19 121/74 (90) 97 12/19/17 05:11 97.8 66 20 129/75 (93) 98 12/18/17 23:44 98.4 80 18 104/56 (72) 97 12/18/17 20:15 62 12/18/17 20:10 98.7 68 20 123/70 (87) 95 12/18/17 18:43 97.8 85 106/75 (85) 99 12/18/17 16:27 81 12/18/17 12:52 97.8 80 109/62 (78) 100 I/O 12/18/17 12/18/17 12/18/17 12/19/17 12/19/17 12/19/17 07:00 15:00 23:00 07:00 15:00 23:00 Intake Total 1863 ml 1240 ml Output Total 400 ml 2000 ml Balance 1463 ml -760 ml Intake Oral 400 ml 240 ml IV Total 1463 ml 1000 ml Output Urine Total 400 ml 2000 ml # Bowel Movements 0 Result Diagram: 12/18/17 0700 Objective Remarks GENERAL: This is a frail ill-appearing 67 years old male who is somnolent SKIN: No rashes, warm and dry HEAD: Atraumatic. Normocephalic. EYES: Pupils equal round and reactive. Extraocular motions intact. No scleral icterus. ENT: Nose without bleeding, or drainage, Airway patent. NECK: Trachea midline. Supple CARDIOVASCULAR: Regular rate and rhythm 4 out of 6 systolic murmur RESPIRATORY: Fair air entry bilaterally. No wheezes, rales, or rhonchi. GASTROINTESTINAL: Abdomen soft, non-tender, nondistended. Positive bowel sounds MUSCULOSKELETAL: Extremities without clubbing, cyanosis, or edema. Pedal pulses appreciated NEUROLOGICAL: Somnolent . Moves all extremity. no focal neurological deficit A/P Assessment and Plan This is a 67 y/o M with hx of alcoholism who p/w alcoholic withdrawals. 12/17: Continue monitoring electrolyte BMP, patient and restrain will need 24 hours for your strain in order to be able to transfer to sniff, replace electrolytes as needed, repeated potassium today is 4 within normal 12/18: Continue current [facility] protocol care, I discussed with PT they recommended rehab at discharge, will proceed once patient become more stable 12/19: Acute pause 2.4 seconds with QT prolongation, stat EKG ordered personally reviewed by me, ELLIS metoprolol, DC Zofran, stat BMP with mag and false monitor with telemetry DTS- Alcohol withdrawals -on [facility] protocol -continue with thiamine, Multivitamin. folate too. - Librium 25 mg po tid scheduled -seizures precautions. ARF- resolved- creatinine improved -due to poor po from alcoholism. -improving with IVFs. HYpernatremia- change IVF to D5W- trending down gradually - ff lytes hypokalemia-resolved yesterday with hyperkalemia 5.6: Resolved Prostate Cancer -s/p radiation therapy Atrial Fibrillation controlled rate. - continue Beta bell, no candidate for anticoagulation due to multiple falls from alcoholism. Hypertension - DC Lisinopril due to acute kidney injury. - ff BP - continue on BB DVT prophylaxis -heparin PT daily- out of bed to chair daily speech therapy ff- mechanical soft with thick nectar will definitely need rehab- very deconditioned Charmaine Monte MD Dec 19, 2017 10:47
[2017-12-19 12:00] VITALS: BP 114/77; PULSE 55; RESP 18; TEMP 97.7; O2SAT 100; O2SAT 99
[2017-12-19] MEDS: DEXTROSE 5% IN WATE 1000ML INJ 1,000 ML IV SCH ×2 (14:31→23:57)
[2017-12-19 16:00] VITALS: BP 106/71; PULSE 68; PULSE 71; RESP 17; TEMP 97.5; O2SAT 99
[2017-12-19 20:00] VITALS: BP 113/62; PULSE 77; RESP 19; TEMP 97.8; O2SAT 96
[2017-12-19 20:17] VITALS: PULSE 62
[2017-12-20] VITALS (11 sets, daily range): BP systolic 104–158; BP diastolic 57–72; PULSE 65–88; RESP 18–20; TEMP 97.3–98.1; O2SAT 94–100
--- NOTE | 2017-12-20 00:05 | EKG ---
Date Performed: 12/19/2017 Time Performed: 10:10:56 PTAGE: 67 years EKG: Atrial fibrillation. Prolonged QT interval Right ventricular hypertrophy Extensive ST-T nuria nges are probably due to ventricular hypertrophy Abnormal ECG PREVIOUS TRACING : 12/11/2017 15.47 DOCTOR: Sharee Smith Interpretating Date/Time 12/20/2017 00:00:03
[2017-12-20] MEDS: DEXTROSE 5% IN WATE 1000ML INJ 1,000 ML IV SCH ×2 (04:18→13:07)
[2017-12-20] MEDS: HEPARIN SODIUM - SQ 10,000 UNITS/ML VIAL SQ SCH ×2 (04:56→17:21)
[2017-12-20 08:27] LABS: CALCIUM 8.4 MG/DL (8.5-10.1); CREATININE 0.98 MG/DL (0.60-1.30); MAGNESIUM 1.1 MG/DL (1.5-2.5); PHOSPHORUS 2.9 MG/DL (2.5-4.9)
[2017-12-20] MEDS: SODIUM CHLORIDE 0.9% FLUSH 10 ML FLUSH IV FLUSH SCH ×2 (08:38→20:55)
[2017-12-20] MEDS: FOLIC ACID 1 MG TAB PO SCH (08:38)
[2017-12-20] MEDS: chlordiazePOXIDE 25 MG CAP PO SCH ×3 (08:38→17:20)
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
--- NOTE | 2017-12-20 22:20 | EKG ---
Date Performed: 12/20/2017 Time Performed: 19:58:06 PTAGE: 67 years EKG: ATRIAL FIBRILLATION LOW QRS VOLTAGE IN EXTREMITY LEADS MINIMAL ST DEPRESSION ABNORMAL RHYTH M ECG PREVIOUS TRACING : 12/19/2017 10.10 Since the previous tracing, no significant change noted DOCTOR: Delmer Altman Interpretating Date/Time 12/20/2017 22:19:13
[2017-12-21] VITALS (10 sets, daily range): BP systolic 99–124; BP diastolic 54–68; PULSE 58–86; RESP 18–20; TEMP 96.8–98.4; O2SAT 94–99
[2017-12-21] MEDS: HEPARIN SODIUM - SQ 10,000 UNITS/ML VIAL SQ SCH ×2 (04:58→17:26)
[2017-12-21] MEDS: chlordiazePOXIDE 25 MG CAP PO SCH ×3 (09:00→17:25)
[2017-12-21] MEDS: FOLIC ACID 1 MG TAB PO SCH (09:00)
[2017-12-21] MEDS: SODIUM CHLORIDE 0.9% FLUSH 10 ML FLUSH IV FLUSH SCH ×2 (09:00→21:00)
[2017-12-21] MEDS: DEXTROSE 5% IN WATE 1000ML INJ 1,000 ML IV SCH ×2 (10:51→22:21)
[2017-12-21] MEDS ORDERED: ASPIRIN EC 81 MG TABEC PO ONE (14:15)
--- NOTE | 2017-12-21 14:39 | HHI.PR ---
Subjective Remarks Resting in bed in the restrain still Afebrile, still agitated on a CIWA protocol Objective Vitals Vital Signs Date Time Temp Pulse Resp B/P (MAP) Pulse Ox O2 Delivery O2 Flow Rate FiO2 12/21/17 12:00 96.8 80 20 111/63 (79) 99 12/21/17 11:58 65 12/21/17 08:00 Room Air 12/21/17 08:00 97.6 63 18 124/62 (82) 97 12/21/17 07:49 58 12/21/17 04:06 85 12/21/17 04:00 97.4 86 20 122/68 (86) 94 12/21/17 00:00 Room Air 12/21/17 00:00 98.4 74 20 99/54 (69) 96 12/20/17 20:15 76 12/20/17 20:00 98.1 72 19 158/72 (100) 94 12/20/17 19:00 Room Air 12/20/17 16:00 75 12/20/17 15:53 98.1 88 20 117/60 (79) 100 I/O 12/20/17 12/20/17 12/20/17 12/21/17 12/21/17 12/21/17 07:00 15:00 23:00 07:00 15:00 23:00 Intake Total 1100 ml 720 ml 240 ml Output Total 1200 ml 850 ml 600 ml Balance -100 ml -130 ml -360 ml Intake Oral 100 ml 720 ml 240 ml IV Total 1000 ml Output Urine Total 1200 ml 850 ml 600 ml # Bowel Movements 0 0 0 Result Diagram: 12/20/17 0638 Objective Remarks ---GENERAL: This is a frail ill-appearing 67 years old male who is confused SKIN: No rashes, warm and dry HEAD: Atraumatic. Normocephalic. EYES: Pupils equal round and reactive. Extraocular motions intact. No scleral icterus. ENT: Nose without bleeding, or drainage, Airway patent. NECK: Trachea midline. Supple CARDIOVASCULAR: Regular rate and rhythm 4 out of 6 systolic murmur RESPIRATORY: Fair air entry bilaterally. No wheezes, rales, or rhonchi. GASTROINTESTINAL: Abdomen soft, non-tender, nondistended. Positive bowel sounds MUSCULOSKELETAL: Extremities without clubbing, cyanosis, or edema. Pedal pulses appreciated NEUROLOGICAL: Confused. Moves all extremity. no focal neurological deficit A/P Assessment and Plan This is a 67 y/o M with hx of alcoholism who p/w alcoholic withdrawals. DTS- Alcohol withdrawals -on CIWA protocol -continue with thiamine, Multivitamin. folate too. - Librium 25 mg po tid scheduled -seizures precautions. On 12/19: Acute pause 2.4 seconds with QT prolongation, stat EKG ordered personally reviewed by me, DC metoprolol, DC Zofran, stat BMP with mag and false monitor with telemetry Awaiting cardiology consultation ARF- resolved- creatinine improved -due to poor po from alcoholism. -improving with IVFs. HYpernatremia- change IVF to D5W- trending down gradually - ff lytes hypokalemia-resolved yesterday with hyperkalemia 5.6: Resolved Prostate Cancer -s/p radiation therapy Atrial Fibrillation controlled rate. - continue Beta bell, no candidate for anticoagulation due to multiple falls from alcoholism. Hypertension - DC Lisinopril due to acute kidney injury. - ff BP - continue on BB DVT prophylaxis -heparin PT daily- out of bed to chair daily speech therapy ff- mechanical soft with thick nectar will definitely need rehab- very deconditioned Discharge Planning Awaiting improvement clinically, patient is high on [facility] protocol Charmaine Monte MD Dec 21, 2017 14:39
--- NOTE | 2017-12-21 14:47 | MB ---
cc: Andres Castillo MD DATE: 12/21/2017 HISTORY OF PRESENT ILLNESS: Lionel is a very pleasant 67-year-old gentleman with a history of alcohol abuse, admitted, found to be in atrial fibrillation. Currently, he is doing physical therapy. The patient was admitted on 12/11/2017 through the ER with chief complaint of generalized weakness, myalgias, found on the floor by his brother. He was found to be hypotensive, fluid resuscitated in the field, otherwise denies any fevers, chills, cough, GI or bleeding, PND, orthopnea, syncope, dizziness, or chest pain. PAST MEDICAL HISTORY: Per history of present illness. Includes atrial fibrillation, hypertension, prostate cancer, status post radiation therapy, GERD, hypertension, inguinal hernia, and hydrocele surgery as a child. SOCIAL HISTORY: History of alcohol abuse. Denies tobacco use. There is a history of substance abuse as well. ALLERGIES: PENICILLIN. MEDICATIONS PRIOR TO ADMISSION: Lisinopril, Seroquel, lorazepam, vitamin B1, Pravachol, multivitamins, metoprolol tartrate 25 b.i.d., magnesium, folic acid, doxycycline. MEDICATIONS IN THE HOSPITAL: Dextrose, Librium 25 three times a day, folic acid 1 mg a day. PHYSICAL EXAMINATION: VITAL SIGNS: Pulse 63, blood pressure 125/62, respiratory rate 18, temperature 97.6. GENERAL: He is alert and oriented x 3, in no acute distress. NECK: Supple. No JVD. No bruit. CARDIOVASCULAR: S1, S2. No murmurs, rubs or gallops. LUNGS: Clear to auscultation bilaterally. ABDOMEN: Soft, nontender, nondistended with positive bowel sounds. EXTREMITIES: No lower extremity edema. LABORATORY DATA: Abdominopelvic CT: Cardiomegaly, 2.8 simple cyst within the right kidney. Atherosclerotic plaquing in the abdominal aorta. Head CT: No acute findings. Cortical atrophy and white matter ischemic changes, chronic. Chest x-ray: Normal examination. EKG: Atrial fibrillation at a rate of 70 beats per minute. Prolonged corrected QT interval of 475 milliseconds, nonspecific ST-T wave changes. LABORATORY DATA: White count 6.7, hemoglobin 10.7, hematocrit 33.0, platelet count 183. Sodium 134, potassium 3.8, chloride 101, bicarbonate 22.0, BUN 9, creatinine 0.98. INR is 1.2. Toxicology ethyl alcohol was less than 3 on 12/11/2017. FINAL DIAGNOSES: 1. Atrial fibrillation. 2. Alcohol abuse. 3. Hyponatremia. 4. Hypernatremia. 5. Hyperkalemia. 6. Anemia. DISCUSSION: Currently, the patient's rate is controlled. He should be at least on a baby aspirin. I agree with Dr. Monte that the patient is a fall risk and a compliance risk, which would be high risk for life-threatening bleeding even though his CHADS-VASc score is 2 or greater and normally Coumadin or novel oral anticoagulant agent will be indicated to reduce risk of stroke. His risk of bleeding is too high again, given his alcoholism, fall risk and high potential for noncompliance and life threatening bleeding. I do think he should be on a baby aspirin 81 mg a day, which I will start. Would recommend continued telemetry monitoring and recommend 2-D echo. Andres Castillo MD [facility]/TL , 02:13 PM , 02:46 PM
[2017-12-21] MEDS: LORazepam 2 MG/ML VIAL IV PUSH PRN (22:16)
[2017-12-22] VITALS (11 sets, daily range): BP systolic 100–132; BP diastolic 59–78; PULSE 56–73; RESP 16–20; TEMP 96–98.3; O2SAT 97–100
[2017-12-22] MEDS: HEPARIN SODIUM - SQ 10,000 UNITS/ML VIAL SQ SCH ×2 (04:21→17:24)
[2017-12-22] MEDS: LORazepam 2 MG/ML VIAL IV PUSH PRN (04:21)
[2017-12-22] MEDS: FOLIC ACID 1 MG TAB PO SCH (08:41)
[2017-12-22] MEDS: ASPIRIN EC 81 MG TABEC PO SCH (08:41)
[2017-12-22] MEDS: SODIUM CHLORIDE 0.9% FLUSH 10 ML FLUSH IV FLUSH SCH ×2 (08:42→22:14)
[2017-12-22] MEDS: chlordiazePOXIDE 25 MG CAP PO SCH ×2 (08:43→13:00)
[2017-12-22] MEDS: DEXTROSE 5% IN WATE 1000ML INJ 1,000 ML IV SCH (13:44)
--- NOTE | 2017-12-22 13:56 | HHI.PR ---
Subjective Remarks overnight- was agitated- and got x1 IV Ativan lethargic opened eyes ro call of name- state his name- ff commands Objective Vitals Vital Signs Date Time Temp Pulse Resp B/P (MAP) Pulse Ox O2 Delivery O2 Flow Rate FiO2 12/22/17 12:22 56 12/22/17 12:00 96.0 64 18 103/64 (77) 100 12/22/17 08:02 73 12/22/17 08:00 98.2 60 16 127/67 (87) 97 12/22/17 08:00 Room Air 12/22/17 04:00 98.3 68 20 132/67 (88) 12/22/17 00:00 98.0 66 20 121/78 (92) 99 12/21/17 19:50 97.4 74 20 115/62 (79) 98 12/21/17 16:02 68 12/21/17 16:00 97.4 74 20 114/59 (77) 99 I/O 12/21/17 12/21/17 12/21/17 12/22/17 12/22/17 12/22/17 07:00 15:00 23:00 07:00 15:00 23:00 Intake Total 240 ml 1000 ml 960 ml Output Total 600 ml 150 ml Balance -360 ml 1000 ml 810 ml Intake Oral 240 ml 960 ml IV Total 1000 ml Output Urine Total 600 ml 150 ml # Voids 2 # Bowel Movements 0 1 Result Diagram: 12/20/17 0638 Imaging Last Impressions Head CT 12/11/17 1424 Signed Impressions: Service Date/Time: Monday, December 11, 2017 16:11 - CONCLUSION: 1. No acute findings. Cortical atrophy and white matter ischemic changes, chronic. Ramez Sidhu MD Chest X-Ray 12/11/17 1424 Signed Impressions: Service Date/Time: Monday, December 11, 2017 14:30 - CONCLUSION: Normal examination. Yola Holden MD Abdomen/Pelvis CT 12/11/17 0000 Signed Impressions: Service Date/Time: Monday, December 11, 2017 16:14 - CONCLUSION: 1. Cardiomegaly. 2. 2.8 simple cyst within the right kidney. 3. Atherosclerotic plaquing in the abdominal aorta. 4. Generative changes in the lumbar spine. 5. No findings to indicate bowel obstruction identified. Spenser Duarte MD Objective Remarks lethargic anicteric no nuchal rigidity lungs- no rales irregular rhythm, systolic murmur left sternal border abdomen- soft, good bowel sounds extremities no edema A/P Assessment and Plan This is a 67 y/o M with hx of alcoholism who p/w alcoholic withdrawals. Encephalopathy- patient lethargic- will DC Librium and Ativan r/o Wernicke encephalopathy prn Tania for agitation patient has been here since 12/11- DTs should be improvedat least by now start Thiamin 100 mg po daily DC Librium -seizures precautions. get MRI in am if no improvement consider psychiatry consult ARF- resolved- creatinine improved -due to poor po from alcoholism. Hypernatremia- improved now- Na 134 - DC D5W - BMP now hypokalemia-resolved Prostate Cancer -s/p radiation therapy Atrial Fibrillation controlled rate. - continue Beta bell, no candidate for anticoagulation due to multiple falls from alcoholism. - ASA daily- not good candidate for OAC with alcoholism Hypertension - DC Lisinopril due to acute kidney injury. - ff BP - continue on BB DVT prophylaxis -heparin PT daily- out of bed to chair daily speech therapy ff- mechanical soft with thick nectar will definitely need rehab- very deconditioned CM consult Obi Merida MD Dec 22, 2017 13:56
--- NOTE | 2017-12-22 14:29 | ECHRPT ---
Indication: A fib flutter CONCLUSIONS Normal left ventricular size and wall thickness. The left ventricular systolic function is normal wi th an estimated ejection fraction in the range of 60-65%. Normal wall motion. The mitral valve is very poorly visualized on parasternal views. Possible mild mitral prolapse. Mild mitral valve regurgitation. There is trace tricuspid valve regurgitation. BP: 124 / 62 HR: 65 Rhythm: Technical Quality: FINDINGS LEFT VENTRICLE Normal left ventricular size and wall thickness. The left ventricular systolic function is normal wi th an estimated ejection fraction in the range of 60-65%. Normal wall motion. RIGHT VENTRICLE Normal right ventricular size and systolic function. LEFT ATRIUM The left atrial size is normal. RIGHT ATRIUM The right atrial size is normal. ATRIAL SEPTUM Normal atrial septal thickness without atrial level shunting by limited color doppler interrogation. AORTA The aortic root and proximal ascending aorta are normal in size on limited imaging. MITRAL VALVE The mitral valve is very poorly visualized on parasternal views. Possible mild mitral prolapse. Mild mitral valve regurgitation. AORTIC VALVE Trileaflet aortic valve. No aortic valve stenosis or regurgitation. TRICUSPID VALVE There is trace tricuspid valve regurgitation. PULMONARY VALVE The pulmonary valve is not well visualized. VESSELS The inferior vena cava is normal in size. PERICARDIUM There is a small pericardial effusion present. Harrison Gordillo MD (Electronically Signed) Final Date:22 December 2017 14:27
[2017-12-22 17:39] LABS: BICARBONATE 26.3 MEQ/L (21.0-32.0); CALCIUM 8.8 MG/DL (8.5-10.1); CREATININE 0.81 MG/DL (0.60-1.30)
--- NOTE | 2017-12-22 19:14 | PD.CARD.PN ---
Subjective Subjective Remarks alert in nad Objective Medications Current Medications Medications (Trade) Dose Ordered Sig/Bunny Route Start Time Stop Time Status Last Admin (NS Flush) 2 ml UNSCH PRN IV FLUSH 12/11/17 17:00 12/17/17 00:02 (NS Flush) 2 ml BID IV FLUSH 12/11/17 21:00 12/22/17 08:42 (Tylenol) 650 mg Q4H PRN PO 12/11/17 17:00 (Narcan Inj) 0.4 mg UNSCH PRN IV PUSH 12/11/17 17:00 (Senokot) 17.2 mg Q12H PRN PO 12/11/17 17:00 (Dulcolax Supp) 10 mg DAILY PRN RECTAL 12/11/17 17:00 (Ativan) 1 mg Q4H PRN PO 12/11/17 17:00 12/18/17 21:18 (Heparin Inj) 5,000 units Q12H SQ 12/11/17 17:00 12/22/17 17:24 (Folate) 1 mg DAILY PO 12/13/17 09:00 12/22/17 08:41 (Ecotrin Ec) 81 mg DAILY PO 12/22/17 09:00 12/22/17 08:41 (Vitamin B1) 100 mg DAILY PO 12/23/17 09:00 Magnesium Sulfate/ Dextrose 100 ml @ 100 mls/hr Q1H IV 12/22/17 19:00 12/22/17 20:59 UNV Vital Signs / I&O Vital Signs Date Time Temp Pulse Resp B/P (MAP) Pulse Ox O2 Delivery O2 Flow Rate FiO2 12/22/17 16:00 97.5 65 18 100/62 (75) 100 12/22/17 12:22 56 12/22/17 12:00 96.0 64 18 103/64 (77) 100 12/22/17 08:02 73 12/22/17 08:00 98.2 60 16 127/67 (87) 97 12/22/17 08:00 Room Air 12/22/17 04:00 98.3 68 20 132/67 (88) 12/22/17 00:00 98.0 66 20 121/78 (92) 99 12/21/17 19:50 97.4 74 20 115/62 (79) 98 I/O 12/21/17 12/21/17 12/21/17 12/22/17 12/22/17 12/22/17 07:00 15:00 23:00 07:00 15:00 23:00 Intake Total 240 ml 1000 ml 960 ml 1009 ml 720 ml Output Total 600 ml 150 ml Balance -360 ml 1000 ml 810 ml 1009 ml 720 ml Intake Oral 240 ml 960 ml 720 ml IV Total 1000 ml 1009 ml Output Urine Total 600 ml 150 ml # Voids 2 3 # Bowel Movements 0 1 0 Physical Exam GENERAL: SKIN: Warm and dry. HEAD: Normocephalic. EYES: No scleral icterus. No injection or drainage. NECK: Supple, trachea midline. No JVD or lymphadenopathy. CARDIOVASCULAR: Regular rate and rhythm without murmurs, gallops, or rubs. RESPIRATORY: Breath sounds equal bilaterally. No accessory muscle use. GASTROINTESTINAL: Abdomen soft, non-tender, nondistended. MUSCULOSKELETAL: No cyanosis, or edema. BACK: Nontender without obvious deformity. No CVA tenderness. Laboratory Laboratory Tests Test 12/22/17 15:54 Blood Urea Nitrogen 6 MG/DL Creatinine 0.81 MG/DL Random Glucose 92 MG/DL Calcium Level 8.8 MG/DL Sodium Level 133 MEQ/L Potassium Level 3.8 MEQ/L Chloride Level 96 MEQ/L Carbon Dioxide Level 26.3 MEQ/L Anion Gap 11 MEQ/L Estimat Glomerular Filtration Rate 96 ML/MIN Magnesium Level 1.4 MG/DL Assessment and Plan Problem List: (1) Atrial fibrillation ICD Codes: I48.91 - Unspecified atrial fibrillation (2) Alcohol abuse ICD Codes: F10.10 - Alcohol abuse, uncomplicated Status: Acute Assessment and Plan 1.) Atrial fib - rate controlled, assymptomatic, not good candidate for coumadin or noac due alchoholism, fall risk and potential noncompliance Andres Castillo MD Dec 22, 2017 19:14
[2017-12-22] MEDS: MAGNESIUM SULFATE 1 GM PREMIX 100 ML IV SCH ×2 (22:14→23:15)
[2017-12-22] MEDS: SODIUM CHLORIDE 0.9% FLUSH 10 ML FLUSH IV FLUSH PRN (22:17)
[2017-12-23] VITALS (10 sets, daily range): BP systolic 115–136; BP diastolic 59–67; PULSE 62–92; RESP 16–19; TEMP 97.5–98.7; O2SAT 94–100
[2017-12-23] MEDS: HEPARIN SODIUM - SQ 10,000 UNITS/ML VIAL SQ SCH ×2 (05:00→17:48)
[2017-12-23 08:06] LABS: CALCIUM 8.6 MG/DL (8.5-10.1); CREATININE 0.82 MG/DL (0.60-1.30); MAGNESIUM 1.7 MG/DL (1.5-2.5)
[2017-12-23] MEDS: THIAMINE HCL 100 MG TAB PO SCH (08:52)
[2017-12-23] MEDS: SODIUM CHLORIDE 0.9% FLUSH 10 ML FLUSH IV FLUSH SCH ×2 (08:52→21:00)
[2017-12-23] MEDS: FOLIC ACID 1 MG TAB PO SCH (08:52)
[2017-12-23] MEDS: ASPIRIN EC 81 MG TABEC PO SCH (08:53)
--- NOTE | 2017-12-23 12:36 | HHI.PR ---
Subjective Remarks now awake and alert, more interactive but affect blunt ate 100% feels stronger but states he did bnot do well with therapy Objective Vitals Vital Signs Date Time Temp Pulse Resp B/P (MAP) Pulse Ox O2 Delivery O2 Flow Rate FiO2 12/23/17 08:00 97.5 72 19 131/67 (88) 98 12/23/17 04:00 98.3 77 16 136/66 (89) 94 12/23/17 03:49 74 12/23/17 00:00 Room Air 12/23/17 00:00 98.7 63 16 115/59 (77) 100 12/22/17 23:48 73 12/22/17 20:00 98.0 65 18 110/59 (76) 99 12/22/17 20:00 Room Air 12/22/17 19:48 70 12/22/17 16:02 63 12/22/17 16:00 97.5 65 18 100/62 (75) 100 I/O 12/22/17 12/22/17 12/22/17 12/23/17 12/23/17 12/23/17 07:00 15:00 23:00 07:00 15:00 23:00 Intake Total 1009 ml 720 ml 560 ml Output Total 400 ml Balance 1009 ml 720 ml 160 ml Intake Oral 720 ml 360 ml IV Total 1009 ml 200 ml Output Urine Total 400 ml # Voids 3 1 # Bowel Movements 0 0 Result Diagram: 12/23/17 0713 Imaging Last Impressions Head CT 12/11/17 1424 Signed Impressions: Service Date/Time: Monday, December 11, 2017 16:11 - CONCLUSION: 1. No acute findings. Cortical atrophy and white matter ischemic changes, chronic. Ramez Sidhu MD Chest X-Ray 12/11/171423 Signed Impressions: Service Date/Time: Monday, December 11, 2017 14:30 - CONCLUSION: Normal examination. Yola Holden MD Abdomen/Pelvis CT 12/11/17 0000 Signed Impressions: Service Date/Time: Monday, December 11, 2017 16:14 - CONCLUSION: 1. Cardiomegaly. 2. 2.8 simple cyst within the right kidney. 3. Atherosclerotic plaquing in the abdominal aorta. 4. Generative changes in the lumbar spine. 5. No findings to indicate bowel obstruction identified. Spenser Duarte MD Objective Remarks awake and alert, oriented to person and place and year anicteric no nuchal rigidity lungs- no rales, 4/6 systolic murmur left sternal border irregular rhythm abdomen- soft, good bowel sounds extremities no edema moves all extremities spontaneously A/P Assessment and Plan This is a 67 y/o M with hx of alcoholism who p/w alcoholic withdrawals. Encephalopathy-- MS improved r/o Wernicke encephalopathy off Ativan and Librium- DC 12/22 prn Tania for agitation patient has been here since 12/11- DTs should be resolved by now started Thiamin 100 mg po daily ARF- resolved- creatinine improved -due to poor po from alcoholism. Hypernatremia- improved -now Na 134- - D5W DC 07/24 - BMP today - heplock hypokalemia-resolved Prostate Cancer -s/p radiation therapy Atrial Fibrillation controlled rate. - BB was DC 12/19. not candidate for anticoagulation due to multiple falls from alcoholism. - Echo good EF. Mild mitral valve prolapse - ASA daily- not good candidate for OAC with alcoholism - continue to monitor rate on telemetry Hypertension - DC Lisinopril due to acute kidney injury. - ff BP - continue on BB Hypomagnesemia- corrected DVT prophylaxis -heparin PT daily- out of bed to chair daily speech therapy ff- mechanical soft with thick nectar will definitely need rehab- very deconditioned CM consult- will need Obi Box MD Dec 23, 2017 12:36
--- NOTE | 2017-12-23 12:39 | PD.CARD.PN ---
Subjective Subjective Remarks alert in nad Objective Medications Current Medications Medications (Trade) Dose Ordered Sig/Bunny Route Start Time Stop Time Status Last Admin (NS Flush) 2 ml UNSCH PRN IV FLUSH 12/11/17 17:00 12/22/17 22:17 (NS Flush) 2 ml BID IV FLUSH 12/11/17 21:00 12/23/17 08:52 (Tylenol) 650 mg Q4H PRN PO 12/11/17 17:00 (Narcan Inj) 0.4 mg UNSCH PRN IV PUSH 12/11/17 17:00 (Senokot) 17.2 mg Q12H PRN PO 12/11/17 17:00 (Dulcolax Supp) 10 mg DAILY PRN RECTAL 12/11/17 17:00 (Ativan) 1 mg Q4H PRN PO 12/11/17 17:00 12/18/17 21:18 (Heparin Inj) 5,000 units Q12H SQ 12/11/17 17:00 12/22/17 17:24 (Folate) 1 mg DAILY PO 12/13/17 09:00 12/23/17 08:52 (Ecotrin Ec) 81 mg DAILY PO 12/22/17 09:00 12/23/17 08:53 (Vitamin B1) 100 mg DAILY PO 12/23/17 09:00 12/23/17 08:52 Vital Signs / I&O Vital Signs Date Time Temp Pulse Resp B/P (MAP) Pulse Ox O2 Delivery O2 Flow Rate FiO2 12/23/17 08:00 97.5 72 19 131/67 (88) 98 12/23/17 04:00 98.3 77 16 136/66 (89) 94 12/23/17 03:49 74 12/23/17 00:00 Room Air 12/23/17 00:00 98.7 63 16 115/59 (77) 100 12/22/17 23:48 73 12/22/17 20:00 98.0 65 18 110/59 (76) 99 12/22/17 20:00 Room Air 12/22/17 19:48 70 12/22/17 16:02 63 12/22/17 16:00 97.5 65 18 100/62 (75) 100 I/O 12/22/17 12/22/17 12/22/17 12/23/1712/23/18 3/30/18 07:00 15:00 23:00 07:00 15:00 23:00 Intake Total 1009 ml 720 ml 560 ml Output Total 400 ml Balance 1009 ml 720 ml 160 ml Intake Oral 720 ml 360 ml IV Total 1009 ml 200 ml Output Urine Total 400 ml # Voids 3 1 # Bowel Movements 0 0 Physical Exam GENERAL: SKIN: Warm and dry. HEAD: Normocephalic. EYES: No scleral icterus. No injection or drainage. NECK: Supple, trachea midline. No JVD or lymphadenopathy. CARDIOVASCULAR: Regular rate and rhythm without murmurs, gallops, or rubs. RESPIRATORY: Breath sounds equal bilaterally. No accessory muscle use. GASTROINTESTINAL: Abdomen soft, non-tender, nondistended. MUSCULOSKELETAL: No cyanosis, or edema. BACK: Nontender without obvious deformity. No CVA tenderness. Laboratory Laboratory Tests Test 12/22/17 15:54 12/23/17 07:13 Blood Urea Nitrogen 6 MG/DL 8 MG/DL Creatinine 0.81 MG/DL 0.82 MG/DL Random Glucose 92 MG/DL 91 MG/DL Calcium Level 8.8 MG/DL 8.6 MG/DL Sodium Level 133 MEQ/L 133 MEQ/L Potassium Level 3.8 MEQ/L 4.0 MEQ/L Chloride Level 96 MEQ/L 100 MEQ/L Carbon Dioxide Level 26.3 MEQ/L 26.0 MEQ/L Anion Gap 11 MEQ/L 7 MEQ/L Estimat Glomerular Filtration Rate 96 ML/MIN 94 ML/MIN Magnesium Level 1.4 MG/DL 1.7 MG/DL Assessment and Plan Problem List: (1) Atrial fibrillation ICD Codes: I48.91 - Unspecified atrial fibrillation (2) Alcohol abuse ICD Codes: F10.10 - Alcohol abuse, uncomplicated Status: Acute Assessment and Plan 1.) Atrial fib - rate controlled, assymptomatic, not good candidate for coumadin or noac due alchoholism, fall risk and potential noncompliance, continue aspirin, assymptomatic, rate controlled Andres Castillo MD Dec 23, 2017 12:39
[2017-12-24] VITALS (7 sets, daily range): BP systolic 107–133; BP diastolic 63–82; PULSE 57–79; RESP 16–20; TEMP 97.3–98.2; O2SAT 95–100
[2017-12-24] MEDS: HEPARIN SODIUM - SQ 10,000 UNITS/ML VIAL SQ SCH ×2 (05:00→17:17)
[2017-12-24] MEDS: SODIUM CHLORIDE 0.9% FLUSH 10 ML FLUSH IV FLUSH SCH ×2 (07:18→21:43)
--- NOTE | 2017-12-24 08:50 | HHI.PR ---
Subjective Remarks awake and alert wants to get out of bed to do "more" states he is "in a branch of hospital" knows the president "Ronen" and the year ff all commands speech soft but clear he eating by himself lhe just got agitated because he wanted IV site pulled out had to be placed on restrainsts- but states I just want to get up and do more Objective Vitals Vital Signs Date Time Temp Pulse Resp B/P (MAP) Pulse Ox O2 Delivery O2 Flow Rate FiO2 12/24/17 04:00 97.3 61 18 119/63 (81) 98 12/24/17 04:00 79 12/24/17 00:00 78 12/24/17 00:00 97.8 72 18 125/63 (83) 99 12/23/17 22:41 Room Air 12/23/17 20:00 64 12/23/17 20:00 97.7 65 18 121/61 (81) 100 12/23/17 16:00 97.5 66 19 116/63 (80) 100 12/23/17 15:53 64 12/23/17 12:01 77 12/23/17 12:00 98.6 92 19 119/60 (79) 94 I/O 12/23/17 12/23/17 12/23/17 12/24/17 12/24/17 12/24/17 07:00 15:00 23:00 07:00 15:00 23:00 Intake Total 560 ml 480 ml Output Total 400 ml Balance 160 ml 480 ml Intake Oral 360 ml 480 ml IV Total 200 ml Output Urine Total 400 ml # Voids 1 5 1 # Bowel Movements 0 Result Diagram: 12/23/17 0713 Imaging Last Impressions Head CT 12/11/171423 Signed Impressions: Service Date/Time: Monday, December 11, 2017 16:11 - CONCLUSION: 1. No acute findings. Cortical atrophy and white matter ischemic changes, chronic. Ramez Sidhu MD Chest X-Ray 12/11/171423 Signed Impressions: Service Date/Time: Monday, December 11, 2017 14:30 - CONCLUSION: Normal examination. Yola Holden MD Abdomen/Pelvis CT 12/11/17 0000 Signed Impressions: Service Date/Time: Monday, December 11, 2017 16:14 - CONCLUSION: 1. Cardiomegaly. 2. 2.8 simple cyst within the right kidney. 3. Atherosclerotic plaquing in the abdominal aorta. 4. Generative changes in the lumbar spine. 5. No findings to indicate bowel obstruction identified. Spenser Duarte MD Objective Remarks awake and alert, oriented to person and year, ff all commands anicteric no nuchal rigidity lungs- no rales irregular rhythm, 3/6 systolic murmur left sternal border abdomen- soft, good bowel sounds extremities no edema moves all extremities spontaneously- slow A/P Assessment and Plan This is a 67 y/o M with hx of alcoholism who p/w alcoholic withdrawals. Encephalopathy-- MS improved likely with Underlying Wernicke encephalopathy off Ativan and Librium- DC 12/22 prn Tania for agitation patient has been here since 12/11- DTs should be resolved by now started Thiamine 100 mg po daily ARF- resolved- creatinine improved -due to poor po from alcoholism. Hypernatremia- resolved - heplock hypokalemia-resolved Prostate Cancer -s/p radiation therapy Atrial Fibrillation controlled rate. - not candidate for anticoagulation due to multiple falls from alcoholism. - BB was DC 12/19- rate controlled off this- monitor and restart if needed - Echo good EF. Mild mitral valve prolapse - ASA daily- not good candidate for OAC with alcoholism Hypertension - DC Lisinopril due to acute kidney injury. - ff BP - continue on BB Hypomagnesemia- corrected DVT prophylaxis -heparin PT daily- out of bed to chair daily speech therapy ff- mechanical soft with thick nectar will definitely need rehab- very deconditioned CM assisting Obi Merida MD Dec 24, 2017 08:50
--- NOTE | 2017-12-24 08:56 | PD.CARD.PN ---
Subjective Subjective Remarks alert, restrained, in nad Objective Medications Current Medications Medications (Trade) Dose Ordered Sig/Bunny Route Start Time Stop Time Status Last Admin (NS Flush) 2 ml UNSCH PRN IV FLUSH 12/11/17 17:00 12/22/17 22:17 (NS Flush) 2 ml BID IV FLUSH 12/11/17 21:00 12/24/17 07:18 (Tylenol) 650 mg Q4H PRN PO 12/11/17 17:00 (Narcan Inj) 0.4 mg UNSCH PRN IV PUSH 12/11/17 17:00 (Senokot) 17.2 mg Q12H PRN PO 12/11/17 17:00 (Dulcolax Supp) 10 mg DAILY PRN RECTAL 12/11/17 17:00 (Heparin Inj) 5,000 units Q12H SQ 12/11/17 17:00 12/23/17 17:48 (Folate) 1 mg DAILY PO 12/13/17 09:00 12/23/17 08:52 (Ecotrin Ec) 81 mg DAILY PO 12/22/17 09:00 12/23/17 08:53 (Vitamin B1) 100 mg DAILY PO 12/23/17 09:00 12/23/17 08:52 Vital Signs / I&O Vital Signs Date Time Temp Pulse Resp B/P (MAP) Pulse Ox O2 Delivery O2 Flow Rate FiO2 12/24/17 04:00 97.3 61 18 119/63 (81) 98 12/24/17 04:00 79 12/24/17 00:00 78 12/24/17 00:00 97.8 72 18 125/63 (83) 99 12/23/17 22:41 Room Air 12/23/17 20:00 64 12/23/17 20:00 97.7 65 18 121/61 (81) 100 12/23/17 16:00 97.5 66 19 116/63 (80) 100 12/23/17 15:53 64 12/23/17 12:01 77 12/23/17 12:00 98.6 92 19 119/60 (79) 94 I/O 12/23/17 12/23/17 12/23/17 12/24/17 12/24/17 12/24/17 07:00 15:00 23:00 07:00 15:00 23:00 Intake Total 560 ml 480 ml Output Total 400 ml Balance 160 ml 480 ml Intake Oral 360 ml 480 ml IV Total 200 ml Output Urine Total 400 ml # Voids 1 5 1 # Bowel Movements 0 Physical Exam GENERAL: SKIN: Warm and dry. HEAD: Normocephalic. EYES: No scleral icterus. No injection or drainage. NECK: Supple, trachea midline. No JVD or lymphadenopathy. CARDIOVASCULAR: Regular rate and rhythm without murmurs, gallops, or rubs. RESPIRATORY: Breath sounds equal bilaterally. No accessory muscle use. GASTROINTESTINAL: Abdomen soft, non-tender, nondistended. MUSCULOSKELETAL: No cyanosis, or edema. BACK: Nontender without obvious deformity. No CVA tenderness. Assessment and Plan Problem List: (1) Atrial fibrillation ICD Codes: I48.91 - Unspecified atrial fibrillation (2) Alcohol abuse ICD Codes: F10.10 - Alcohol abuse, uncomplicated Status: Acute Assessment and Plan 1.) Atrial fib - rate controlled, assymptomatic, not good candidate for coumadin or noac due alchoholism, fall risk and potential noncompliance, continue aspirin, assymptomatic, rate controlled Andres Castillo MD Dec 24, 2017 08:56
[2017-12-24] MEDS: ASPIRIN EC 81 MG TABEC PO SCH (09:01)
[2017-12-24] MEDS: THIAMINE HCL 100 MG TAB PO SCH (09:01)
[2017-12-24] MEDS: FOLIC ACID 1 MG TAB PO SCH (09:01)
[2017-12-24 12:13] LABS: BICARBONATE 26.1 MEQ/L (21.0-32.0); CREATININE 0.97 MG/DL (0.60-1.30)
[2017-12-24] MEDS ORDERED: ZIPRASIDONE MESYLATE 20 MG VIAL IM PRN (21:00)
[2017-12-25] VITALS (8 sets, daily range): BP systolic 115–128; BP diastolic 58–90; PULSE 64–86; RESP 16–21; TEMP 97.4–98.5; O2SAT 94–100
[2017-12-25] MEDS: HEPARIN SODIUM - SQ 10,000 UNITS/ML VIAL SQ SCH (05:43)
[2017-12-25] MEDS ORDERED: MAGNESIUM OXIDE 400 MG TAB PO ONE (10:15)
[2017-12-25] MEDS: THIAMINE HCL 100 MG TAB PO SCH (10:31)
[2017-12-25] MEDS: ASPIRIN EC 81 MG TABEC PO SCH (10:31)
[2017-12-25] MEDS: FOLIC ACID 1 MG TAB PO SCH (10:31)
[2017-12-25] MEDS: MAGNESIUM SULFATE 1 GM PREMIX 100 ML IV SCH ×2 (10:32→11:45)
[2017-12-25] MEDS: SODIUM CHLORIDE 0.9% FLUSH 10 ML FLUSH IV FLUSH SCH (10:32)
--- NOTE | 2017-12-25 11:08 | PD.CARD.PN ---
Subjective Subjective Remarks asleep, restrained, in nad Objective Medications Current Medications Medications (Trade) Dose Ordered Sig/Bunny Route Start Time Stop Time Status Last Admin (NS Flush) 2 ml UNSCH PRN IV FLUSH 12/11/17 17:00 12/22/17 22:17 (NS Flush) 2 ml BID IV FLUSH 12/11/17 21:00 12/25/17 10:32 (Tylenol) 650 mg Q4H PRN PO 12/11/17 17:00 (Narcan Inj) 0.4 mg UNSCH PRN IV PUSH 12/11/17 17:00 (Senokot) 17.2 mg Q12H PRN PO 12/11/17 17:00 (Dulcolax Supp) 10 mg DAILY PRN RECTAL 12/11/17 17:00 (Heparin Inj) 5,000 units Q12H SQ 12/11/17 17:00 12/25/17 05:43 (Folate) 1 mg DAILY PO 12/13/17 09:00 12/25/17 10:31 (Ecotrin Ec) 81 mg DAILY PO 12/22/17 09:00 12/25/17 10:31 (Vitamin B1) 100 mg DAILY PO 12/23/17 09:00 12/25/17 10:31 (Geodon Inj) 5 mg HS PRN IM 12/24/17 21:00 Magnesium Sulfate/ Dextrose 100 ml @ 100 mls/hr Q1H IV 12/25/17 10:15 12/25/17 12:14 12/25/17 10:32 (Mag-Ox) 400 mg Q12HR PO 12/25/17 21:00 Vital Signs / I&O Vital Signs Date Time Temp Pulse Resp B/P (MAP) Pulse Ox O2 Delivery O2 Flow Rate FiO2 12/25/17 08:56 98.5 69 18 128/90 (103) 98 12/25/17 04:47 76 12/25/17 04:00 Room Air 12/25/17 04:00 97.4 81 16 128/82 (97) 94 12/25/17 00:16 64 12/25/17 00:00 98.2 75 16 118/80 (93) 97 12/25/17 00:00 Room Air 12/24/17 21:52 69 12/24/17 20:00 98.2 57 16 120/64 (82) 95 3/31/18 20:00 Room Air 12/24/17 16:00 97.8 68 20 110/68 (82) 97 12/24/17 12:00 97.3 77 20 107/68 (81) 100 I/O 12/24/17 12/24/17 12/24/17 12/25/17 12/25/17 12/25/17 07:00 15:00 23:00 07:00 15:00 23:00 Intake Total 620 ml 480 ml Output Total 650 ml Balance 620 ml -170 ml Intake Oral 620 ml 480 ml Output Urine Total 650 ml # Voids 3 # Bowel Movements 1 Physical Exam GENERAL: SKIN: Warm and dry. HEAD: Normocephalic. EYES: No scleral icterus. No injection or drainage. NECK: Supple, trachea midline. No JVD or lymphadenopathy. CARDIOVASCULAR: Regular rate and rhythm without murmurs, gallops, or rubs. RESPIRATORY: Breath sounds equal bilaterally. No accessory muscle use. GASTROINTESTINAL: Abdomen soft, non-tender, nondistended. MUSCULOSKELETAL: No cyanosis, or edema. BACK: Nontender without obvious deformity. No CVA tenderness. Assessment and Plan Problem List: (1) Atrial fibrillation ICD Codes: I48.91 - Unspecified atrial fibrillation (2) Alcohol abuse ICD Codes: F10.10 - Alcohol abuse, uncomplicated Status: Acute Assessment and Plan 1.) Atrial fib - rate controlled, assymptomatic, not good candidate for coumadin or noac due alchoholism, fall risk and potential noncompliance, continue aspirin, assymptomatic, rate controlled; start magnesium for repletion Andres Castillo MD Dec 25, 2017 11:08
--- NOTE | 2017-12-25 11:36 | HHI.PR ---
Subjective Remarks doing very well, no complains moving all extremities uneventful night Objective Vitals Vital Signs Date Time Temp Pulse Resp B/P (MAP) Pulse Ox O2 Delivery O2 Flow Rate FiO2 12/25/17 08:56 98.5 69 18 128/90 (103) 98 12/25/17 04:47 76 12/25/17 04:00 Room Air 12/25/17 04:00 97.4 81 16 128/82 (97) 94 12/25/17 00:16 64 12/25/17 00:00 98.2 75 16 118/80 (93) 97 12/25/17 00:00 Room Air 12/24/17 21:52 69 12/24/17 20:00 98.2 57 16 120/64 (82) 95 12/24/17 20:00 Room Air 12/24/17 16:00 97.8 68 20 110/68 (82) 97 12/24/17 12:00 97.3 77 20 107/68 (81) 100 I/O 12/24/17 12/24/17 12/24/17 12/25/17 12/25/17 12/25/17 07:00 15:00 23:00 07:00 15:00 23:00 Intake Total 620 ml 480 ml Output Total 650 ml Balance 620 ml -170 ml Intake Oral 620 ml 480 ml Output Urine Total 650 ml # Voids 3 # Bowel Movements 1 Result Diagram: 12/24/17 1104 Imaging Last Impressions Head CT 12/11/17 1424 Signed Impressions: Service Date/Time: Monday, December 11, 2017 16:11 - CONCLUSION: 1. No acute findings. Cortical atrophy and white matter ischemic changes, chronic. Ramez Sidhu MD Chest X-Ray 12/11/171423 Signed Impressions: Service Date/Time: Monday, December 11, 2017 14:30 - CONCLUSION: Normal examination. Yola Holden MD Abdomen/Pelvis CT 12/11/17 0000 Signed Impressions: Service Date/Time: Monday, December 11, 2017 16:14 - CONCLUSION: 1. Cardiomegaly. 2. 2.8 simple cyst within the right kidney. 3. Atherosclerotic plaquing in the abdominal aorta. 4. Generative changes in the lumbar spine. 5. No findings to indicate bowel obstruction identified. Spenser Duarte MD Objective Remarks awake and alert, oriented to person and year, ff all commands anicteric no nuchal rigidity lungs- no rales irregular rhythm, 3/6 systolic murmur left sternal border abdomen- soft, good bowel sounds extremities no edema moves all extremities spontaneously- slow A/P Assessment and Plan This is a 67 y/o M with hx of alcoholism who p/w alcoholic withdrawals. Encephalopathy-- MS improved likely with Underlying Wernicke encephalopathy off Ativan and Librium- DC 12/22 prn Tania for agitation patient has been here since 12/11- DTs should be resolved by now started Thiamine 100 mg po daily ARF- resolved- creatinine improved -due to poor po from alcoholism. Hypernatremia- resolved - heplock hypokalemia-resolved Prostate Cancer -s/p radiation therapy Atrial Fibrillation controlled rate. - not candidate for anticoagulation due to multiple falls from alcoholism. - BB was DC 12/19- rate controlled off this- monitor and restart if needed - Echo good EF. Mild mitral valve prolapse - ASA daily- not good candidate for OAC with alcoholism Hypertension - DC Lisinopril due to acute kidney injury. - ff BP - continue on BB Hypomagnesemia- corrected DVT prophylaxis -heparin PT daily- out of bed to chair daily speech therapy ff- mechanical soft with thick nectar will definitely need rehab- very deconditioned CM assisting Stable for DC to SNF Obi Jimenez MD Dec 25, 2017 11:36
[2017-12-25] MEDS ORDERED: ECASA81 PO (11:40)
[2017-12-25] MEDS ORDERED: MAGN400T2 PO (11:40)
--- NOTE | 2017-12-25 11:45 | HHI.DS ---
Discharge Summary Admission Date Dec 11, 2017 at 16:59 Discharge Date: Dec 25, 2017 Admitting Diagnosis (1) Acute kidney injury ICD Code: N17.9 - Acute kidney failure, unspecified Diagnosis: Principal Status: Acute (2) Atrial fibrillation ICD Code: I48.91 - Unspecified atrial fibrillation (3) Alcohol abuse ICD Code: F10.10 - Alcohol abuse, uncomplicated Diagnosis: Principal Status: Acute Procedures none Brief History - From Admission This is a pleasant 67 y/o male who was brought to Emergency room by EMS due to generalized weakness, He states that he feels generally weak and complains of generalized body aches. Patient states that he was laying on the floor for 2 days when his brother arrived and called 911. According to the nurse, EMS stated that the patient was hypotensive on scene. He received 1 L of IV fluids prior to arrival. According to the chart, the patient has history of atrial fibrillation, hypertension. The patient cannot recall what medications he is on. Patient denies any chest pain or shortness of breath. He denies headache. He does have abdominal pain to palpation on exam. No fevers or chills. According to EMS, the patient is alcohol dependent. No exacerbating or alleviating factors. Moderate severity. patient lethargic, shivering, not able to give information with electrolyte derangement on laboratory. acute kidney injury. CBC/BMP: 12/24/17 1104 Significant Findings Laboratory Tests Test 12/22/17 15:54 12/23/17 07:13 12/24/17 11:04 Blood Urea Nitrogen 6 MG/DL (7-18) Sodium Level 133 MEQ/L (136-145) 133 MEQ/L (136-145) 132 MEQ/L (136-145) Chloride Level 96 MEQ/L (98-107) Magnesium Level 1.4 MG/DL (1.5-2.5) Estimat Glomerular Filtration Rate 78 ML/MIN (>89) Imaging Last Impressions Head CT 12/11/17 1424 Signed Impressions: Service Date/Time: Monday, December 11, 2017 16:11 - CONCLUSION: 1. No acute findings. Cortical atrophy and white matter ischemic changes, chronic. Ramez Sidhu MD Chest X-Ray 12/11/17 1424 Signed Impressions: Service Date/Time: Monday, December 11, 2017 14:30 - CONCLUSION: Normal examination. Yola Holden MD Abdomen/Pelvis CT 12/11/17 0000 Signed Impressions: Service Date/Time: Monday, December 11, 2017 16:14 - CONCLUSION: 1. Cardiomegaly. 2. 2.8 simple cyst within the right kidney. 3. Atherosclerotic plaquing in the abdominal aorta. 4. Generative changes in the lumbar spine. 5. No findings to indicate bowel obstruction identified. Spenser Duarte MD PE at Discharge awake and alert, oriented to person and year, ff all commands anicteric no nuchal rigidity lungs- no rales irregular rhythm, 3/ systolic murmur left sternal border abdomen- soft, good bowel sounds extremities no edema moves all extremities spontaneously- slow Pt update on day of discharge awake and alert cooperative and pleasant rate controlled Hospital Course This is a 67 y/o M with hx of alcoholism who p/w alcoholic withdrawals. Encephalopathy-- MS improved likely with Underlying Wernicke encephalopathy off Ativan and Librium- DC 12/22 prn Geodon for agitation patient has been here since 12/11- DTs should be resolved by now started Thiamine 100 mg po daily ARF- resolved- creatinine improved -due to poor po from alcoholism. Hypernatremia- resolved - heplock hypokalemia-resolved Prostate Cancer -s/p radiation therapy Atrial Fibrillation controlled rate. - not candidate for anticoagulation due to multiple falls from alcoholism. - BB was DC 12/19- rate controlled off this- monitor and restart if needed - Echo good EF. Mild mitral valve prolapse - ASA daily- not good candidate for OAC with alcoholism Hypertension - DC Lisinopril due to acute kidney injury. - ff BP - continue on BB Hypomagnesemia- corrected DVT prophylaxis -heparin PT daily- out of bed to chair daily speech therapy ff- mechanical soft with thick nectar will definitely need rehab- very deconditioned CM assisting Stable for DC to SNF tdoay Pt Condition on Discharge: Stable Discharge Disposition: Discharge to SNF Discharge Time: > 30 minutes Discharge Instructions DIET: Follow Instructions for: Heart Healthy Diet Speech Therapy-Diet Recommends: Regular Activities you can perform: Weight Bearing as Maryan Other Activity Instructions: PT daily/OT daily Follow up Referrals: Cardiology with Andres Castillo MD PCP Follow-up with SNF New Orders: COMP MET PROF (CMP) - 12/27/17 MAGNESIUM (MG) - 12/28/17 New Medications: Aspirin DR (Aspirin DR) 81 Mg Tabdr 81 MG PO DAILY for afib for 90 Days, #90 TAB Magnesium Oxide (Magnesium Oxide) 400 Mg Tab 400 MG PO Q12HR for replace for 30 Days, TAB Continued Medications: Folic Acid (Folic Acid) 0.4 Mg Tab 1 MG PO DAILY for Nutritional Supplement, TAB 0 Refills Metoprolol Tartrate (Metoprolol Tartrate) 25 Mg Tab 25 MG PO BID, TAB 0 Refills Multiple Vitamin (Multiple Vitamin) 1 Tab 1 TAB PO DAILY for Nutritional Supplement, TAB 0 Refills Thiamine (Vitamin B-1) 100 Mg Tab 100 MG PO DAILY for Nutritional Supplement, TAB 0 Refills Discontinued Medications: Doxycycline Hyclate (Doxycycline Hyclate) 100 Mg Cap 100 MG PO BID for Infection, CAP 0 Refills Lisinopril (Lisinopril) 10 Mg Tab 10 MG PO DAILY for Blood Pressure Management, #30 TAB Obi Merida MD Dec 25, 2017 11:45
[2017-12-25] MEDS ORDERED: MAGNESIUM OXIDE 400 MG TAB PO SCH (21:00)
== END 2017-12-25 17:12 | DRG 897 ==
LOC: NEPD 14:01 → NEDA 16:59 → N04A 20:15
PROVIDERS: ADMIT Internal Medicine; ATTEND Internal Medicine
DX: F10.231 Alcohol dependence with withdrawal delirium (principal); N17.9 Acute kidney failure, unspecified; E87.0 Hyperosmolality and hypernatremia; I48.91 Unspecified atrial fibrillation; E83.42 Hypomagnesemia; E87.1 Hypo-osmolality and hyponatremia; E51.2 Wernicke's encephalopathy; I10 Essential (primary) hypertension; E86.0 Dehydration; E87.6 Hypokalemia; Z91.81 History of falling; F41.9 Anxiety disorder, unspecified; E87.5 Hyperkalemia; D64.9 Anemia, unspecified; Z78.1 Physical restraint status; Z85.46 Personal history of malignant neoplasm of prostate; Z92.3 Personal history of irradiation; Z85.828 Personal history of other malignant neoplasm of skin
CPT/HCPCS: 70450; 71045; 74176; 76937; 80048; 80053; 80307; 81001; 82140; 82550; 82552; 82948; 83690; 83735; 84100; 84484; 85025; 85027; 85610; 85730; 93005; 93306; 96361; 96374; J1644; J2060; J3411; J3475; J3480; J7030; J7040; J7060; J7070

== ENCOUNTER 2018-04-25 11:41 | Observation (INO) ==
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
[2018-04-25 12:19] LABS: Baso # (Auto) 0.1 th/mm3 (0.0-0.2); Eos # (Auto) 0.2 th/mm3 (0.0-0.4); Eos % (Auto) 3.3 % (0.0-4.0); Hematocrit 38.1 % (39.0-51.0); Hemoglobin 12.2 gm/dL (13.0-17.0); Lymph # (Auto) 1.2 th/mm3 (1.0-4.8); Lymph % (Auto) 17.2 % (9.0-44.0); Mean Corpuscular HGB Conc 32.1 % (32.0-36.0); Mean Corpuscular Hemoglobin 31.3 pg (27.0-34.0); Mean Corpuscular Volume 97.7 fL (80.0-100.0); Mean Platelet Volume 8.7 fL (7.0-11.0); Mono # (Auto) 0.5 th/mm3 (0.0-0.9); Mono % (Auto) 7.2 % (0.0-8.0); Neut # (Auto) 5.1 th/mm3 (1.8-7.7); Neut % (Auto) 71.3 % (16.0-70.0); Platelet Count 122 th/mm3 (150-450); Red Cell Distribution Width 22.4 % (11.6-17.2); White Blood Count 7.1 th/mm3 (4.0-11.0)
[2018-04-25 12:28] LABS: Activated Partial Thrombo Time 25.1 sec (24.3-30.1); INR 1.3 Ratio; Prothrombin Time 12.7 sec (9.8-11.6)
[2018-04-25] MEDS: Sod Chloride 0.9% Inj 1,000 ML IV.CONT SCH (12:43)
--- NOTE | 2018-04-25 12:46 | XR ---
EXAM DATE: 04/25/2018 12:26 PM EDT AGE/SEX: 68 years / Male INDICATIONS: Shortness of breath. CLINICAL DATA: This is the patient's initial encounter. Patient reports that signs and symptoms have been present for 1 day and indicates a pain score of 0/10. MEDICAL/SURGICAL HISTORY: Carcinoma, prostatic. Hypertension. Inguinal hernia repair. COMPARISON: No prior exams available for comparison. FINDINGS: A single AP view of the chest demonstrates the lungs to be symmetrically aerated without evidence of mass, infiltrate or effusion. The cardiomediastinal contours are unremarkable. Osseous structures a re intact. CONCLUSION: No acute cardiopulmonary process. Electronically signed by: Mik Kaye MD 04/25/2018 12:45 PM EDT
[2018-04-25 12:47] LABS: Albumin 4.6 g/dL (3.4-5.0); Anion Gap 26 meq/L (5-15); Aspartate Aminotransferase 36 U/L (15-37); Blood Urea Nitrogen 19 mg/dL (7-18); Calcium 9.1 mg/dL (8.5-10.1); Carbon Dioxide 14.7 meq/L (21.0-32.0); Chloride 104 meq/L (98-107); Glomerular Filtration Rate 47 mL/min (>89); Glucose,Random 75 mg/dL (74-106); Potassium 3.5 meq/L (3.5-5.1); Sodium 145 meq/L (136-145)
--- NOTE | 2018-04-25 12:47 | CT ---
EXAM DATE: 04/25/2018 12:33 PM EDT AGE/SEX: 68 years / Male INDICATIONS: Found on floor with altered mental status CLINICAL DATA: This is the patient's initial encounter. Patient reports that signs and symptoms have been present for 1 day and indicates a pain score of 2/10. MEDICAL/SURGICAL HISTORY: None. None. RADIATION DOSE: 56.35 CTDI (mGy) COMPARISON: No prior exams available for comparison. TECHNIQUE: CT of the head without contrast. Using automated exposure control and adjustment of the mA and/or kV according to patient size, radiation dose was kept as low as reasonably achievable to ob tain optimal diagnostic quality images. DICOM format image data is available electronically for revi ew and comparison. FINDINGS: Cerebrum: The ventricles and cortical sulci are widened. No evidence of midline shift, mass lesion, hemorrhage or acute infarction. No extraaxial fluid collections are seen. Posterior Fossa: The cerebellum and brainstem are intact. The 4th ventricle is midline. The cerebe llopontine angle is unremarkable. Extracranial: The visualized portion of the orbits is intact. Skull: The calvaria is intact. No evidence of skull fracture. CONCLUSION: 1. No acute abnormality. 2. Atrophy. . Electronically signed by: Mik Kaye MD 04/25/2018 12:46 PM EDT
[2018-04-25 12:56] LABS: Bilirubin,Urine Negative (Negative); Clarity,Urine Hazy (Clear); Color,Urine Yellow (Yellw/Straw); Glucose,Urine (UA) Negative (Negative); Hyaline Casts,Urine 28 /lpf (0-3); Leukocyte Esterase,Urine Negative (Negative); Mucus,Urine Few /lpf (Occasional); Nitrite,Urine Negative (Negative); Specific Gravity,Urine 1.019 (1.002-1.035); Squamous Epithelial Cell,Urine <1 /hpf (0-5); Urobilinogen,Urine 4 or Greater mg/dL (Less than 2)
[2018-04-25 12:58] LABS: Alanine Aminotransferase 17 U/L (12-78); Alkaline Phosphatase 93 U/L (45-117); Total Protein 8.3 g/dL (6.4-8.2)
--- NOTE | 2018-04-25 13:05 | CT ---
EXAM DATE: 04/25/2018 12:56 PM EDT AGE/SEX: 68 years / Male INDICATIONS: Found on floor with altered mental status CLINICAL DATA: This is the patient's initial encounter. Patient reports that signs and symptoms have been present for 1 day and indicates a pain score of 2/10. MEDICAL/SURGICAL HISTORY: None. None. RADIATION DOSE: 23.04 CTDI (mGy) COMPARISON: No prior exams available for comparison. TECHNIQUE: Contiguous axial images were obtained using helical multirow detector technique. The vol umetric data was post-processed with multiplanar reconstruction in oblique axial, sagittal, and coron al planes. Using automated exposure control and adjustment of the mA and/or kV according to patient s ize, radiation dose was kept as low as reasonably achievable to obtain optimal diagnostic quality miguel ges. DICOM format image data is available electronically for review and comparison. FINDINGS: Vertebrae: Normal vertebral body height. Alignment: Normal. No subluxation. C2-3: There is a mild central disc protrusion without significant stenosis. There is right facet hyp ertrophy. There is mild right neural foraminal narrowing. The left neural foramina is patent. C3-4: There is a mild central disc protrusion. This causes a mild impression on the anterior aspect of the thecal sac. There is mild facet hypertrophy. The neural foramina are grossly patent. C4-5: The bony spinal canal is normal in size. No evidence of disc bulge or herniation. The neural foramina are bilaterally patent. C5-6: The bony spinal canal is normal in size. No evidence of disc bulge or herniation. The neural foramina are bilaterally patent. There are mild anterior marginal osteophytes. C6-7: The bony spinal canal is normal in size. No evidence of disc bulge or herniation. The neural foramina are bilaterally patent. Mild right facet hypertrophy. C7-T1: The bony spinal canal is normal in size. No evidence of disc bulge or herniation. The neura l foramina are bilaterally patent. CONCLUSION: 1. No acute bony abnormalities seen. 2. Central disc protrusions at the C2-C3 and C3-C4 levels. 3. Scattered degenerative change. Electronically signed by: Mik Kaye MD 04/25/2018 1:03 PM EDT
[2018-04-25 13:24] LABS: CKMB Percent 1.6 % (0.0-4.0)
[2018-04-25] MEDS ORDERED: Acetaminophen 325 MG Tablet PO PRN (14:10)
[2018-04-25] MEDS ORDERED: Bisacodyl 10 MG Supp RECTAL PRN (14:10)
[2018-04-25] MEDS ORDERED: Haloperidol Inj 5 MG/ML Ampul IV.PUSH PRN (14:13)
[2018-04-25] MEDS ORDERED: LORazepam 1 MG Tablet PO PRN (14:13)
[2018-04-25] MEDS: Folic Acid 1 MG Tablet PO SCH (14:52)
[2018-04-25] MEDS: Thiamine Inj 500 MG in Sodium Chlor 0.9% Inj 250 ML IV.SIG SCH ×2 (16:22→23:03)
--- NOTE | 2018-04-25 18:05 | P.HP ---
History of Present Illness Service: Hospitalist service Primary Care Physician: UNKNOWN Chief Complaint: Delirium History of Present Illness: Mr. Rodriguez is a 68-year-old male with a history of alcohol abuse who presents to the emergency department from [facility] due to altered mental status. He was apparently found on his floor with an unknown downtime. Per ED provider he stated that he recently purchased a $5 million condo. He also stated that has been eating and drinking well. At the time of this interview, patient appears to be incoherent and confused. He denies any acute concerns. He denies any chest pain, shortness of breath, fever or chills. No changes in bowel or bladder habits. He does not answer questions directly. However he remains pleasant. Review of Systems All other systems reviewed negative except as stated in HPI, unobtainable due to mental status PMFSH - History History Provided By: Patient - Tobacco History Second Hand Smoke Exposure: No Tobacco Use In Past 30 Days: No Smoking Status: Never smoker - Alcohol History How Often Do You Have a Drink Containing Alcohol: 4 or more times a week - Substance Use History Substance History: Unable to Obtain - Travel History Recent Travel in the [facility] Within the Last 8 Weeks: No Recent Travel Out of the Country Within the Last 8 Weeks: No - Immunization History Tetanus Immunization: Unsure Medications and Allergies Active Medications: Active Medications Acetaminophen (Tylenol) 650 mg PO Q4H PRN PRN Reason: Fever, headache, pain 1-4 Al Hydroxide/Mg Hydroxide (Milk Of Magnjaclyn Liq) 30 ml PO Q12H PRN PRN Reason: Mild Constipation Bisacodyl (Dulcolax Supp) 10 mg RECTAL DAILY PRN PRN Reason: SEVERE CONSITIPATION Flumazenil (Romazecon Inj) 0.2 mg IV.PUSH Q1M PRN PRN Reason: OVERSEDATION Folic Acid (Folic Acid) 1 mg PO DAILY [facility] Last Admin: 04/25/18 14:52 Dose: 1 mg Haloperidol Lactate (Haldol Inj) 1 mg IV.PUSH Q15M PRN PRN Reason: for severe agitation Sodium Chloride (Ns Inj) 1,000 mls @ 125 mls/hr IV.CONT .Q8H [facility] Last Admin: 04/25/18 12:43 Dose: 125 mls/hr Thiamine HCl 500 mg/ Sodium (Chloride) 255 mls @ 62.5 mls/hr IV.SIG Q8H CABRERA Stop: 04/27/18 15:59 Last Admin: 04/25/18 16:22 Dose: 62.5 mls/hr Lactulose (Lactulose Liq) 30 ml PO DAILY PRN PRN Reason: SEVERE CONSITIPATION Lorazepam (Ativan) 1 mg PO Q4H PRN PRN Reason: for CIWA 8-10 Lorazepam (Ativan) 2 mg PO Q2H PRN PRN Reason: for CIWA 11-14 Lorazepam (Ativan Inj) 2 mg IV.PUSH Q2H PRN PRN Reason: for CIWA 11-14 Lorazepam (Ativan Inj) 2 mg IV.PUSH Q1H PRN PRN Reason: for CIWA 15-20 Lorazepam (Ativan Inj) 2 mg IV.PUSH Q15M PRN PRN Reason: for CIWA > 20 Lorazepam (Ativan Inj) 1 mg IV.PUSH Q4H PRN PRN Reason: for CIWA 8-10 Ondansetron HCl (Zofran Odt) 4 mg PO Q6H PRN PRN Reason: NAUSEA OR VOMITING Sennosides (Senokot) 17.2 mg PO Q12H PRN PRN Reason: Moderate Constipation Sodium Chloride (Ns Flush) 2 ml IV.FLUSH PRN PRN PRN Reason: FLUSH AFTER USING IV ACCESS Thiamine HCl (Thiamine Inj) 100 mg IM DAILY [facility] Stop: 05/03/18 08:59 Vitamin B Complex/Vitamin C (Allbee C) 1 tab PO DAILY [facility] Allergies Allergy/AdvReac Type Severity Reaction Status Date / Time penicillin G Allergy Severe ITCHINESS Unverified 07/26/17 10:00 Home Medications Medication Instructions Recorded Confirmed Type Unable to Obtain Home Meds 04/25/18 04/25/18 History Exam Vital signs: Vital Signs 04/25/18 11:46 04/25/18 11:52 04/25/18 12:13 Temperature 98.6 F Pulse Rate 98 H 92 H Respiratory Rate 18 18 Blood Pressure 155/86 H 155/86 H Pulse Oximetry 98 96 96 04/25/18 14:02 04/25/18 14:51 04/25/18 16:00 Temperature 97.5 F L Pulse Rate 95 H 78 90 Respiratory Rate 17 17 20 Blood Pressure 139/83 142/71 H 137/83 Pulse Oximetry 100 100 Intake & Output 04/24/18 04/25/18 04/25/18 18:59 06:59 18:59 Weight 95.254 kg Narrative: GENERAL: This is a well-nourished, well-developed patient, in no apparent distress. SKIN: No rashes, ecchymoses or lesions. Warm and dry. HEAD: Atraumatic. Normocephalic. No temporal or scalp tenderness. EYES: Pupils equal round and reactive. No injection or drainage. ENT: Nose without bleeding, purulent drainage or septal hematoma. Airway patent. NECK: Trachea midline. No lymphadenopathy. Supple, nontender, no meningeal signs. CARDIOVASCULAR: Regular rate and rhythm without murmurs, gallops, or rubs. No JVD. RESPIRATORY: Clear to auscultation. Breath sounds equal bilaterally. No wheezes , rales, or rhonchi. GASTROINTESTINAL: Abdomen soft, non-tender, nondistended. No guarding. MUSCULOSKELETAL: Extremities without clubbing, cyanosis, or edema. NEUROLOGICAL: Awake and alert. Cranial nerves II through XII intact. No focal neurological deficits. Normal speech but incoherent. Results - Labs CBC & Chem 7: 04/25/18 12:05 04/25/18 12:05 Labs: Laboratory Results - last 24 hr 04/25/18 04/25/18 04/25/18 11:48 12:05 12:05 WBC 7.1 RBC 3.90 L Hgb 12.2 L Hct 38.1 L MCV 97.7 MCH 31.3 MCHC 32.1 RDW 22.4 H Plt Count 122 L MPV 8.7 Neut % (Auto) 71.3 H Lymph % (Auto) 17.2 [place] % (Auto) 7.2 Eos % (Auto) 3.3 Baso % (Auto) 1.0 Neut # (Auto) 5.1 Lymph # (Auto) 1.2 [place] # (Auto) 0.5 Eos # (Auto) 0.2 Baso # (Auto) 0.1 WBC Differential . Differential Comment Auto diff final PT 12.7 H INR 1.3 APTT 25.1 Sodium Potassium Chloride Carbon Dioxide Anion Gap BUN Creatinine Estimated GFR POC Glucose 85 Random Glucose Calcium Magnesium Total Bilirubin AST ALT Alkaline Phosphatase Ammonia Total Creatine Kinase CK-MB (CK-2) CK-MB (CK-2) % Troponin I Total Protein Albumin TSH Urine Color Urine Clarity Urine pH Ur Specific [place] Urine Protein Urine Glucose (UA) Urine Ketones Urine Occult Blood Urine Nitrate Urine Bilirubin Urine Urobilinogen Ur Leukocyte Esterase Urine RBC Urine WBC Ur Squamous Epith Cells Hyaline Casts Urine Mucus Micro UA Comment Urine Culture Comments Serum Alcohol 04/25/18 04/25/18 04/25/18 12:05 12:05 12:05 WBC RBC Hgb Hct MCV MCH MCHC RDW Plt Count MPV Neut % (Auto) Lymph % (Auto) [place] % (Auto) Eos % (Auto) Baso % (Auto) Neut # (Auto) Lymph # (Auto) [place] # (Auto) Eos # (Auto) Baso # (Auto) WBC Differential Differential Comment PT INR APTT Sodium 145 Potassium 3.5 Chloride 104 Carbon Dioxide 14.7 L Anion Gap 26 H BUN 19 H Creatinine 1.49 H Estimated GFR 47 L POC Glucose Random Glucose 75 Calcium 9.1 Magnesium Total Bilirubin 1.7 H AST 36 ALT 17 Alkaline Phosphatase 93 Ammonia 34 H Total Creatine Kinase 505 H CK-MB (CK-2) 8.0 H CK-MB (CK-2) % 1.6 Troponin I Less than 0.02 L Total Protein 8.3 H Albumin 4.6 TSH 2.390 Urine Color Urine Clarity Urine pH Ur Specific [place] Urine Protein Urine Glucose (UA) Urine Ketones Urine Occult Blood Urine Nitrate Urine Bilirubin Urine Urobilinogen Ur Leukocyte Esterase Urine RBC Urine WBC Ur Squamous Epith Cells Hyaline Casts Urine Mucus Micro UA Comment Urine Culture Comments Serum Alcohol Less than 3 04/25/18 04/25/18 12:05 12:35 WBC RBC Hgb Hct MCV MCH MCHC RDW Plt Count MPV Neut % (Auto) Lymph % (Auto) [place] % (Auto) Eos % (Auto) Baso % (Auto) Neut # (Auto) Lymph # (Auto) [place] # (Auto) Eos # (Auto) Baso # (Auto) WBC Differential Differential Comment PT INR APTT Sodium Potassium Chloride Carbon Dioxide Anion Gap BUN Creatinine Estimated GFR POC Glucose Random Glucose Calcium Magnesium 1.6 Total Bilirubin AST ALT Alkaline Phosphatase Ammonia Total Creatine Kinase CK-MB (CK-2) CK-MB (CK-2) % Troponin I Total Protein Albumin TSH Urine Color Yellow Urine Clarity Hazy H Urine pH 6.0 Ur Specific [place] 1.019 Urine Protein 100 H Urine Glucose (UA) Negative Urine Ketones 80 or greater Urine Occult Blood Small H Urine Nitrate Negative Urine Bilirubin Negative Urine Urobilinogen 4 or greater Ur Leukocyte Esterase Negative Urine RBC 2 Urine WBC Less than 1 Ur Squamous Epith Cells <1 Hyaline Casts 28 Urine Mucus Few H Micro UA Comment Culture not ind Urine Culture Comments Culture not ind Serum Alcohol - Imaging Impressions Cervical Spine CT 04/25/18 11:53 CONCLUSION: 1. No acute bony abnormalities seen. 2. Central disc protrusions at the C2-C3 and C3-C4 levels. 3. Scattered degenerative change. Chest X-Ray 04/25/18 11:53 CONCLUSION: No acute cardiopulmonary process. Head CT 04/25/18 11:53 CONCLUSION: 1. No acute abnormality. 2. Atrophy. . Caprini VTE Risk Assessment Caprini VTE Risk Assessment: No/Low Risk (score <= 1) Caprini Risk Assessment Model: Point Value = 1 Point Value = 2 Point Value = 3 Point Value = 5 Age 41-60 Minor surgery BMI > 25 kg/m2 Swollen legs Varicose veins or History of unexplained or recurrent spontaneous Oral contraceptives or hormone replacement Sepsis (< 1 month) Serious lung disease, including pneumonia (< 1 month) Abnormal pulmonary function Acute myocardial infarction Congestive heart failure (< 1 month) History of inflammatory bowel disease Medical patient at bed rest Age 61-74 Arthroscopic surgery Major open surgery (> 45 min) Laparoscopic surgery (> 45 min) Malignancy Confined to bed (> 72 hours) Immobilizing plaster cast Central venous access Age >= 75 History of VTE Family history of VTE Factor V Leiden Prothrombin [id number] Lupus anticoagulant Anticardiolipin antibodies Elevated serum homocysteine Heparin-induced thrombocytopenia Other congenital or acquired thrombophilia Stroke (< 1 month) Elective arthroplasty Hip, pelvis, or leg fracture Acute spinal cord injury (< 1 month) Prophylaxis Regimen: Total Risk Factor Score Risk Level Prophylaxis Regimen 0-1 Low Early ambulation 2 Moderate Order ONE of the following: *Sequential Compression Device (SCD) *Heparin 5000 units SQ BID 3-4 Higher Order ONE of the following medications: *Heparin 5000 units SQ TID *Enoxaparin/Lovenox 40 mg SQ daily (WT < 150 kg, CrCl > 30 mL/min) *Enoxaparin/Lovenox 30 mg SQ daily (WT < 150 kg, CrCl > 10-29 mL/min) *Enoxaparin/Lovenox 30 mg SQ BID (WT < 150 kg, CrCl > 30 mL/min) AND/OR *Sequential Compression Device (SCD) 5 or more Highest Order ONE of the following medications: *Heparin 5000 units SQ TID (Preferred with Epidurals) *Enoxaparin/Lovenox 40 mg SQ daily (WT < 150 kg, CrCl > 30 mL/min) *Enoxaparin/Lovenox 30 mg SQ daily (WT < 150 kg, CrCl > 10-29 mL/min) *Enoxaparin/Lovenox 30 mg SQ BID (WT < 150 kg, CrCl > 30 mL/min) AND *Sequential Compression Device (SCD) Assessment and Plan - Plan Mr. Ulrich is a pleasant 68-year-old male with a history of alcohol abuse who presents to the emergency department due to altered mental status. He is confused and appears to be confabulating. Acute delirium Probable Wernicke's encephalopathy Chronic alcohol abuse -Chest x-ray, head CT are unremarkable. Urinalysis also unremarkable. -We will start patient on CIWA protocol. -Start thiamine IV 500 mg every 8 hours for 2 days. And then 100 mg IM daily. -Start folic acid p.o. as well as vitamin B complex. -Continue normal saline at 125 cc/h. Acute kidney injury -Creatinine 1.49. Baseline appears to be below 1.0. -Repeat BMP in the morning. Hypomagnesemia -replace with 2 g of IV magnesium sulfate. Full code. SCDs. Probable discharge in the 24-48 hours.
[2018-04-25] MEDS: Mag Sulf 1 gm/100 ml Premix 100 ML IV.SIG SCH ×2 (20:49→22:50)
[2018-04-26] MEDS: Sod Chloride 0.9% Inj 1,000 ML IV.CONT SCH ×2 (00:28→10:03)
[2018-04-26 07:09] LABS: Calcium 8.9 mg/dL (8.5-10.1); Carbon Dioxide 18.9 meq/L (21.0-32.0); Potassium 3.6 meq/L (3.5-5.1)
[2018-04-26] MEDS ORDERED: Vitamin B Complex/Vitamin C Tablet PO SCH (09:00)
[2018-04-26] MEDS: Folic Acid 1 MG Tablet PO SCH (10:04)
--- NOTE | 2018-04-26 10:23 | ECG ---
Date Performed: 04/25/2018 Time Performed: 11:51:58 PTAGE: 68 years EKG: ATRIAL FIBRILLATION BORDERLINE LEFT AXIS DEVIATION ABNORMAL RHYTHM ECG Since the PREVIOUS TRACING , no significant change noted PREVIOUS TRACING DOCTOR: Joselyn Frederick Interpretating Date/Time 04/26/2018 10:20:24
[2018-04-26] MEDS: Thiamine Inj 500 MG in Sodium Chlor 0.9% Inj 250 ML IV.SIG SCH ×2 (11:00→21:08)
--- NOTE | 2018-04-26 15:10 | P.PN ---
Subjective Interval history: Follow-up for possible Wernicke's encephalopathy, alcohol withdrawal. Patient is currently resting in bed. He is requiring loose soft restraints on his upper extremities. No chest pain, shortness of breath, fever or chills. He remains somewhat confused about where he is and such. Physical Exam Vital signs: Vital Signs 04/25/18 16:00 04/25/18 20:00 04/25/18 23:53 Temperature 97.5 F L 98 F 98.2 F Pulse Rate 90 99 H 90 Respiratory Rate 20 16 17 Blood Pressure 137/83 136/81 160/88 H Pulse Oximetry 100 100 100 04/26/18 07:24 04/26/18 12:00 Temperature 98.3 F 97.7 F Pulse Rate 89 89 Respiratory Rate 14 16 Blood Pressure 144/84 H 126/75 Pulse Oximetry 100 98 Intake & Output 04/25/18 04/26/18 04/26/18 18:59 06:59 18:59 Intake Total 240 / 240 2190 / 2190 1000 / 1000 Balance 240 / 240 2190 / 2190 1000 / 1000 Weight 95.254 kg Intake: IV 1710 / 1710 1000 / 1000 NS Inj 1,000 ML @ 125 mls/hr IV 1000 / 1000 1000 / 1000 .CONT .Q8H CABRERA Rx#:[id number] Magnesium Sulfate 1 gm/D5W 100 200 / 200 ml Premix 100 ML @ 100 mls/hr IV.SIG Q1H [facility]A Rx#:[id number] Thiamine Inj 500 MG In NS Inj 510 / 510 250 ML @ 62.5 mls/hr IV.SIG Q8H CABRERA Rx#:[id number] Oral 240 / 240 480 / 480 Other: # Voids 1 4 Narrative: GENERAL: Alert, confused but pleasant. SKIN: Warm and dry. HEAD: Normocephalic. EYES: No scleral icterus. No injection or drainage. NECK: Supple, trachea midline. No JVD or lymphadenopathy. CARDIOVASCULAR: Regular rate and rhythm without murmurs, gallops, or rubs. RESPIRATORY: Breath sounds equal bilaterally. No accessory muscle use. GASTROINTESTINAL: Abdomen soft, non-tender, nondistended. MUSCULOSKELETAL: No cyanosis, or edema. BACK: Nontender without obvious deformity. No CVA tenderness. Results - Labs CBC & Chem 7: 04/25/18 12:05 04/26/18 05:00 Laboratory Results - last 24 hr 04/25/18 04/26/18 04/26/18 12:05 05:00 09:22 Sodium 146 H Potassium 3.6 Chloride 112 H D Carbon Dioxide 18.9 L Anion Gap 15 BUN 16 Creatinine 1.23 Estimated GFR 59 L POC Glucose 87 Random Glucose 68 L Calcium 8.9 Magnesium 1.6 Assessment and Plan - Plan Mr. Ulrich is a pleasant 68-year-old male with a history of alcohol abuse who presents to the emergency department due to altered mental status. He is confused and appears to be confabulating. Acute delirium Probable Wernicke's encephalopathy Chronic alcohol abuse -Chest x-ray, head CT are unremarkable. Urinalysis also unremarkable. -Continue CIWA protocol. -thiamine IV 500 mg every 8 hours for 2 days. And then 100 mg IM daily. -Folic acid p.o. as well as vitamin B complex. -Will start on Librium 25mg TID. Acute kidney injury Mild Hypernatremia - Sodium 146 -Creatinine 1.49. Improved to 1.23 -will switch NS to D5W at 84cc/hour. Hypomagnesemia -replaced with 2 g of IV magnesium sulfate. Full code. SCDs. Discharge plan: Once patient is off restraints and more cooperative, we can discharge patient.
[2018-04-26] MEDS ORDERED: Dextrose 5% in Water Inj 1,000 ML IV.CONT SCH (15:15)
[2018-04-26] MEDS: chlordiazePOXIDE 25 MG Capsule PO SCH ×2 (21:06→23:45)
[2018-04-26] MEDS ORDERED: Vancomycin Consult Pharmacy 1 EACH OTHER SCH (23:45)
[2018-04-27] MEDS: Thiamine Inj 500 MG in Sodium Chlor 0.9% Inj 250 ML IV.SIG SCH ×2 (00:11→11:24)
[2018-04-27] MEDS ORDERED: Vancomycin Inj 1,500 MG in Sodium Chlor 0.9% Inj 250 ML IV.SIG ONE (02:00)
[2018-04-27] MEDS ORDERED: Piperacil/Tazo 3.375 GM Premix 50 ML IV.SIG SCH (02:00)
[2018-04-27 07:06] VITALS: O2SAT 100
[2018-04-27 08:14] LABS: Calcium 8.6 mg/dL (8.5-10.1); Carbon Dioxide 22.8 meq/L (21.0-32.0); Potassium 3.2 meq/L (3.5-5.1)
[2018-04-27] MEDS: Folic Acid 1 MG Tablet PO SCH (11:22)
[2018-04-27] MEDS: chlordiazePOXIDE 25 MG Capsule PO SCH (11:22)
[2018-04-27 12:21] VITALS: BP 166/98; PULSE 77; RESP 16; TEMP 97.8
== END 2018-04-27 17:37 | disposition home or self-care (01) ==
LOC: NEPC 11:41 → NEDA 11:41 → NEPHCDU 11:41 → NEDA 15:19 → NEPHCDU 15:33
PROVIDERS: ADMIT Hospitalist; ATTEND Hospitalist

== ENCOUNTER 2018-05-18 10:17 | Inpatient (IN) ==
[2018-05-18] MEDS ORDERED: Sod Chloride 0.9% Inj 1,000 ML IV.CONT SCH (11:00)
[2018-05-18 11:18] LABS: Baso # (Auto) 0.1 th/mm3 (0.0-0.2); Baso % (Auto) 1.3 % (0.0-2.0); Eos # (Auto) 0.1 th/mm3 (0.0-0.4); Eos % (Auto) 1.2 % (0.0-4.0); Hematocrit 37.4 % (39.0-51.0); Hemoglobin 12.3 gm/dL (13.0-17.0); Lymph # (Auto) 2.2 th/mm3 (1.0-4.8); Lymph % (Auto) 34.1 % (9.0-44.0); Mean Corpuscular HGB Conc 32.8 % (32.0-36.0); Mean Corpuscular Hemoglobin 32.1 pg (27.0-34.0); Mean Corpuscular Volume 97.9 fL (80.0-100.0); Mean Platelet Volume 8.6 fL (7.0-11.0); Mono # (Auto) 0.8 th/mm3 (0.0-0.9); Mono % (Auto) 12.4 % (0.0-8.0); Neut # (Auto) 3.2 th/mm3 (1.8-7.7); Platelet Count 112 th/mm3 (150-450); Red Blood Count 3.82 mil/mm3 (4.50-5.90); Red Cell Distribution Width 18.8 % (11.6-17.2); White Blood Count 6.4 th/mm3 (4.0-11.0)
[2018-05-18 11:42] LABS: Anion Gap 24 meq/L (5-15); Blood Urea Nitrogen 9 mg/dL (7-18); Calcium 8.4 mg/dL (8.5-10.1); Carbon Dioxide 17.3 meq/L (21.0-32.0); Chloride 94 meq/L (98-107); Glomerular Filtration Rate 57 mL/min (>89); Glucose,Random 109 mg/dL (74-106); Magnesium 1.1 mg/dL (1.5-2.5); Sodium 135 meq/L (136-145)
[2018-05-18 11:50] LABS: Potassium 2.9 meq/L (3.5-5.1)
[2018-05-18] MEDS ORDERED: Sod Chloride 0.9% Inj 1,000 ML IV.SIG ONE (11:52)
[2018-05-18] MEDS ORDERED: Haloperidol Inj 5 MG/ML Ampul IV.PUSH PRN (12:03)
[2018-05-18] MEDS ORDERED: LORazepam 1 MG Tablet PO PRN (12:03)
--- NOTE | 2018-05-18 12:05 | CT ---
EXAM DATE: 05/18/2018 11:53 AM EDT AGE/SEX: 68 years / Male INDICATIONS: Seizure. Fall and hit head. CLINICAL DATA: This is the patient's initial encounter. Patient reports that signs and symptoms have been present for 1 day and indicates a pain score of 0/10. MEDICAL/SURGICAL HISTORY: . Unobtainable. . Unobtainable. RADIATION DOSE: 41.73 CTDI (mGy) [place] [facility] [place]. . TECHNIQUE: CT of the head without contrast. Using automated exposure control and adjustment of the mA and/or kV according to patient size, radiation dose was kept as low as reasonably achievable to ob tain optimal diagnostic quality images. DICOM format image data is available electronically for revi ew and comparison. FINDINGS: Cerebrum: Moderate diffuse cerebral atrophy. The ventricles are normal for degree of atrophy. Mild-t o-moderate periventricular white matter hypodensities. No evidence of midline shift, mass lesion, hem orrhage or acute infarction. No extraaxial fluid collections are seen. Posterior Fossa: The cerebellum and brainstem are intact. The 4th ventricle is midline. The cerebe llopontine angle is unremarkable. Extracranial: The visualized portion of the orbits is intact. Small left anterior scalp hematoma. Skull: The calvaria is intact. No evidence of skull fracture. CONCLUSION: 1. Small left anterior scalp hematoma without underlying bony fracture or acute intracranial abnorma lity. . Electronically signed by: Sid Magaña MD 05/18/2018 12:04 PM EDT
--- NOTE | 2018-05-18 12:08 | ED ---
HPI General Chief Complaint: Seizure Stated Complaint: Poss seizure Time Seen by Provider: 05/18/18 11:26 Source: patient Mode of arrival: EMS Limitations: no limitations History of Present Illness HPI Narrative: 68-year-old male with PMH of chronic alcoholism, hypertension present to the ED via EMS for evaluation after witnessed syncopal episode. According to EMS the patient fell and hit his head but did not lose consciousness. No report of witnessed tonic clonic activity or length of the event. On presentation the patient is alert to self, situation, date and president. He states that he lives at [facility]. He states he is unsure of the events that led him to being in the hospital today. He states that prior to today's event he was feeling well. On presentation he complains of dizziness when sitting upright, improved by lying down. He denies headache, vision changes, chest pain, palpitations, shortness of breath, abdominal pain, nausea, vomiting, weakness of the extremities. He endorses drinking alcohol daily. Unsure of when his last drink was. He states that he is "not interested " in quitting drinking. He denies history of withdrawal seizure. He denies cardiac history. Related Data Home Medications Medication Instructions Recorded Confirmed Unable to Obtain Home Meds 04/25/18 04/25/18 Previous Rx's Medication Instructions Recorded B-complex with vitamin C [Total 1 tab PO DAILY #30 tab 04/27/18 B/C] amlodipine [Norvasc] 5 mg PO DAILY #90 tab 04/27/18 chlordiazepoxide HCl 25 mg PO Q8H #30 cap 04/27/18 folic acid 1 mg PO DAILY #30 tab 04/27/18 thiamine HCl (vitamin B1) 100 mg PO DAILY #30 tab 04/27/18 Allergies Allergy/AdvReac Type Severity Reaction Status Date / Time penicillin G Allergy Severe ITCHINESS Verified 05/18/18 13:04 Review of Systems ROS: all other systems reviewed are negative PMFSH Social History Social History Substance History: Unable to Obtain Second Hand Smoke Exposure: No Smoking Status: Never smoker How Often Do You Have a Drink Containing Alcohol: 4 or more times a week Recent Travel in [facility] within the Last 8 Weeks: No Recent Out of Country Travel within the Last 8 Weeks: No Exam Narrative Exam Narrative: GENERAL: Well-nourished, well-developed white male in no acute distress. SKIN: Focused skin assessment warm/dry. HEAD: Small left anterior hematoma. Normocephalic. EYES: Pupils equal and round. No scleral icterus. No injection or drainage. ENT: No nasal bleeding or discharge. Mucous membranes pink and moist. NECK: Trachea midline. No JVD. CARDIOVASCULAR: Regular rate and rhythm. No murmur appreciated. RESPIRATORY: No accessory muscle use. Clear to auscultation. Breath sounds equal bilaterally. GASTROINTESTINAL: Abdomen soft, non-tender, nondistended. Hepatic and splenic margins not palpable. MUSCULOSKELETAL: No obvious deformities. No clubbing. No cyanosis. No edema. NEUROLOGICAL: Awake and alert. No obvious cranial nerve deficits. Motor grossly within normal limits. Normal speech. PSYCHIATRIC: Appropriate mood and affect; insight and judgment normal. Course Initial Documented Vital Signs Temperature 98.0 F 05/18/18 10:37 Pulse Rate 85 05/18/18 10:37 Respiratory Rate 18 05/18/18 10:37 Blood Pressure 141/78 H 05/18/18 10:37 Pulse Oximetry 97 05/18/18 10:37 Last Documented Vital Signs Temperature 98.0 F 05/18/18 10:37 Pulse Rate 137 H 05/18/18 15:43 Respiratory Rate 18 05/18/18 15:43 Blood Pressure 160/83 H 05/18/18 15:43 Pulse Oximetry 100 05/18/18 15:43 Medical Decision Making [facility] Narrative Medical decision making narrative: 68-year-old male with PMH of chronic alcohol use presents the ED by EMS after being witnessed to fall, hit his head and have some seizure-like activity by a bystander close to his [facility], sabra Terry. On presentation the patient is unsure of the events of the day but is otherwise oriented. Vitals reviewed. Physical exam reveals a nontoxic-appearing white male in no acute distress. There is a contusion on the left forehead, no focal neuro deficits. Mildly tremulous. IV was established. Patient was administered 1 L normal saline. He was placed on CIWA protocol. CT brain is without acute findings. CBC with hypo-natremia. Patient was administered 40 mEq of KCl by mouth. While being monitored the patient appeared to have another seizure with foaming at the mouth and heart rate into the 170s. This lasted ~ 30 sec- 1 minute. He was administered 1 mg of Ativan. Cerebyx infusion was initiated. Dr. Saucedo spoke to the residents who agrees to accept the patient to the medicine service under Dr. Rausch. Please see medicine notes for disposition. Medical Screen Exam Complete: Yes Emergency Medical Condition: Yes Differential Diagnosis Differential Diagnosis: Alcohol withdrawal versus ICH versus ACS versus metabolic derangement versus new onset seizure versus other Medical Records Medical records reviewed: Yes I reviewed the patient's medical records. 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 Ammonia level was 34. Lab Data Result diagrams: 05/18/18 10:30 05/18/18 10:30 Lab Results 05/18/18 05/18/18 Range/Units 10:30 10:30 WBC 6.4 (4.0-11.0) th/mm3 RBC 3.82 L (4.50-5.90) mil/mm3 Hgb 12.3 L (13.0-17.0) gm/dL Hct 37.4 L (39.0-51.0) % MCV 97.9 (80.0-100.0) fL MCH 32.1 (27.0-34.0) pg MCHC 32.8 (32.0-36.0) % RDW 18.8 H (11.6-17.2) % Plt Count 112 L (150-450) th/mm3 MPV 8.6 (7.0-11.0) fL Neut % (Auto) 51.0 (16.0-70.0) % Lymph % (Auto) 34.1 (9.0-44.0) % Cherry % (Auto) 12.4 H (0.0-8.0) % Eos % (Auto) 1.2 (0.0-4.0) % Baso % (Auto) 1.3 (0.0-2.0) % Neut # (Auto) 3.2 (1.8-7.7) th/mm3 Lymph # (Auto) 2.2 (1.0-4.8) th/mm3 Cherry # (Auto) 0.8 (0.0-0.9) th/mm3 Eos # (Auto) 0.1 (0.0-0.4) th/mm3 Baso # (Auto) 0.1 (0.0-0.2) th/mm3 WBC Differential . Differential Comment Auto diff final Sodium 135 L (136-145) meq/L Potassium 2.9 L* (3.5-5.1) meq/L Chloride 94 L (98-107) meq/L Carbon Dioxide 17.3 L (21.0-32.0) meq/L Anion Gap 24 H (5-15) meq/L BUN 9 (7-18) mg/dL Creatinine 1.26 (0.60-1.30) mg/dL Estimated GFR 57 L (>89) mL/min Random Glucose 109 H (74-106) mg/dL Calcium 8.4 L (8.5-10.1) mg/dL Magnesium 1.1 L (1.5-2.5) mg/dL Serum Alcohol Less than 3 (0-5) mg/dL Imaging Data Radiologist's impression: Head CT 05/18/18 10:55 CONCLUSION: 1. Small left anterior scalp hematoma without underlying bony fracture or acute intracranial abnormality. . Discharge Plan Discharge Disposition Patient Disposition: 30 Still Patient Discharge Details Diagnosis: Chronic alcohol abuse, Hypokalemia, Seizure Physicians Team ED Provider: Adithya Saucedo ED Midlevel Provider: Hallie Faustin Primary Care Provider: UNKNOWN, Attending Provider: Roeslia Rausch Status ED Status: Admitted Patient
[2018-05-18] MEDS ORDERED: Fosphenytoin Inj 1,000 MGPE in Sodium Chlor 0.9% Inj 50 ML IV.SIG ONE (14:46)
--- NOTE | 2018-05-18 15:01 | P.HPFP ---
History of Present Illness Primary Care Physician: UNKNOWN <Roselia Rausch 05/19/18 13:49> UNKNOWN <April Nelson 05/18/18 15:01> Chief Complaint: fall <April Nelson 05/18/18 15:01> History of Present Illness: Mr. Ulrich is a 68yo white male with PMH of per chart review A fib, HTN, and GERD presenting to the ED after a seizure. Pt unable to answer any of my questions and is incoherent when he speaks. Per ED nursing staff, earlier he was able to give some history. He states that he was getting dressed at his home and then remembers waking up in the ED. His last drink was 2 days ago and he has been trying to quit alcohol. They state per witness report that he was walking and then fell. No tonic-clonic activity. He was taken to the ED where he had another seizure and was admitted. <April Nelson 05/18/18 18:19> - Diagnosis (1) Alcohol withdrawal (2) Seizure (3) Atrial fibrillation with RVR (4) Hypokalemia (5) Hypomagnesemia (6) Normocytic anemia (7) Nutrition, metabolism, and development symptoms (8) DVT prophylaxis <Roselia Rausch 05/19/18 13:49> (1) Alcohol withdrawal (2) Seizure (3) Atrial fibrillation with RVR (4) Hypokalemia (5) Hypomagnesemia (6) Normocytic anemia (7) Nutrition, metabolism, and development symptoms (8) DVT prophylaxis <April Nelson 05/18/18 18:16> Inpatient Certification: I certify that the inpatient services were ordered in accordance with Medicare regulations governing the order. This includes certification that hospital inpatient services are reasonable and necessary and in the case of services not specified as inpatient-only under 42 CFR 419.22(n), that they are appropriately provided as inpatient services in accordance to with the 2-midnight benchmark under 43 CFR 412.3(e) <Roselia Rausch 05/19/18 13:49> Review of Systems unobtainable due to mental status <April Nelson Ryder 05/18/18 17:47> PMFSH - History History Provided By: Patient <April Nelson 08/23/18 15:01> - Medical History Medical History: Medical History (Last Updated 05/18/18 @ 17:17 by Judah Leong MD) Alcohol abuse Hypertension <Roselia Rausch - 05/19/18 13:49> Medical History (Last Updated 05/18/18 @ 17:17 by Judah Leong MD) Alcohol abuse Hypertension <April Nelson 05/18/18 17:47> - Tobacco History Second Hand Smoke Exposure: No <April Nelson 05/18/18 15:01> Tobacco Use In Past 30 Days: No <April Nelson 05/18/18 15:01> Smoking Status: Never smoker <April Nelson 05/18/18 15:01> - Alcohol History How Often Do You Have a Drink Containing Alcohol: 4 or more times a week < April Nelson 05/18/18 15:01> - Substance Use History Substance History: Unable to Obtain <April Nelson 05/18/18 15:01> - Travel History Recent Travel in the [facility] Within the Last 8 Weeks: No <April Nelson 05/18/18 15:01> Recent Travel Out of the Country Within the Last 8 Weeks: No <April Nelson 05/18/18 15:01> - Immunization History Tetanus Immunization: Unsure <April Nelson 05/18/18 15:01> Medications and Allergies Allergies Allergy/AdvReac Type Severity Reaction Status Date / Time penicillin G Allergy Severe ITCHINESS Verified 05/18/18 13:04 <Roselia Rausch - 05/19/18 13:49> Home Medications Medication Instructions Recorded Confirmed Type Unable to Obtain Home Meds 04/25/18 04/25/18 History <Roselia Rausch Purnima - 05/19/18 13:49> Active Medications: Active Medications Acetaminophen (Tylenol) 650 mg PO Q4H PRN PRN Reason: Temp > 100.4 Last Admin: 05/18/18 20:21 Dose: 650 mg Chlorhexidine Gluconate (Chlorhexidine 2% Cloth) 3 pack TOPICAL DAILY@0400 CABRERA Stop: 05/24/18 03:59 Last Admin: 05/19/18 04:00 Dose: 3 pack Chlorhexidine Gluconate (Chlorhexidine 2% Cloth) 3 pack TOPICAL DAILY@0400 PRN PRN Reason: Extra cloth needed Stop: 05/24/18 03:59 Haloperidol Lactate (Haldol Inj) 1 mg IV.PUSH Q15M PRN PRN Reason: for severe agitation Magnesium Sulfate Inj 4 gm/ (Sodium Chloride) 100 mls @ 50 mls/hr IV.SIG UNSCH PRN PRN Reason: For Magnesium 0.9 - 1.1 mg/dL Last Infusion: 05/18/18 22:26 Dose: Infused Magnesium Sulfate Inj 2 gm/ (Sodium Chloride) 100 mls @ 50 mls/hr IV.SIG UNSCH PRN PRN Reason: For Magnesium 1.2 - 1.6 mg/dL Last Infusion: 05/19/18 11:19 Dose: Infused Multivitamins 10 ml/ Thiamine HCl 100 mg/ Folic Acid 1 mg/Sodium Chloride 511.2 mls @ 127.8 mls/hr IV.SIG DAILY CABRERA Last Admin: 05/19/18 10:17 Dose: 127.8 mls/hr Potassium Chloride (Kcl 40 Meq Premix Inj) 40 meq in 100 mls @ 25 mls/hr IV.SIG Q2H PRN PRN Reason: For Potassium 2.8 - 3.2 mEq/L Potassium Chloride (Kcl 20 Meq Premix Inj) 20 meq in 100 mls @ 50 mls/hr IV.SIG Q2H PRN PRN Reason: For Potassium 3.3 - 3.5 mEq/L Last Infusion: 05/19/18 00:48 Dose: Infused Potassium Chloride (Kcl 20 Meq Premix Inj) 20 meq in 100 mls @ 50 mls/hr IV.SIG Q2H PRN PRN Reason: For Potassium 2.8 - 3.2 mEq/L Last Infusion: 05/19/18 08:30 Dose: Infused Potassium Phosphate 30 mmol/ (Sodium Chloride) 260 mls @ 42 mls/hr IV.SIG UNSCH PRN PRN Reason: SEE LABEL COMMENTS Sodium Phosphate 30 mmol/ (Sodium Chloride) 260 mls @ 42 mls/hr IV.SIG UNSCH PRN PRN Reason: For Phosphorus < 2.5 mg/dL Potassium Chloride (Kcl 40 Meq Premix Inj) 40 meq in 100 mls @ 25 mls/hr IV.SIG UNSCH PRN PRN Reason: For Potassium 3.3 - 3.5 mEq/L Diltiazem HCl 125 mg/ Sodium (Chloride) 125 mls @ 5 mls/hr IV.CONT TITRATE PRN ; Protocol PRN Reason: Per Protocol Lactated Ringer's (Lr 1000 Ml Inj) 1,000 mls @ 125 mls/hr IV.CONT .Q8H CABRERA Last Admin: 05/19/18 13:11 Dose: 125 mls/hr Levetiracetam 500 mg/ Sodium (Chloride) 105 mls @ 400 mls/hr IV.SIG Q12H CABRERA Last Infusion: 05/19/18 06:40 Dose: Infused Dexmedetomidine HCl 1,000 mcg/ (Sodium Chloride) 250 mls @ 3.99 mls/hr IV.CONT TITRATE PRN; Protocol PRN Reason: Per Protocol Last Titration: 05/19/18 07:37 Dose: 0 mcg/kg/hr, 0 mls/hr Lorazepam (Ativan Inj) 1 mg IV.PUSH Q4H PRN PRN Reason: for CIWA 8-10 Last Admin: 05/18/18 14:51 Dose: 1 mg Lorazepam (Ativan Inj) 2 mg IV.PUSH Q1H PRN PRN Reason: for CIWA 15-20 Last Admin: 05/19/18 13:11 Dose: 2 mg Lorazepam (Ativan Inj) 2 mg IV.PUSH Q2H PRN PRN Reason: for CIWA 11-14 Lorazepam (Ativan) 1 mg PO Q4H PRN PRN Reason: for CIWA 8-10 Lorazepam (Ativan) 2 mg PO Q2H PRN PRN Reason: for CIWA 11-14 Lorazepam (Ativan Inj) 2 mg IV.PUSH Q15M PRN PRN Reason: for CIWA > 20 Last Admin: 05/18/18 16:21 Dose: 2 mg Magnesium Oxide (Mag-Ox) 800 mg PO UNSCH PRN PRN Reason: For Magnesium 1.2 - 1.6 mg/dL Ondansetron HCl (Zofran Inj) 4 mg IV.PUSH Q6H PRN PRN Reason: NAUSEA OR VOMITING Potassium Bicarb/Potassium Chloride (K-Lyte Cl Eff) 50 meq PO UNSCH PRN PRN Reason: For Potassium 3.3 - 3.5 mEq/L Potassium Phosphate (K-Phos Original) 2,000 mg PO Q4H PRN PRN Reason: Phosphorus Less Than 2.5 mg/dL Potassium Phosphate (K-Phos Original) 2,000 mg PO UNSCH PRN PRN Reason: SEE LABEL COMMENTS Sodium Chloride (Ns Flush) 2 ml IV.FLUSH PRN PRN PRN Reason: FLUSH AFTER USING IV ACCESS <Roselia Rausch - 05/19/18 13:49> Active Medications Haloperidol Lactate (Haldol Inj) 1 mg IV.PUSH Q15M PRN PRN Reason: for severe agitation Sodium Chloride (Ns Inj) 1,000 mls @ 125 mls/hr IV.CONT .Q8H CABRERA Last Admin: 05/18/18 14:02 Dose: 125 mls/hr Fosphenytoin Sodium 1,000 mgpe (/ Sodium Chloride) 70 mls @ 280 mls/hr IV.SIG ONCE ONE Stop: 05/18/18 15:00 Lorazepam (Ativan Inj) 1 mg IV.PUSH Q4H PRN PRN Reason: for CIWA 8-10 Last Admin: 05/18/18 14:51 Dose: 1 mg Lorazepam (Ativan Inj) 2 mg IV.PUSH Q1H PRN PRN Reason: for CIWA 15-20 Lorazepam (Ativan Inj) 2 mg IV.PUSH Q2H PRN PRN Reason: for CIWA 11-14 Lorazepam (Ativan) 1 mg PO Q4H PRN PRN Reason: for CIWA 8-10 Lorazepam (Ativan) 2 mg PO Q2H PRN PRN Reason: for CIWA 11-14 Lorazepam (Ativan Inj) 2 mg IV.PUSH Q15M PRN PRN Reason: for CIWA > 20 Sodium Chloride (Ns Flush) 2 ml IV.FLUSH PRN PRN PRN Reason: FLUSH AFTER USING IV ACCESS <April Nelson - 05/18/18 15:01> Exam Vital signs: Vital Signs 05/18/18 13:51 05/18/18 14:48 05/18/18 15:27 Temperature Pulse Rate 91 H 130 H 150 H Respiratory Rate 17 17 19 Blood Pressure 175/88 H 175/88 H 150/101 H Pulse Oximetry 100 100 100 05/18/18 15:43 05/18/18 16:27 08/23/18 17:27 Temperature Pulse Rate 137 H 118 H 112 H Respiratory Rate 18 18 18 Blood Pressure 160/83 H 160/83 H 153/75 H Pulse Oximetry 100 96 96 05/18/18 20:00 05/18/18 21:00 05/18/18 22:00 Temperature 102 F H 99.6 F 99 F Pulse Rate 93 H 86 84 Respiratory Rate 27 H 26 H 28 H Blood Pressure 157/85 H 134/79 145/83 H Pulse Oximetry 98 98 99 05/18/18 23:00 05/19/18 00:00 05/19/18 01:00 Temperature 99 F Pulse Rate 81 79 77 Respiratory Rate 26 H 26 H 24 Blood Pressure 136/67 140/79 133/83 Pulse Oximetry 99 100 100 05/19/18 02:00 05/19/18 03:00 05/19/18 04:00 Temperature Pulse Rate 71 60 60 Respiratory Rate 24 24 24 Blood Pressure 115/68 124/77 112/71 Pulse Oximetry 100 100 97 05/19/18 05:00 05/19/18 06:00 05/19/18 07:00 Temperature 97.6 F Pulse Rate 60 56 L 56 L Respiratory Rate 16 27 H 16 Blood Pressure 122/76 103/67 120/68 Pulse Oximetry 100 96 100 05/19/18 07:55 05/19/18 08:00 05/19/18 08:45 Temperature 96.6 F L Pulse Rate 46 L 49 L Respiratory Rate 11 L 22 Blood Pressure 111/65 Pulse Oximetry 100 100 100 05/19/18 09:00 05/19/18 10:00 05/19/18 11:00 Temperature Pulse Rate 69 55 L 62 Respiratory Rate 22 19 16 Blood Pressure 124/76 131/84 160/74 H Pulse Oximetry 100 99 99 05/19/18 12:00 05/19/18 13:00 Temperature 97.8 F Pulse Rate 61 59 L Respiratory Rate 12 15 Blood Pressure 138/83 139/82 Pulse Oximetry 100 100 Intake & Output 05/18/18 05/19/18 05/19/18 18:59 06:59 18:59 Intake Total 3121.2 / 3121.2 3370 / 3370 Output Total 100 / 100 Balance 3021.2 / 3021.2 3370 / 3370 Weight 79.832 kg 83.5 kg Intake: IV 3121.2 / 3121.2 3370 / 3370 Precedex Inj 200 MCG In NS Inj 50 / 50 48 ML @ 0.2 MCG/KG/HR 3.99 mls/ hr IV.CONT TITRATE PRN Rx#: [id number] LR 1000 mL Inj 1,000 ML @ 125 1000 / 1000 1000 / 1000 mls/hr IV.CONT .Q8H CABRERA Rx#: [id number] NS Inj 1,000 ML @ 120 mls/hr IV 1000 / 1000 .CONT .Q8H20M CABRERA Rx#:[id number] Magnesium Sulfate Inj 2 GM In 100 / 100 200 / 200 NS Inj 96 ML @ 50 mls/hr IV.SIG ONCE ONE Rx#:[id number] MVI-12 Inj 10 ML Thiamine Inj 511.2 / 511.2 100 MG Folvite Inj 1 MG In NS Inj 500 ML @ 127.8 mls/hr IV. SIG DAILY CABRERA Rx#:[id number] KCl 20 mEq Premix Inj 20 meq In 250 / 250 100 / 100 100 ml @ 50 mls/hr IV.SIG Q2H PRN Rx#:[id number] Keppra Inj 500 MG In NS Inj 100 210 / 210 ML @ 400 mls/hr IV.SIG Q12H CABRERA Rx#:[id number] Output: Urine Amount (Catheter) 100 / 100 Condom 100 / 100 Other: # Voids 1 # Incontinent Voids 1 Weight On Admission 82.5 kg <Roselia Rausch - 05/19/18 13:49> Vital Signs 05/18/18 10:37 05/18/18 13:51 05/18/18 14:48 Temperature 98.0 F Pulse Rate 85 91 H 130 H Respiratory Rate 18 17 17 Blood Pressure 141/78 H 175/88 H 175/88 H Pulse Oximetry 97 100 100 Intake & Output 05/17/18 05/18/18 05/18/18 18:59 06:59 18:59 Weight 79.832 kg <April Nelson - 05/18/18 15:01> Narrative: GENERAL: White male shirtless writhing around on stretcher in soft restraints, in mild distress SKIN: Warm and dry. HEAD: Atraumatic. Normocephalic. EYES: Pupils equal and round. No scleral icterus. No injection or drainage. ENT: No nasal bleeding or discharge. Mucous membranes pink and moist. NECK: Trachea midline. No JVD. CARDIOVASCULAR: Tachycardic, Regular rate and rhythm. RESPIRATORY: No accessory muscle use. Clear to auscultation anteriorly. Breath sounds equal bilaterally. GASTROINTESTINAL: Abdomen soft, non-tender, nondistended. MUSCULOSKELETAL: Extremities without clubbing, cyanosis, or edema. No obvious deformities. NEUROLOGICAL: Awake and alert. No obvious cranial nerve deficits. Motor grossly within normal limits. Normal speech. A&Ox1 to self (only last name) <April Nelson - 05/18/18 17:47> Results - Labs Result diagrams: 05/19/18 03:30 05/19/18 03:30 <Roselia Rausch - 05/19/18 13:49> Abnormal lab results 05/18/18 05/18/18 05/18/18 Range/Units 21:11 21:11 21:11 RBC (4.50-5.90) mil/mm3 Hgb (13.0-17.0) gm/dL Hct (39.0-51.0) % RDW (11.6-17.2) % Plt Count (150-450) th/mm3 Major % (Auto) (0.0-8.0) % Platelet Estimate (Normal) Ovalocytes (None) O2 Saturation (90-100) % ABG pH (7.380-7.420) ABG pCO2 (38-42) mmHg Hemoglobin (12.0-16.0) G/DL Potassium (3.5-5.1) meq/L Random Glucose (74-106) mg/dL Calcium (8.5-10.1) mg/dL Phosphorus (2.5-4.9) mg/dL Magnesium (1.5-2.5) mg/dL Total Bilirubin 1.3 H (0.2-1.0) mg/dL Direct Bilirubin 0.4 H (0.0-0.2) mg/dL Indirect Bilirubin 0.9 H (0.0-0.8) mg/dL Total Creatine Kinase (39-308) U/L CK-MB (CK-2) (0.5-3.6) ng/mL Salicylates Less than 1.7 L (2.8-20.0) mg/dL Acetaminophen Less than 2.0 L (10.0-30.0) mcg/mL 05/18/18 05/18/18 05/18/18 Range/Units 21:11 21:11 22:51 RBC (4.50-5.90) mil/mm3 Hgb (13.0-17.0) gm/dL Hct (39.0-51.0) % RDW (11.6-17.2) % Plt Count (150-450) th/mm3 Major % (Auto) (0.0-8.0) % Platelet Estimate (Normal) Ovalocytes (None) O2 Saturation 89 L* (90-100) % ABG pH 7.47 H (7.380-7.420) ABG pCO2 35 L (38-42) mmHg Hemoglobin 10.2 L (12.0-16.0) G/DL Potassium 3.4 L (3.5-5.1) meq/L Random Glucose 112 H (74-106) mg/dL Calcium 8.1 L (8.5-10.1) mg/dL Phosphorus 1.8 L (2.5-4.9) mg/dL Magnesium 1.4 L (1.5-2.5) mg/dL Total Bilirubin 1.3 H (0.2-1.0) mg/dL Direct Bilirubin (0.0-0.2) mg/dL Indirect Bilirubin (0.0-0.8) mg/dL Total Creatine Kinase 493 H (39-308) U/L CK-MB (CK-2) 7.5 H (0.5-3.6) ng/mL Salicylates (2.8-20.0) mg/dL Acetaminophen (10.0-30.0) mcg/mL 05/19/18 05/19/18 05/19/18 Range/Units 03:30 03:30 03:30 RBC 3.18 L (4.50-5.90) mil/mm3 Hgb 10.4 L (13.0-17.0) gm/dL Hct 31.0 L (39.0-51.0) % RDW 19.0 H (11.6-17.2) % Plt Count 74 L D (150-450) th/mm3 Major % (Auto) 11.6 H (0.0-8.0) % Platelet Estimate Low L (Normal) Ovalocytes 1+ H (None) O2 Saturation (90-100) % ABG pH (7.380-7.420) ABG pCO2 (38-42) mmHg Hemoglobin (12.0-16.0) G/DL Potassium (3.5-5.1) meq/L Random Glucose (74-106) mg/dL Calcium 7.9 L (8.5-10.1) mg/dL Phosphorus 2.0 L (2.5-4.9) mg/dL Magnesium (1.5-2.5) mg/dL Total Bilirubin 1.4 H (0.2-1.0) mg/dL Direct Bilirubin (0.0-0.2) mg/dL Indirect Bilirubin (0.0-0.8) mg/dL Total Creatine Kinase (39-308) U/L CK-MB (CK-2) (0.5-3.6) ng/mL Salicylates (2.8-20.0) mg/dL Acetaminophen (10.0-30.0) mcg/mL Short CBC 05/19/18 Range/Units 03:30 WBC 5.8 (4.0-11.0) th/mm3 Hgb 10.4 L (13.0-17.0) gm/dL Hct 31.0 L (39.0-51.0) % Plt Count 74 L D (150-450) th/mm3 BMP 05/18/18 05/19/18 21:11 03:30 Sodium 137 140 Potassium 3.4 L 4.0 Chloride 98 104 Carbon Dioxide 23.9 24.1 BUN 8 7 Creatinine 0.80 0.83 Calcium 8.1 L 7.9 L Cardiac Enzymes 05/18/18 05/18/18 05/19/18 Range/Units 21:11 21:11 03:30 Total Creatine Kinase 493 H (39-308) U/L CK-MB (CK-2) 7.5 H (0.5-3.6) ng/mL Troponin I 0.03 0.03 (0.02-0.05) ng/mL Liver Function 05/18/18 05/18/18 05/19/18 Range/Units 21:11 21:11 03:30 Total Bilirubin 1.3 H 1.3 H 1.4 H (0.2-1.0) mg/dL Direct Bilirubin 0.4 H (0.0-0.2) mg/dL AST 33 35 31 (15-37) U/L ALT 13 13 13 (12-78) U/L Alkaline Phosphatase 65 66 61 (45-117) U/L Albumin 3.7 3.7 3.6 (3.4-5.0) g/dL <Roselia Rausch - 05/19/18 13:49> Abnormal lab results 05/18/18 05/18/18 Range/Units 10:30 10:30 RBC 3.82 L (4.50-5.90) mil/mm3 Hgb 12.3 L (13.0-17.0) gm/dL Hct 37.4 L (39.0-51.0) % RDW 18.8 H (11.6-17.2) % Plt Count 112 L (150-450) th/mm3 Major % (Auto) 12.4 H (0.0-8.0) % Sodium 135 L (136-145) meq/L Potassium 2.9 L* (3.5-5.1) meq/L Chloride 94 L (98-107) meq/L Carbon Dioxide 17.3 L (21.0-32.0) meq/L Anion Gap 24 H (5-15) meq/L Estimated GFR 57 L (>89) mL/min Random Glucose 109 H (74-106) mg/dL Calcium 8.4 L (8.5-10.1) mg/dL Magnesium 1.1 L (1.5-2.5) mg/dL Short CBC 05/18/18 Range/Units 10:30 WBC 6.4 (4.0-11.0) th/mm3 Hgb 12.3 L (13.0-17.0) gm/dL Hct 37.4 L (39.0-51.0) % Plt Count 112 L (150-450) th/mm3 BMP 05/18/18 10:30 Sodium 135 L Potassium 2.9 L* Chloride 94 L Carbon Dioxide 17.3 L BUN 9 Creatinine 1.26 Calcium 8.4 L <April Nelson - 05/18/18 15:01> - Imaging Impressions Head CT 05/18/18 10:55 CONCLUSION: 1. Small left anterior scalp hematoma without underlying bony fracture or acute intracranial abnormality. . <April Nelson G - 05/18/18 15:01> Caprini VTE Risk Assessment Caprini VTE Risk Assessment: Moderate/High Risk (score >= 2) <April Nelson G - 05/18/18 17:47> Caprini Risk Assessment Model: Point Value = 1 Point Value = 2 Point Value = 3 Point Value = 5 Age 41-60 Minor surgery BMI > 25 kg/m2 Swollen legs Varicose veins or History of unexplained or recurrent spontaneous Oral contraceptives or hormone replacement Sepsis (< 1 month) Serious lung disease, including pneumonia (< 1 month) Abnormal pulmonary function Acute myocardial infarction Congestive heart failure (< 1 month) History of inflammatory bowel disease Medical patient at bed rest Age 61-74 Arthroscopic surgery Major open surgery (> 45 min) Laparoscopic surgery (> 45 min) Malignancy Confined to bed (> 72 hours) Immobilizing plaster cast Central venous access Age >= 75 History of VTE Family history of VTE Factor V Leiden Prothrombin [id number] Lupus anticoagulant Anticardiolipin antibodies Elevated serum homocysteine Heparin-induced thrombocytopenia Other congenital or acquired thrombophilia Stroke (< 1 month) Elective arthroplasty Hip, pelvis, or leg fracture Acute spinal cord injury (< 1 month) <Roselia Rausch M - 05/19/18 13:49> Point Value = 1 Point Value = 2 Point Value = 3 Point Value = 5 Age 41-60 Minor surgery BMI > 25 kg/m2 Swollen legs Varicose veins or History of unexplained or recurrent spontaneous Oral contraceptives or hormone replacement Sepsis (< 1 month) Serious lung disease, including pneumonia (< 1 month) Abnormal pulmonary function Acute myocardial infarction Congestive heart failure (< 1 month) History of inflammatory bowel disease Medical patient at bed rest Age 61-74 Arthroscopic surgery Major open surgery (> 45 min) Laparoscopic surgery (> 45 min) Malignancy Confined to bed (> 72 hours) Immobilizing plaster cast Central venous access Age >= 75 History of VTE Family history of VTE Factor V Leiden Prothrombin [id number] Lupus anticoagulant Anticardiolipin antibodies Elevated serum homocysteine Heparin-induced thrombocytopenia Other congenital or acquired thrombophilia Stroke (< 1 month) Elective arthroplasty Hip, pelvis, or leg fracture Acute spinal cord injury (< 1 month) <April Nelson - 05/18/18 15:01> Prophylaxis Regimen: Total Risk Factor Score Risk Level Prophylaxis Regimen 0-1 Low Early ambulation 2 Moderate Order ONE of the following: *Sequential Compression Device (SCD) *Heparin 5000 units SQ BID 3-4 Higher Order ONE of the following medications: *Heparin 5000 units SQ TID *Enoxaparin/Lovenox 40 mg SQ daily (WT < 150 kg, CrCl > 30 mL/min) *Enoxaparin/Lovenox 30 mg SQ daily (WT < 150 kg, CrCl > 10-29 mL/min) *Enoxaparin/Lovenox 30 mg SQ BID (WT < 150 kg, CrCl > 30 mL/min) AND/OR *Sequential Compression Device (SCD) 5 or more Highest Order ONE of the following medications: *Heparin 5000 units SQ TID (Preferred with Epidurals) *Enoxaparin/Lovenox 40 mg SQ daily (WT < 150 kg, CrCl > 30 mL/min) *Enoxaparin/Lovenox 30 mg SQ daily (WT < 150 kg, CrCl > 10-29 mL/min) *Enoxaparin/Lovenox 30 mg SQ BID (WT < 150 kg, CrCl > 30 mL/min) AND *Sequential Compression Device (SCD) <Roselia Rausch - 05/19/18 13:49> Total Risk Factor Score Risk Level Prophylaxis Regimen 0-1 Low Early ambulation 2 Moderate Order ONE of the following: *Sequential Compression Device (SCD) *Heparin 5000 units SQ BID 3-4 Higher Order ONE of the following medications: *Heparin 5000 units SQ TID *Enoxaparin/Lovenox 40 mg SQ daily (WT < 150 kg, CrCl > 30 mL/min) *Enoxaparin/Lovenox 30 mg SQ daily (WT < 150 kg, CrCl > 10-29 mL/min) *Enoxaparin/Lovenox 30 mg SQ BID (WT < 150 kg, CrCl > 30 mL/min) AND/OR *Sequential Compression Device (SCD) 5 or more Highest Order ONE of the following medications: *Heparin 5000 units SQ TID (Preferred with Epidurals) *Enoxaparin/Lovenox 40 mg SQ daily (WT < 150 kg, CrCl > 30 mL/min) *Enoxaparin/Lovenox 30 mg SQ daily (WT < 150 kg, CrCl > 10-29 mL/min) *Enoxaparin/Lovenox 30 mg SQ BID (WT < 150 kg, CrCl > 30 mL/min) AND *Sequential Compression Device (SCD) <April Nelson - 05/18/18 15:01> Assessment and Plan - Assessment (1) Alcohol withdrawal Code(s): F10.239 - Alcohol dependence with withdrawal, unspecified Status: Acute (2) Seizure Code(s): R56.9 - Unspecified convulsions Status: Acute (3) Atrial fibrillation with RVR Code(s): I48.91 - Unspecified atrial fibrillation Status: Acute (4) Hypokalemia Code(s): E87.6 - Hypokalemia Status: Acute (5) Hypomagnesemia Code(s): E83.42 - Hypomagnesemia Status: Acute (6) Normocytic anemia Code(s): D64.9 - Anemia, unspecified Status: Chronic (7) Nutrition, metabolism, and development symptoms Code(s): R63.8 - Other symptoms and signs concerning food and fluid intake Status: Acute (8) DVT prophylaxis Status: Acute <Roselia Rausch - 05/19/18 13:49> (1) Alcohol withdrawal Code(s): F10.239 - Alcohol dependence with withdrawal, unspecified Status: Acute Plan: Patient with long history of alcoholism. States that his last drink was 2 days ago. Admitted due to seizure while in ED ED interventions: -CIWA protocol initiated -5 mg total of Ativan given -Fosphenytoin 1000 mg IV given Highest CIWA score while in the ED was 23 Rally pack IV Critical care consulted due to severity of illness, appreciate recommendations -Spoke to Dr. Leong (2) Seizure Code(s): R56.9 - Unspecified convulsions Status: Acute Plan: See plan above (3) Atrial fibrillation with RVR Code(s): I48.91 - Unspecified atrial fibrillation Status: Acute Plan: Pt found to be in A. fib with RVR while in ED. Per chart review, it seems that pt has a hx of this. EKG shows atrial fibrillation with heart rate of 161 -Cardizem drip ordered (4) Hypokalemia Code(s): E87.6 - Hypokalemia Status: Acute Plan: Potassium on admission was 2.9 -Given KCl 40 mEq while in ED -Electrolyte protocol initiated due to patient being taken to the ICU (5) Hypomagnesemia Code(s): E83.42 - Hypomagnesemia Status: Acute Plan: Magnesium was 1.1 upon admission -Electrolyte protocol was initiated due to patient being admitted to ICU (6) Normocytic anemia Code(s): D64.9 - Anemia, unspecified Status: Chronic Plan: Hemoglobin was 12.3 with MCV of 97.9. It does not seem to have a history of CKD. May be due to chronic alcoholism; however, MCV does not reflect this. -Continue to monitor -Transfuse if falls below 7.0 (7) Nutrition, metabolism, and development symptoms Code(s): R63.8 - Other symptoms and signs concerning food and fluid intake Status: Acute Plan: Fluids: NS @ 120ml/hr Electrolytes: monitor and replete as needed, see above Nutrition: NPO (8) DVT prophylaxis Status: Acute Plan: DVT Prophylaxis: Early ambulation. bilateral SCDs <April Nelson - 05/18/18 18:16> - Assessment and Plan 68-year-old male with PMH of per chart review A fib, HTN, and GERD admitted for alcohol withdrawal seizures. Critical care consulted to due to severity of disease. <April Nelson 05/18/18 18:19> Discussed Condition With: Dr. Rausch, Dr. Johnson, Dr. Man, Dr. Leong <April Nelson - 05/18/18 17:47> Discharge Planning: Pending clinical course <April Nelson 05/18/18 18:10> - Attending Attestation The exam, history, and the medical decision-making described in the above note were completed with the assistance of the resident physician. I reviewed and agree with the findings presented. I attest that I had a [id number] encounter with the patient on the same day, and personally performed and documented my assessment and findings in the medical record. Patient seen on admission he was completely unresponsive he had had several seizures. He required intensive care admission as he is a complicated patient and his heart rate was even up to the 190s unfortunately DTs can be fatal so he needs careful monitoring <Roselia Rausch - 05/19/18 13:49> <GoldonnaApril - Last Filed: 05/18/18 18:16> (1) Alcohol withdrawal Qualifiers: Complication of substance-induced condition: with unspecified complication Qualified Code(s): F10.239 - Alcohol dependence with withdrawal, unspecified <Roselia Rausch - Last Filed: 05/19/18 13:49> (1) Alcohol withdrawal Qualifiers: Complication of substance-induced condition: with unspecified complication Qualified Code(s): F10.239 - Alcohol dependence with withdrawal, unspecified <April Nelson - Last Filed: 05/18/18 18:16> (1) Alcohol withdrawal Qualifiers: Complication of substance-induced condition: with unspecified complication Qualified Code(s): F10.239 - Alcohol dependence with withdrawal, unspecified <Roselia Rausch - Last Filed: 05/19/18 13:49> (1) Alcohol withdrawal Qualifiers: Complication of substance-induced condition: with unspecified complication Qualified Code(s): F10.239 - Alcohol dependence with withdrawal, unspecified
[2018-05-18] MEDS ORDERED: Acetaminophen 325 MG Tablet PO PRN (15:11)
[2018-05-18] MEDS ORDERED: Potassium Phosphate 500 MG Soluble Tablet PO PRN ×2 (15:25)
[2018-05-18] MEDS ORDERED: Potassium Phosphate Inj 30 MMOL in Sodium Chlor 0.9% Inj 250 ML IV.SIG PRN (15:25)
[2018-05-18] MEDS ORDERED: Sodium Phosphate Inj 30 MMOL in Sodium Chlor 0.9% Inj 250 ML IV.SIG PRN (15:25)
[2018-05-18] MEDS ORDERED: Magnesium Oxide 400 MG Tablet PO PRN (15:25)
[2018-05-18] MEDS ORDERED: Magnesium Sulfate Inj 4 GM in Sodium Chlor 0.9% Inj 92 ML IV.SIG PRN (15:25)
[2018-05-18] MEDS ORDERED: Potassium Chloride 25 MEQ Effervescent Tablet PO PRN (15:25)
[2018-05-18] MEDS ORDERED: Potassium Chlor 40 mEq Premix 40 MEQ/100 ML PIGGYBACK IV.SIG PRN ×2 (15:25)
[2018-05-18] MEDS ORDERED: Dexmedetomidine Inj 200 MCG in Sodium Chlor 0.9% Inj 48 ML IV.CONT PRN (17:05)
[2018-05-18] MEDS: Sod Chloride 0.9% Inj 1,000 ML IV.CONT SCH (17:21)
--- NOTE | 2018-05-18 17:25 | P.CONCC ---
History of Present Illness Consult date: 05/18/18 Requesting Physician: April Nelson Reason for Consult: EtOH withdrawal, seizure Primary Care Provider: UNKNOWN Chief Complaint: fall History of Present Illness: 68-year-old gentleman with past medical history significant for chronic alcoholism and hypertension, now brought to the emergency room after episode of syncope. History is mostly obtained from ED chart since patient is not able to provide it. Per EMS, patient had a witnessed syncope, fell and hit his head. On ED presentation patient was awake and alert and complained of dizziness. During the ED stay, patient became increasingly confused, and he had one episode of generalized tonic-clonic seizure which lasted 30 seconds to 1 minute for which she was administered Lorazepam. In addition, he was given 1 L of saline and he was loaded with fosphenytoin. Patient was admitted under family medicine service to the ICU and [facility] was consulted to help with ICU care. Of note, during ED stay patient also developed A. fib with RVR for which he is currently being started on Cardizem drip. Patient was seen in ED, he is awake, confused, not able to provide significant history. He denies any headache, visual disturbances, nausea or vomiting, chest pain or shortness of breath. He does not know when was his last drink. Review of Systems other (Per HPI. Patient is not able to provide a full review of systems) PMFSH - History History Provided By: Patient - Medical History Medical History: Medical History (Last Updated 05/18/18 @ 17:17 by Judah Leong MD) Alcohol abuse Hypertension - Tobacco History Second Hand Smoke Exposure: No Tobacco Use In Past 30 Days: No Smoking Status: Never smoker - Alcohol History How Often Do You Have a Drink Containing Alcohol: 4 or more times a week - Substance Use History Substance History: Unable to Obtain - Travel History Recent Travel in the [place] Within the Last 8 Weeks: No Recent Travel Out of the Country Within the Last 8 Weeks: No - Immunization History Tetanus Immunization: Unsure Medications and Allergies Active Medications: Active Medications Acetaminophen (Tylenol) 650 mg PO Q4H PRN PRN Reason: Temp > 100.4 Chlorhexidine Gluconate (Chlorhexidine 2% Cloth) 3 pack TOPICAL DAILY@0400 [facility] Stop: 05/24/18 03:59 Chlorhexidine Gluconate (Chlorhexidine 2% Cloth) 3 pack TOPICAL DAILY@0400 PRN PRN Reason: Extra cloth needed Stop: 05/24/18 03:59 Haloperidol Lactate (Haldol Inj) 1 mg IV.PUSH Q15M PRN PRN Reason: for severe agitation Sodium Chloride (Ns Inj) 1,000 mls @ 125 mls/hr IV.CONT .Q8H [facility]RER[facility] Last Admin: 05/18/18 14:02 Dose: 125 mls/hr Sodium Chloride (Ns Inj) 1,000 mls @ 120 mls/hr IV.CONT .Q8H20M [facility] Magnesium Sulfate Inj 4 gm/ (Sodium Chloride) 100 mls @ 50 mls/hr IV.SIG UNSCH PRN PRN Reason: For Magnesium 0.9 - 1.1 mg/dL Magnesium Sulfate Inj 2 gm/ (Sodium Chloride) 100 mls @ 50 mls/hr IV.SIG UNSCH PRN PRN Reason: For Magnesium 1.2 - 1.6 mg/dL Multivitamins 10 ml/ Thiamine HCl 100 mg/ Folic Acid 1 mg/Sodium Chloride 511.2 mls @ 127.8 mls/hr IV.SIG DAILY [facility] Potassium Chloride (Kcl 40 Meq Premix Inj) 40 meq in 100 mls @ 25 mls/hr IV.SIG Q2H PRN PRN Reason: For Potassium 2.8 - 3.2 mEq/L Potassium Chloride (Kcl 20 Meq Premix Inj) 20 meq in 100 mls @ 50 mls/hr IV.SIG Q2H PRN PRN Reason: For Potassium 3.3 - 3.5 mEq/L Potassium Chloride (Kcl 20 Meq Premix Inj) 20 meq in 100 mls @ 50 mls/hr IV.SIG Q2H PRN PRN Reason: For Potassium 2.8 - 3.2 mEq/L Potassium Phosphate 30 mmol/ (Sodium Chloride) 260 mls @ 42 mls/hr IV.SIG UNSCH PRN PRN Reason: SEE LABEL COMMENTS Sodium Phosphate 30 mmol/ (Sodium Chloride) 260 mls @ 42 mls/hr IV.SIG UNSCH PRN PRN Reason: For Phosphorus < 2.5 mg/dL Potassium Chloride (Kcl 40 Meq Premix Inj) 40 meq in 100 mls @ 25 mls/hr IV.SIG UNSCH PRN PRN Reason: For Potassium 3.3 - 3.5 mEq/L Diltiazem HCl 125 mg/ Sodium (Chloride) 125 mls @ 5 mls/hr IV.CONT TITRATE PRN ; Protocol PRN Reason: Per Protocol Dexmedetomidine HCl 200 mcg/ (Sodium Chloride) 50 mls @ 3.99 mls/hr IV.CONT TITRATE PRN; Protocol PRN Reason: Per Protocol Lorazepam (Ativan Inj) 1 mg IV.PUSH Q4H PRN PRN Reason: for CIWA 8-10 Last Admin: 05/18/18 14:51 Dose: 1 mg Lorazepam (Ativan Inj) 2 mg IV.PUSH Q1H PRN PRN Reason: for CIWA 15-20 Lorazepam (Ativan Inj) 2 mg IV.PUSH Q2H PRN PRN Reason: for CIWA 11-14 Lorazepam (Ativan) 1 mg PO Q4H PRN PRN Reason: for CIWA 8-10 Lorazepam (Ativan) 2 mg PO Q2H PRN PRN Reason: for CIWA 11-14 Lorazepam (Ativan Inj) 2 mg IV.PUSH Q15M PRN PRN Reason: for CIWA > 20 Last Admin: 05/18/18 16:21 Dose: 2 mg Magnesium Oxide (Mag-Ox) 800 mg PO UNSCH PRN PRN Reason: For Magnesium 1.2 - 1.6 mg/dL Ondansetron HCl (Zofran Inj) 4 mg IV.PUSH Q6H PRN PRN Reason: NAUSEA OR VOMITING Potassium Bicarb/Potassium Chloride (K-Lyte Cl Eff) 50 meq PO UNSCH PRN PRN Reason: For Potassium 3.3 - 3.5 mEq/L Potassium Phosphate (K-Phos Original) 2,000 mg PO Q4H PRN PRN Reason: Phosphorus Less Than 2.5 mg/dL Potassium Phosphate (K-Phos Original) 2,000 mg PO UNSCH PRN PRN Reason: SEE LABEL COMMENTS Sodium Chloride (Ns Flush) 2 ml IV.FLUSH PRN PRN PRN Reason: FLUSH AFTER USING IV ACCESS Allergies Allergy/AdvReac Type Severity Reaction Status Date / Time penicillin G Allergy Severe ITCHINESS Verified 05/18/18 13:04 Home Medications Medication Instructions Recorded Confirmed Type Unable to Obtain Home Meds 04/25/18 04/25/18 History Physical Exam Vital signs: Vital Signs 05/18/18 10:37 05/18/18 13:51 05/18/18 14:48 Temperature 98.0 F Pulse Rate 85 91 H 130 H Respiratory Rate 18 17 17 Blood Pressure 141/78 H 175/88 H 175/88 H Pulse Oximetry 97 100 100 05/18/18 15:27 05/18/18 15:43 05/18/18 16:27 Temperature Pulse Rate 150 H 137 H 118 H Respiratory Rate 19 18 18 Blood Pressure 150/101 H 160/83 H 160/83 H Pulse Oximetry 100 100 96 Intake & Output 05/17/18 05/18/18 05/18/18 18:59 06:59 18:59 Weight 79.832 kg Narrative: General - elderly gentleman, disheveled, awake, confused, ill-appearing HEENT - pupils equal, reactive, sclerae anicteric, neck supple, no nuchal rigidity, neck veins not distended, no carotid bruit, dry mucous membranes CV - regular S1, S2, systolic ejection murmur IV/ at the apex and left sternal border Chest - clear b/l, good air entry, no wheezes Abdomen - soft, non-tender, non-distended, BS present, no hepatomegaly, no splenomegaly Skin - no rashes, no cyanosis Extremities - warm and well perfused, no edema, + peripheral pulses, no clubbing Neuro - awake, confused, following some commands, moves all extremities, tremor at rest - Urinary Catheter Management Condom Cath placed during this visit: no Assessment and Plan - Assessment and Plan Plan: 1. Acute encephalopathy 2. Alcohol withdrawal 3. Generalized tonic-clonic seizure secondary to above 4. Severe hypomagnesemia 5. Hypokalemia 6. Mild JEAN-PAUL 7. A. fib with RVR at times 8. Anion gap metabolic acidosis 1. Admit to ICU 2. CIWA protocol in place 3. Start Precedex drip. Would hold Cardizem drip for now to avoid hypotension and bradycardia and I believe once the alcohol withdrawal is better controlled and electrolytes are repleted his heart rate will be better controlled 4. Start Keppra 500 twice daily 5. IV hydration 6. Replete potassium and magnesium and check phosphorus 7. Check lactic acid, salicylate and acetaminophen level 8. ABG 9. Aspiration and seizure precautions 10. N.p.o. for now 11. GI prophylaxis with famotidine 12. DVT prophylaxis with Lovenox and SCDs 13. Check CPK and serum osm (measured serum osm 279) 14. Repeat lytes at 11 PM No family present at bedside. Thank you for the consult. We will follow along.
[2018-05-18] MEDS: Potassium Chlor 20 mEq Premix 20 MEQ/100 ML PIGGYBACK IV.SIG PRN ×2 (17:31→22:24)
[2018-05-18] MEDS: Multivitamin Inj 10 ML, Thiamine Inj 100 MG, Folic Acid Inj 1 MG in Sodium Chlor 0.9% I... IV.SIG SCH (19:30)
[2018-05-18 21:43] LABS: Albumin 3.7 g/dL (3.4-5.0); Anion Gap 15 meq/L (5-15); Aspartate Aminotransferase 35 U/L (15-37); Blood Urea Nitrogen 8 mg/dL (7-18); Calcium 8.1 mg/dL (8.5-10.1); Carbon Dioxide 23.9 meq/L (21.0-32.0); Chloride 98 meq/L (98-107); Glomerular Filtration Rate Greater Than 89 mL/min (>89); Glucose,Random 112 mg/dL (74-106); Magnesium 1.4 mg/dL (1.5-2.5); Potassium 3.4 meq/L (3.5-5.1); Sodium 137 meq/L (136-145)
[2018-05-18 21:44] LABS: Alanine Aminotransferase 13 U/L (12-78); Phosphorus 1.8 mg/dL (2.5-4.9)
[2018-05-18 21:45] LABS: Albumin 3.7 g/dL (3.4-5.0)
[2018-05-18 21:47] LABS: Total Protein 6.7 g/dL (6.4-8.2)
[2018-05-18 21:48] LABS: Alkaline Phosphatase 66 U/L (45-117); Total Protein 6.8 g/dL (6.4-8.2); Troponin I 0.03 ng/mL (0.02-0.05)
[2018-05-18 22:00] LABS: CKMB Percent 1.5 % (0.0-4.0); Creatine Kinase MB 7.5 ng/mL (0.5-3.6)
[2018-05-18] MEDS ORDERED: Dexmedetomidine Inj 1,000 MCG in Sodium Chlor 0.9% Inj 240 ML IV.CONT PRN (22:38)
[2018-05-18 23:10] LABS: ABG Base Excess 1.6 mmol/L (-2-2); ABG PCO2 35 mmHg (38-42); ABG PO2 62 mmHG (61-120)
[2018-05-19] MEDS: Sod Chloride 0.9% Inj 1,000 ML IV.CONT SCH ×3 (00:42→07:35)
[2018-05-19] MEDS: Potassium Chlor 20 mEq Premix 20 MEQ/100 ML PIGGYBACK IV.SIG PRN ×2 (00:48→03:59)
[2018-05-19] MEDS ORDERED: Chlorhexidine Gluconate 2% 1 Pack (2 Cloths) TOPICAL PRN (04:00)
[2018-05-19] MEDS: Chlorhexidine Gluconate 2% 1 Pack (2 Cloths) TOPICAL SCH (04:00)
[2018-05-19 07:16] LABS: Magnesium 1.7 mg/dL (1.5-2.5)
[2018-05-19 07:21] LABS: Baso # (Auto) 0.1 th/mm3 (0.0-0.2); Baso % (Auto) 1.2 % (0.0-2.0); Eos # (Auto) 0.1 th/mm3 (0.0-0.4); Eos % (Auto) 0.9 % (0.0-4.0); Hemoglobin 10.4 gm/dL (13.0-17.0); Lymph # (Auto) 1.7 th/mm3 (1.0-4.8); Lymph % (Auto) 28.7 % (9.0-44.0); Mean Corpuscular HGB Conc 33.6 % (32.0-36.0); Mean Corpuscular Hemoglobin 32.7 pg (27.0-34.0); Mean Corpuscular Volume 97.4 fL (80.0-100.0); Mean Platelet Volume 9.3 fL (7.0-11.0); Mono # (Auto) 0.7 th/mm3 (0.0-0.9); Mono % (Auto) 11.6 % (0.0-8.0); Neut # (Auto) 3.3 th/mm3 (1.8-7.7); Neut % (Auto) 57.6 % (16.0-70.0); Platelet Count 74 th/mm3 (150-450); Red Blood Count 3.18 mil/mm3 (4.50-5.90); White Blood Count 5.8 th/mm3 (4.0-11.0)
[2018-05-19 07:58] LABS: Alanine Aminotransferase 13 U/L (12-78); Albumin 3.6 g/dL (3.4-5.0); Anion Gap 12 meq/L (5-15); Aspartate Aminotransferase 31 U/L (15-37); Blood Urea Nitrogen 7 mg/dL (7-18); Calcium 7.9 mg/dL (8.5-10.1); Carbon Dioxide 24.1 meq/L (21.0-32.0); Chloride 104 meq/L (98-107); Glomerular Filtration Rate Greater Than 89 mL/min (>89); Glucose,Random 78 mg/dL (74-106); Sodium 140 meq/L (136-145)
[2018-05-19 08:00] LABS: Alkaline Phosphatase 61 U/L (45-117); Total Protein 6.6 g/dL (6.4-8.2)
[2018-05-19] MEDS ORDERED: Magnesium Sulfate Inj 2 GM in Sodium Chlor 0.9% Inj 96 ML IV.SIG ONE (08:00)
[2018-05-19 08:41] LABS: Ovalocytes 1+; Platelet Morphology Normal (Normal)
--- NOTE | 2018-05-19 08:46 | P.HPFP ---
History of Present Illness Primary Care Physician: UNKNOWN Chief Complaint: fall History of Present Illness: Mr. Ulrich is a 68yo white male with PMH of per chart review A fib, HTN, and GERD presenting to the ED after a seizure. Pt unable to answer any questions and was incoherent when he spoke. Per ED nursing staff, he was able to give some history initially. He stated that he was getting dressed at his home and then remembers waking up in the ED. His last drink was 2 days ago and he has been trying to quit alcohol. They state per witness report that he was walking and then fell. No tonic-clonic activity. He was taken to the ED where he had another seizure and was admitted. This am he is stable in the [facility] as far as no seizure activity. He has become bradycardic. He had a fib at a rate up into the 190s in the ED and was started on a cardizem drip but now is very bradycardic into the low 40s. His sedation was stopped because of the bradycardia. He was still sedated this morning but would open his eyes when his shoulder was shaken gently. He had no tremors or signs of alcohol withdrawal this morning. - Diagnosis (1) Alcohol withdrawal (2) Seizure (3) Atrial fibrillation with RVR (4) Hypokalemia (5) Hypomagnesemia (6) Normocytic anemia (7) Nutrition, metabolism, and development symptoms (8) DVT prophylaxis Inpatient Certification: I certify that the inpatient services were ordered in accordance with Medicare regulations governing the order. This includes certification that hospital inpatient services are reasonable and necessary and in the case of services not specified as inpatient-only under 42 CFR 419.22(n), that they are appropriately provided as inpatient services in accordance to with the 2-midnight benchmark under 43 CFR 412.3(e) Estimated Total Length of Stay (Days): 5 Plans for Post Hospital Care: Not yet determined Review of Systems unobtainable due to mental status PMFSH - History History Provided By: Patient - Medical History Medical History: Medical History (Last Updated 05/18/18 @ 17:17 by Judah Leong MD) Alcohol abuse Hypertension - Tobacco History Second Hand Smoke Exposure: No Tobacco Use In Past 30 Days: No Smoking Status: Never smoker - Alcohol History How Often Do You Have a Drink Containing Alcohol: 4 or more times a week - Substance Use History Substance History: Active Abuse - Travel History Recent Travel in the [place] Within the Last 8 Weeks: No Recent Travel Out of the Country Within the Last 8 Weeks: No - Immunization History Tetanus Immunization: Unsure Medications and Allergies Active Medications: Active Medications Acetaminophen (Tylenol) 650 mg PO Q4H PRN PRN Reason: Temp > 100.4 Last Admin: 05/18/18 20:21 Dose: 650 mg Chlorhexidine Gluconate (Chlorhexidine 2% Cloth) 3 pack TOPICAL DAILY@0400 [facility] Stop: 05/24/18 03:59 Last Admin: 05/19/18 04:00 Dose: 3 pack Chlorhexidine Gluconate (Chlorhexidine 2% Cloth) 3 pack TOPICAL DAILY@0400 PRN PRN Reason: Extra cloth needed Stop: 05/24/18 03:59 Haloperidol Lactate (Haldol Inj) 1 mg IV.PUSH Q15M PRN PRN Reason: for severe agitation Sodium Chloride (Ns Inj) 1,000 mls @ 120 mls/hr IV.CONT .Q8H20M [facility] Last Admin: 05/19/18 07:35 Dose: Not Given Magnesium Sulfate Inj 4 gm/ (Sodium Chloride) 100 mls @ 50 mls/hr IV.SIG UNSCH PRN PRN Reason: For Magnesium 0.9 - 1.1 mg/dL Last Infusion: 05/18/18 22:26 Dose: Infused Magnesium Sulfate Inj 2 gm/ (Sodium Chloride) 100 mls @ 50 mls/hr IV.SIG UNSCH PRN PRN Reason: For Magnesium 1.2 - 1.6 mg/dL Multivitamins 10 ml/ Thiamine HCl 100 mg/ Folic Acid 1 mg/Sodium Chloride 511.2 mls @ 127.8 mls/hr IV.SIG DAILY [facility] Last Infusion: 05/18/18 23:30 Dose: Infused Potassium Chloride (Kcl 40 Meq Premix Inj) 40 meq in 100 mls @ 25 mls/hr IV.SIG Q2H PRN PRN Reason: For Potassium 2.8 - 3.2 mEq/L Potassium Chloride (Kcl 20 Meq Premix Inj) 20 meq in 100 mls @ 50 mls/hr IV.SIG Q2H PRN PRN Reason: For Potassium 3.3 - 3.5 mEq/L Last Infusion: 05/19/18 00:48 Dose: Infused Potassium Chloride (Kcl 20 Meq Premix Inj) 20 meq in 100 mls @ 50 mls/hr IV.SIG Q2H PRN PRN Reason: For Potassium 2.8 - 3.2 mEq/L Last Admin: 05/19/18 03:59 Dose: 25 mls/hr Potassium Phosphate 30 mmol/ (Sodium Chloride) 260 mls @ 42 mls/hr IV.SIG UNSCH PRN PRN Reason: SEE LABEL COMMENTS Sodium Phosphate 30 mmol/ (Sodium Chloride) 260 mls @ 42 mls/hr IV.SIG UNSCH PRN PRN Reason: For Phosphorus < 2.5 mg/dL Potassium Chloride (Kcl 40 Meq Premix Inj) 40 meq in 100 mls @ 25 mls/hr IV.SIG UNSCH PRN PRN Reason: For Potassium 3.3 - 3.5 mEq/L Diltiazem HCl 125 mg/ Sodium (Chloride) 125 mls @ 5 mls/hr IV.CONT TITRATE PRN ; Protocol PRN Reason: Per Protocol Lactated Ringer's (Lr 1000 Ml Inj) 1,000 mls @ 125 mls/hr IV.CONT .Q8H [facility] Last Admin: 05/19/18 04:43 Dose: 125 mls/hr Levetiracetam 500 mg/ Sodium (Chloride) 105 mls @ 400 mls/hr IV.SIG Q12H [facility] Last Infusion: 05/19/18 06:40 Dose: Infused Dexmedetomidine HCl 1,000 mcg/ (Sodium Chloride) 250 mls @ 3.99 mls/hr IV.CONT TITRATE PRN; Protocol PRN Reason: Per Protocol Last Titration: 05/19/18 07:37 Dose: 0 mcg/kg/hr, 0 mls/hr Magnesium Sulfate Inj 2 gm/ (Sodium Chloride) 100 mls @ 50 mls/hr IV.SIG ONCE ONE Stop: 05/19/18 09:59 Lorazepam (Ativan Inj) 1 mg IV.PUSH Q4H PRN PRN Reason: for CIWA 8-10 Last Admin: 05/18/18 14:51 Dose: 1 mg Lorazepam (Ativan Inj) 2 mg IV.PUSH Q1H PRN PRN Reason: for CIWA 15-20 Lorazepam (Ativan Inj) 2 mg IV.PUSH Q2H PRN PRN Reason: for CIWA 11-14 Lorazepam (Ativan) 1 mg PO Q4H PRN PRN Reason: for CIWA 8-10 Lorazepam (Ativan) 2 mg PO Q2H PRN PRN Reason: for CIWA 11-14 Lorazepam (Ativan Inj) 2 mg IV.PUSH Q15M PRN PRN Reason: for CIWA > 20 Last Admin: 05/18/18 16:21 Dose: 2 mg Magnesium Oxide (Mag-Ox) 800 mg PO UNSCH PRN PRN Reason: For Magnesium 1.2 - 1.6 mg/dL Ondansetron HCl (Zofran Inj) 4 mg IV.PUSH Q6H PRN PRN Reason: NAUSEA OR VOMITING Potassium Bicarb/Potassium Chloride (K-Lyte Cl Eff) 50 meq PO UNSCH PRN PRN Reason: For Potassium 3.3 - 3.5 mEq/L Potassium Phosphate (K-Phos Original) 2,000 mg PO Q4H PRN PRN Reason: Phosphorus Less Than 2.5 mg/dL Potassium Phosphate (K-Phos Original) 2,000 mg PO UNSCH PRN PRN Reason: SEE LABEL COMMENTS Sodium Chloride (Ns Flush) 2 ml IV.FLUSH PRN PRN PRN Reason: FLUSH AFTER USING IV ACCESS Allergies Allergy/AdvReac Type Severity Reaction Status Date / Time penicillin G Allergy Severe ITCHINESS Verified 05/18/18 13:04 Home Medications Medication Instructions Recorded Confirmed Type Unable to Obtain Home Meds 04/25/18 04/25/18 History Exam Vital signs: Vital Signs 05/18/18 10:37 05/18/18 13:51 05/18/18 14:48 Temperature 98.0 F Pulse Rate 85 91 H 130 H Respiratory Rate 18 17 17 Blood Pressure 141/78 H 175/88 H 175/88 H Pulse Oximetry 97 100 100 05/18/18 15:27 05/18/18 15:43 05/18/18 16:27 Temperature Pulse Rate 150 H 137 H 118 H Respiratory Rate 19 18 18 Blood Pressure 150/101 H 160/83 H 160/83 H Pulse Oximetry 100 100 96 05/18/18 17:27 05/18/18 20:00 05/18/18 21:00 Temperature 102 F H 99.6 F Pulse Rate 112 H 93 H 86 Respiratory Rate 18 27 H 26 H Blood Pressure 153/75 H 157/85 H 134/79 Pulse Oximetry 96 98 98 05/18/18 22:00 05/18/18 23:00 05/19/18 00:00 Temperature 99 F 99 F Pulse Rate 84 81 79 Respiratory Rate 28 H 26 H 26 H Blood Pressure 145/83 H 136/67 140/79 Pulse Oximetry 99 99 100 05/19/18 01:00 05/19/18 02:00 05/19/18 03:00 Temperature Pulse Rate 77 71 60 Respiratory Rate 24 24 24 Blood Pressure 133/83 115/68 124/77 Pulse Oximetry 100 100 100 05/19/18 04:00 05/19/18 05:00 05/19/18 06:00 Temperature 97.6 F Pulse Rate 60 60 56 L Respiratory Rate 24 16 27 H Blood Pressure 112/71 122/76 103/67 Pulse Oximetry 97 100 96 05/19/18 08:45 Temperature Pulse Rate Respiratory Rate Blood Pressure Pulse Oximetry 100 Intake & Output 05/18/18 05/19/18 05/19/18 18:59 06:59 18:59 Intake Total 3121.2 / 3121.2 2069 Output Total 100 / 100 Balance 3021.2 / 3021.2 2069 Weight 79.832 kg 83.5 kg Intake: IV 3121.2 / 3121.2 2069 Precedex Inj 200 MCG In NS Inj 50 / 50 48 ML @ 0.2 MCG/KG/HR 3.99 mls/ hr IV.CONT TITRATE PRN Rx#: [id number] LR 1000 mL Inj 1,000 ML @ 125 1000 / 1000 mls/hr IV.CONT .Q8H [facility] Rx#: [id number] NS Inj 1,000 ML @ 120 mls/hr IV 1000 / 1000 .CONT .Q8H20M [facility] Rx#:[id number] Magnesium Sulfate Inj 4 GM In 100 / 100 NS Inj 92 ML @ 50 mls/hr IV.SIG UNSCH PRN Rx#:[id number] MVI-12 Inj 10 ML Thiamine Inj 511.2 / 511.2 100 MG Folvite Inj 1 MG In NS Inj 500 ML @ 127.8 mls/hr IV. SIG DAILY [facility] Rx#:[id number] KCl 20 mEq Premix Inj 20 meq In 250 / 250 100 ml @ 50 mls/hr IV.SIG Q2H PRN Rx#:[id number] Keppra Inj 500 MG In NS Inj 100 210 / 210 ML @ 400 mls/hr IV.SIG Q12H [facility] Rx#:[id number] Output: Urine Amount (Catheter) 100 / 100 Condom 100 / 100 Other: # Voids 1 # Incontinent Voids 1 Weight On Admission 82.5 kg Narrative: GENERAL: This is a well-nourished, well-developed patient, sedated but easily arousable. Breathing well on his own CARDIOVASCULAR: Regular rate and rhythm without murmurs, gallops, or rubs. Chest with pectus excavatum of the lower rib cage RESPIRATORY: Clear to auscultation. Breath sounds equal bilaterally. No wheezes , rales, or rhonchi anteriorly. GASTROINTESTINAL: Abdomen soft, non-tender, nondistended. Normal active bowel sounds MUSCULOSKELETAL: Extremities without clubbing, cyanosis, or edema. NEURO: Moves all ext x4. No focal weaknesses. No current seizures or tremors Skin no obvious rashes or wounds no bruising or other problems Results - Labs Result diagrams: 05/19/18 03:30 05/19/18 03:30 Abnormal lab results 05/18/18 05/18/18 05/18/18 Range/Units 10:30 10:30 21:11 RBC 3.82 L (4.50-5.90) mil/mm3 Hgb 12.3 L (13.0-17.0) gm/dL Hct 37.4 L (39.0-51.0) % RDW 18.8 H (11.6-17.2) % Plt Count 112 L (150-450) th/mm3 [place] % (Auto) 12.4 H (0.0-8.0) % Platelet Estimate (Normal) Ovalocytes (None) O2 Saturation (90-100) % ABG pH (7.380-7.420) ABG pCO2 (38-42) mmHg Hemoglobin (12.0-16.0) G/DL Sodium 135 L (136-145) meq/L Potassium 2.9 L* (3.5-5.1) meq/L Chloride 94 L (98-107) meq/L Carbon Dioxide 17.3 L (21.0-32.0) meq/L Anion Gap 24 H (5-15) meq/L Estimated GFR 57 L (>89) mL/min Random Glucose 109 H (74-106) mg/dL Calcium 8.4 L (8.5-10.1) mg/dL Phosphorus (2.5-4.9) mg/dL Magnesium 1.1 L (1.5-2.5) mg/dL Total Bilirubin (0.2-1.0) mg/dL Direct Bilirubin (0.0-0.2) mg/dL Indirect Bilirubin (0.0-0.8) mg/dL Total Creatine Kinase (39-308) U/L CK-MB (CK-2) (0.5-3.6) ng/mL Salicylates (2.8-20.0) mg/dL Acetaminophen Less than 2.0 L (10.0-30.0) mcg/mL 05/18/18 05/18/18 05/18/18 Range/Units 21:11 21:11 21:11 RBC (4.50-5.90) mil/mm3 Hgb (13.0-17.0) gm/dL Hct (39.0-51.0) % RDW (11.6-17.2) % Plt Count (150-450) th/mm3 [place] % (Auto) (0.0-8.0) % Platelet Estimate (Normal) Ovalocytes (None) O2 Saturation (90-100) % ABG pH (7.380-7.420) ABG pCO2 (38-42) mmHg Hemoglobin (12.0-16.0) G/DL Sodium (136-145) meq/L Potassium (3.5-5.1) meq/L Chloride (98-107) meq/L Carbon Dioxide (21.0-32.0) meq/L Anion Gap (5-15) meq/L Estimated GFR (>89) mL/min Random Glucose (74-106) mg/dL Calcium (8.5-10.1) mg/dL Phosphorus (2.5-4.9) mg/dL Magnesium (1.5-2.5) mg/dL Total Bilirubin 1.3 H (0.2-1.0) mg/dL Direct Bilirubin 0.4 H (0.0-0.2) mg/dL Indirect Bilirubin 0.9 H (0.0-0.8) mg/dL Total Creatine Kinase 493 H (39-308) U/L CK-MB (CK-2) 7.5 H (0.5-3.6) ng/mL Salicylates Less than 1.7 L (2.8-20.0) mg/dL Acetaminophen (10.0-30.0) mcg/mL 05/18/18 05/18/18 05/19/18 Range/Units 21:11 22:51 03:30 RBC 3.18 L (4.50-5.90) mil/mm3 Hgb 10.4 L (13.0-17.0) gm/dL Hct 31.0 L (39.0-51.0) % RDW 19.0 H (11.6-17.2) % Plt Count 74 L D (150-450) th/mm3 [place] % (Auto) 11.6 H (0.0-8.0) % Platelet Estimate Low L (Normal) Ovalocytes 1+ H (None) O2 Saturation 89 L* (90-100) % ABG pH 7.47 H (7.380-7.420) ABG pCO2 35 L (38-42) mmHg Hemoglobin 10.2 L (12.0-16.0) G/DL Sodium (136-145) meq/L Potassium 3.4 L (3.5-5.1) meq/L Chloride (98-107) meq/L Carbon Dioxide (21.0-32.0) meq/L Anion Gap (5-15) meq/L Estimated GFR (>89) mL/min Random Glucose 112 H (74-106) mg/dL Calcium 8.1 L (8.5-10.1) mg/dL Phosphorus 1.8 L (2.5-4.9) mg/dL Magnesium 1.4 L (1.5-2.5) mg/dL Total Bilirubin 1.3 H (0.2-1.0) mg/dL Direct Bilirubin (0.0-0.2) mg/dL Indirect Bilirubin (0.0-0.8) mg/dL Total Creatine Kinase (39-308) U/L CK-MB (CK-2) (0.5-3.6) ng/mL Salicylates (2.8-20.0) mg/dL Acetaminophen (10.0-30.0) mcg/mL 05/19/18 05/19/18 Range/Units 03:30 03:30 RBC (4.50-5.90) mil/mm3 Hgb (13.0-17.0) gm/dL Hct (39.0-51.0) % RDW (11.6-17.2) % Plt Count (150-450) th/mm3 [place] % (Auto) (0.0-8.0) % Platelet Estimate (Normal) Ovalocytes (None) O2 Saturation (90-100) % ABG pH (7.380-7.420) ABG pCO2 (38-42) mmHg Hemoglobin (12.0-16.0) G/DL Sodium (136-145) meq/L Potassium (3.5-5.1) meq/L Chloride (98-107) meq/L Carbon Dioxide (21.0-32.0) meq/L Anion Gap (5-15) meq/L Estimated GFR (>89) mL/min Random Glucose (74-106) mg/dL Calcium 7.9 L (8.5-10.1) mg/dL Phosphorus 2.0 L (2.5-4.9) mg/dL Magnesium (1.5-2.5) mg/dL Total Bilirubin 1.4 H (0.2-1.0) mg/dL Direct Bilirubin (0.0-0.2) mg/dL Indirect Bilirubin (0.0-0.8) mg/dL Total Creatine Kinase (39-308) U/L CK-MB (CK-2) (0.5-3.6) ng/mL Salicylates (2.8-20.0) mg/dL Acetaminophen (10.0-30.0) mcg/mL Short CBC 05/18/18 05/19/18 Range/Units 10:30 03:30 WBC 6.4 5.8 (4.0-11.0) th/mm3 Hgb 12.3 L 10.4 L (13.0-17.0) gm/dL Hct 37.4 L 31.0 L (39.0-51.0) % Plt Count 112 L 74 L D (150-450) th/mm3 BMP 05/18/18 05/18/18 05/19/18 10:30 21:11 03:30 Sodium 135 L 137 140 Potassium 2.9 L* 3.4 L 4.0 Chloride 94 L 98 104 Carbon Dioxide 17.3 L 23.9 24.1 BUN 9 8 7 Creatinine 1.26 0.80 0.83 Calcium 8.4 L 8.1 L 7.9 L Cardiac Enzymes 05/18/18 05/18/18 05/19/18 Range/Units 21:11 21:11 03:30 Total Creatine Kinase 493 H (39-308) U/L CK-MB (CK-2) 7.5 H (0.5-3.6) ng/mL Troponin I 0.03 0.03 (0.02-0.05) ng/mL Liver Function 05/18/18 05/18/18 05/19/18 Range/Units 21:11 21:11 03:30 Total Bilirubin 1.3 H 1.3 H 1.4 H (0.2-1.0) mg/dL Direct Bilirubin 0.4 H (0.0-0.2) mg/dL AST 33 35 31 (15-37) U/L ALT 13 13 13 (12-78) U/L Alkaline Phosphatase 65 66 61 (45-117) U/L Albumin 3.7 3.7 3.6 (3.4-5.0) g/dL - Imaging Impressions Head CT 05/18/18 10:55 CONCLUSION: 1. Small left anterior scalp hematoma without underlying bony fracture or acute intracranial abnormality. . Caprini VTE Risk Assessment Caprini VTE Risk Assessment: Moderate/High Risk (score >= 2) Caprini Risk Assessment Model: Point Value = 1 Point Value = 2 Point Value = 3 Point Value = 5 Age 41-60 Minor surgery BMI > 25 kg/m2 Swollen legs Varicose veins or History of unexplained or recurrent spontaneous Oral contraceptives or hormone replacement Sepsis (< 1 month) Serious lung disease, including pneumonia (< 1 month) Abnormal pulmonary function Acute myocardial infarction Congestive heart failure (< 1 month) History of inflammatory bowel disease Medical patient at bed rest Age 61-74 Arthroscopic surgery Major open surgery (> 45 min) Laparoscopic surgery (> 45 min) Malignancy Confined to bed (> 72 hours) Immobilizing plaster cast Central venous access Age >= 75 History of VTE Family history of VTE Factor V Leiden Prothrombin [id number] Lupus anticoagulant Anticardiolipin antibodies Elevated serum homocysteine Heparin-induced thrombocytopenia Other congenital or acquired thrombophilia Stroke (< 1 month) Elective arthroplasty Hip, pelvis, or leg fracture Acute spinal cord injury (< 1 month) Prophylaxis Regimen: Total Risk Factor Score Risk Level Prophylaxis Regimen 0-1 Low Early ambulation 2 Moderate Order ONE of the following: *Sequential Compression Device (SCD) *Heparin 5000 units SQ BID 3-4 Higher Order ONE of the following medications: *Heparin 5000 units SQ TID *Enoxaparin/Lovenox 40 mg SQ daily (WT < 150 kg, CrCl > 30 mL/min) *Enoxaparin/Lovenox 30 mg SQ daily (WT < 150 kg, CrCl > 10-29 mL/min) *Enoxaparin/Lovenox 30 mg SQ BID (WT < 150 kg, CrCl > 30 mL/min) AND/OR *Sequential Compression Device (SCD) 5 or more Highest Order ONE of the following medications: *Heparin 5000 units SQ TID (Preferred with Epidurals) *Enoxaparin/Lovenox 40 mg SQ daily (WT < 150 kg, CrCl > 30 mL/min) *Enoxaparin/Lovenox 30 mg SQ daily (WT < 150 kg, CrCl > 10-29 mL/min) *Enoxaparin/Lovenox 30 mg SQ BID (WT < 150 kg, CrCl > 30 mL/min) AND *Sequential Compression Device (SCD) Assessment and Plan - Assessment (1) Alcohol withdrawal Code(s): F10.239 - Alcohol dependence with withdrawal, unspecified Status: Acute Plan: Patient with long history of alcoholism. States that his last drink was 2 days ago. Admitted due to seizure while in ED ED interventions: -CIWA protocol initiated -5 mg total of Ativan given early has had Precedex and other treatments since then -Fosphenytoin 1000 mg IV given now received Keppra Highest CIWA score while in the ED was 23 Rally pack IV Critical care consulted due to severity of illness, appreciate recommendations -Spoke to Dr. Leong (2) Seizure Code(s): R56.9 - Unspecified convulsions Status: Acute Plan: See plan above (3) Atrial fibrillation with RVR Code(s): I48.91 - Unspecified atrial fibrillation Status: Acute Plan: Pt found to be in A. fib with RVR while in ED. Per chart review, it seems that pt has a hx of this. EKG shows atrial fibrillation with heart rate of 161 on admission now he is bradycardic cardiology is consulted to determine if he has tachybradycardia and may need maker. -Cardizem drip ordered however this was stopped as he quickly became bradycardic. (4) Hypokalemia Code(s): E87.6 - Hypokalemia Status: Acute Plan: Potassium on admission was 2.9 -Given KCl 40 mEq while in ED -Electrolyte protocol initiated due to patient being taken to the ICU (5) Hypomagnesemia Code(s): E83.42 - Hypomagnesemia Status: Acute Plan: Magnesium was 1.1 upon admission -Electrolyte protocol was initiated due to patient being admitted to ICU (6) Normocytic anemia Code(s): D64.9 - Anemia, unspecified Status: Chronic Plan: Hemoglobin was 12.3 with MCV of 97.9. It does not seem to have a history of CKD. May be due to chronic alcoholism; however, MCV does not reflect this. -Continue to monitor -Transfuse if falls below 7.0 (7) Nutrition, metabolism, and development symptoms Code(s): R63.8 - Other symptoms and signs concerning food and fluid intake Status: Acute Plan: Fluids: NS @ 120ml/hr Electrolytes: monitor and replete as needed, see above Nutrition: NPO (8) DVT prophylaxis Status: Acute Plan: DVT Prophylaxis: Early ambulation. bilateral SCDs Unsure if he may need a surgical procedure like a pacemaker in the near future he should be started on anticoagulation if he ends up not needing any sort of intervention. - Assessment and Plan 68-year-old male with PMH of per chart review A fib, HTN, and GERD admitted for alcohol withdrawal seizures. Critical care consulted to due to severity of disease. H&P: Quality - VTE Deep Vein Thrombosis/Pulmonary Embolism Present on Admission: No (1) Alcohol withdrawal Qualifiers: Complication of substance-induced condition: with unspecified complication Qualified Code(s): F10.239 - Alcohol dependence with withdrawal, unspecified
[2018-05-19] MEDS ORDERED: Atropine Inj 1 MG/10 ML Syringe ONE (08:50)
--- NOTE | 2018-05-19 08:59 | P.PNCC ---
Subjective Subjective Remarks/Hospital Course: 68-year-old gentleman with past medical history significant for chronic alcoholism and hypertension, now brought to the emergency room after episode of syncope. History is mostly obtained from ED chart since patient is not able to provide it. Per EMS, patient had a witnessed syncope, fell and hit his head. On ED presentation patient was awake and alert and complained of dizziness. During the ED stay, patient became increasingly confused, and he had one episode of generalized tonic-clonic seizure which lasted 30 seconds to 1 minute for which she was administered Lorazepam. In addition, he was given 1 L of saline and he was loaded with fosphenytoin. Patient was admitted under family medicine service to the ICU and [facility] was consulted to help with ICU care. Of note, during ED stay patient also developed A. fib with RVR for which he is currently being started on Cardizem drip. Patient was seen in ED, he is awake, confused, not able to provide significant history. He denies any headache, visual disturbances, nausea or vomiting, chest pain or shortness of breath. He does not know when was his last drink. 05/19: Over the night patient's heart rate fluctuated between 30s-140s. He remains lethargic but arousable following some commands. Had one episode of fever up to 102 then afebrile. On dexmedetomidine 0.2. ROS -unobtainable due to patient's mental status Objective Vital Signs / I&O: Vital Signs 05/18/18 10:37 05/18/18 13:51 05/18/18 14:48 Temperature 98.0 F Pulse Rate 85 91 H 130 H Respiratory Rate 18 17 17 Blood Pressure 141/78 H 175/88 H 175/88 H Pulse Oximetry 97 100 100 05/18/18 15:27 05/18/18 15:43 05/18/18 16:27 Temperature Pulse Rate 150 H 137 H 118 H Respiratory Rate 19 18 18 Blood Pressure 150/101 H 160/83 H 160/83 H Pulse Oximetry 100 100 96 05/18/18 17:27 05/18/18 20:00 05/18/18 21:00 Temperature 102 F H 99.6 F Pulse Rate 112 H 93 H 86 Respiratory Rate 18 27 H 26 H Blood Pressure 153/75 H 157/85 H 134/79 Pulse Oximetry 96 98 98 05/18/18 22:00 05/18/18 23:00 05/19/18 00:00 Temperature 99 F 99 F Pulse Rate 84 81 79 Respiratory Rate 28 H 26 H 26 H Blood Pressure 145/83 H 136/67 140/79 Pulse Oximetry 99 99 100 05/19/18 01:00 05/19/18 02:00 05/19/18 03:00 Temperature Pulse Rate 77 71 60 Respiratory Rate 24 24 Blood Pressure 133/83 115/68 124/77 Pulse Oximetry 100 100 100 05/19/18 04:00 05/19/18 05:00 05/19/18 06:00 Temperature 97.6 F Pulse Rate 60 60 56 L Respiratory Rate 24 16 27 H Blood Pressure 112/71 122/76 103/67 Pulse Oximetry 97 100 96 05/19/18 08:45 Temperature Pulse Rate Respiratory Rate Blood Pressure Pulse Oximetry 100 Intake & Output 05/18/18 05/19/18 05/19/18 18:59 06:59 18:59 Intake Total 3121.2 / 3121.2 2069 Output Total 100 / 100 Balance 3021.2 / 3021.2 2069 Weight 79.832 kg 83.5 kg Intake: IV 3121.2 / 3121.2 2069 Precedex Inj 200 MCG In NS Inj 50 / 50 48 ML @ 0.2 MCG/KG/HR 3.99 mls/ hr IV.CONT TITRATE PRN Rx#: [id number] LR 1000 mL Inj 1,000 ML @ 125 1000 / 1000 mls/hr IV.CONT .Q8H CABRERA Rx#: [id number] NS Inj 1,000 ML @ 120 mls/hr IV 1000 / 1000 .CONT .Q8H20M CABRERA Rx#:[id number] Magnesium Sulfate Inj 4 GM In 100 / 100 NS Inj 92 ML @ 50 mls/hr IV.SIG UNSCH PRN Rx#:[id number] MVI-12 Inj 10 ML Thiamine Inj 511.2 / 511.2 100 MG Folvite Inj 1 MG In NS Inj 500 ML @ 127.8 mls/hr IV. SIG DAILY CABRERA Rx#:[id number] KCl 20 mEq Premix Inj 20 meq In 250 / 250 100 ml @ 50 mls/hr IV.SIG Q2H PRN Rx#:[id number] Keppra Inj 500 MG In NS Inj 100 210 / 210 ML @ 400 mls/hr IV.SIG Q12H CABRERA Rx#:[id number] Output: Urine Amount (Catheter) 100 / 100 Condom 100 / 100 Other: # Voids 1 # Incontinent Voids 1 Weight On Admission 82.5 kg Result Diagrams: 05/19/18 03:30 05/19/18 03:30 Objective Remarks: General - elderly gentleman, lethargic, easily arousable, ill-appearing HEENT - pupils are equal and reactive, sclerae are anicteric, neck is supple without rigidity, no JVD, no carotid bruit, dry mucous membranes CV - regular heart sounds, systolic ejection murmur IV/ at the apex and left sternal border Chest - clear b/l, good air entry, no wheezes Abdomen - soft, non-tender, non-distended, BS present, no hepatomegaly, no splenomegaly Skin - no rashes, no cyanosis Extremities - warm, no edema, + peripheral pulses, no clubbing Neuro - lethargic but easily arousable follows some commands, moves all extremities, no tremor Assessment and Plan - Assessment and Plan Plan: 1. Syncope 2. Alcohol withdrawal -better controlled 3. Generalized tonic-clonic seizure secondary to above -no recurrent seizure since patient was admitted in the ICU 4. A. fib -concern for sick sinus syndrome since heart rate ranges from 30s- 140s 5. Severe hypomagnesemia -improved 6. Hypokalemia -improved 7. Mild JEAN-PAUL -resolved 8. Anion gap metabolic acidosis -resolved, anion gap closed 9. One episode of fever 1. Stop dexmedetomidine -might contribute to bradycardia 2. EKG, cardiac enzymes, echocardiogram 3. Cardiology consult 4. Keep atropine at bedside 5. Additional magnesium and phosphorus repletion 6. Keep magnesium above 2 and potassium above 4 7. Send blood cultures, urine culture, chest x-ray 8. Continue Keppra 500 twice daily for now 9. IV hydration with LR 10. Aspiration and seizure precautions 11. N.p.o. for now 12. GI prophylaxis with famotidine and DVT prophylaxis with Lovenox and SCDs No family present at bedside.
[2018-05-19] MEDS: Magnesium Sulfate Inj 2 GM in Sodium Chlor 0.9% Inj 96 ML IV.SIG PRN (09:00)
[2018-05-19] MEDS: Multivitamin Inj 10 ML, Thiamine Inj 100 MG, Folic Acid Inj 1 MG in Sodium Chlor 0.9% I... IV.SIG SCH (10:17)
--- NOTE | 2018-05-19 13:09 | MB ---
cc: Harrison Gordillo MD DATE: 05/19/2018 REASON FOR CONSULTATION: Atrial fibrillation. HISTORY OF PRESENT ILLNESS: History is unobtainable from the patient who is very somnolent. He is a 68-year-old white male with a history of alcohol abuse, hypertension, prostate cancer, chronic atrial fibrillation, possible mitral valve prolapse, who was brought into the hospital after a witnessed syncopal episode resulting in a fall. In the emergency department, he sustained a seizure as well. Here in the hospital, he has had tachycardic heart rates initially and then developed bradycardia while on intravenous Cardizem. PAST MEDICAL HISTORY: 1. Hypertension. 2. Gastroesophageal reflux disease. 3. Prostate cancer, status post radiation therapy. 4. Atrial fibrillation, chronic, dating back to at least 2015. In the past, he was felt to be an excessive fall risk, bleed risk for anticoagulation therapy. 5. Possible mild mitral valve prolapse demonstrated on echo 12/22/2017. PAST SURGICAL HISTORY: 1. Dupuytren contracture surgery of the left hand, 2003 and again in 2010. 2. Inguinal hernia repair. 3. Hydrocele repair as a child. CARDIAC MEDICATIONS AT HOME: Unknown. ALLERGIES: PENICILLIN. FAMILY HISTORY: Currently unobtainable. SOCIAL HISTORY: The patient apparently has no history of tobacco abuse. He drinks alcohol on a daily basis. REVIEW OF SYSTEMS: Currently unobtainable. PHYSICAL EXAMINATION: VITAL SIGNS: His blood pressure 103/67 with a pulse of 56, respirations 20. GENERAL: He is a well-developed, well-nourished white male, in no acute distress. NECK: Jugular venous pressure is normal. Carotid pulses are 2+ bilaterally and without bruits. CHEST: Reveals clear lungs zurita. CARDIAC: He has a bradycardic, irregular rhythm with a grade 2/6 systolic ejection murmur heard throughout the precordium. The S2 heart sound may be mildly diminished at the base. There is no definite gallop. ABDOMEN: He has a soft, nontender abdomen. Bowel sounds are present. There is no definite hepatosplenomegaly. EXTREMITIES: Examination reveals no clubbing, cyanosis or edema. DIAGNOSTIC DATA: EKG shows atrial fibrillation with a rapid ventricular response, otherwise normal EKG. LABORATORY DATA: Includes WBC 5.8, hemoglobin 10.4, platelets 74. Potassium 4.0, BUN 7, creatinine 0.83, negative cardiac enzymes. IMPRESSION: Fluctuating heart rates in this 68-year-old white male with a history of alcohol abuse, hypertension, prostate cancer, chronic atrial fibrillation, possible mild mitral valve prolapse. It appears the patient has had difficulties with bradycardia while on intravenous Cardizem. I suspect the initial tachycardic rates were due to alcohol withdrawal. Overall, there is no evidence for acute coronary syndrome. With respect to his thromboembolic risk, it does appear to be overall low. His left ventricular function reportedly was normal by echo earlier this year. He has no history of stroke, diabetes or vascular disease. RECOMMENDATIONS: 1. Would hold off on aspirin therapy at this time with his thrombocytopenia. 2. Keep off AV mann suppressing drugs at this point. I agree that his heart rate control will improve with continued stabilization of his alcohol withdrawal and resolution of his fevers with temperature last night as high as 102 degrees. 3. We will recheck his echocardiogram. His relatively prominent murmur apparently was not heard on cardiovascular exam during his 11/2017 admission. MD DIONNE Monae/antwan , 09:24 AM , 09:33 AM WENCESLAO
--- NOTE | 2018-05-19 13:38 | ECHRPT ---
Indication: ATRIAL FIB/FLUTTER CONCLUSIONS Upper normal left ventricular size. Wall thickness is measured at the upper limits of normal. The left ventricular systolic function is mildly reduced with an estimated ejection fraction in the range of 45- 50%. No regional wall motion abnormalities are present. The left atrial size is moderately dilated. The right atrial size is mildly dilated. Moderate anteriorly directed mitral valve regurgitation. Probable mild prolapse of the posterior m itral leaflet. Mild aortic valve sclerosis is present. Trace aortic valve regurgitation. There is mild tricuspid valve regurgitation. The estimated pulmonary arterial pressure is 43 mmHg. BP: / HR: Rhythm: Sinus MEASUREMENTS (Male / Female) Normal Values Technical Quality:Fair 2D ECHO LV Diastolic Diameter PLAX 5.0 cm 4.2 - 5.9 / 3.9 - 5.3 cm LV Systolic Diameter PLAX 4.4 cm IVS Diastolic Thickness 1.3 cm 0.6 - 1.0 / 0.6 - 0.9 cm LVPW Diastolic Thickness 1.3 cm 0.6 - 1.0 / 0.6 - 0.9 cm LV Relative Wall Thickness 0.5 RV Internal Dim ED PLAX 2.5 cm LVOT Diameter 2.0 cm Aortic Root Diameter 3.0 cm LA Systolic Diameter LX 5.5 cm 3.0 - 4.0 / 2.7 - 3.8 cm M-MODE AV Cusp Separation MM 1.9 cm DOPPLER AV Peak Velocity 131.5 cm/s AV Peak Gradient 6.9 mmHg AV Mean Gradient 3.5 mmHg AV Velocity Time Integral 27.3 cm LVOT Peak Velocity 60.9 cm/s LVOT Peak Gradient 1.5 mmHg LVOT Velocity Time Integral 12.2 cm AV Area Cont Eq vti 1.4 cm AV Area Cont Eq pk 1.5 cm Mitral E Point Velocity 120.0 cm/s LV E' Lateral Velocity 16.7 cm/s Mitral E to LV E' Lateral Ratio 7.2 LV E' Septal Velocity 8.8 cm/s Mitral E to LV E' Septal Ratio 13.6 TR Peak Velocity 288.0 cm/s TR Peak Gradient 33.2 mmHg Right Atrial Pressure 10.0 mmHg Pulmonary Artery Systolic Pressu 43.2 mmHg Right Ventricular Systolic Press 43.2 mmHg PV Peak Velocity 36.8 cm/s PV Peak Gradient 0.5 mmHg FINDINGS LEFT VENTRICLE Upper normal left ventricular size. Wall thickness is measured at the upper limits of normal. The left ventricular systolic function is mildly reduced with an estimated ejection fraction in the range of 45- 50%. No regional wall motion abnormalities are present. RIGHT VENTRICLE Normal right ventricular size and systolic function. LEFT ATRIUM The left atrial size is moderately dilated. RIGHT ATRIUM The right atrial size is mildly dilated. ATRIAL SEPTUM No atrial level shunt is demonstrated by color flow Doppler interrogation. AORTA The aortic root and proximal ascending aorta are not well visualized. MITRAL VALVE Moderate anteriorly directed mitral valve regurgitation. Probable mild prolapse of the posterior m itral leaflet. AORTIC VALVE Mild aortic valve sclerosis is present. Trace aortic valve regurgitation. TRICUSPID VALVE There is mild tricuspid valve regurgitation. The estimated pulmonary arterial pressure is 43 mmHg. Harrison Gordillo MD (Electronically Signed) Final Date:19 May 2018 13:37
[2018-05-20 05:34] LABS: Baso # (Auto) 0.1 th/mm3 (0.0-0.2); Baso % (Auto) 0.7 % (0.0-2.0); Eos # (Auto) 0.1 th/mm3 (0.0-0.4); Eos % (Auto) 1.6 % (0.0-4.0); Hematocrit 29.7 % (39.0-51.0); Hemoglobin 9.9 gm/dL (13.0-17.0); Lymph # (Auto) 1.1 th/mm3 (1.0-4.8); Lymph % (Auto) 11.6 % (9.0-44.0); Mean Corpuscular HGB Conc 33.2 % (32.0-36.0); Mean Corpuscular Volume 99.3 fL (80.0-100.0); Mean Platelet Volume 9.9 fL (7.0-11.0); Mono # (Auto) 0.5 th/mm3 (0.0-0.9); Mono % (Auto) 5.9 % (0.0-8.0); Neut # (Auto) 7.4 th/mm3 (1.8-7.7); Neut % (Auto) 80.2 % (16.0-70.0); Platelet Count 59 th/mm3 (150-450); Red Blood Count 2.99 mil/mm3 (4.50-5.90); Red Cell Distribution Width 18.8 % (11.6-17.2); White Blood Count 9.2 th/mm3 (4.0-11.0)
[2018-05-20] MEDS: Chlorhexidine Gluconate 2% 1 Pack (2 Cloths) TOPICAL SCH (05:39)
[2018-05-20 05:56] LABS: Albumin 3.5 g/dL (3.4-5.0); Anion Gap 13 meq/L (5-15); Aspartate Aminotransferase 27 U/L (15-37); Blood Urea Nitrogen 5 mg/dL (7-18); Carbon Dioxide 24.1 meq/L (21.0-32.0); Chloride 102 meq/L (98-107); Glomerular Filtration Rate Greater Than 89 mL/min (>89); Glucose,Random 75 mg/dL (74-106); Magnesium 1.4 mg/dL (1.5-2.5); Potassium 3.7 meq/L (3.5-5.1); Sodium 139 meq/L (136-145)
[2018-05-20 05:57] LABS: Alanine Aminotransferase 12 U/L (12-78); Phosphorus 2.3 mg/dL (2.5-4.9)
[2018-05-20 05:59] LABS: Alkaline Phosphatase 66 U/L (45-117); Total Protein 6.3 g/dL (6.4-8.2)
[2018-05-20 07:42] LABS: Ovalocytes 1+; Platelet Morphology Normal (Normal)
--- NOTE | 2018-05-20 08:33 | P.PNFP ---
Subjective Interval history: Pt doing better today, he is more alert and talking. He does not remember meeting us, the days prior. His HR continues to be an issue, he states he has a Fib. During our visit, his HR was originally on the 90's and went up all the way to 190-200, then return to 90's. Cardiology is on board. He has no questions today. <Magda RamDebbieRadhika - 05/20/18 14:01> Results - Labs Result diagrams: 05/21/18 03:03 05/21/18 03:03 <MiracleRoselia M - 05/21/18 15:01> Abnormal lab results 05/21/18 05/21/18 Range/Units 03:03 03:03 RBC 2.92 L (4.50-5.90) mil/mm3 Hgb 9.5 L (13.0-17.0) gm/dL Hct 28.3 L (39.0-51.0) % RDW 18.8 H (11.6-17.2) % Plt Count 67 L (150-450) th/mm3 Neut % (Auto) 78.7 H (16.0-70.0) % Platelet Estimate Low L (Normal) BUN 5 L (7-18) mg/dL Calcium 7.8 L (8.5-10.1) mg/dL Magnesium 1.2 L (1.5-2.5) mg/dL Total Bilirubin 1.3 H (0.2-1.0) mg/dL Albumin 3.3 L (3.4-5.0) g/dL Short CBC 05/21/18 Range/Units 03:03 WBC 9.2 (4.0-11.0) th/mm3 Hgb 9.5 L (13.0-17.0) gm/dL Hct 28.3 L (39.0-51.0) % Plt Count 67 L (150-450) th/mm3 BMP 05/20/18 05/20/18 05/21/18 15:23 23:43 03:03 Sodium 137 138 Potassium 3.8 3.5 Chloride 101 Carbon Dioxide 23.6 BUN 5 L Creatinine 0.72 Calcium 7.8 L Liver Function 05/21/18 Range/Units 03:03 Total Bilirubin 1.3 H (0.2-1.0) mg/dL AST 22 (15-37) U/L ALT 14 (12-78) U/L Alkaline Phosphatase 68 (45-117) U/L Albumin 3.3 L (3.4-5.0) g/dL <Roselia Rausch - 05/21/18 15:01> Abnormal lab results 05/19/18 05/20/18 05/20/18 Range/Units 03:30 03:02 03:07 RBC 2.99 L (4.50-5.90) mil/mm3 Hgb 9.9 L (13.0-17.0) gm/dL Hct 29.7 L (39.0-51.0) % RDW 18.8 H (11.6-17.2) % Plt Count 59 L (150-450) th/mm3 Neut % (Auto) 80.2 H (16.0-70.0) % Platelet Estimate Low L Low L (Normal) Ovalocytes 1+ H 1+ H (None) BUN 5 L (7-18) mg/dL Calcium 8.0 L (8.5-10.1) mg/dL Phosphorus 2.3 L (2.5-4.9) mg/dL Magnesium 1.4 L (1.5-2.5) mg/dL Total Bilirubin 1.5 H (0.2-1.0) mg/dL Total Protein 6.3 L (6.4-8.2) g/dL Short CBC 05/20/18 Range/Units 03:02 WBC 9.2 D (4.0-11.0) th/mm3 Hgb 9.9 L (13.0-17.0) gm/dL Hct 29.7 L (39.0-51.0) % Plt Count 59 L (150-450) th/mm3 BMP 05/20/18 03:07 Sodium 139 Potassium 3.7 Chloride 102 Carbon Dioxide 24.1 BUN 5 L Creatinine 0.68 Calcium 8.0 L Liver Function 05/20/18 Range/Units 03:07 Total Bilirubin 1.5 H (0.2-1.0) mg/dL AST 27 (15-37) U/L ALT 12 (12-78) U/L Alkaline Phosphatase 66 (45-117) U/L Albumin 3.5 (3.4-5.0) g/dL <Debbie Durán V - 05/20/18 08:33> Physical Exam Vital signs: Vital Signs 05/20/18 16:00 05/20/18 16:04 05/20/18 16:05 Temperature 98.3 F Pulse Rate 95 H 92 H 93 H Respiratory Rate 31 H 33 H 32 H Blood Pressure 160/108 H 161/103 H 156/94 H Pulse Oximetry 100 100 100 05/20/18 17:00 05/20/18 17:01 05/20/18 17:07 Temperature Pulse Rate 97 H 101 H 100 H Respiratory Rate 29 H 30 H 32 H Blood Pressure 177/91 H 185/90 H 184/95 H Pulse Oximetry 86 L 85 L 89 L 05/20/18 17:11 05/20/18 18:00 05/20/18 18:06 Temperature Pulse Rate 96 H 97 H 95 H Respiratory Rate 31 H 32 H 22 Blood Pressure 177/91 H 163/101 H 170/107 H Pulse Oximetry 100 100 100 05/20/18 18:08 05/20/18 19:00 05/20/18 19:07 Temperature Pulse Rate 94 H 96 H 102 H Respiratory Rate 21 32 H 22 Blood Pressure 160/98 H 162/100 H 169/108 H Pulse Oximetry 100 100 88 L 05/20/18 19:35 05/20/18 20:00 05/20/18 20:17 Temperature 98.4 F Pulse Rate 95 H 101 H 97 H Respiratory Rate 30 H 31 H 23 Blood Pressure 149/94 H 159/107 H 173/93 H Pulse Oximetry 100 84 L 100 05/20/18 20:18 05/20/18 20:30 05/20/18 20:45 Temperature Pulse Rate 95 H 94 H Respiratory Rate 22 35 H Blood Pressure 166/97 H 148/81 H Pulse Oximetry 100 97 100 05/20/18 21:00 05/20/18 21:15 05/20/18 21:19 Temperature Pulse Rate 87 82 75 Respiratory Rate 16 27 H 13 Blood Pressure 161/96 H 158/103 H 167/91 H Pulse Oximetry 98 96 98 05/20/18 21:30 05/20/18 21:46 05/20/18 22:00 Temperature Pulse Rate 69 97 H 96 H Respiratory Rate 26 H 36 H 28 H Blood Pressure 151/94 H 185/97 H 183/96 H Pulse Oximetry 100 98 98 05/20/18 22:15 05/20/18 22:30 05/20/18 22:45 Temperature Pulse Rate 95 H 95 H 90 Respiratory Rate 18 32 H 31 H Blood Pressure 180/102 H 165/104 H 170/99 H Pulse Oximetry 99 96 98 05/20/18 23:00 05/20/18 23:15 05/20/18 23:30 Temperature Pulse Rate 97 H 95 H 95 H Respiratory Rate 14 24 44 H Blood Pressure 182/96 H 162/113 H 165/96 H Pulse Oximetry 95 85 L 97 05/20/18 23:47 05/21/18 00:00 05/21/18 00:39 Temperature 98.2 F Pulse Rate 72 89 98 H Respiratory Rate 17 27 H 29 H Blood Pressure 166/83 H 168/94 H Pulse Oximetry 99 97 86 L 05/21/18 00:45 05/21/18 01:00 05/21/18 01:15 Temperature Pulse Rate 97 H 96 H 96 H Respiratory Rate 20 36 H 26 H Blood Pressure 174/84 H 181/89 H 186/95 H Pulse Oximetry 84 L 98 98 05/21/18 01:30 05/21/18 01:45 05/21/18 02:00 Temperature Pulse Rate 94 H 83 87 Respiratory Rate 26 H 18 35 H Blood Pressure 171/99 H 168/88 H 171/99 H Pulse Oximetry 85 L 86 L 96 05/21/18 02:16 05/21/18 02:17 05/21/18 02:30 Temperature Pulse Rate 97 H 99 H 97 H Respiratory Rate 29 H 36 H 21 Blood Pressure 208/109 H 182/94 H 199/97 H Pulse Oximetry 80 L 99 92 L 05/21/18 02:32 05/21/18 02:45 05/21/18 02:59 Temperature Pulse Rate 92 H 98 H 92 H Respiratory Rate 37 H 37 H 26 H Blood Pressure 177/90 H 169/82 H Pulse Oximetry 95 91 L 85 L 05/21/18 03:00 05/21/18 03:15 05/21/18 03:30 Temperature Pulse Rate 95 H 98 H 96 H Respiratory Rate 32 H 17 25 H Blood Pressure 170/86 H 160/95 H 164/92 H Pulse Oximetry 88 L 100 95 05/21/18 03:45 05/21/18 03:49 08/26/18 04:00 Temperature 98.4 F Pulse Rate 97 H 98 H 96 H Respiratory Rate 23 26 H 29 H Blood Pressure 168/101 H 164/100 H 180/88 H Pulse Oximetry 99 91 L 97 05/21/18 04:15 05/21/18 04:30 05/21/18 04:46 Temperature Pulse Rate 100 H 97 H 98 H Respiratory Rate 25 H 18 21 Blood Pressure 164/89 H 163/88 H 173/96 H Pulse Oximetry 96 99 97 05/21/18 05:00 05/21/18 05:15 05/21/18 05:30 Temperature Pulse Rate 98 H 97 H 96 H Respiratory Rate 31 H 32 H 33 H Blood Pressure 164/89 H 168/87 H 178/90 H Pulse Oximetry 97 96 91 L 05/21/18 05:45 05/21/18 06:00 05/21/18 07:00 Temperature 98.4 F Pulse Rate 94 H 94 H 91 H Respiratory Rate 25 H 39 H 18 Blood Pressure 141/85 H 165/89 H 146/90 H Pulse Oximetry 84 L 99 94 L 05/21/18 08:00 05/21/18 09:00 05/21/18 10:00 Temperature 98.5 F Pulse Rate 81 84 65 Respiratory Rate 19 18 18 Blood Pressure 155/82 H 151/74 H 137/70 Pulse Oximetry 96 98 100 05/21/18 11:00 05/21/18 12:00 05/21/18 13:00 Temperature 98.6 F Pulse Rate 81 85 88 Respiratory Rate 18 17 17 Blood Pressure 148/81 H 162/98 H 143/80 H Pulse Oximetry 100 100 100 Intake & Output 05/20/18 05/21/18 05/21/18 18:59 06:59 18:59 Intake Total 2461.2 / 2461.2 3450 / 3450 Output Total 1300 / 1300 Balance 1161.2 / 1161.2 3450 / 3450 Weight 88 kg Intake: IV 1861.2 / 1861.2 2490 / 2490 Precedex Inj 1,000 MCG In NS 40 / 40 Inj 240 ML @ 0.2 MCG/KG/HR 3.99 mls/hr IV.CONT TITRATE PRN Rx# :[id number] LR 1000 mL Inj 1,000 ML @ 125 1000 / 1000 2000 / 2000 mls/hr IV.CONT .Q8H [facility] Rx#: [id number] Cardizem Inj 125 MG In NS Inj 125 / 125 100 ML @ 5 MG/HR 5 mls/hr IV. CONT TITRATE PRN Rx#:[id number] Magnesium Sulfate Inj 2 GM In 100 / 100 NS Inj 96 ML @ 50 mls/hr IV.SIG UNSCH PRN Rx#:[id number] MVI-12 Inj 10 ML Thiamine Inj 511.2 / 511.2 100 MG Folvite Inj 1 MG In NS Inj 500 ML @ 127.8 mls/hr IV. SIG DAILY [facility] Rx#:[id number] Sodium Phosphate Inj 30 MMOL In 260 / 260 NS Inj 250 ML @ 42 mls/hr IV. SIG UNSCH PRN Rx#:[id number] Keppra Inj 500 MG In NS Inj 100 210 / 210 105 / 105 ML @ 400 mls/hr IV.SIG Q12H [facility] Rx#:[id number] Oral 600 / 600 960 / 960 Output: Urine Amount (Catheter) 1300 / 1300 Condom 1300 / 1300 Other: # Voids 10 # Incontinent Voids 2 Date of Last Bowel Movement 05/19/18 05/19/18 05/21/18 # Bowel Movements 0 0 <Roselia Rausch M - 05/21/18 15:01> Vital Signs 05/19/18 08:45 05/19/18 09:00 05/19/18 10:00 Temperature Pulse Rate 69 55 L Respiratory Rate 22 19 Blood Pressure 124/76 131/84 Pulse Oximetry 100 100 99 05/19/18 11:00 05/19/18 12:00 05/19/18 13:00 Temperature 97.8 F Pulse Rate 62 61 59 L Respiratory Rate 16 12 15 Blood Pressure 160/74 H 138/83 139/82 Pulse Oximetry 99 100 100 05/19/18 14:00 05/19/18 15:00 05/19/18 16:00 Temperature Pulse Rate 62 76 81 Respiratory Rate 19 9 L 23 Blood Pressure 136/79 172/84 H 182/92 H Pulse Oximetry 100 97 98 05/19/18 16:07 05/19/18 17:00 05/19/18 17:04 Temperature 97.1 F L Pulse Rate 83 67 63 Respiratory Rate 24 19 18 Blood Pressure 163/96 H 156/100 H 159/94 H Pulse Oximetry 96 100 100 05/19/18 18:00 05/19/18 18:01 05/19/18 18:06 Temperature Pulse Rate 177 H 144 H 160 H Respiratory Rate 15 15 20 Blood Pressure 155/122 H 144/90 H Pulse Oximetry 100 100 99 05/19/18 19:00 05/19/18 19:01 05/19/18 20:00 Temperature Pulse Rate 118 H 99 H 98 H Respiratory Rate 30 H 28 H Blood Pressure 128/79 119/86 Pulse Oximetry 95 98 100 05/19/18 21:00 05/19/18 21:07 05/19/18 22:00 Temperature Pulse Rate 105 H 89 94 H Respiratory Rate 29 H 11 L 27 H Blood Pressure 174/96 H 172/105 H Pulse Oximetry 98 05/19/18 23:00 05/20/18 00:00 05/20/18 01:00 Temperature 98.7 F 98.7 F Pulse Rate 86 71 83 Respiratory Rate 18 27 H 15 Blood Pressure 143/78 H 146/81 H 163/95 H Pulse Oximetry 99 99 98 05/20/18 02:00 05/20/18 03:00 05/20/18 04:00 Temperature 98.7 F 98.7 F Pulse Rate 93 H 93 H 83 Respiratory Rate 20 24 16 Blood Pressure 170/95 H 155/98 H 153/95 H Pulse Oximetry 91 L 100 98 05/20/18 05:00 05/20/18 06:00 05/20/18 07:00 Temperature Pulse Rate 84 75 95 H Respiratory Rate 21 22 22 Blood Pressure 143/95 H 150/91 H 170/97 H Pulse Oximetry 100 95 95 Intake & Output 05/19/18 05/20/18 05/20/18 18:59 06:59 18:59 Intake Total 3986.2 / 3986.2 2200 / 2200 Output Total 450 / 450 300 / 300 Balance 3536.2 / 3536.2 1900 / 1900 Weight 86 kg Intake: IV 3986.2 / 3986.2 2000 / 1999 LR 1000 mL Inj 1,000 ML @ 125 1000 / 1000 2000 / 2000 mls/hr IV.CONT .Q8H [facility] Rx#: [id number] Magnesium Sulfate Inj 2 GM In 200 / 200 NS Inj 96 ML @ 50 mls/hr IV.SIG ONCE ONE Rx#:[id number] MVI-12 Inj 10 ML Thiamine Inj 511.2 / 511.2 100 MG Folvite Inj 1 MG In NS Inj 500 ML @ 127.8 mls/hr IV. SIG DAILY [facility] Rx#:[id number] KCl 20 mEq Premix Inj 20 meq In 100 / 100 100 ml @ 50 mls/hr IV.SIG Q2H PRN Rx#:[id number] Keppra Inj 500 MG In NS Inj 100 105 / 105 ML @ 400 mls/hr IV.SIG Q12H [facility] Rx#:[id number] Oral 200 / 200 Output: Urine Amount (Catheter) 450 / 450 300 / 300 Condom 450 / 450 300 / 300 Other: Date of Last Bowel Movement 05/19/18 05/19/18 # Bowel Movements 1 <Debbie Durán V - 05/20/18 08:33> Narrative: GENERAL: Well-nourished, disheveled white male, awake, in NAD, with soft restraints on his wrist. SKIN: Warm and dry. HEAD: Normocephalic and atraumatic. EYES: No scleral icterus. No injection or drainage. ENT: No nasal drainage noted. Airway patent. CARDIOVASCULAR: Regular rate and rhythm, tachycardic, unable to hear murmur due to fast rate of heart. 180's. RESPIRATORY: Breath sounds equal bilaterally. No accessory muscle use. ABDOMEN/GI: Abdomen soft, non-tender, bowel sounds present. EXTREMITIES: No cyanosis or edema. NEUROLOGICAL: Awake, alert but looks confused. Following commands, clear speech. Visible tremor at rest. <Debbie Durán V - 05/20/18 14:01> - Urinary Catheter Management Condom Cath placed during this visit: no <Roselia Rausch - 05/21/18 15:01> no <Debbie Durán V - 05/20/18 14:01> Assessment and Plan - Assessment (1) Alcohol withdrawal Code(s): F10.239 - Alcohol dependence with withdrawal, unspecified Status: Acute (2) Seizure Code(s): R56.9 - Unspecified convulsions Status: Acute (3) Atrial fibrillation with RVR Code(s): I48.91 - Unspecified atrial fibrillation Status: Acute (4) Hypokalemia Code(s): E87.6 - Hypokalemia Status: Acute (5) Hypomagnesemia Code(s): E83.42 - Hypomagnesemia Status: Acute (6) Normocytic anemia Code(s): D64.9 - Anemia, unspecified Status: Chronic (7) Nutrition, metabolism, and development symptoms Code(s): R63.8 - Other symptoms and signs concerning food and fluid intake Status: Acute (8) DVT prophylaxis Status: Acute <Roselia Rausch - 05/21/18 15:01> (1) Alcohol withdrawal Code(s): F10.239 - Alcohol dependence with withdrawal, unspecified Status: Acute Plan: Patient with long history of alcoholism. States that his last drink was 2 days ago. Admitted due to seizure while in ED ED interventions: -CIWA protocol initiated -5 mg total of Ativan given early has had Precedex and other treatments since then -Fosphenytoin 1000 mg IV given now received Keppra Highest CIWA score while in the ED was 23 Rally pack IV 05/20: Critical care managing at this point. Pt was placed on Precedex and his HR yesterday dropped to 30's. Precedex stopped today. CIWA protocol: last score this morning 26 (2) Seizure Code(s): R56.9 - Unspecified convulsions Status: Acute Plan: 05/20: No more seizures since ED admission. See plan above for details. (3) Atrial fibrillation with RVR Code(s): I48.91 - Unspecified atrial fibrillation Status: Acute Plan: Pt found to be in A. fib with RVR while in ED. Per chart review, it seems that pt has a hx of this. EKG shows atrial fibrillation with heart rate of 161 on admission, yesterday he was bradycardic, and this morning HR of 190-200 intermittently, most of the time in the 90. 05/19: Cardiology recommendations: 1. Would hold off on aspirin therapy at this time with his thrombocytopenia. 2. Keep off AV mann suppressing drugs at this point. I agree that his heart rate control will improve with continued stabilization of his alcohol withdrawal and resolution of his fevers with temperature last night as high as 102 degrees. 3. We will recheck his echocardiogram. EKG PRN ordered (4) Hypokalemia Code(s): E87.6 - Hypokalemia Status: Acute Plan: Potassium on admission was 2.9 -Given KCl 40 mEq while in ED -Electrolyte protocol initiated due to patient being taken to the ICU (5) Hypomagnesemia Code(s): E83.42 - Hypomagnesemia Status: Acute Plan: Magnesium was 1.1 upon admission -Electrolyte protocol was initiated due to patient being admitted to ICU (6) Normocytic anemia Code(s): D64.9 - Anemia, unspecified Status: Chronic Plan: Hemoglobin was 12.3 with MCV of 97.9. It does not seem to have a history of CKD. May be due to chronic alcoholism; however, MCV does not reflect this. -Continue to monitor -Transfuse if falls below 7.0 - Hb today 9.9 (7) Nutrition, metabolism, and development symptoms Code(s): R63.8 - Other symptoms and signs concerning food and fluid intake Status: Acute Plan: Fluids: per ICU Electrolytes: monitor and replete as needed, see above Nutrition: NPO, possible will be able to eat if awake and alert. Will defer to ICU team (8) DVT prophylaxis Status: Acute Plan: DVT Prophylaxis: Early ambulation. bilateral SCDs Unsure if he may need a surgical procedure like a pacemaker in the near future he should be started on anticoagulation if he ends up not needing any sort of intervention. <Debbie Durán V - 05/20/18 13:55> - Assessment and Plan 68-year-old male with PMH of per chart review A fib, HTN, and GERD admitted for alcohol withdrawal seizures. Critical care consulted to due to severity of disease. Cardiology also consulted due to bradycardia and tachycardia present at different times. At this moment, pt's condition remains severe enough to continue ICU care. Will continue to monitor his progress. <Debbie Durán V - 05/20/18 14:01> - Attending Attestation The exam, history, and the medical decision-making described in the above note were completed with the assistance of the resident physician. I reviewed and agree with the findings presented. I attest that I had a [id number] encounter with the patient on the same day, and personally performed and documented my assessment and findings in the medical record. He is still extremely ill with labile pulse and fluctuating mental status due to his severe alcohol withdrawal. Fortunately he has not had any more seizures since the emergency department. <Roselia Rausch Purnima - 05/21/18 15:01> <Debbie Durán V - Last Filed: 05/20/18 13:55> (1) Alcohol withdrawal Qualifiers: Complication of substance-induced condition: with unspecified complication Qualified Code(s): F10.239 - Alcohol dependence with withdrawal, unspecified <Roselia Rausch - Last Filed: 05/21/18 15:01> (1) Alcohol withdrawal Qualifiers: Complication of substance-induced condition: with unspecified complication Qualified Code(s): F10.239 - Alcohol dependence with withdrawal, unspecified <Magdabaldomero HalliraDebbieRadhika - Last Filed: 05/20/18 13:55> (1) Alcohol withdrawal Qualifiers: Complication of substance-induced condition: with unspecified complication Qualified Code(s): F10.239 - Alcohol dependence with withdrawal, unspecified <Roselia Rausch - Last Filed: 05/21/18 15:01> (1) Alcohol withdrawal Qualifiers: Complication of substance-induced condition: with unspecified complication Qualified Code(s): F10.239 - Alcohol dependence with withdrawal, unspecified
--- NOTE | 2018-05-20 08:58 | P.PNCC ---
Subjective Subjective Remarks/Hospital Course: 68-year-old gentleman with past medical history significant for chronic alcoholism and hypertension, now brought to the emergency room after episode of syncope. History is mostly obtained from ED chart since patient is not able to provide it. Per EMS, patient had a witnessed syncope, fell and hit his head. On ED presentation patient was awake and alert and complained of dizziness. During the ED stay, patient became increasingly confused, and he had one episode of generalized tonic-clonic seizure which lasted 30 seconds to 1 minute for which she was administered Lorazepam. In addition, he was given 1 L of saline and he was loaded with fosphenytoin. Patient was admitted under family medicine service to the ICU and [facility] was consulted to help with ICU care. Of note, during ED stay patient also developed A. fib with RVR for which he is currently being started on Cardizem drip. Patient was seen in ED, he is awake, confused, not able to provide significant history. He denies any headache, visual disturbances, nausea or vomiting, chest pain or shortness of breath. He does not know when was his last drink. 05/19: Over the night patient's heart rate fluctuated between 30s-140s. He remains lethargic but arousable following some commands. Had one episode of fever up to 102 then afebrile. On dexmedetomidine 0.2. 05/20: No events over the night. Dexmedetomidine was restarted over the night due to alcohol withdrawal symptoms now has been off since 6 AM. No recurrent episodes of bradycardia. Patient remains in A. fib in the 80s-90s. He is more awake, calm, still slightly confused but more oriented. He denies any headache , neck stiffness, photophobia, chest pain, shortness of breath, palpitations. T -max of 98.7. Basically afebrile during the entire hospitalization except one episode of fever on the day of admission at 8 PM. Objective Vital Signs / I&O: Vital Signs 05/19/18 09:00 05/19/18 10:00 05/19/18 11:00 Temperature Pulse Rate 69 55 L 62 Respiratory Rate 22 19 16 Blood Pressure 124/76 131/84 160/74 H Pulse Oximetry 100 99 99 05/19/18 12:00 05/19/18 13:00 05/19/18 14:00 Temperature 97.8 F Pulse Rate 61 59 L 62 Respiratory Rate 12 15 19 Blood Pressure 138/83 139/82 136/79 Pulse Oximetry 100 100 100 05/19/18 15:00 05/19/18 16:00 05/19/18 16:07 Temperature 97.1 F L Pulse Rate 76 81 83 Respiratory Rate 9 L 23 24 Blood Pressure 172/84 H 182/92 H 163/96 H Pulse Oximetry 97 98 96 05/19/18 17:00 05/19/18 17:04 05/19/18 18:00 Temperature Pulse Rate 67 63 177 H Respiratory Rate 19 18 15 Blood Pressure 156/100 H 159/94 H Pulse Oximetry 100 100 100 05/19/18 18:01 05/19/18 18:06 05/19/18 19:00 Temperature Pulse Rate 144 H 160 H 118 H Respiratory Rate 15 20 30 H Blood Pressure 155/122 H 144/90 H Pulse Oximetry 100 99 95 05/19/18 19:01 05/19/18 20:00 05/19/18 21:00 Temperature Pulse Rate 99 H 98 H 105 H Respiratory Rate 28 H 29 H Blood Pressure 128/79 119/86 Pulse Oximetry 98 100 05/19/18 21:07 05/19/18 22:00 05/19/18 23:00 Temperature Pulse Rate 89 94 H 86 Respiratory Rate 11 L 27 H 18 Blood Pressure 174/96 H 172/105 H 143/78 H Pulse Oximetry 98 99 05/20/18 00:00 05/20/18 01:00 05/20/18 02:00 Temperature 98.7 F 98.7 F 98.7 F Pulse Rate 71 83 93 H Respiratory Rate 27 H 15 20 Blood Pressure 146/81 H 163/95 H 170/95 H Pulse Oximetry 99 98 91 L 05/20/18 03:00 05/20/18 04:00 05/20/18 05:00 Temperature 98.7 F Pulse Rate 93 H 83 84 Respiratory Rate 24 16 21 Blood Pressure 155/98 H 153/95 H 143/95 H Pulse Oximetry 100 98 100 05/20/18 06:00 05/20/18 07:00 Temperature Pulse Rate 75 95 H Respiratory Rate 22 22 Blood Pressure 150/91 H 170/97 H Pulse Oximetry 95 95 Intake & Output 05/19/18 05/20/18 05/20/18 18:59 06:59 18:59 Intake Total 3986.2 / 3986.2 2200 / 2200 Output Total 450 / 450 300 / 300 Balance 3536.2 / 3536.2 1900 / 1900 Weight 86 kg Intake: IV 3986.2 / 3986.2 1999 / 1999 LR 1000 mL Inj 1,000 ML @ 125 1000 / 1000 2000 / 2000 mls/hr IV.CONT .Q8H [facility] Rx#: [id number] Magnesium Sulfate Inj 2 GM In 200 / 200 NS Inj 96 ML @ 50 mls/hr IV.SIG ONCE ONE Rx#:[id number] MVI-12 Inj 10 ML Thiamine Inj 511.2 / 511.2 100 MG Folvite Inj 1 MG In NS Inj 500 ML @ 127.8 mls/hr IV. SIG DAILY [facility] Rx#:[id number] KCl 20 mEq Premix Inj 20 meq In 100 / 100 100 ml @ 50 mls/hr IV.SIG Q2H PRN Rx#:[id number] Keppra Inj 500 MG In NS Inj 100 105 / 105 ML @ 400 mls/hr IV.SIG Q12H [facility] Rx#:[id number] Oral 200 / 200 Output: Urine Amount (Catheter) 450 / 450 300 / 300 Condom 450 / 450 300 / 300 Other: Date of Last Bowel Movement 05/19/18 05/19/18 # Bowel Movements 1 Result Diagrams: 05/20/18 03:02 05/20/18 03:07 Objective Remarks: General - elderly gentleman, awake, confused, in no distress HEENT - pupils equal and reactive, sclerae anicteric, neck supple without rigidity, no JVD, no carotid bruit, dry mucous membranes, no thrush CV - regular S1 and S2, systolic ejection murmur IV/ at the apex and left sternal border Chest - clear b/l, good air entry, no wheezes Abdomen - soft, non-tender, non-distended, BS present Extremities - warm, no edema, + peripheral pulses, no clubbing Neuro -awake, alert, oriented to self, date of , year and POTUS; minimal tremor over the upper extremities, moves all extremities, motor 5 out of 5 overall extremities. Negative Brudzinski and negative Kernig Assessment and Plan - Assessment and Plan Plan: 1. Syncope -no recurrence since admission 2. Alcohol withdrawal -better controlled 3. Generalized tonic-clonic seizure secondary to above -no recurrent seizure since patient was admitted in the ICU 4. A. fib -concern for sick sinus syndrome since heart rate ranges from 30s- 140s -no recurrence of bradycardia since yesterday 5. Severe hypomagnesemia -improved but still low 6. Hypokalemia -improved 7. Mild JEAN-PAUL -resolved 8. Anion gap metabolic acidosis -resolved, anion gap closed 9. One episode of fever since admission without recurrence so far 1. Discontinue dexmedetomidine -might contribute to bradycardia 2. Appreciate cardiology consult 3. If another episode of fever send cultures and start broad-spectrum antibiotics with HUSBANDRY PERSON coverage 4. Replete magnesium and potassium 5. CIWA protocol in place. Start scheduled Librium 25 mg every 8 hours 6. Keep magnesium above 2 and potassium above 4 7. Continue Keppra 500 twice daily for now 8. Swallow eval and advance diet if tolerated 9. IV hydration with LR 10. Aspiration and seizure precautions 11. GI prophylaxis with famotidine and DVT prophylaxis with Lovenox and SCDs 12. Continue thiamine and folic acid No family present at bedside. RN instructed at bedside to call MD if any recurrent fever.
[2018-05-20] MEDS: Magnesium Sulfate Inj 2 GM in Sodium Chlor 0.9% Inj 96 ML IV.SIG PRN (09:09)
[2018-05-20] MEDS: Multivitamin Inj 10 ML, Thiamine Inj 100 MG, Folic Acid Inj 1 MG in Sodium Chlor 0.9% I... IV.SIG SCH (09:18)
[2018-05-20] MEDS: chlordiazePOXIDE 25 MG Capsule PO SCH ×2 (09:21→17:08)
--- NOTE | 2018-05-20 12:31 | P.PNCA ---
Subjective Interval history: Denies CP, palpitations, dizziness, dyspnea. Slept well. Physical Exam Vital signs: Vital Signs 05/19/18 13:00 05/19/18 14:00 05/19/18 15:00 Temperature Pulse Rate 59 L 62 76 Respiratory Rate 15 19 9 L Blood Pressure 139/82 136/79 172/84 H Pulse Oximetry 100 100 97 05/19/18 16:00 05/19/18 16:07 05/19/18 17:00 Temperature 97.1 F L Pulse Rate 81 83 67 Respiratory Rate 23 24 19 Blood Pressure 182/92 H 163/96 H 156/100 H Pulse Oximetry 98 96 100 05/19/18 17:04 05/19/18 18:00 05/19/18 18:01 Temperature Pulse Rate 63 177 H 144 H Respiratory Rate 18 15 15 Blood Pressure 159/94 H 155/122 H Pulse Oximetry 100 100 100 05/19/18 18:06 05/19/18 19:00 05/19/18 19:01 Temperature Pulse Rate 160 H 118 H 99 H Respiratory Rate 20 30 H 28 H Blood Pressure 144/90 H 128/79 Pulse Oximetry 99 95 98 05/19/18 20:00 05/19/18 21:00 05/19/18 21:07 Temperature Pulse Rate 98 H 105 H 89 Respiratory Rate 29 H 11 L Blood Pressure 119/86 174/96 H Pulse Oximetry 100 05/19/18 22:00 05/19/18 23:00 05/20/18 00:00 Temperature 98.7 F Pulse Rate 94 H 86 71 Respiratory Rate 27 H 18 27 H Blood Pressure 172/105 H 143/78 H 146/81 H Pulse Oximetry 98 99 99 05/20/18 01:00 05/20/18 02:00 05/20/18 03:00 Temperature 98.7 F 98.7 F Pulse Rate 83 93 H 93 H Respiratory Rate 15 20 24 Blood Pressure 163/95 H 170/95 H 155/98 H Pulse Oximetry 98 91 L 100 05/20/18 04:00 05/20/18 05:00 05/20/18 06:00 Temperature 98.7 F Pulse Rate 83 84 75 Respiratory Rate 16 21 22 Blood Pressure 153/95 H 143/95 H 150/91 H Pulse Oximetry 98 100 95 05/20/18 07:00 05/20/18 08:00 05/20/18 09:00 Temperature 97.7 F Pulse Rate 95 H 93 H 81 Respiratory Rate 22 16 8 L Blood Pressure 170/97 H 170/97 H 156/88 H Pulse Oximetry 95 94 L 100 05/20/18 10:00 05/20/18 11:26 Temperature Pulse Rate 81 Respiratory Rate 29 H Blood Pressure 140/88 Pulse Oximetry 100 100 Intake & Output 05/19/18 05/20/18 05/20/18 18:59 06:59 18:59 Intake Total 3986.2 / 3986.2 2200 / 2200 105 / 105 Output Total 450 / 450 300 / 300 Balance 3536.2 / 3536.2 1900 / 1900 105 / 105 Weight 86 kg Intake: IV 3986.2 / 3986.2 2000 / 1999 105 / 105 LR 1000 mL Inj 1,000 ML @ 125 1000 / 1000 2000 / 2000 mls/hr IV.CONT .Q8H [facility] Rx#: [id number] Magnesium Sulfate Inj 2 GM In 200 / 200 NS Inj 96 ML @ 50 mls/hr IV.SIG ONCE ONE Rx#:[id number] MVI-12 Inj 10 ML Thiamine Inj 511.2 / 511.2 100 MG Folvite Inj 1 MG In NS Inj 500 ML @ 127.8 mls/hr IV. SIG DAILY [facility] Rx#:[id number] KCl 20 mEq Premix Inj 20 meq In 100 / 100 100 ml @ 50 mls/hr IV.SIG Q2H PRN Rx#:[id number] Keppra Inj 500 MG In NS Inj 100 105 / 105 105 / 105 ML @ 400 mls/hr IV.SIG Q12H [facility] Rx#:[id number] Oral 200 / 200 Output: Urine Amount (Catheter) 450 / 450 300 / 300 Condom 450 / 450 300 / 300 Other: Date of Last Bowel Movement 05/19/18 05/19/18 05/19/18 # Bowel Movements 1 - Constitutional no acute distress - Routine Neck Exam Absent: JVD - Routine Respiratory Exam Present: CTA bilaterally - Routine Cardiovascular Exam Present: S1, S2, murmur, irregularly irregular. Absent: S3 Comments: II/ diffuse mid to late systolic murmur - Routine Abdominal Exam Present: soft, normoactive bowel sounds. Absent: tenderness, organomegaly - Routine Extremities Exam Absent: cyanosis, clubbing, edema - Urinary Catheter Management Condom Cath placed during this visit: no Assessment and Plan - Assessment (1) Chronic atrial fibrillation Code(s): I48.2 - Chronic atrial fibrillation Status: Chronic Plan: Stable overnight. HR's mostly controlled. Recommend add Cardizem CD 180 mg as for treatment of his hypertension. Recommend daily aspirin when possible. Will f/u as needed. (2) Hypertension Code(s): I10 - Essential (primary) hypertension Status: Chronic Plan: Mostly hypertensive. Recommend add Cardizem CD 180 mg qd. (3) Murmur, cardiac Code(s): R01.1 - Cardiac murmur, unspecified Status: Chronic Plan: Appears from this admission's echo that his murmur is due to moderate anteriorly directed mitral regurgitation as a result of prolapse of the posterior leaflet. Recommend repeat echo in a year or so. - Plan Code Status: full code Discussed Condition With: patient (2) Hypertension Qualifiers: Hypertension type: essential hypertension Qualified Code(s): I10 - Essential (primary) hypertension
[2018-05-20 16:47] LABS: Potassium 3.8 meq/L (3.5-5.1)
[2018-05-20 16:53] LABS: Magnesium 1.5 mg/dL (1.5-2.5)
[2018-05-20 16:54] LABS: Phosphorus 3.7 mg/dL (2.5-4.9)
[2018-05-20] MEDS: dilTIAZem CD 180 MG Capsule PO SCH (17:08)
--- NOTE | 2018-05-20 17:25 | ECG ---
Date Performed: 05/19/2018 Time Performed: 08:44:12 PTAGE: 68 years EKG: APPARENT SINUS AND JUNCTIONAL RHYTHM LOW QRS VOLTAGE IN EXTREMITY LEADS MINIMAL ST DEPRESSI ON PROLONGED QT INTERVAL ABNORMAL ECG PREVIOUS TRACING : 05/18/2018 15.46 DOCTOR: Sharee Smith Interpretating Date/Time 05/20/2018 17:24:53
--- NOTE | 2018-05-20 17:40 | ECG ---
Date Performed: 05/18/2018 Time Performed: 15:46:29 PTAGE: 68 years EKG: ATRIAL FIBRILLATION WITH RAPID VENTRICULAR RESPONSE LOW QRS VOLTAGE IN EXTREMITY LEADS MODE RATE ST DEPRESSION ABNORMAL ECG PREVIOUS TRACING : 04/25/2018 11.51 DOCTOR: Sharee Smith Interpretating Date/Time 05/20/2018 17:34:56
[2018-05-20] MEDS: dilTIAZem Inj 125 MG in Sodium Chlor 0.9% Inj 100 ML IV.CONT PRN (19:35)
[2018-05-21 00:23] LABS: Phosphorus 4.1 mg/dL (2.5-4.9)
[2018-05-21] MEDS: chlordiazePOXIDE 25 MG Capsule PO SCH ×3 (02:57→17:58)
[2018-05-21] MEDS: Lisinopril 5 MG Tablet PO SCH ×2 (02:57→08:29)
[2018-05-21 03:59] LABS: Baso # (Auto) 0.1 th/mm3 (0.0-0.2); Baso % (Auto) 0.6 % (0.0-2.0); Eos # (Auto) 0.1 th/mm3 (0.0-0.4); Eos % (Auto) 1.3 % (0.0-4.0); Hematocrit 28.3 % (39.0-51.0); Hemoglobin 9.5 gm/dL (13.0-17.0); Lymph # (Auto) 1.2 th/mm3 (1.0-4.8); Lymph % (Auto) 13.1 % (9.0-44.0); Mean Corpuscular HGB Conc 33.7 % (32.0-36.0); Mean Corpuscular Hemoglobin 32.6 pg (27.0-34.0); Mean Corpuscular Volume 96.9 fL (80.0-100.0); Mean Platelet Volume 8.9 fL (7.0-11.0); Mono # (Auto) 0.6 th/mm3 (0.0-0.9); Mono % (Auto) 6.3 % (0.0-8.0); Neut # (Auto) 7.2 th/mm3 (1.8-7.7); Neut % (Auto) 78.7 % (16.0-70.0); Platelet Count 67 th/mm3 (150-450); Red Blood Count 2.92 mil/mm3 (4.50-5.90); Red Cell Distribution Width 18.8 % (11.6-17.2); White Blood Count 9.2 th/mm3 (4.0-11.0)
[2018-05-21] MEDS: Chlorhexidine Gluconate 2% 1 Pack (2 Cloths) TOPICAL SCH (04:29)
[2018-05-21] MEDS: dilTIAZem Inj 125 MG in Sodium Chlor 0.9% Inj 100 ML IV.CONT PRN (04:29)
[2018-05-21 05:21] LABS: Albumin 3.3 g/dL (3.4-5.0); Anion Gap 13 meq/L (5-15); Aspartate Aminotransferase 22 U/L (15-37); Blood Urea Nitrogen 5 mg/dL (7-18); Calcium 7.8 mg/dL (8.5-10.1); Carbon Dioxide 23.6 meq/L (21.0-32.0); Chloride 101 meq/L (98-107); Glomerular Filtration Rate Greater Than 89 mL/min (>89); Glucose,Random 89 mg/dL (74-106); Magnesium 1.2 mg/dL (1.5-2.5); Potassium 3.5 meq/L (3.5-5.1); Sodium 138 meq/L (136-145)
[2018-05-21 05:26] LABS: Alanine Aminotransferase 14 U/L (12-78); Alkaline Phosphatase 68 U/L (45-117); Phosphorus 3.5 mg/dL (2.5-4.9); Total Protein 6.5 g/dL (6.4-8.2)
[2018-05-21 07:45] LABS: Platelet Morphology Normal (Normal)
[2018-05-21] MEDS: Multivitamin Inj 10 ML, Thiamine Inj 100 MG, Folic Acid Inj 1 MG in Sodium Chlor 0.9% I... IV.SIG SCH (08:29)
[2018-05-21] MEDS: dilTIAZem CD 180 MG Capsule PO SCH (08:29)
--- NOTE | 2018-05-21 09:30 | P.PNFP ---
Subjective Interval history: Patient seen and examined this morning. He states that he is feeling much better. He states that he is having visual hallucinations. He sees scuba divers stomping on rodents and thinks that we are currently in a boat. Otherwise no complaints, no CP, no shortness of breath. <April Nelson - 05/21/18 09:30> Results - Labs Result diagrams: 05/21/18 03:03 05/21/18 03:03 <MiracleRoselia M - 05/21/18 16:47> Abnormal lab results 05/21/18 05/21/18 Range/Units 03:03 03:03 RBC 2.92 L (4.50-5.90) mil/mm3 Hgb 9.5 L (13.0-17.0) gm/dL Hct 28.3 L (39.0-51.0) % RDW 18.8 H (11.6-17.2) % Plt Count 67 L (150-450) th/mm3 Neut % (Auto) 78.7 H (16.0-70.0) % Platelet Estimate Low L (Normal) BUN 5 L (7-18) mg/dL Calcium 7.8 L (8.5-10.1) mg/dL Magnesium 1.2 L (1.5-2.5) mg/dL Total Bilirubin 1.3 H (0.2-1.0) mg/dL Albumin 3.3 L (3.4-5.0) g/dL Short CBC 05/21/18 Range/Units 03:03 WBC 9.2 (4.0-11.0) th/mm3 Hgb 9.5 L (13.0-17.0) gm/dL Hct 28.3 L (39.0-51.0) % Plt Count 67 L (150-450) th/mm3 BMP 05/20/18 05/20/18 05/21/18 15:23 23:43 03:03 Sodium 137 138 Potassium 3.8 3.5 Chloride 101 Carbon Dioxide 23.6 BUN 5 L Creatinine 0.72 Calcium 7.8 L Liver Function 05/21/18 Range/Units 03:03 Total Bilirubin 1.3 H (0.2-1.0) mg/dL AST 22 (15-37) U/L ALT 14 (12-78) U/L Alkaline Phosphatase 68 (45-117) U/L Albumin 3.3 L (3.4-5.0) g/dL <Roselia Rausch - 05/21/18 16:47> Abnormal lab results 05/21/18 05/21/18 Range/Units 03:03 03:03 RBC 2.92 L (4.50-5.90) mil/mm3 Hgb 9.5 L (13.0-17.0) gm/dL Hct 28.3 L (39.0-51.0) % RDW 18.8 H (11.6-17.2) % Plt Count 67 L (150-450) th/mm3 Neut % (Auto) 78.7 H (16.0-70.0) % Platelet Estimate Low L (Normal) BUN 5 L (7-18) mg/dL Calcium 7.8 L (8.5-10.1) mg/dL Magnesium 1.2 L (1.5-2.5) mg/dL Total Bilirubin 1.3 H (0.2-1.0) mg/dL Albumin 3.3 L (3.4-5.0) g/dL Short CBC 05/21/18 Range/Units 03:03 WBC 9.2 (4.0-11.0) th/mm3 Hgb 9.5 L (13.0-17.0) gm/dL Hct 28.3 L (39.0-51.0) % Plt Count 67 L (150-450) th/mm3 BMP 05/20/18 05/20/18 05/21/18 15:23 23:43 03:03 Sodium 137 138 Potassium 3.8 3.5 Chloride 101 Carbon Dioxide 23.6 BUN 5 L Creatinine 0.72 Calcium 7.8 L Liver Function 05/21/18 Range/Units 03:03 Total Bilirubin 1.3 H (0.2-1.0) mg/dL AST 22 (15-37) U/L ALT 14 (12-78) U/L Alkaline Phosphatase 68 (45-117) U/L Albumin 3.3 L (3.4-5.0) g/dL <Fabio Nelsonin G - 05/21/18 09:30> Physical Exam Vital signs: Vital Signs 05/20/18 17:00 05/20/18 17:01 05/20/18 17:07 Temperature Pulse Rate 97 H 101 H 100 H Respiratory Rate 29 H 30 H 32 H Blood Pressure 177/91 H 185/90 H 184/95 H Pulse Oximetry 86 L 85 L 89 L 05/20/18 17:11 05/20/18 18:00 05/20/18 18:06 Temperature Pulse Rate 96 H 97 H 95 H Respiratory Rate 31 H 32 H 22 Blood Pressure 177/91 H 163/101 H 170/107 H Pulse Oximetry 100 100 100 05/20/18 18:08 05/20/18 19:00 05/20/18 19:07 Temperature Pulse Rate 94 H 96 H 102 H Respiratory Rate 21 32 H 22 Blood Pressure 160/98 H 162/100 H 169/108 H Pulse Oximetry 100 100 88 L 05/20/18 19:35 05/20/18 20:00 05/20/18 20:17 Temperature 98.4 F Pulse Rate 95 H 101 H 97 H Respiratory Rate 30 H 31 H 23 Blood Pressure 149/94 H 159/107 H 173/93 H Pulse Oximetry 100 84 L 100 05/20/18 20:18 05/20/18 20:30 05/20/18 20:45 Temperature Pulse Rate 95 H 94 H Respiratory Rate 22 35 H Blood Pressure 166/97 H 148/81 H Pulse Oximetry 100 97 100 05/20/18 21:00 05/20/18 21:15 05/20/18 21:19 Temperature Pulse Rate 87 82 75 Respiratory Rate 16 27 H 13 Blood Pressure 161/96 H 158/103 H 167/91 H Pulse Oximetry 98 96 98 05/20/18 21:30 05/20/18 21:46 05/20/18 22:00 Temperature Pulse Rate 69 97 H 96 H Respiratory Rate 26 H 36 H 28 H Blood Pressure 151/94 H 185/97 H 183/96 H Pulse Oximetry 100 98 98 05/20/18 22:15 05/20/18 22:30 05/20/18 22:45 Temperature Pulse Rate 95 H 95 H 90 Respiratory Rate 18 32 H 31 H Blood Pressure 180/102 H 165/104 H 170/99 H Pulse Oximetry 99 96 98 05/20/18 23:00 05/20/18 23:15 05/20/18 23:30 Temperature Pulse Rate 97 H 95 H 95 H Respiratory Rate 14 24 44 H Blood Pressure 182/96 H 162/113 H 165/96 H Pulse Oximetry 95 85 L 97 05/20/18 23:47 05/21/18 00:00 05/21/18 00:39 Temperature 98.2 F Pulse Rate 72 89 98 H Respiratory Rate 17 27 H 29 H Blood Pressure 166/83 H 168/94 H Pulse Oximetry 99 97 86 L 05/21/18 00:45 05/21/18 01:00 05/21/18 01:15 Temperature Pulse Rate 97 H 96 H 96 H Respiratory Rate 20 36 H 26 H Blood Pressure 174/84 H 181/89 H 186/95 H Pulse Oximetry 84 L 98 98 05/21/18 01:30 05/21/18 01:45 05/21/18 02:00 Temperature Pulse Rate 94 H 83 87 Respiratory Rate 26 H 18 35 H Blood Pressure 171/99 H 168/88 H 171/99 H Pulse Oximetry 85 L 86 L 96 05/21/18 02:16 05/21/18 02:17 05/21/18 02:30 Temperature Pulse Rate 97 H 99 H 97 H Respiratory Rate 29 H 36 H 21 Blood Pressure 208/109 H 182/94 H 199/97 H Pulse Oximetry 80 L 99 92 L 05/21/18 02:32 05/21/18 02:45 05/21/18 02:59 Temperature Pulse Rate 92 H 98 H 92 H Respiratory Rate 37 H 37 H 26 H Blood Pressure 177/90 H 169/82 H Pulse Oximetry 95 91 L 85 L 05/21/18 03:00 05/21/18 03:15 05/21/18 03:30 Temperature Pulse Rate 95 H 98 H 96 H Respiratory Rate 32 H 17 25 H Blood Pressure 170/86 H 160/95 H 164/92 H Pulse Oximetry 88 L 100 95 05/21/18 03:45 05/21/18 03:49 05/21/18 04:00 Temperature 98.4 F Pulse Rate 97 H 98 H 96 H Respiratory Rate 23 26 H 29 H Blood Pressure 168/101 H 164/100 H 180/88 H Pulse Oximetry 99 91 L 97 05/21/18 04:15 05/21/18 04:30 05/21/18 04:46 Temperature Pulse Rate 100 H 97 H 98 H Respiratory Rate 25 H 18 21 Blood Pressure 164/89 H 163/88 H 173/96 H Pulse Oximetry 96 99 97 05/21/18 05:00 05/21/18 05:15 05/21/18 05:30 Temperature Pulse Rate 98 H 97 H 96 H Respiratory Rate 31 H 32 H 33 H Blood Pressure 164/89 H 168/87 H 178/90 H Pulse Oximetry 97 96 91 L 05/21/18 05:45 05/21/18 06:00 05/21/18 07:00 Temperature 98.4 F Pulse Rate 94 H 94 H 91 H Respiratory Rate 25 H 39 H 18 Blood Pressure 141/85 H 165/89 H 146/90 H Pulse Oximetry 84 L 99 94 L 05/21/18 08:00 05/21/18 09:00 05/21/18 10:00 Temperature 98.5 F Pulse Rate 81 84 65 Respiratory Rate 19 18 18 Blood Pressure 155/82 H 151/74 H 137/70 Pulse Oximetry 96 98 100 05/21/18 11:00 05/21/18 12:00 05/21/18 13:00 Temperature 98.6 F Pulse Rate 81 85 88 Respiratory Rate 18 17 17 Blood Pressure 148/81 H 162/98 H 143/80 H Pulse Oximetry 100 100 100 05/21/18 14:00 05/21/18 15:00 05/21/18 16:00 Temperature Pulse Rate 87 77 83 Respiratory Rate 18 16 Blood Pressure 157/67 H 139/83 Pulse Oximetry 100 100 Intake & Output 05/20/18 05/21/18 05/21/18 18:59 06:59 18:59 Intake Total 2461.2 / 2461.2 3450 / 3450 Output Total 1300 / 1300 Balance 1161.2 / 1161.2 3450 / 3450 Weight 88 kg Intake: IV 1861.2 / 1861.2 2490 / 2490 Precedex Inj 1,000 MCG In NS 40 / 40 Inj 240 ML @ 0.2 MCG/KG/HR 3.99 mls/hr IV.CONT TITRATE PRN Rx# :[id number] LR 1000 mL Inj 1,000 ML @ 125 1000 / 1000 2000 / 2000 mls/hr IV.CONT .Q8H [facility] Rx#: [id number] Cardizem Inj 125 MG In NS Inj 125 / 125 100 ML @ 5 MG/HR 5 mls/hr IV. CONT TITRATE PRN Rx#:[id number] Magnesium Sulfate Inj 2 GM In 100 / 100 NS Inj 96 ML @ 50 mls/hr IV.SIG UNSCH PRN Rx#:[id number] MVI-12 Inj 10 ML Thiamine Inj 511.2 / 511.2 100 MG Folvite Inj 1 MG In NS Inj 500 ML @ 127.8 mls/hr IV. SIG DAILY [facility] Rx#:[id number] Sodium Phosphate Inj 30 MMOL In 260 / 260 NS Inj 250 ML @ 42 mls/hr IV. SIG UNSCH PRN Rx#:[id number] Keppra Inj 500 MG In NS Inj 100 210 / 210 105 / 105 ML @ 400 mls/hr IV.SIG Q12H [facility] Rx#:[id number] Oral 600 / 600 960 / 960 Output: Urine Amount (Catheter) 1300 / 1300 Condom 1300 / 1300 Other: # Voids 10 # Incontinent Voids 2 Date of Last Bowel Movement 05/19/18 05/19/18 05/21/18 # Bowel Movements 0 0 <Roselia Rausch M - 05/21/18 16:47> Vital Signs 05/20/18 10:00 05/20/18 10:21 05/20/18 11:00 Temperature Pulse Rate 81 86 77 Respiratory Rate 29 H 34 H 26 H Blood Pressure 140/88 140/88 140/85 Pulse Oximetry 100 98 100 05/20/18 11:26 05/20/18 12:00 05/20/18 13:00 Temperature 97.7 F Pulse Rate 68 81 Respiratory Rate 18 0 L Blood Pressure 159/96 H 150/94 H Pulse Oximetry 100 100 100 05/20/18 14:00 05/20/18 15:00 05/20/18 16:00 Temperature 98.3 F Pulse Rate 88 90 95 H Respiratory Rate 21 25 H 31 H Blood Pressure 170/83 H 172/93 H 160/108 H Pulse Oximetry 94 L 99 100 05/20/18 16:04 05/20/18 16:05 05/20/18 17:00 Temperature Pulse Rate 92 H 93 H 97 H Respiratory Rate 33 H 32 H 29 H Blood Pressure 161/103 H 156/94 H 177/91 H Pulse Oximetry 100 100 86 L 05/20/18 17:01 05/20/18 17:07 05/20/18 17:11 Temperature Pulse Rate 101 H 100 H 96 H Respiratory Rate 30 H 32 H 31 H Blood Pressure 185/90 H 184/95 H 177/91 H Pulse Oximetry 85 L 89 L 100 05/20/18 18:00 05/20/18 18:06 05/20/18 18:08 Temperature Pulse Rate 97 H 95 H 94 H Respiratory Rate 32 H 22 21 Blood Pressure 163/101 H 170/107 H 160/98 H Pulse Oximetry 100 100 100 05/20/18 19:00 05/20/18 19:07 05/20/18 19:35 Temperature Pulse Rate 96 H 102 H 95 H Respiratory Rate 32 H 22 30 H Blood Pressure 162/100 H 169/108 H 149/94 H Pulse Oximetry 100 88 L 100 05/20/18 20:00 05/20/18 20:17 05/20/18 20:18 Temperature 98.4 F Pulse Rate 101 H 97 H Respiratory Rate 31 H 23 Blood Pressure 159/107 H 173/93 H Pulse Oximetry 84 L 100 100 05/20/18 20:30 05/20/18 20:45 05/20/18 21:00 Temperature Pulse Rate 95 H 94 H 87 Respiratory Rate 22 35 H 16 Blood Pressure 166/97 H 148/81 H 161/96 H Pulse Oximetry 97 100 98 05/20/18 21:15 05/20/18 21:19 05/20/18 21:30 Temperature Pulse Rate 82 75 69 Respiratory Rate 27 H 13 26 H Blood Pressure 158/103 H 167/91 H 151/94 H Pulse Oximetry 96 98 100 05/20/18 21:46 05/20/18 22:00 05/20/18 22:15 Temperature Pulse Rate 97 H 96 H 95 H Respiratory Rate 36 H 28 H 18 Blood Pressure 185/97 H 183/96 H 180/102 H Pulse Oximetry 98 98 99 05/20/18 22:30 05/20/18 22:45 05/20/18 23:00 Temperature Pulse Rate 95 H 90 97 H Respiratory Rate 32 H 31 H 14 Blood Pressure 165/104 H 170/99 H 182/96 H Pulse Oximetry 96 98 95 05/20/18 23:15 05/20/18 23:30 05/20/18 23:47 Temperature Pulse Rate 95 H 95 H 72 Respiratory Rate 24 44 H 17 Blood Pressure 162/113 H 165/96 H 166/83 H Pulse Oximetry 85 L 97 99 05/21/18 00:00 05/21/18 00:39 05/21/18 00:45 Temperature 98.2 F Pulse Rate 89 98 H 97 H Respiratory Rate 27 H 29 H 20 Blood Pressure 168/94 H 174/84 H Pulse Oximetry 97 86 L 84 L 05/21/18 01:00 05/21/18 01:15 05/21/18 01:30 Temperature Pulse Rate 96 H 96 H 94 H Respiratory Rate 36 H 26 H 26 H Blood Pressure 181/89 H 186/95 H 171/99 H Pulse Oximetry 98 98 85 L 05/21/18 01:45 05/21/18 02:00 05/21/18 02:16 Temperature Pulse Rate 83 87 97 H Respiratory Rate 18 35 H 29 H Blood Pressure 168/88 H 171/99 H 208/109 H Pulse Oximetry 86 L 96 80 L 05/21/18 02:17 05/21/18 02:30 05/21/18 02:32 Temperature Pulse Rate 99 H 97 H 92 H Respiratory Rate 36 H 21 37 H Blood Pressure 182/94 H 199/97 H 177/90 H Pulse Oximetry 99 92 L 95 05/21/18 02:45 05/21/18 02:59 05/21/18 03:00 Temperature Pulse Rate 98 H 92 H 95 H Respiratory Rate 37 H 26 H 32 H Blood Pressure 169/82 H 170/86 H Pulse Oximetry 91 L 85 L 88 L 05/21/18 03:15 05/21/18 03:30 05/21/18 03:45 Temperature Pulse Rate 98 H 96 H 97 H Respiratory Rate 17 25 H 23 Blood Pressure 160/95 H 164/92 H 168/101 H Pulse Oximetry 100 95 99 05/21/18 03:49 05/21/18 04:00 05/21/18 04:15 Temperature 98.4 F Pulse Rate 98 H 96 H 100 H Respiratory Rate 26 H 29 H 25 H Blood Pressure 164/100 H 180/88 H 164/89 H Pulse Oximetry 91 L 97 96 05/21/18 04:30 05/21/18 04:46 05/21/18 05:00 Temperature Pulse Rate 97 H 98 H 98 H Respiratory Rate 18 21 31 H Blood Pressure 163/88 H 173/96 H 164/89 H Pulse Oximetry 99 97 97 05/21/18 05:15 05/21/18 05:30 05/21/18 05:45 Temperature Pulse Rate 97 H 96 H 94 H Respiratory Rate 32 H 33 H 25 H Blood Pressure 168/87 H 178/90 H 141/85 H Pulse Oximetry 96 91 L 84 L 05/21/18 06:00 05/21/18 07:00 05/21/18 08:00 Temperature 98.4 F Pulse Rate 94 H 91 H 81 Respiratory Rate 39 H 18 19 Blood Pressure 165/89 H 146/90 H 155/82 H Pulse Oximetry 99 94 L 96 Intake & Output 05/20/18 05/21/18 05/21/18 18:59 06:59 18:59 Intake Total 2461.2 / 2461.2 3450 / 3450 Output Total 1300 / 1300 Balance 1161.2 / 1161.2 3450 / 3450 Weight 88 kg Intake: IV 1861.2 / 1861.2 2490 / 2490 Precedex Inj 1,000 MCG In NS 40 / 40 Inj 240 ML @ 0.2 MCG/KG/HR 3.99 mls/hr IV.CONT TITRATE PRN Rx# :[id number] LR 1000 mL Inj 1,000 ML @ 125 1000 / 1000 2000 / 2000 mls/hr IV.CONT .Q8H [facility] Rx#: [id number] Cardizem Inj 125 MG In NS Inj 125 / 125 100 ML @ 5 MG/HR 5 mls/hr IV. CONT TITRATE PRN Rx#:[id number] Magnesium Sulfate Inj 2 GM In 100 / 100 NS Inj 96 ML @ 50 mls/hr IV.SIG UNSCH PRN Rx#:[id number] MVI-12 Inj 10 ML Thiamine Inj 511.2 / 511.2 100 MG Folvite Inj 1 MG In NS Inj 500 ML @ 127.8 mls/hr IV. SIG DAILY [facility] Rx#:[id number] Sodium Phosphate Inj 30 MMOL In 260 / 260 NS Inj 250 ML @ 42 mls/hr IV. SIG UNSCH PRN Rx#:[id number] Keppra Inj 500 MG In NS Inj 100 210 / 210 105 / 105 ML @ 400 mls/hr IV.SIG Q12H [facility] Rx#:[id number] Oral 600 / 600 960 / 960 Output: Urine Amount (Catheter) 1300 / 1300 Condom 1300 / 1300 Other: # Voids 10 # Incontinent Voids 2 Date of Last Bowel Movement 05/19/18 05/19/18 05/19/18 # Bowel Movements 0 0 <April Nelson - 05/21/18 09:30> Narrative: GENERAL: Well-nourished, white male, awake, in NAD, with soft restraints on his bilateral wrists. SKIN: Warm and dry. HEAD: Normocephalic and atraumatic. EYES: No scleral icterus. No injection or drainage. ENT: No nasal drainage noted. Airway patent. CARDIOVASCULAR: Irregular irregular rate and rhythm. HR in the 60s. Holosystolic murmur appreciated. RESPIRATORY: Breath sounds equal bilaterally. No accessory muscle use. ABDOMEN/GI: Abdomen soft, non-tender, bowel sounds present. EXTREMITIES: No cyanosis or edema. NEUROLOGICAL: Awake, alert. Following commands, clear speech. Visible tremor at rest. <April Nelson - 05/21/18 09:30> - Urinary Catheter Management Condom Cath placed during this visit: no <Roselia Rausch - 05/21/18 16:47> no <April Nelson - 05/21/18 12:54> Assessment and Plan - Assessment (1) Alcohol withdrawal Code(s): F10.239 - Alcohol dependence with withdrawal, unspecified Status: Acute (2) Seizure Code(s): R56.9 - Unspecified convulsions Status: Acute (3) Atrial fibrillation with RVR Code(s): I48.91 - Unspecified atrial fibrillation Status: Acute (4) Hypokalemia Code(s): E87.6 - Hypokalemia Status: Acute (5) Hypomagnesemia Code(s): E83.42 - Hypomagnesemia Status: Acute (6) Normocytic anemia Code(s): D64.9 - Anemia, unspecified Status: Chronic (7) Nutrition, metabolism, and development symptoms Code(s): R63.8 - Other symptoms and signs concerning food and fluid intake Status: Acute (8) DVT prophylaxis Status: Acute <Roselia Rausch - 05/21/18 16:47> (1) Alcohol withdrawal Code(s): F10.239 - Alcohol dependence with withdrawal, unspecified Status: Acute Plan: Patient with long history of alcoholism. States that his last drink was 2 days ago. Admitted due to seizure while in ED ED interventions: -CIWA protocol initiated -5 mg total of Ativan given early has had Precedex and other treatments since then -Fosphenytoin 1000 mg IV given now received Pierre Highest CIWA score while in the ED was 23 Rally pack IV 05/21: Critical care managing at this point. Precedex restarted on 05/20. CIWA protocol: last scores 4, 24, 21, 7 (2) Seizure Code(s): R56.9 - Unspecified convulsions Status: Acute Plan: 05/20: No more seizures since ED admission. See plan above for details. (3) Atrial fibrillation with RVR Code(s): I48.91 - Unspecified atrial fibrillation Status: Acute Plan: Pt found to be in A. fib with RVR while in ED. Per chart review, it seems that pt has a hx of this. EKG shows atrial fibrillation with heart rate of 161 on admission, yesterday he was bradycardic, and this morning HR of 190-200 intermittently, most of the time in the 90. Cardiology recommendations: -HR's mostly controlled. -Recommend add Cardizem CD 180mg as for treatment of his HTN. -Recommend daily aspirin when possible. -Will f/u as needed. (4) Hypokalemia Code(s): E87.6 - Hypokalemia Status: Acute Plan: Potassium on admission was 2.9 -Given KCl 40 mEq while in ED -Electrolyte protocol initiated due to patient being taken to the ICU (5) Hypomagnesemia Code(s): E83.42 - Hypomagnesemia Status: Acute Plan: Magnesium was 1.1 upon admission -Electrolyte protocol was initiated due to patient being admitted to ICU (6) Normocytic anemia Code(s): D64.9 - Anemia, unspecified Status: Chronic Plan: Hemoglobin was 12.3 with MCV of 97.9. It does not seem to have a history of CKD. May be due to chronic alcoholism; however, MCV does not reflect this. -Continue to monitor -Transfuse if falls below 7.0 - Hb today 9.5 (7) Nutrition, metabolism, and development symptoms Code(s): R63.8 - Other symptoms and signs concerning food and fluid intake Status: Acute Plan: Fluids: per ICU Electrolytes: monitor and replete as needed, see above Nutrition: Cardiac diet (8) DVT prophylaxis Status: Acute Plan: DVT Prophylaxis: Early ambulation. bilateral SCDs Unsure if he may need a surgical procedure like a pacemaker in the near future he should be started on anticoagulation if he ends up not needing any sort of intervention. <April Nelson - 05/21/18 12:42> - Assessment and Plan 68-year-old male with PMH of per chart review A fib, HTN, and GERD admitted for alcohol withdrawal seizures. Critical care consulted to due to severity of disease. Cardiology also consulted due to bradycardia and tachycardia present at different times. At this moment, pt's condition remains severe enough to continue ICU care. Will continue to monitor his progress. <April Nelson - 05/21/18 12:54> Discussed Condition With: Dr. Rausch <April Nelson - 05/21/18 12:54> Discharge Planning: Pending clinical course <April Nelson - 05/21/18 12:54> - Attending Attestation The exam, history, and the medical decision-making described in the above note were completed with the assistance of the resident physician. I reviewed and agree with the findings presented. I attest that I had a [id number] encounter with the patient on the same day, and personally performed and documented my assessment and findings in the medical record. sadly, he is still having hallucinations and hope that he improves tomorrow <Roselia Rausch - 05/21/18 16:47> <April Nelson - Last Filed: 05/21/18 12:42> (1) Alcohol withdrawal Qualifiers: Complication of substance-induced condition: with unspecified complication Qualified Code(s): F10.239 - Alcohol dependence with withdrawal, unspecified <Roselia Rausch - Last Filed: 05/21/18 16:47> (1) Alcohol withdrawal Qualifiers: Complication of substance-induced condition: with unspecified complication Qualified Code(s): F10.239 - Alcohol dependence with withdrawal, unspecified <April Nelson - Last Filed: 05/21/18 12:42> (1) Alcohol withdrawal Qualifiers: Complication of substance-induced condition: with unspecified complication Qualified Code(s): F10.239 - Alcohol dependence with withdrawal, unspecified <Roselia Rausch - Last Filed: 05/21/18 16:47> (1) Alcohol withdrawal Qualifiers: Complication of substance-induced condition: with unspecified complication Qualified Code(s): F10.239 - Alcohol dependence with withdrawal, unspecified
--- NOTE | 2018-05-21 10:22 | P.PNCC ---
Subjective Subjective Remarks/Hospital Course: 68-year-old gentleman with past medical history significant for chronic alcoholism and hypertension, now brought to the emergency room after episode of syncope. History is mostly obtained from ED chart since patient is not able to provide it. Per EMS, patient had a witnessed syncope, fell and hit his head. On ED presentation patient was awake and alert and complained of dizziness. During the ED stay, patient became increasingly confused, and he had one episode of generalized tonic-clonic seizure which lasted 30 seconds to 1 minute for which she was administered Lorazepam. In addition, he was given 1 L of saline and he was loaded with fosphenytoin. Patient was admitted under family medicine service to the ICU and [facility] was consulted to help with ICU care. Of note, during ED stay patient also developed A. fib with RVR for which he is currently being started on Cardizem drip. Patient was seen in ED, he is awake, confused, not able to provide significant history. He denies any headache, visual disturbances, nausea or vomiting, chest pain or shortness of breath. He does not know when was his last drink. 05/19: Over the night patient's heart rate fluctuated between 30s-140s. He remains lethargic but arousable following some commands. Had one episode of fever up to 102 then afebrile. On dexmedetomidine 0.2. 05/20: No events over the night. Dexmedetomidine was restarted over the night due to alcohol withdrawal symptoms now has been off since 6 AM. No recurrent episodes of bradycardia. Patient remains in A. fib in the 80s-90s. He is more awake, calm, still slightly confused but more oriented. He denies any headache , neck stiffness, photophobia, chest pain, shortness of breath, palpitations. T -max of 98.7. Basically afebrile during the entire hospitalization except one episode of fever on the day of admission at 8 PM. SUBJECTIVE: 05/21: Currently afebrile. Heart rate in the 60s. Tolerated diet. Discontinue IV fluids. Switch medications to p.o. Objective Vital Signs / I&O: Vital Signs 05/20/18 10:21 05/20/18 11:00 05/20/18 11:26 Temperature Pulse Rate 86 77 Respiratory Rate 34 H 26 H Blood Pressure 140/88 140/85 Pulse Oximetry 98 100 100 05/20/18 12:00 05/20/18 13:00 05/20/18 14:00 Temperature 97.7 F Pulse Rate 68 81 88 Respiratory Rate 18 0 L 21 Blood Pressure 159/96 H 150/94 H 170/83 H Pulse Oximetry 100 100 94 L 05/20/18 15:00 05/20/18 16:00 05/20/18 16:04 Temperature 98.3 F Pulse Rate 90 95 H 92 H Respiratory Rate 25 H 31 H 33 H Blood Pressure 172/93 H 160/108 H 161/103 H Pulse Oximetry 99 100 100 05/20/18 16:05 05/20/18 17:00 05/20/18 17:01 Temperature Pulse Rate 93 H 97 H 101 H Respiratory Rate 32 H 29 H 30 H Blood Pressure 156/94 H 177/91 H 185/90 H Pulse Oximetry 100 86 L 85 L 05/20/18 17:07 05/20/18 17:11 05/20/18 18:00 Temperature Pulse Rate 100 H 96 H 97 H Respiratory Rate 32 H 31 H 32 H Blood Pressure 184/95 H 177/91 H 163/101 H Pulse Oximetry 89 L 100 100 05/20/18 18:06 05/20/18 18:08 05/20/18 19:00 Temperature Pulse Rate 95 H 94 H 96 H Respiratory Rate 22 21 32 H Blood Pressure 170/107 H 160/98 H 162/100 H Pulse Oximetry 100 100 100 05/20/18 19:07 05/20/18 19:35 05/20/18 20:00 Temperature 98.4 F Pulse Rate 102 H 95 H 101 H Respiratory Rate 22 30 H 31 H Blood Pressure 169/108 H 149/94 H 159/107 H Pulse Oximetry 88 L 100 84 L 05/20/18 20:17 05/20/18 20:18 05/20/18 20:30 Temperature Pulse Rate 97 H 95 H Respiratory Rate 23 22 Blood Pressure 173/93 H 166/97 H Pulse Oximetry 100 100 97 05/20/18 20:45 05/20/18 21:00 05/20/18 21:15 Temperature Pulse Rate 94 H 87 82 Respiratory Rate 35 H 16 27 H Blood Pressure 148/81 H 161/96 H 158/103 H Pulse Oximetry 100 98 96 05/20/18 21:19 05/20/18 21:30 05/20/18 21:46 Temperature Pulse Rate 75 69 97 H Respiratory Rate 13 26 H 36 H Blood Pressure 167/91 H 151/94 H 185/97 H Pulse Oximetry 98 100 98 05/20/18 22:00 05/20/18 22:15 05/20/18 22:30 Temperature Pulse Rate 96 H 95 H 95 H Respiratory Rate 28 H 18 32 H Blood Pressure 183/96 H 180/102 H 165/104 H Pulse Oximetry 98 99 96 05/20/18 22:45 05/20/18 23:00 05/20/18 23:15 Temperature Pulse Rate 90 97 H 95 H Respiratory Rate 31 H 14 24 Blood Pressure 170/99 H 182/96 H 162/113 H Pulse Oximetry 98 95 85 L 05/20/18 23:30 05/20/18 23:47 05/21/18 00:00 Temperature 98.2 F Pulse Rate 95 H 72 89 Respiratory Rate 44 H 17 27 H Blood Pressure 165/96 H 166/83 H Pulse Oximetry 97 99 97 05/21/18 00:39 05/21/18 00:45 05/21/18 01:00 Temperature Pulse Rate 98 H 97 H 96 H Respiratory Rate 29 H 20 36 H Blood Pressure 168/94 H 174/84 H 181/89 H Pulse Oximetry 86 L 84 L 98 05/21/18 01:15 05/21/18 01:30 05/21/18 01:45 Temperature Pulse Rate 96 H 94 H 83 Respiratory Rate 26 H 26 H 18 Blood Pressure 186/95 H 171/99 H 168/88 H Pulse Oximetry 98 85 L 86 L 05/21/18 02:00 05/21/18 02:16 05/21/18 02:17 Temperature Pulse Rate 87 97 H 99 H Respiratory Rate 35 H 29 H 36 H Blood Pressure 171/99 H 208/109 H 182/94 H Pulse Oximetry 96 80 L 99 05/21/18 02:30 05/21/18 02:32 05/21/18 02:45 Temperature Pulse Rate 97 H 92 H 98 H Respiratory Rate 21 37 H 37 H Blood Pressure 199/97 H 177/90 H 169/82 H Pulse Oximetry 92 L 95 91 L 05/21/18 02:59 05/21/18 03:00 05/21/18 03:15 Temperature Pulse Rate 92 H 95 H 98 H Respiratory Rate 26 H 32 H 17 Blood Pressure 170/86 H 160/95 H Pulse Oximetry 85 L 88 L 100 05/21/18 03:30 05/21/18 03:45 05/21/18 03:49 Temperature Pulse Rate 96 H 97 H 98 H Respiratory Rate 25 H 23 26 H Blood Pressure 164/92 H 168/101 H 164/100 H Pulse Oximetry 95 99 91 L 05/21/18 04:00 05/21/18 04:15 05/21/18 04:30 Temperature 98.4 F Pulse Rate 96 H 100 H 97 H Respiratory Rate 29 H 25 H 18 Blood Pressure 180/88 H 164/89 H 163/88 H Pulse Oximetry 97 96 99 05/21/18 04:46 05/21/18 05:00 05/21/18 05:15 Temperature Pulse Rate 98 H 98 H 97 H Respiratory Rate 21 31 H 32 H Blood Pressure 173/96 H 164/89 H 168/87 H Pulse Oximetry 97 97 96 05/21/18 05:30 05/21/18 05:45 05/21/18 06:00 Temperature Pulse Rate 96 H 94 H 94 H Respiratory Rate 33 H 25 H 39 H Blood Pressure 178/90 H 141/85 H 165/89 H Pulse Oximetry 91 L 84 L 99 05/21/18 07:00 05/21/18 08:00 05/21/18 09:00 Temperature 98.4 F Pulse Rate 91 H 81 84 Respiratory Rate 18 19 18 Blood Pressure 146/90 H 155/82 H 151/74 H Pulse Oximetry 94 L 96 98 Intake & Output 05/20/18 05/21/18 05/21/18 18:59 06:59 18:59 Intake Total 2461.2 / 2461.2 3450 / 3450 Output Total 1300 / 1300 Balance 1161.2 / 1161.2 3450 / 3450 Weight 88 kg Intake: IV 1861.2 / 1861.2 2490 / 2490 Precedex Inj 1,000 MCG In NS 40 / 40 Inj 240 ML @ 0.2 MCG/KG/HR 3.99 mls/hr IV.CONT TITRATE PRN Rx# :[id number] LR 1000 mL Inj 1,000 ML @ 125 1000 / 1000 2000 / 2000 mls/hr IV.CONT .Q8H [facility] Rx#: [id number] Cardizem Inj 125 MG In NS Inj 125 / 125 100 ML @ 5 MG/HR 5 mls/hr IV. CONT TITRATE PRN Rx#:[id number] Magnesium Sulfate Inj 2 GM In 100 / 100 NS Inj 96 ML @ 50 mls/hr IV.SIG UNSCH PRN Rx#:[id number] MVI-12 Inj 10 ML Thiamine Inj 511.2 / 511.2 100 MG Folvite Inj 1 MG In NS Inj 500 ML @ 127.8 mls/hr IV. SIG DAILY [facility] Rx#:[id number] Sodium Phosphate Inj 30 MMOL In 260 / 260 NS Inj 250 ML @ 42 mls/hr IV. SIG UNSCH PRN Rx#:[id number] Keppra Inj 500 MG In NS Inj 100 210 / 210 105 / 105 ML @ 400 mls/hr IV.SIG Q12H [facility] Rx#:[id number] Oral 600 / 600 960 / 960 Output: Urine Amount (Catheter) 1300 / 1300 Condom 1300 / 1300 Other: # Voids 10 # Incontinent Voids 2 Date of Last Bowel Movement 05/19/18 05/19/18 05/19/18 # Bowel Movements 0 0 Result Diagrams: 05/21/18 03:03 05/21/18 03:03 Imaging: Head CT 05/18/18 10:55 CONCLUSION: 1. Small left anterior scalp hematoma without underlying bony fracture or acute intracranial abnormality. . Objective Remarks: General -68-year-old male currently resting in bed in no acute distress HEENT - pupils equal and reactive, sclerae anicteric, neck supple without rigidity, no JVD, no carotid bruit, dry mucous membranes, no thrush CV - regular S1 and S2, systolic ejection murmur IV/ at the apex and left sternal border Chest - clear b/l, good air entry, no wheezes Abdomen - soft, non-tender, non-distended, BS present Extremities - warm, no edema, + peripheral pulses, no clubbing Neuro -awake, alert, oriented to self, date of , year and president; minimal tremor over the upper extremities, moves all extremities, motor 5 out of 5 overall extremities. Assessment and Plan - Assessment and Plan Plan: 1. Syncope -no recurrence since admission 2. Alcohol withdrawal -better controlled 3. Generalized tonic-clonic seizure secondary to above -no recurrent seizure since patient was admitted in the ICU 4. A. fib -concern for sick sinus syndrome since heart rate ranges from 30s- 140s -no recurrence of bradycardia since yesterday. Heart rate currently in the 60s 5. Severe hypomagnesemia -improved but still low at 1.2 6. Hypokalemia -improved 7. Mild JEAN-PAUL -resolved 8. Anion gap metabolic acidosis -resolved, anion gap closed 9. One episode of fever since admission without recurrence so far 10. Moderate MR. Recommend repeat echocardiogram 1 year 11 . Normocytic anemia and thrombcytopenia 12 . Mild pulmonary present 1. Discontinue dexmedetomidine -might contribute to bradycardia 2. Appreciate cardiology consult. Noted EF 45-50%. Moderate MR. Mild pulmonary hypertension recommended diltiazem 180 twice daily and repeat echocardiogram one year. 3. Continue lisinopril 5 mg daily for hypertension 4. Replete magnesium and potassium 5. CIWA protocol in place. Start scheduled Diazoxide 25 mg every 8 hours 6. Keep magnesium above 2 and potassium above 4 7. Continue levetiracetam 500 twice daily for now 8. Continue with diet as tolerated 9. IV hydration with LR will be discontinued today 10. Aspiration and seizure precautions to be continued 11. GI prophylaxis with famotidine and DVT prophylaxis with enoxaparin and SCDs 12. Continue thiamine and folic acid and multivitamin No family present at bedside. Level 2 follow-up. We will sign off to family medicine for continued care.
[2018-05-21] MEDS ORDERED: Magnesium Sulfate Inj 4 GM in Sodium Chlor 0.9% Inj 92 ML IV.SIG ONE (12:00)
[2018-05-21 18:32] LABS: Magnesium 1.9 mg/dL (1.5-2.5)
[2018-05-21] MEDS: levETIRAcetam 500 MG Tablet PO SCH (21:00)
[2018-05-22] MEDS: chlordiazePOXIDE 25 MG Capsule PO SCH ×3 (02:03→16:58)
[2018-05-22] MEDS: Chlorhexidine Gluconate 2% 1 Pack (2 Cloths) TOPICAL SCH (06:19)
[2018-05-22 07:18] LABS: Baso % (Auto) 0.5 % (0.0-2.0); Eos # (Auto) 0.2 th/mm3 (0.0-0.4); Eos % (Auto) 2.8 % (0.0-4.0); Hematocrit 31.1 % (39.0-51.0); Hemoglobin 10.3 gm/dL (13.0-17.0); Lymph # (Auto) 1.5 th/mm3 (1.0-4.8); Lymph % (Auto) 20.4 % (9.0-44.0); Mean Corpuscular HGB Conc 33.2 % (32.0-36.0); Mean Corpuscular Hemoglobin 32.6 pg (27.0-34.0); Mean Corpuscular Volume 98.1 fL (80.0-100.0); Mean Platelet Volume 10.3 fL (7.0-11.0); Mono # (Auto) 0.8 th/mm3 (0.0-0.9); Mono % (Auto) 10.4 % (0.0-8.0); Neut # (Auto) 4.8 th/mm3 (1.8-7.7); Neut % (Auto) 65.9 % (16.0-70.0); Platelet Count 51 th/mm3 (150-450); Red Blood Count 3.17 mil/mm3 (4.50-5.90); Red Cell Distribution Width 19.1 % (11.6-17.2); White Blood Count 7.4 th/mm3 (4.0-11.0)
[2018-05-22 07:41] LABS: Alanine Aminotransferase 11 U/L (12-78); Albumin 3.1 g/dL (3.4-5.0); Alkaline Phosphatase 63 U/L (45-117); Anion Gap 14 meq/L (5-15); Aspartate Aminotransferase 19 U/L (15-37); Blood Urea Nitrogen 6 mg/dL (7-18); Carbon Dioxide 20.7 meq/L (21.0-32.0); Chloride 101 meq/L (98-107); Glomerular Filtration Rate Greater Than 89 mL/min (>89); Glucose,Random 73 mg/dL (74-106); Magnesium 1.7 mg/dL (1.5-2.5); Sodium 136 meq/L (136-145); Total Protein 6.5 g/dL (6.4-8.2)
[2018-05-22] MEDS: levETIRAcetam 500 MG Tablet PO SCH ×2 (08:07→20:18)
[2018-05-22] MEDS: Folic Acid 1 MG Tablet PO SCH (08:07)
[2018-05-22] MEDS: dilTIAZem CD 180 MG Capsule PO SCH (08:07)
[2018-05-22] MEDS: Lisinopril 5 MG Tablet PO SCH (08:07)
--- NOTE | 2018-05-22 12:38 | MG ---
cc: Richy De La O MD, PhD TEST NUMBER: [id number] TECHNIQUE: A 17-channel EEG. DESCRIPTION: The background rhythm shows a symmetrical alpha rhythm, frequency of 8-9 Hz. Amplitude is 20-30 microvolts. There is some muscle artifact. Later in the tracing, there is some slowing in the theta range at 6 Hz. No lateralizing features are identified and no epileptiform features are seen. Photic stimulation results in a modest driving response. Hyperventilation was omitted. INTERPRETATION: Overall normal-appearing electroencephalogram. Richy De La O MD, PhD KEAGAN/angel , 12:18 PM , 12:24 PM
--- NOTE | 2018-05-22 18:09 | P.PNFP ---
Subjective Interval history: Pt seen and evaluated today. He states he is feeling better, and would like to eat more food. He still has some confusion and continues to have visual and hearing hallucinations. Today he is seeing his childhood friends and talking to them. He states he knows they are not real, and he never had this issue in the past. He believes he has been here for 3 weeks and that he 's lost 45lbs. We reoriented him and told him he's only been here for 4 days. He denies any shortness of breath, chest pain, fevers or chills. He would like to get his restraints off. Per nurse report, pt still confused at times, pulls off IV's and attempts to walk out of room. <Debbie Durán V - 05/22/18 18:09> Results - Labs Result diagrams: 05/22/18 04:36 05/22/18 04:36 <Herminia Suarez - 05/22/18 20:25> Abnormal lab results 05/22/18 05/22/18 Range/Units 04:36 04:36 RBC 3.17 L (4.50-5.90) mil/mm3 Hgb 10.3 L (13.0-17.0) gm/dL Hct 31.1 L (39.0-51.0) % RDW 19.1 H (11.6-17.2) % Plt Count 51 L (150-450) th/mm3 Mcintosh % (Auto) 10.4 H (0.0-8.0) % Platelet Estimate Low L (Normal) Platelet Morphology Enlarged H (Normal) Carbon Dioxide 20.7 L (21.0-32.0) meq/L BUN 6 L (7-18) mg/dL Random Glucose 73 L (74-106) mg/dL Calcium 8.0 L (8.5-10.1) mg/dL ALT 11 L (12-78) U/L Albumin 3.1 L (3.4-5.0) g/dL Short CBC 05/22/18 Range/Units 04:36 WBC 7.4 (4.0-11.0) th/mm3 Hgb 10.3 L (13.0-17.0) gm/dL Hct 31.1 L (39.0-51.0) % Plt Count 51 L (150-450) th/mm3 [facility] 05/22/18 04:36 Sodium 136 Potassium 4.0 Chloride 101 Carbon Dioxide 20.7 L BUN 6 L Creatinine 0.79 Calcium 8.0 L Liver Function 05/22/18 Range/Units 04:36 Total Bilirubin 1.0 (0.2-1.0) mg/dL AST 19 (15-37) U/L ALT 11 L (12-78) U/L Alkaline Phosphatase 63 (45-117) U/L Albumin 3.1 L (3.4-5.0) g/dL <Herminia Suarez - 05/22/18 20:25> Abnormal lab results 05/22/18 05/22/18 Range/Units 04:36 04:36 RBC 3.17 L (4.50-5.90) mil/mm3 Hgb 10.3 L (13.0-17.0) gm/dL Hct 31.1 L (39.0-51.0) % RDW 19.1 H (11.6-17.2) % Plt Count 51 L (150-450) th/mm3 Mcintosh % (Auto) 10.4 H (0.0-8.0) % Platelet Estimate Low L (Normal) Platelet Morphology Enlarged H (Normal) Carbon Dioxide 20.7 L (21.0-32.0) meq/L BUN 6 L (7-18) mg/dL Random Glucose 73 L (74-106) mg/dL Calcium 8.0 L (8.5-10.1) mg/dL ALT 11 L (12-78) U/L Albumin 3.1 L (3.4-5.0) g/dL Short CBC 05/22/18 Range/Units 04:36 WBC 7.4 (4.0-11.0) th/mm3 Hgb 10.3 L (13.0-17.0) gm/dL Hct 31.1 L (39.0-51.0) % Plt Count 51 L (150-450) th/mm3 [facility] 05/21/18 05/22/18 17:08 04:36 Sodium 136 Potassium 4.0 4.0 Chloride 101 Carbon Dioxide 20.7 L BUN 6 L Creatinine 0.79 Calcium 8.0 L Liver Function 05/22/18 Range/Units 04:36 Total Bilirubin 1.0 (0.2-1.0) mg/dL AST 19 (15-37) U/L ALT 11 L (12-78) U/L Alkaline Phosphatase 63 (45-117) U/L Albumin 3.1 L (3.4-5.0) g/dL <Debbie Durán V - 05/22/18 18:09> Physical Exam Vital signs: Vital Signs 05/21/18 21:00 05/21/18 22:00 05/21/18 23:00 Temperature 98.2 F 98.0 F 98.9 F Pulse Rate 92 H 81 72 Respiratory Rate 27 H 14 11 L Blood Pressure 131/79 143/87 H 154/79 H Pulse Oximetry 99 100 100 05/22/18 00:00 05/22/18 01:00 05/22/18 02:00 Temperature 98.8 F 98.8 F 98.8 F Pulse Rate 68 74 76 Respiratory Rate 26 H 22 23 Blood Pressure 149/77 H 156/89 H 155/85 H Pulse Oximetry 100 100 100 05/22/18 03:00 05/22/18 04:00 05/22/18 05:00 Temperature 98.0 F 98.0 F 98.0 F Pulse Rate 78 72 82 Respiratory Rate 24 28 H 26 H Blood Pressure 158/88 H 168/81 H 155/74 H Pulse Oximetry 100 99 100 05/22/18 06:00 05/22/18 07:00 05/22/18 08:00 Temperature 89.5 F L 98.3 F Pulse Rate 66 75 76 Respiratory Rate 29 H 18 17 Blood Pressure 158/80 H 166/84 H 162/101 H Pulse Oximetry 100 100 98 05/22/18 09:00 05/22/18 10:00 05/22/18 11:00 Temperature Pulse Rate 76 65 68 Respiratory Rate 18 18 17 Blood Pressure 138/82 160/83 H 157/80 H Pulse Oximetry 100 100 100 05/22/18 12:00 05/22/18 13:00 05/22/18 14:00 Temperature 98.4 F 98.5 F Pulse Rate 67 62 65 Respiratory Rate 18 16 17 Blood Pressure 133/71 137/81 135/69 Pulse Oximetry 100 100 100 05/22/18 15:00 05/22/18 16:00 05/22/18 17:00 Temperature 98.3 F Pulse Rate 65 60 62 Respiratory Rate 17 18 17 Blood Pressure 138/78 140/87 166/74 H Pulse Oximetry 100 100 100 05/22/18 18:00 Temperature 98.5 F Pulse Rate 63 Respiratory Rate 18 Blood Pressure 147/87 H Pulse Oximetry 100 Intake & Output 05/22/18 05/22/18 05/23/18 06:59 18:59 06:59 Intake Total 300 / 300 480 / 480 Output Total 0 / 0 Balance 300 / 300 480 / 480 Weight 87 kg Intake: Oral 300 / 300 480 / 480 Output: Stool 0 / 0 Urine/Stool Mix 0 / 0 Other: # Voids 3 # Incontinent Voids 3 Date of Last Bowel Movement 05/21/18 05/22/18 # Bowel Movements 0 2 # Incontinent Bowel Movements 0 <Herminia Suarez - 05/22/18 20:25> Vital Signs 05/21/18 18:00 05/21/18 19:00 05/21/18 19:10 Temperature 98.4 F 98.2 F Pulse Rate 78 92 H Respiratory Rate 16 28 H Blood Pressure 155/85 H 162/86 H Pulse Oximetry 100 96 100 05/21/18 20:00 05/21/18 21:00 05/21/18 22:00 Temperature 98.2 F 98.2 F 98.0 F Pulse Rate 108 H 92 H 81 Respiratory Rate 28 H 27 H 14 Blood Pressure 162/95 H 131/79 143/87 H Pulse Oximetry 99 99 100 05/21/18 23:00 05/22/18 00:00 05/22/18 01:00 Temperature 98.9 F 98.8 F 98.8 F Pulse Rate 72 68 74 Respiratory Rate 11 L 26 H 22 Blood Pressure 154/79 H 149/77 H 156/89 H Pulse Oximetry 100 100 100 05/22/18 02:00 05/22/18 03:00 05/22/18 04:00 Temperature 98.8 F 98.0 F 98.0 F Pulse Rate 76 78 72 Respiratory Rate 23 24 28 H Blood Pressure 155/85 H 158/88 H 168/81 H Pulse Oximetry 100 100 99 05/22/18 05:00 05/22/18 06:00 05/22/18 07:00 Temperature 98.0 F 89.5 F L Pulse Rate 82 66 75 Respiratory Rate 26 H 29 H 18 Blood Pressure 155/74 H 158/80 H 166/84 H Pulse Oximetry 100 100 100 05/22/18 08:00 05/22/18 09:00 05/22/18 10:00 Temperature 98.3 F Pulse Rate 76 76 65 Respiratory Rate 17 18 18 Blood Pressure 162/101 H 138/82 160/83 H Pulse Oximetry 98 100 100 05/22/18 11:00 05/22/18 12:00 05/22/18 13:00 Temperature 98.4 F Pulse Rate 68 67 62 Respiratory Rate 17 18 16 Blood Pressure 157/80 H 133/71 137/81 Pulse Oximetry 100 100 100 05/22/18 14:00 Temperature 98.5 F Pulse Rate 65 Respiratory Rate 17 Blood Pressure 135/69 Pulse Oximetry 100 Intake & Output 05/21/18 05/22/18 05/22/18 18:59 06:59 18:59 Intake Total 1611.2 / 1611.2 300 / 300 Output Total 0 / 0 Balance 1611.2 / 1611.2 300 / 300 Weight 87 kg Intake: IV 1611.2 / 1611.2 LR 1000 mL Inj 1,000 ML @ 125 1000 / 1000 mls/hr IV.CONT .Q8H [facility] Rx#: [id number] Magnesium Sulfate Inj 4 GM In 100 / 100 NS Inj 92 ML @ 25 mls/hr IV.SIG ONCE ONE Rx#:[id number] MVI-12 Inj 10 ML Thiamine Inj 511.2 / 511.2 100 MG Folvite Inj 1 MG In NS Inj 500 ML @ 127.8 mls/hr IV. SIG DAILY [facility] Rx#:[id number] Oral 300 / 300 Output: Stool 0 / 0 Urine/Stool Mix 0 / 0 Other: # Voids 5 # Incontinent Voids 3 Date of Last Bowel Movement 05/21/18 05/21/18 05/21/18 # Bowel Movements 3 0 # Incontinent Bowel Movements 0 <Magda RamDebbieRadhika - 05/22/18 18:09> Narrative: GENERAL: Well-nourished, white male, awake, in NAD, with soft restraints on his bilateral wrists. SKIN: Warm and dry. HEAD: Normocephalic and atraumatic. EYES: No scleral icterus. No injection or drainage. ENT: No nasal drainage noted. Airway patent. CARDIOVASCULAR: Irregular irregular rate and rhythm. HR in the 70s. Systolic murmur appreciated. RESPIRATORY: Breath sounds equal bilaterally. No accessory muscle use. ABDOMEN/GI: Abdomen soft, non-tender, bowel sounds present. EXTREMITIES: No cyanosis or edema. NEUROLOGICAL: Awake, alert. Following commands, clear speech. Visible tremor at rest. Visible hallucinations at the moment. <Debbie Durán V - 05/22/18 18:09> - Urinary Catheter Management Condom Cath placed during this visit: no <Herminia Suarez - 05/22/18 20:25> no <Debbie Durán V - 05/22/18 18:09> Assessment and Plan - Assessment (1) Alcohol withdrawal Code(s): F10.239 - Alcohol dependence with withdrawal, unspecified Status: Acute (2) Seizure Code(s): R56.9 - Unspecified convulsions Status: Acute (3) Atrial fibrillation with RVR Code(s): I48.91 - Unspecified atrial fibrillation Status: Acute (4) Hypokalemia Code(s): E87.6 - Hypokalemia Status: Acute (5) Hypomagnesemia Code(s): E83.42 - Hypomagnesemia Status: Acute (6) Normocytic anemia Code(s): D64.9 - Anemia, unspecified Status: Chronic (7) Nutrition, metabolism, and development symptoms Code(s): R63.8 - Other symptoms and signs concerning food and fluid intake Status: Acute (8) DVT prophylaxis Status: Acute <Herminia Suarez - 05/22/18 20:25> (1) Alcohol withdrawal Code(s): F10.239 - Alcohol dependence with withdrawal, unspecified Status: Acute Plan: Patient with long history of alcoholism. States that his last drink was 2 days ago. Admitted due to seizure while in ED ED interventions: -CIWA protocol initiated -5 mg total of Ativan given early, has had Precedex and other treatments since then -Fosphenytoin 1000 mg IV given, now on Keppra BID Highest CIWA score while in the ED was 23 Rally pack IV 05/22: Medicines switched to PO. Last CIWA score 3. At this point, patient will be de-escalated on his critical care. He will be placed on CIC for continuous monitoring with telemetry. His medications will be continued. -Continue lisinopril 5 mg daily for hypertension -Replete magnesium and potassium- Keep magnesium above 2 and potassium above 4 -[facility] protocol in place. Scheduled Diazoxide 25 mg every 8 hours -Continue levetiracetam 500 twice daily for now -Continue with diet as tolerated -Aspiration and seizure precautions to be continued -Continue thiamine and folic acid and multivitamin (2) Seizure Code(s): R56.9 - Unspecified convulsions Status: Acute Plan: 05/20: No more seizures since ED admission. See plan above for details. (3) Atrial fibrillation with RVR Code(s): I48.91 - Unspecified atrial fibrillation Status: Acute Plan: Pt found to be in A. fib with RVR while in ED. Per chart review, it seems that pt has a hx of this. EKG shows atrial fibrillation with heart rate of 161 on admission, had some episode of bradycardia, and also HR of 190-200 intermittently, most of the time in the 60's now.. Cardiology recommendations: -HR's mostly controlled. - Continue Cardizem CD 180mg as for treatment of his HTN and add daily aspirin when possible. (4) Hypokalemia Code(s): E87.6 - Hypokalemia Status: Acute Plan: Potassium on admission was 2.9 -Given KCl 40 mEq while in ED - Continue to monitor and replace as needed (5) Hypomagnesemia Code(s): E83.42 - Hypomagnesemia Status: Acute Plan: Magnesium was 1.1 upon admission - Continue to monitor and replace as needed (6) Normocytic anemia Code(s): D64.9 - Anemia, unspecified Status: Chronic Plan: Hemoglobin was 12.3 with MCV of 97.9. It does not seem to have a history of CKD. May be due to chronic alcoholism; however, MCV does not reflect this. -Continue to monitor -Transfuse if falls below 7.0 - Hb today 10.3 (7) Nutrition, metabolism, and development symptoms Code(s): R63.8 - Other symptoms and signs concerning food and fluid intake Status: Acute Plan: Fluids: PO at this time Electrolytes: monitor and replete as needed, see above Nutrition: Cardiac diet GI prophylaxis with famotidine (8) DVT prophylaxis Status: Acute Plan: DVT Prophylaxis: enoxaparin and SCDs. <Debbie Durán V - 05/22/18 17:50> - Assessment and Plan 68-year-old male with PMH of per chart review A fib, HTN, and GERD admitted for alcohol withdrawal seizures. Critical care consulted to due to severity of disease. Cardiology also consulted due to bradycardia and tachycardia present at different times. After 4 days of ICU care, will proceed to de-escalate care to CIC. Pt will be closely monitored for cardiac changes, mental status changes , and seizures. We anticipate he will continue to improve slowly. Pt discussed with Dr. Suarez <Debbie Durán V - 05/22/18 18:09> - Attending Attestation Patient seen, examined, and discussed with resident team. I agree with assessment and management as documented and discussed with me. CIWA scores have improved. Continue current regimen. Transfer from ICU. <Herminia Suarez - 05/22/18 20:25> <Debbie Durán V - Last Filed: 05/22/18 17:50> (1) Alcohol withdrawal Qualifiers: Complication of substance-induced condition: with unspecified complication Qualified Code(s): F10.239 - Alcohol dependence with withdrawal, unspecified <Herminia Suarez - Last Filed: 05/22/18 20:25> (1) Alcohol withdrawal Qualifiers: Complication of substance-induced condition: with unspecified complication Qualified Code(s): F10.239 - Alcohol dependence with withdrawal, unspecified <Debbie Durán V - Last Filed: 05/22/18 17:50> (1) Alcohol withdrawal Qualifiers: Complication of substance-induced condition: with unspecified complication Qualified Code(s): F10.239 - Alcohol dependence with withdrawal, unspecified <Herminia Suarez - Last Filed: 05/22/18 20:25> (1) Alcohol withdrawal Qualifiers: Complication of substance-induced condition: with unspecified complication Qualified Code(s): F10.239 - Alcohol dependence with withdrawal, unspecified
[2018-05-23] MEDS: chlordiazePOXIDE 25 MG Capsule PO SCH ×3 (00:43→17:11)
[2018-05-23] MEDS: Chlorhexidine Gluconate 2% 1 Pack (2 Cloths) TOPICAL SCH (06:00)
[2018-05-23 06:01] LABS: Hematocrit 26.6 % (39.0-51.0); Hemoglobin 8.9 gm/dL (13.0-17.0); Mean Corpuscular HGB Conc 33.5 % (32.0-36.0); Mean Corpuscular Hemoglobin 32.8 pg (27.0-34.0); Mean Corpuscular Volume 97.8 fL (80.0-100.0); Mean Platelet Volume 9.6 fL (7.0-11.0); Platelet Count 105 th/mm3 (150-450); Red Blood Count 2.72 mil/mm3 (4.50-5.90); Red Cell Distribution Width 18.2 % (11.6-17.2); White Blood Count 4.7 th/mm3 (4.0-11.0)
[2018-05-23 06:29] LABS: Albumin 2.9 g/dL (3.4-5.0); Anion Gap 10 meq/L (5-15); Blood Urea Nitrogen 6 mg/dL (7-18); Calcium 7.9 mg/dL (8.5-10.1); Carbon Dioxide 25.4 meq/L (21.0-32.0); Chloride 101 meq/L (98-107); Glomerular Filtration Rate Greater Than 89 mL/min (>89); Glucose,Random 94 mg/dL (74-106); Potassium 3.8 meq/L (3.5-5.1); Sodium 136 meq/L (136-145)
[2018-05-23 06:30] LABS: Alanine Aminotransferase 10 U/L (12-78)
[2018-05-23 06:33] LABS: Alkaline Phosphatase 66 U/L (45-117); Aspartate Aminotransferase 16 U/L (15-37); Total Protein 6.2 g/dL (6.4-8.2)
[2018-05-23] MEDS: dilTIAZem CD 180 MG Capsule PO SCH (08:14)
[2018-05-23] MEDS: Folic Acid 1 MG Tablet PO SCH (08:14)
[2018-05-23] MEDS: levETIRAcetam 500 MG Tablet PO SCH ×2 (08:14→20:45)
[2018-05-23] MEDS: Lisinopril 5 MG Tablet PO SCH (08:14)
--- NOTE | 2018-05-23 12:14 | P.PNFP ---
Subjective Interval history: Patient seen and examined this morning. He states that he is doing well. He endorses visual hallucinations of seeing rats and bats out of the corner of his eye but when he turns he does not see them anymore. He also states he has had left-sided chest pain since waking up this morning. He was restrained when he woke up so he struggled to free himself so he believes that is the cause of his pain. He is also having some itchiness on the left side of his face. <OmarApril G - 05/23/18 14:48> Results - Labs Result diagrams: 05/24/18 05:29 05/25/18 04:30 <ErickHerminia - 05/25/18 15:23> BMP 05/25/18 04:30 Sodium 139 Potassium 3.9 Chloride 102 Carbon Dioxide 26.3 BUN 8 Creatinine 0.83 Calcium 8.7 <Herminia Suarez - 05/25/18 15:23> Abnormal lab results 05/23/18 05/23/18 Range/Units 05:27 05:27 RBC 2.72 L (4.50-5.90) mil/mm3 Hgb 8.9 L (13.0-17.0) gm/dL Hct 26.6 L (39.0-51.0) % RDW 18.2 H (11.6-17.2) % Plt Count 105 L D (150-450) th/mm3 BUN 6 L (7-18) mg/dL Calcium 7.9 L (8.5-10.1) mg/dL ALT 10 L (12-78) U/L Total Protein 6.2 L (6.4-8.2) g/dL Albumin 2.9 L (3.4-5.0) g/dL Short CBC 05/23/18 Range/Units 05:27 WBC 4.7 (4.0-11.0) th/mm3 Hgb 8.9 L (13.0-17.0) gm/dL Hct 26.6 L (39.0-51.0) % Plt Count 105 L D (150-450) th/mm3 BMP 05/23/18 05:27 Sodium 136 Potassium 3.8 Chloride 101 Carbon Dioxide 25.4 BUN 6 L Creatinine 0.74 Calcium 7.9 L Liver Function 05/23/18 Range/Units 05:27 Total Bilirubin 0.6 (0.2-1.0) mg/dL AST 16 (15-37) U/L ALT 10 L (12-78) U/L Alkaline Phosphatase 66 (45-117) U/L Albumin 2.9 L (3.4-5.0) g/dL <OmarApril G - 05/23/18 12:14> - Imaging Impressions Head MRI 05/25/18 00:00 CONCLUSION: 1. No acute infarct, acute hemorrhage, midline shift or extra-axial fluid collections. 2. Mild periventricular white matter small vessel ischemic changes bilaterally. 3. 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 <Herminia Suarez - 05/25/18 15:23> Physical Exam Vital signs: Vital Signs 05/24/18 16:00 05/24/18 20:00 05/25/18 00:00 Temperature 97.5 F L 98.1 F 97.3 F L Pulse Rate 59 L 51 L 48 L Respiratory Rate 17 18 18 Blood Pressure 118/64 126/69 129/76 Pulse Oximetry 98 98 95 05/25/18 04:00 Temperature 97.5 F L Pulse Rate 67 Respiratory Rate 18 Blood Pressure 152/81 H Pulse Oximetry 98 Intake & Output 05/24/18 05/25/18 05/25/18 18:59 06:59 18:59 Intake Total 720 / 720 360 / 360 Output Total 500 / 500 Balance 220 / 220 360 / 360 Weight 88 kg Intake: Oral 720 / 720 360 / 360 Output: Urine 500 / 500 Other: # Voids 4 Date of Last Bowel Movement 05/24/18 05/24/18 # Bowel Movements 0 0 <Herminia Suarez - 05/25/18 15:23> Vital Signs 05/22/18 13:00 05/22/18 14:00 05/22/18 15:00 Temperature 98.5 F Pulse Rate 62 51 L 65 Respiratory Rate 25 H 26 H 30 H Blood Pressure 137/81 135/69 138/78 Pulse Oximetry 86 L 100 100 05/22/18 16:00 05/22/18 17:00 05/22/18 18:00 Temperature 98.3 F 98.5 F Pulse Rate 60 62 106 H Respiratory Rate 25 H 25 H 0 L Blood Pressure 140/87 166/74 H 147/87 H Pulse Oximetry 100 87 L 100 05/22/18 19:00 05/22/18 19:06 05/22/18 20:00 Temperature Pulse Rate 85 66 84 Respiratory Rate 25 H 24 26 H Blood Pressure 153/93 H 149/80 H 153/88 H Pulse Oximetry 100 05/22/18 21:00 05/22/18 21:01 05/22/18 22:00 Temperature Pulse Rate 64 65 59 L Respiratory Rate 24 24 25 H Blood Pressure 137/72 138/78 Pulse Oximetry 98 99 100 05/22/18 23:00 05/23/18 00:00 05/23/18 00:01 Temperature 98.2 F Pulse Rate 48 L 64 60 Respiratory Rate 23 23 20 Blood Pressure 127/75 156/77 H Pulse Oximetry 05/23/18 01:00 05/23/18 01:01 05/23/18 02:00 Temperature Pulse Rate 60 57 L 57 L Respiratory Rate 23 12 24 Blood Pressure 149/74 H 150/78 H Pulse Oximetry 100 100 100 05/23/18 03:00 05/23/18 04:00 05/23/18 04:01 Temperature 98.2 F Pulse Rate 75 76 82 Respiratory Rate 19 25 H 21 Blood Pressure 168/84 H 168/130 H Pulse Oximetry 99 89 L 94 L 05/23/18 04:03 05/23/18 05:00 05/23/18 05:09 Temperature Pulse Rate 74 90 81 Respiratory Rate 13 20 24 Blood Pressure 158/104 H 148/98 H 152/96 H Pulse Oximetry 99 76 L 99 05/23/18 06:00 05/23/18 06:13 05/23/18 07:00 Temperature Pulse Rate 87 93 H 77 Respiratory Rate 25 H 45 H 23 Blood Pressure 151/103 H 153/87 H 162/94 H Pulse Oximetry 97 97 100 05/23/18 08:00 05/23/18 09:00 05/23/18 10:00 Temperature 97.8 F Pulse Rate 82 77 85 Respiratory Rate 17 25 H 30 H Blood Pressure 177/106 H 160/99 H 148/99 H Pulse Oximetry 100 99 99 05/23/18 11:00 Temperature 98.3 F Pulse Rate 85 Respiratory Rate 23 Blood Pressure 148/94 H Pulse Oximetry 99 Intake & Output 05/22/18 05/23/18 05/23/18 18:59 06:59 18:59 Intake Total 480 / 480 500 / 500 Output Total 400 / 400 Balance 480 / 480 100 / 100 Weight 87.5 kg Intake: Oral 480 / 480 500 / 500 Output: Urine 400 / 400 Other: # Voids 3 3 Date of Last Bowel Movement 05/22/18 05/22/18 05/21/18 # Bowel Movements 2 0 <April Nelson - 05/23/18 12:14> Narrative: GENERAL: Well-nourished, white male, awake, in NAD, with soft restraints on his bilateral wrists. SKIN: Warm and dry. Inflamed SK's on left side of face with excoriations. HEAD: Normocephalic and atraumatic. EYES: No scleral icterus. No injection or drainage. ENT: No nasal drainage noted. Airway patent. CARDIOVASCULAR: Irregular irregular rate and rhythm. HR in the 70s. Systolic murmur appreciated. Tenderness to palpation of left chest wall. RESPIRATORY: Breath sounds equal bilaterally. No accessory muscle use. ABDOMEN/GI: Abdomen soft, non-tender, bowel sounds present. EXTREMITIES: No cyanosis or edema. NEUROLOGICAL: Awake, alert. Following commands, clear speech. <April Nelson - 05/23/18 14:48> - Urinary Catheter Management Condom Cath placed during this visit: no <Herminia Suarez - 05/25/18 15:23> no <April Nelson - 05/23/18 14:48> Assessment and Plan - Assessment (1) Alcohol withdrawal Code(s): F10.239 - Alcohol dependence with withdrawal, unspecified Status: Acute (2) Costochondritis Code(s): M94.0 - Chondrocostal junction syndrome [Tietze] Status: Resolved (3) Seborrheic keratoses, inflamed Code(s): L82.0 - Inflamed seborrheic keratosis Status: Acute (4) Seizure Code(s): R56.9 - Unspecified convulsions Status: Acute (5) Atrial fibrillation with RVR Code(s): I48.91 - Unspecified atrial fibrillation Status: Acute (6) Normocytic anemia Code(s): D64.9 - Anemia, unspecified Status: Chronic (7) Hypertension Code(s): I10 - Essential (primary) hypertension Status: Chronic (8) Nutrition, metabolism, and development symptoms Code(s): R63.8 - Other symptoms and signs concerning food and fluid intake Status: Acute (9) DVT prophylaxis Status: Acute <Herminia Suarez - 05/25/18 15:23> (1) Alcohol withdrawal Code(s): F10.239 - Alcohol dependence with withdrawal, unspecified Status: Acute Plan: Patient with long history of alcoholism. Stated that his last drink was 2 days ago. Admitted due to a seizure while in ED. Transfer put in for Med-surg placement today. ED interventions: -CIWA protocol initiated- Highest CIWA score while in the ED was 23 -5 mg total of Ativan given early, has had Precedex and other treatments since then -Fosphenytoin 1000 mg IV given Rally pack IV Diazoxide 25 mg every 8 hours Levetiracetam 500 twice daily Aspiration and seizure precautions (2) Costochondritis Code(s): M94.0 - Chondrocostal junction syndrome [Tietze] Status: Acute Plan: Chest pain this AM is likely from straining at his restraints. -Will give Tylenol, if ineffective will consider NSAIDs, but cautious at this time due to hx of HTN (3) Seborrheic keratoses, inflamed Code(s): L82.0 - Inflamed seborrheic keratosis Status: Acute Plan: Inflamed on left side of face -Will start Hydrocortisone 1% cream to apply to the area (4) Seizure Code(s): R56.9 - Unspecified convulsions Status: Acute Plan: No more seizures since ED admission. See plan above for details. (5) Atrial fibrillation with RVR Code(s): I48.91 - Unspecified atrial fibrillation Status: Acute Plan: Pt found to be in A. fib with RVR while in ED. Per chart review, it seems that pt has a hx of this. EKG shows atrial fibrillation with heart rate of 161 on admission, had some episode of bradycardia, and also HR of 190-200 intermittently, most of the time in the 60's now.. Cardiology recommendations: -HR's mostly controlled. - Continue Cardizem CD 180mg as for treatment of his HTN and add daily aspirin when possible. (6) Normocytic anemia Code(s): D64.9 - Anemia, unspecified Status: Chronic Plan: Hemoglobin was 12.3 with MCV of 97.9. It does not seem to have a history of CKD. May be due to chronic alcoholism; however, MCV does not reflect this. -Continue to monitor -Transfuse if falls below 7.0 (7) Hypertension Code(s): I10 - Essential (primary) hypertension Status: Chronic Plan: Continue Lisinopril 5mg po qd Continue Cardizem CD as above (8) Nutrition, metabolism, and development symptoms Code(s): R63.8 - Other symptoms and signs concerning food and fluid intake Status: Acute Plan: Fluids: PO at this time Electrolytes: monitor and replete as needed, see above Nutrition: Cardiac diet GI prophylaxis with famotidine (9) DVT prophylaxis Status: Acute Plan: DVT Prophylaxis: enoxaparin and SCDs. <April Nelson - 05/23/18 14:13> - Assessment and Plan 68-year-old male with PMH of per chart review A fib, HTN, and GERD admitted for alcohol withdrawal seizures. Critical care consulted to due to severity of disease. Cardiology also consulted due to bradycardia and tachycardia present at different times. Will proceed to de-escalate care from ICU. Pt will be closely monitored for cardiac changes, mental status changes, and seizures. We anticipate he will continue to improve slowly. <April Nelson - 05/23/18 14:48> Discussed Condition With: Dr. Suarez, Dr. Johnson <OmarApril G - 05/23/18 14:48> Discharge Planning: Pending clinical course <April Nelson 05/23/18 14:48> - Attending Attestation Patient seen and examined, discussed with resident team on day of documentation. I agree with assessment and management as documented and discussed with me. Pt without complaints. Seen with nurse at the bedside. He is worried about being able to return to [facility]. Appreciate case management. <Herminia Suarez - 05/25/18 15:23> <April Nelson - Last Filed: 05/23/18 14:13> (1) Alcohol withdrawal Qualifiers: Complication of substance-induced condition: with unspecified complication Qualified Code(s): F10.239 - Alcohol dependence with withdrawal, unspecified (7) Hypertension Qualifiers: Hypertension type: essential hypertension Qualified Code(s): I10 - Essential (primary) hypertension <Herminia Suarez - Last Filed: 05/25/18 15:23> (1) Alcohol withdrawal Qualifiers: Complication of substance-induced condition: with unspecified complication Qualified Code(s): F10.239 - Alcohol dependence with withdrawal, unspecified (7) Hypertension Qualifiers: Hypertension type: essential hypertension Qualified Code(s): I10 - Essential (primary) hypertension <April Nelson - Last Filed: 05/23/18 14:13> (1) Alcohol withdrawal Qualifiers: Complication of substance-induced condition: with unspecified complication Qualified Code(s): F10.239 - Alcohol dependence with withdrawal, unspecified (7) Hypertension Qualifiers: Hypertension type: essential hypertension Qualified Code(s): I10 - Essential (primary) hypertension <VeyClarissae - Last Filed: 05/25/18 15:23> (1) Alcohol withdrawal Qualifiers: Complication of substance-induced condition: with unspecified complication Qualified Code(s): F10.239 - Alcohol dependence with withdrawal, unspecified (7) Hypertension Qualifiers: Hypertension type: essential hypertension Qualified Code(s): I10 - Essential (primary) hypertension
[2018-05-24] MEDS: chlordiazePOXIDE 25 MG Capsule PO SCH ×3 (00:21→16:30)
[2018-05-24 05:58] LABS: Baso % (Auto) 0.7 % (0.0-2.0); Eos # (Auto) 0.2 th/mm3 (0.0-0.4); Eos % (Auto) 5.1 % (0.0-4.0); Hematocrit 27.6 % (39.0-51.0); Hemoglobin 9.2 gm/dL (13.0-17.0); Lymph # (Auto) 1.2 th/mm3 (1.0-4.8); Lymph % (Auto) 28.6 % (9.0-44.0); Mean Corpuscular HGB Conc 33.2 % (32.0-36.0); Mean Corpuscular Hemoglobin 32.3 pg (27.0-34.0); Mean Corpuscular Volume 97.3 fL (80.0-100.0); Mean Platelet Volume 9.5 fL (7.0-11.0); Mono # (Auto) 0.7 th/mm3 (0.0-0.9); Mono % (Auto) 15.5 % (0.0-8.0); Neut # (Auto) 2.1 th/mm3 (1.8-7.7); Neut % (Auto) 50.1 % (16.0-70.0); Platelet Count 145 th/mm3 (150-450); Red Blood Count 2.84 mil/mm3 (4.50-5.90); Red Cell Distribution Width 18.2 % (11.6-17.2); White Blood Count 4.3 th/mm3 (4.0-11.0)
[2018-05-24 06:23] LABS: Anion Gap 12 meq/L (5-15); Blood Urea Nitrogen 8 mg/dL (7-18); Calcium 8.5 mg/dL (8.5-10.1); Carbon Dioxide 24.4 meq/L (21.0-32.0); Chloride 100 meq/L (98-107); Glomerular Filtration Rate Greater Than 89 mL/min (>89); Glucose,Random 95 mg/dL (74-106); Sodium 136 meq/L (136-145)
[2018-05-24] MEDS: Lisinopril 5 MG Tablet PO SCH (08:22)
[2018-05-24] MEDS: Folic Acid 1 MG Tablet PO SCH (08:22)
[2018-05-24] MEDS: levETIRAcetam 500 MG Tablet PO SCH ×2 (08:23→20:27)
[2018-05-24] MEDS: dilTIAZem CD 180 MG Capsule PO SCH (08:24)
[2018-05-24] MEDS: Enoxaparin Inj 40 MG/0.4 ML Syringe SQ SCH (08:24)
--- NOTE | 2018-05-24 18:05 | P.PNFP ---
Subjective Interval history: Pt seen and examined this morning. He was asleep and non cooperative after woken up. He states he feels better, he denies any problems today, he is not restrained anymore. He denies any visual or auditory hallucinations. He is eating and drinking ok, he denies any shortness of breath, any fevers or chills , any upset stomach. <Debbie Durán V - 05/24/18 18:04> Results - Labs Result diagrams: 05/26/18 04:20 05/26/18 04:20 <Herminia Suarez - 05/26/18 17:10> Abnormal lab results 05/26/18 05/26/18 Range/Units 04:20 04:20 RBC 2.75 L (4.50-5.90) mil/mm3 Hgb 8.8 L (13.0-17.0) gm/dL Hct 26.8 L (39.0-51.0) % RDW 18.8 H (11.6-17.2) % Estimated GFR 88 L (>89) mL/min Short CBC 05/26/18 Range/Units 04:20 WBC 4.4 (4.0-11.0) th/mm3 Hgb 8.8 L (13.0-17.0) gm/dL Hct 26.8 L (39.0-51.0) % Plt Count 213 D (150-450) th/mm3 BMP 05/26/18 04:20 Sodium 140 Potassium 4.4 Chloride 104 Carbon Dioxide 26.7 BUN 9 Creatinine 0.87 Calcium 8.6 Cardiac Enzymes 05/26/18 Range/Units 04:20 Total Creatine Kinase 40 (39-308) U/L <Herminia Suarez - 05/26/18 17:10> Abnormal lab results 05/24/18 Range/Units 05:29 RBC 2.84 L (4.50-5.90) mil/mm3 Hgb 9.2 L (13.0-17.0) gm/dL Hct 27.6 L (39.0-51.0) % RDW 18.2 H (11.6-17.2) % Plt Count 145 L D (150-450) th/mm3 Emmet % (Auto) 15.5 H (0.0-8.0) % Eos % (Auto) 5.1 H (0.0-4.0) % Short CBC 05/24/18 Range/Units 05:29 WBC 4.3 (4.0-11.0) th/mm3 Hgb 9.2 L (13.0-17.0) gm/dL Hct 27.6 L (39.0-51.0) % Plt Count 145 L D (150-450) th/mm3 BMP 05/24/18 04:29 Sodium 136 Potassium 4.0 Chloride 100 Carbon Dioxide 24.4 BUN 8 Creatinine 0.79 Calcium 8.5 <Magda Debbie Ram V - 05/24/18 18:04> Physical Exam Vital signs: Vital Signs 05/25/18 20:00 05/26/18 00:00 05/26/18 04:00 Temperature 97.7 F 98 F 98.2 F Pulse Rate 51 L 52 L 61 Respiratory Rate 18 18 18 Blood Pressure 128/66 127/68 141/78 H Pulse Oximetry 100 100 98 05/26/18 12:00 Temperature 97.8 F Pulse Rate 75 Respiratory Rate 20 Blood Pressure 129/59 L Pulse Oximetry 99 Intake & Output 05/25/18 05/26/18 05/26/18 18:59 06:59 18:59 Intake Total 480 / 480 240 / 240 Balance 480 / 480 240 / 240 Weight 88.3 kg Intake: Oral 480 / 480 240 / 240 Other: # Voids 3 4 Date of Last Bowel Movement 05/24/18 05/24/18 # Bowel Movements 0 0 <Herminia Suarez - 05/26/18 17:10> Vital Signs 05/23/18 18:00 05/23/18 18:28 05/23/18 20:00 Temperature 98.0 F Pulse Rate 62 56 L Respiratory Rate 19 Blood Pressure 128/67 Pulse Oximetry 100 96 05/24/18 00:00 05/24/18 04:00 05/24/18 07:56 Temperature 97.7 F 97.6 F Pulse Rate 59 L 60 Respiratory Rate 19 18 Blood Pressure 152/77 H 144/71 H Pulse Oximetry 98 97 97 05/24/18 08:00 05/24/18 12:00 05/24/18 16:00 Temperature 98.0 F 97.2 F L 97.5 F L Pulse Rate 61 66 59 L Respiratory Rate 18 18 17 Blood Pressure 150/82 H 144/72 H 118/64 Pulse Oximetry 98 98 98 Intake & Output 05/23/18 05/24/18 05/24/18 18:59 06:59 18:59 Intake Total 960 / 960 240 / 240 Output Total 350 / 350 1000 / 1000 Balance 610 / 610 -760 / -760 Weight 89.3 kg Intake: Oral 960 / 960 240 / 240 Output: Urine 350 / 350 1000 / 1000 Other: # Voids 5 # Incontinent Voids 3 Date of Last Bowel Movement 05/21/18 # Bowel Movements 0 <Debbie Durán V - 05/24/18 18:04> Narrative: Narrative: GENERAL: Well-nourished, white male, sleeping in NAD. SKIN: Warm and dry. HEAD: Normocephalic and atraumatic. EYES: Minimal clear/ yellow drainage from bilateral eyes. Likely due to sleeping. No scleral icterus. No injection or drainage. ENT: No nasal drainage noted. Airway patent. CARDIOVASCULAR: Irregular irregular rate and rhythm. HR in the 70s. Systolic murmur appreciated. RESPIRATORY: Breath sounds equal bilaterally. No accessory muscle use. ABDOMEN/GI: Abdomen soft, non-tender, bowel sounds present. EXTREMITIES: No cyanosis or edema. NEUROLOGICAL: Awake, alert, non cooperative, clear speech. No visible tremor at rest. <Debbie Durán V - 05/24/18 18:04> - Urinary Catheter Management Condom Cath placed during this visit: no <ErickHerminia - 05/26/18 17:10> no <Debbie Durán V - 05/24/18 18:04> Assessment and Plan - Assessment (1) Alcohol withdrawal Code(s): F10.239 - Alcohol dependence with withdrawal, unspecified Status: Acute (2) Seizure Code(s): R56.9 - Unspecified convulsions Status: Acute (3) Seborrheic keratoses, inflamed Code(s): L82.0 - Inflamed seborrheic keratosis Status: Acute (4) Costochondritis Code(s): M94.0 - Chondrocostal junction syndrome [Tietze] Status: Resolved (5) Atrial fibrillation with RVR Code(s): I48.91 - Unspecified atrial fibrillation Status: Acute (6) Normocytic anemia Code(s): D64.9 - Anemia, unspecified Status: Chronic (7) Hypertension Code(s): I10 - Essential (primary) hypertension Status: Chronic (8) Nutrition, metabolism, and development symptoms Code(s): R63.8 - Other symptoms and signs concerning food and fluid intake Status: Acute (9) DVT prophylaxis Status: Acute <Herminia Suarez - 05/26/18 17:10> (1) Alcohol withdrawal Code(s): F10.239 - Alcohol dependence with withdrawal, unspecified Status: Acute Plan: Patient with long history of alcoholism. Stated that his last drink was 2 days ago. Admitted due to a seizure while in ED. Transfer put in for Med-surg placement today. ED interventions: -CIWA protocol initiated- Highest CIWA score while in the ED was 23 -5 mg total of Ativan given early, has had Precedex and other treatments since then -Fosphenytoin 1000 mg IV given Multivitamins daily Diazoxide 25 mg every 8 hours -> decreased to every 12 hrs Levetiracetam 500 twice daily -> Will consider tapering down (2) Costochondritis Code(s): M94.0 - Chondrocostal junction syndrome [Tietze] Status: Resolved Plan: No complaints today about chest pain. (3) Seborrheic keratoses, inflamed Code(s): L82.0 - Inflamed seborrheic keratosis Status: Acute Plan: Inflamed on left side of face -Will start Hydrocortisone 1% cream to apply to the area (4) Seizure Code(s): R56.9 - Unspecified convulsions Status: Acute Plan: No more seizures since ED admission. Due to severity of withdrawal, two seizures, and consistent visual and audible hallucinations, we consider an MRI of the brain might be warranted, to evaluate for other causes of seizure. - Pt denied MRI study. (5) Atrial fibrillation with RVR Code(s): I48.91 - Unspecified atrial fibrillation Status: Acute Plan: Pt found to be in A. fib with RVR while in ED. Per chart review, it seems that pt has a hx of this. EKG shows atrial fibrillation with heart rate of 161 on admission, had some episode of bradycardia, and also HR of 190-200 intermittently, most of the time in the 60's now.. Cardiology recommendations: -HR's mostly controlled. - Continue Cardizem CD 180mg as for treatment of his HTN and add daily aspirin when possible. (6) Normocytic anemia Code(s): D64.9 - Anemia, unspecified Status: Chronic Plan: Hemoglobin was 12.3 with MCV of 97.9. It does not seem to have a history of CKD. May be due to chronic alcoholism; however, MCV does not reflect this. -Continue to monitor -Transfuse if falls below 7.0 - Hb today 9.2 (7) Hypertension Code(s): I10 - Essential (primary) hypertension Status: Chronic Plan: Continue Lisinopril 5mg po qd Continue Cardizem CD as above (8) Nutrition, metabolism, and development symptoms Code(s): R63.8 - Other symptoms and signs concerning food and fluid intake Status: Acute Plan: Fluids: PO at this time Electrolytes: monitor and replete as needed, see above Nutrition: Cardiac diet GI prophylaxis with famotidine (9) DVT prophylaxis Status: Acute Plan: DVT Prophylaxis: enoxaparin and SCDs. <Debbie Durán V - 05/24/18 17:52> - Assessment and Plan 68-year-old male with PMH of per chart review A fib, HTN, and GERD admitted for alcohol withdrawal seizures. Critical care consulted to due to severity of disease. Cardiology also consulted due to bradycardia and tachycardia present at different times. Pt with significant improvement clinically. He will most likely be discharged tomorrow. Pt discussed wit Dr. Suarez and Dr. Nelson <Debbie Durán V - 05/24/18 18:04> - Attending Attestation Patient seen and examined, discussed with resident team on day of documentation. I agree with assessment and management as documented and discussed with me. Continue antiepileptic. Anticipate placement in 1-2 days. <Herminia Suarez - 05/26/18 17:10> <Debbie Durán V - Last Filed: 05/24/18 17:52> (1) Alcohol withdrawal Qualifiers: Complication of substance-induced condition: with unspecified complication Qualified Code(s): F10.239 - Alcohol dependence with withdrawal, unspecified (7) Hypertension Qualifiers: Hypertension type: essential hypertension Qualified Code(s): I10 - Essential (primary) hypertension <Vey,Herminia - Last Filed: 05/26/18 17:10> (1) Alcohol withdrawal Qualifiers: Complication of substance-induced condition: with unspecified complication Qualified Code(s): F10.239 - Alcohol dependence with withdrawal, unspecified (7) Hypertension Qualifiers: Hypertension type: essential hypertension Qualified Code(s): I10 - Essential (primary) hypertension <Debbie Durán V - Last Filed: 05/24/18 17:52> (1) Alcohol withdrawal Qualifiers: Complication of substance-induced condition: with unspecified complication Qualified Code(s): F10.239 - Alcohol dependence with withdrawal, unspecified (7) Hypertension Qualifiers: Hypertension type: essential hypertension Qualified Code(s): I10 - Essential (primary) hypertension <Vey,Herminia - Last Filed: 05/26/18 17:10> (1) Alcohol withdrawal Qualifiers: Complication of substance-induced condition: with unspecified complication Qualified Code(s): F10.239 - Alcohol dependence with withdrawal, unspecified (7) Hypertension Qualifiers: Hypertension type: essential hypertension Qualified Code(s): I10 - Essential (primary) hypertension
[2018-05-25] MEDS: chlordiazePOXIDE 25 MG Capsule PO SCH ×2 (05:32→17:34)
[2018-05-25 06:14] LABS: Anion Gap 11 meq/L (5-15); Blood Urea Nitrogen 8 mg/dL (7-18); Calcium 8.7 mg/dL (8.5-10.1); Carbon Dioxide 26.3 meq/L (21.0-32.0); Chloride 102 meq/L (98-107); Glomerular Filtration Rate Greater Than 89 mL/min (>89); Glucose,Random 97 mg/dL (74-106); Magnesium 1.5 mg/dL (1.5-2.5); Potassium 3.9 meq/L (3.5-5.1); Sodium 139 meq/L (136-145)
[2018-05-25] MEDS: Folic Acid 1 MG Tablet PO SCH (09:45)
[2018-05-25] MEDS: Enoxaparin Inj 40 MG/0.4 ML Syringe SQ SCH (09:45)
[2018-05-25] MEDS: levETIRAcetam 500 MG Tablet PO SCH ×2 (09:45→20:44)
[2018-05-25] MEDS: Lisinopril 5 MG Tablet PO SCH (09:45)
[2018-05-25] MEDS: dilTIAZem CD 180 MG Capsule PO SCH (09:56)
--- NOTE | 2018-05-25 13:09 | MR ---
EXAM DATE: 05/25/2018 12:53 PM EDT AGE/SEX: 68 years / Male INDICATIONS: Seizures. CLINICAL DATA: This is the patient's initial encounter. Patient reports that signs and symptoms have been present for 1 day and indicates a pain score of 0/10. MEDICAL/SURGICAL HISTORY: Hypertension. None. COMPARISON: No prior exams available for comparison. TECHNIQUE: Multiplanar, multisequence examination of the brain was performed without contrast. FINDINGS: Cerebrum: The ventricles are normal for age. No evidence of midline shift, mass lesion, hemorrhage or acute infarction. No extraaxial fluid collections are seen. Old tiny lacunar infarcts are noted within the right internal capsule. The pituitary gland and suprasellar cistern are normal in configur ation. White Matter: Mild periventricular white matter small vessel ischemic changes are noted bilaterally. Posterior Fossa: The cerebellum and brainstem are intact. The 4th ventricle is midline. The cerebel lopontine angle is unremarkable. The cerebellar tonsils are normal in position. Diffusion Imaging: No focal areas of restricted diffusion are seen. No evidence of acute infarction . Extracranial: The visualized portions of the orbits and paranasal sinuses are unremarkable. CONCLUSION: 1. No acute infarct, acute hemorrhage, midline shift or extra-axial fluid collections. 2. Mild periventricular white matter small vessel ischemic changes bilaterally. 3. 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 Electronically signed by: Reji Corcoran MD 05/25/2018 1:08 PM EDT
--- NOTE | 2018-05-25 18:14 | P.PNFP ---
Subjective Interval history: Pt found this morning to be sleeping on a soaked bed with urine. Pt awaken and asked if he remembered having an accident, he stated it happened once before the during the nigh, that he woke up and had an incontinent episode of urine. He changed the sheets and return to sleep. When we woke him up he had no recollection of urinating himself again. He was embarrassed and apologized for it. He was somewhat confused for the situation. Due to a similar presentation on the ED when he had his seizure, we strongly encouraged him to get a brain MRI, he agreed. <Debbie Durán V - 05/25/18 18:14> Results - Labs Result diagrams: 05/26/18 04:20 05/26/18 04:20 <Herminia Suarez - 05/26/18 17:14> Abnormal lab results 05/26/18 05/26/18 Range/Units 04:20 04:20 RBC 2.75 L (4.50-5.90) mil/mm3 Hgb 8.8 L (13.0-17.0) gm/dL Hct 26.8 L (39.0-51.0) % RDW 18.8 H (11.6-17.2) % Estimated GFR 88 L (>89) mL/min Short CBC 05/26/18 Range/Units 04:20 WBC 4.4 (4.0-11.0) th/mm3 Hgb 8.8 L (13.0-17.0) gm/dL Hct 26.8 L (39.0-51.0) % Plt Count 213 D (150-450) th/mm3 [facility] 05/26/18 04:20 Sodium 140 Potassium 4.4 Chloride 104 Carbon Dioxide 26.7 BUN 9 Creatinine 0.87 Calcium 8.6 Cardiac Enzymes 05/26/18 Range/Units 04:20 Total Creatine Kinase 40 (39-308) U/L <Herminia Suarez - 05/26/18 17:14> [facility] 05/25/18 04:30 Sodium 139 Potassium 3.9 Chloride 102 Carbon Dioxide 26.3 BUN 8 Creatinine 0.83 Calcium 8.7 <Debbie Durán V - 05/25/18 18:14> - Imaging Impressions Head MRI 05/25/18 00:00 CONCLUSION: 1. No acute infarct, acute hemorrhage, midline shift or extra-axial fluid collections. 2. Mild periventricular white matter small vessel ischemic changes bilaterally. 3. 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 <Debbie Durán V - 05/25/18 18:14> Physical Exam Vital signs: Vital Signs 05/25/18 20:00 05/26/18 00:00 05/26/18 04:00 Temperature 97.7 F 98 F 98.2 F Pulse Rate 51 L 52 L 61 Respiratory Rate 18 18 18 Blood Pressure 128/66 127/68 141/78 H Pulse Oximetry 100 100 98 05/26/18 12:00 Temperature 97.8 F Pulse Rate 75 Respiratory Rate 20 Blood Pressure 129/59 L Pulse Oximetry 99 Intake & Output 05/25/18 05/26/18 05/26/18 18:59 06:59 18:59 Intake Total 480 / 480 240 / 240 Balance 480 / 480 240 / 240 Weight 88.3 kg Intake: Oral 480 / 480 240 / 240 Other: # Voids 3 4 Date of Last Bowel Movement 05/24/18 05/24/18 # Bowel Movements 0 0 <Herminia Suarez - 05/26/18 17:14> Vital Signs 05/24/18 20:00 05/25/18 00:00 05/25/18 04:00 Temperature 98.1 F 97.3 F L 97.5 F L Pulse Rate 51 L 48 L 67 Respiratory Rate 18 18 18 Blood Pressure 126/69 129/76 152/81 H Pulse Oximetry 98 95 98 05/25/18 08:00 05/25/18 12:00 05/25/18 16:00 Temperature 97.7 F 98.0 F 97.9 F Pulse Rate 78 68 55 L Respiratory Rate 17 17 17 Blood Pressure 166/81 H 131/85 126/82 Pulse Oximetry 99 100 100 Intake & Output 05/24/18 05/25/18 05/25/18 18:59 06:59 18:59 Intake Total 720 / 720 360 / 360 Output Total 500 / 500 Balance 220 / 220 360 / 360 Weight 88 kg Intake: Oral 720 / 720 360 / 360 Output: Urine 500 / 500 Other: # Voids 4 Date of Last Bowel Movement 05/24/18 05/24/18 # Bowel Movements 0 0 <Debbie Durán V - 05/25/18 18:14> Narrative: Narrative: GENERAL: Well-nourished, white male, sleeping in urine soaked bed. NAD SKIN: Warm and dry. HEAD: Normocephalic and atraumatic. EYES: No scleral icterus. No injection or drainage. ENT: No nasal drainage noted. Airway patent. CARDIOVASCULAR: Irregular irregular rate and rhythm. Systolic murmur appreciated. RESPIRATORY: Breath sounds equal bilaterally. No accessory muscle use. ABDOMEN/GI: Abdomen soft, non-tender, bowel sounds present. EXTREMITIES: No cyanosis or edema. NEUROLOGICAL: Awake, confused, cooperative, clear speech. No visible tremor at rest. <Debbie Durán V - 05/25/18 18:14> - Urinary Catheter Management Condom Cath placed during this visit: no <Herminia Suarez - 05/26/18 17:14> no <Debbie Durán V 05/25/18 18:14> Assessment and Plan - Assessment (1) Alcohol withdrawal Code(s): F10.239 - Alcohol dependence with withdrawal, unspecified Status: Acute (2) Seizure Code(s): R56.9 - Unspecified convulsions Status: Acute (3) Seborrheic keratoses, inflamed Code(s): L82.0 - Inflamed seborrheic keratosis Status: Acute (4) Costochondritis Code(s): M94.0 - Chondrocostal junction syndrome [Tietze] Status: Resolved (5) Atrial fibrillation with RVR Code(s): I48.91 - Unspecified atrial fibrillation Status: Acute (6) Normocytic anemia Code(s): D64.9 - Anemia, unspecified Status: Chronic (7) Hypertension Code(s): I10 - Essential (primary) hypertension Status: Chronic (8) Nutrition, metabolism, and development symptoms Code(s): R63.8 - Other symptoms and signs concerning food and fluid intake Status: Acute (9) DVT prophylaxis Status: Acute <Herminia Suarez - 05/26/18 17:14> (1) Alcohol withdrawal Code(s): F10.239 - Alcohol dependence with withdrawal, unspecified Status: Acute Plan: Patient with long history of alcoholism. Stated that his last drink was 2 days ago. Admitted due to a seizure while in ED. Transfer put in for Med-surg placement today. ED interventions: -CIWA protocol initiated- Highest CIWA score while in the ED was 23 -5 mg total of Ativan given early, has had Precedex and other treatments since then -Fosphenytoin 1000 mg IV given Multivitamins daily Diazoxide 25 mg every 8 hours -> decreased to every 12 hrs 05/25 -> decrease to q Day for tomorrow. Levetiracetam 500 twice daily, will continue this medication on the light of possible seizures last night. (2) Seizure Code(s): R56.9 - Unspecified convulsions Status: Acute Plan: No more seizures since ED admission. Due to severity of withdrawal, two seizures, and consistent visual and audible hallucinations, we consider an MRI of the brain might be warranted, to evaluate for other causes of seizure. Questionable unwitnessed seizures x2 last night. Pt with urine incontinence, and found to be laying on urine in his bed this morning, and somewhat confused. MRI of head: 1. No acute infarct, acute hemorrhage, midline shift or extra-axial fluid collections. 2. Mild periventricular white matter small vessel ischemic changes bilaterally. 3. 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 Will restart telemetry to evaluate for possible episodes tonight. Continue Keppra 500mg BID Consider Neurology consult tomorrow based on overnight events (3) Seborrheic keratoses, inflamed Code(s): L82.0 - Inflamed seborrheic keratosis Status: Acute Plan: Inflamed on left side of face -Continue Hydrocortisone 1% cream to apply to the area (4) Costochondritis Code(s): M94.0 - Chondrocostal junction syndrome [Tietze] Status: Resolved Plan: No complaints today about chest pain. (5) Atrial fibrillation with RVR Code(s): I48.91 - Unspecified atrial fibrillation Status: Acute Plan: Pt found to be in A. fib with RVR while in ED. Per chart review, it seems that pt has a hx of this. EKG shows atrial fibrillation with heart rate of 161 on admission, had some episode of bradycardia, and also HR of 190-200 intermittently, most of the time in the 60's now.. Cardiology recommendations: -HR's mostly controlled. - Continue Cardizem CD 180mg as for treatment of his HTN and add daily aspirin when possible. (6) Normocytic anemia Code(s): D64.9 - Anemia, unspecified Status: Chronic Plan: Hemoglobin was 12.3 with MCV of 97.9. It does not seem to have a history of CKD. May be due to chronic alcoholism; however, MCV does not reflect this. -Continue to monitor -Transfuse if falls below 7.0 (7) Hypertension Code(s): I10 - Essential (primary) hypertension Status: Chronic Plan: Continue Lisinopril 5mg po qd Continue Cardizem CD as above (8) Nutrition, metabolism, and development symptoms Code(s): R63.8 - Other symptoms and signs concerning food and fluid intake Status: Acute Plan: Fluids: PO at this time Electrolytes: monitor and replete as needed, see above Nutrition: Cardiac diet GI prophylaxis with famotidine (9) DVT prophylaxis Status: Acute Plan: DVT Prophylaxis: enoxaparin and SCDs. <Debbie Durán V - 05/25/18 18:02> - Assessment and Plan 68-year-old male with PMH of per chart review A fib, HTN, and GERD admitted for alcohol withdrawal seizures. Critical care consulted to due to severity of disease. Cardiology also consulted due to bradycardia and tachycardia present at different times. Pt with questionable seizures overnight, MRI of head with no acute changes or masses, will monitor patient overnight with telemetry and consider a neurology consult tomorrow or an outpatient referral. Pt discussed wit Dr. Suarez and Dr. Nelson <Debbie Durán V - 05/25/18 18:14> - Attending Attestation Patient seen and examined, discussed with resident team on day of documentation. I agree with assessment and management as documented and discussed with me. Pt with urinary incontinence as described above. MRI reassuring. Continue antiepileptic. <Herminia Suarez - 05/26/18 17:14> <Debbie Durán V - Last Filed: 05/25/18 18:02> (1) Alcohol withdrawal Qualifiers: Complication of substance-induced condition: with unspecified complication Qualified Code(s): F10.239 - Alcohol dependence with withdrawal, unspecified (7) Hypertension Qualifiers: Hypertension type: essential hypertension Qualified Code(s): I10 - Essential (primary) hypertension <Vey,Herminia - Last Filed: 05/26/18 17:14> (1) Alcohol withdrawal Qualifiers: Complication of substance-induced condition: with unspecified complication Qualified Code(s): F10.239 - Alcohol dependence with withdrawal, unspecified (7) Hypertension Qualifiers: Hypertension type: essential hypertension Qualified Code(s): I10 - Essential (primary) hypertension <Debbie Durán V - Last Filed: 05/25/18 18:02> (1) Alcohol withdrawal Qualifiers: Complication of substance-induced condition: with unspecified complication Qualified Code(s): F10.239 - Alcohol dependence with withdrawal, unspecified (7) Hypertension Qualifiers: Hypertension type: essential hypertension Qualified Code(s): I10 - Essential (primary) hypertension <Vey,Herminia - Last Filed: 05/26/18 17:14> (1) Alcohol withdrawal Qualifiers: Complication of substance-induced condition: with unspecified complication Qualified Code(s): F10.239 - Alcohol dependence with withdrawal, unspecified (7) Hypertension Qualifiers: Hypertension type: essential hypertension Qualified Code(s): I10 - Essential (primary) hypertension
[2018-05-25] MEDS ORDERED: chlordiazePOXIDE 25 MG Capsule PO ONE (18:30)
[2018-05-26 04:39] LABS: Hematocrit 26.8 % (39.0-51.0); Hemoglobin 8.8 gm/dL (13.0-17.0); Mean Corpuscular HGB Conc 32.9 % (32.0-36.0); Mean Corpuscular Hemoglobin 32.1 pg (27.0-34.0); Mean Corpuscular Volume 97.5 fL (80.0-100.0); Mean Platelet Volume 8.4 fL (7.0-11.0); Platelet Count 213 th/mm3 (150-450); Red Blood Count 2.75 mil/mm3 (4.50-5.90); Red Cell Distribution Width 18.8 % (11.6-17.2); White Blood Count 4.4 th/mm3 (4.0-11.0)
[2018-05-26 05:08] LABS: Calcium 8.6 mg/dL (8.5-10.1); Carbon Dioxide 26.7 meq/L (21.0-32.0); Potassium 4.4 meq/L (3.5-5.1)
[2018-05-26] MEDS: Lisinopril 5 MG Tablet PO SCH (08:59)
[2018-05-26] MEDS: levETIRAcetam 500 MG Tablet PO SCH (08:59)
[2018-05-26] MEDS: Folic Acid 1 MG Tablet PO SCH (08:59)
[2018-05-26] MEDS: Enoxaparin Inj 40 MG/0.4 ML Syringe SQ SCH (09:00)
[2018-05-26] MEDS: dilTIAZem CD 180 MG Capsule PO SCH (09:00)
[2018-05-26 16:17] VITALS: BP 129/59; PULSE 75; RESP 20; TEMP 97.8; O2SAT 99
[2018-05-26] MEDS ORDERED: chlordiazePOXIDE 25 MG Capsule PO SCH (18:00)
--- NOTE | 2018-05-26 18:17 | P.PNFP ---
Subjective Interval history: Pt doing well this morning. He states he is having diarrhea and has a hard time getting to the bathroom on time. Discussed with patient MRI results. He denies any fevers, chills, shortness of breath or chest pain. He denies any seizures or bladder incontinence. <Debbie Durán V - 05/26/18 18:17> Results - Labs Result diagrams: 05/26/18 04:20 05/26/18 04:20 <Herminia Suarez - 05/26/18 21:02> Abnormal lab results 05/26/18 05/26/18 Range/Units 04:20 04:20 RBC 2.75 L (4.50-5.90) mil/mm3 Hgb 8.8 L (13.0-17.0) gm/dL Hct 26.8 L (39.0-51.0) % RDW 18.8 H (11.6-17.2) % Estimated GFR 88 L (>89) mL/min Short CBC 05/26/18 Range/Units 04:20 WBC 4.4 (4.0-11.0) th/mm3 Hgb 8.8 L (13.0-17.0) gm/dL Hct 26.8 L (39.0-51.0) % Plt Count 213 D (150-450) th/mm3 BMP 05/26/18 04:20 Sodium 140 Potassium 4.4 Chloride 104 Carbon Dioxide 26.7 BUN 9 Creatinine 0.87 Calcium 8.6 Cardiac Enzymes 05/26/18 Range/Units 04:20 Total Creatine Kinase 40 (39-308) U/L <Herminia Suarez - 05/26/18 21:02> Abnormal lab results 05/26/18 05/26/18 Range/Units 04:20 04:20 RBC 2.75 L (4.50-5.90) mil/mm3 Hgb 8.8 L (13.0-17.0) gm/dL Hct 26.8 L (39.0-51.0) % RDW 18.8 H (11.6-17.2) % Estimated GFR 88 L (>89) mL/min Short CBC 05/26/18 Range/Units 04:20 WBC 4.4 (4.0-11.0) th/mm3 Hgb 8.8 L (13.0-17.0) gm/dL Hct 26.8 L (39.0-51.0) % Plt Count 213 D (150-450) th/mm3 BMP 05/26/18 04:20 Sodium 140 Potassium 4.4 Chloride 104 Carbon Dioxide 26.7 BUN 9 Creatinine 0.87 Calcium 8.6 Cardiac Enzymes 05/26/18 Range/Units 04:20 Total Creatine Kinase 40 (39-308) U/L <Debbie Durán V - 05/26/18 18:17> Physical Exam Vital signs: Vital Signs 05/26/18 00:00 05/26/18 04:00 05/26/18 12:00 Temperature 98 F 98.2 F 97.8 F Pulse Rate 52 L 61 75 Respiratory Rate 18 18 20 Blood Pressure 127/68 141/78 H 129/59 L Pulse Oximetry 100 98 99 Intake & Output 05/26/18 05/26/18 05/27/18 06:59 18:59 06:59 Intake Total 240 / 240 Balance 240 / 240 Weight 88.3 kg Intake: Oral 240 / 240 Other: # Voids 4 Date of Last Bowel Movement 05/24/18 # Bowel Movements 0 <Herminia Suarez - 05/26/18 21:02> Vital Signs 05/25/18 20:00 05/26/18 00:00 05/26/18 04:00 Temperature 97.7 F 98 F 98.2 F Pulse Rate 51 L 52 L 61 Respiratory Rate 18 18 18 Blood Pressure 128/66 127/68 141/78 H Pulse Oximetry 100 100 98 05/26/18 12:00 Temperature 97.8 F Pulse Rate 75 Respiratory Rate 20 Blood Pressure 129/59 L Pulse Oximetry 99 Intake & Output 05/25/18 05/26/18 05/26/18 18:59 06:59 18:59 Intake Total 480 / 480 240 / 240 Balance 480 / 480 240 / 240 Weight 88.3 kg Intake: Oral 480 / 480 240 / 240 Other: # Voids 3 4 Date of Last Bowel Movement 05/24/18 05/24/18 # Bowel Movements 0 0 <Debbie Durán V - 05/26/18 18:17> Narrative: Narrative: GENERAL: Well-nourished, white male, eating. NAD SKIN: Warm and dry. HEAD: Normocephalic and atraumatic. EYES: No scleral icterus. No injection or drainage. ENT: No nasal drainage noted. Airway patent. CARDIOVASCULAR: Irregular irregular rate and rhythm. Systolic murmur appreciated. RESPIRATORY: Breath sounds equal bilaterally. No accessory muscle use. ABDOMEN/GI: Abdomen soft, non-tender, bowel sounds present. EXTREMITIES: No cyanosis or edema. NEUROLOGICAL: Awake, and cooperative, clear speech. No visible tremor at rest. <Debbie Durán V - 05/26/18 18:17> - Urinary Catheter Management Condom Cath placed during this visit: no <Herminia Suarez - 05/26/18 21:02> no <Debbie Durán V - 05/26/18 18:17> Assessment and Plan - Assessment (1) Alcohol withdrawal Code(s): F10.239 - Alcohol dependence with withdrawal, unspecified Status: Acute (2) Seizure Code(s): R56.9 - Unspecified convulsions Status: Acute (3) Seborrheic keratoses, inflamed Code(s): L82.0 - Inflamed seborrheic keratosis Status: Acute (4) Atrial fibrillation with RVR Code(s): I48.91 - Unspecified atrial fibrillation Status: Acute (5) Normocytic anemia Code(s): D64.9 - Anemia, unspecified Status: Chronic (6) Hypertension Code(s): I10 - Essential (primary) hypertension Status: Chronic (7) Nutrition, metabolism, and development symptoms Code(s): R63.8 - Other symptoms and signs concerning food and fluid intake Status: Acute (8) DVT prophylaxis Status: Acute <Herminia Suarez - 05/26/18 21:02> (1) Alcohol withdrawal Code(s): F10.239 - Alcohol dependence with withdrawal, unspecified Status: Acute Plan: Patient with long history of alcoholism. Stated that his last drink was 2 days ago. Admitted due to a seizure while in ED. Transfer put in for Med-surg placement today. ED interventions: -CIWA protocol initiated- Highest CIWA score while in the ED was 23 -5 mg total of Ativan given early, has had Precedex and other treatments since then -Fosphenytoin 1000 mg IV given Multivitamins daily Diazoxide 25 mg every 8 hours -> decreased to every 12 hrs 05/25 -> decrease to q Day today. Continue one dose for 3 days Levetiracetam 500 twice daily - reassess at FU with PCP Pt is going to be discharged today to a SNF on both medications. (2) Seizure Code(s): R56.9 - Unspecified convulsions Status: Acute Plan: No more seizures since ED admission. Due to severity of withdrawal, two seizures, and consistent visual and audible hallucinations, we consider an MRI of the brain might be warranted, to evaluate for other causes of seizure. Questionable unwitnessed seizures x2 05/24. Pt with urine incontinence, found to be laying on urine in his bed and somewhat confused. No more episodes reported today. MRI of head: 1. No acute infarct, acute hemorrhage, midline shift or extra-axial fluid collections. 2. Mild periventricular white matter small vessel ischemic changes bilaterally. 3. 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 Will restart telemetry to evaluate for possible episodes- Pt refused Continue Keppra 500mg BID (3) Seborrheic keratoses, inflamed Code(s): L82.0 - Inflamed seborrheic keratosis Status: Acute Plan: Inflamed on left side of face -Continue Hydrocortisone 1% cream to apply to the area (4) Atrial fibrillation with RVR Code(s): I48.91 - Unspecified atrial fibrillation Status: Acute Plan: Pt found to be in A. fib with RVR while in ED. Per chart review, it seems that pt has a hx of this. EKG shows atrial fibrillation with heart rate of 161 on admission, had some episode of bradycardia, and also HR of 190-200 intermittently, most of the time in the 60's now.. Cardiology recommendations: -HR's mostly controlled. - Continue Cardizem CD 180mg as for treatment of his HTN and add daily aspirin when possible. (5) Normocytic anemia Code(s): D64.9 - Anemia, unspecified Status: Chronic Plan: Hemoglobin was 12.3 with MCV of 97.9. It does not seem to have a history of CKD. May be due to chronic alcoholism; however, MCV does not reflect this. -Continue to monitor -Transfuse if falls below 7.0 (6) Hypertension Code(s): I10 - Essential (primary) hypertension Status: Chronic Plan: Continue Lisinopril 5mg po qd Continue Cardizem CD as above (7) Nutrition, metabolism, and development symptoms Code(s): R63.8 - Other symptoms and signs concerning food and fluid intake Status: Acute Plan: Fluids: PO at this time Electrolytes: monitor and replete as needed, see above Nutrition: Cardiac diet GI prophylaxis with famotidine (8) DVT prophylaxis Status: Acute Plan: DVT Prophylaxis: enoxaparin and SCDs. <Debbie Durán V - 05/26/18 18:11> - Assessment and Plan 68-year-old male with PMH of per chart review A fib, HTN, and GERD admitted for alcohol withdrawal seizures. Critical care consulted to due to severity of disease. Cardiology also consulted due to bradycardia and tachycardia present at different times. Pt with questionable seizures two nights ago, brain MRI with no acute changes or masses. Pt with no more seizure episodes, safe for discharge to SNF. Pt discussed wit Dr. Suarez and Dr. Nelson <Debbie Durná V - 05/26/18 18:17> - Attending Attestation Patient seen and examined, and discussed with resident team. I agree with assessment and management as documented and discussed with me. No new concerns. No further witnessed seizure activity. Discharge to SNF today. <Herminia Suarez - 05/26/18 21:02> <Debbie Durán V - Last Filed: 05/26/18 18:11> (1) Alcohol withdrawal Qualifiers: Complication of substance-induced condition: with unspecified complication Qualified Code(s): F10.239 - Alcohol dependence with withdrawal, unspecified (6) Hypertension Qualifiers: Hypertension type: essential hypertension Qualified Code(s): I10 - Essential (primary) hypertension <Herminia Suarez - Last Filed: 05/26/18 21:02> (1) Alcohol withdrawal Qualifiers: Complication of substance-induced condition: with unspecified complication Qualified Code(s): F10.239 - Alcohol dependence with withdrawal, unspecified (6) Hypertension Qualifiers: Hypertension type: essential hypertension Qualified Code(s): I10 - Essential (primary) hypertension <Debbie Durán V - Last Filed: 05/26/18 18:11> (1) Alcohol withdrawal Qualifiers: Complication of substance-induced condition: with unspecified complication Qualified Code(s): F10.239 - Alcohol dependence with withdrawal, unspecified (6) Hypertension Qualifiers: Hypertension type: essential hypertension Qualified Code(s): I10 - Essential (primary) hypertension <Herminia Suarez - Last Filed: 05/26/18 21:02> (1) Alcohol withdrawal Qualifiers: Complication of substance-induced condition: with unspecified complication Qualified Code(s): F10.239 - Alcohol dependence with withdrawal, unspecified (6) Hypertension Qualifiers: Hypertension type: essential hypertension Qualified Code(s): I10 - Essential (primary) hypertension
--- NOTE | 2018-06-27 15:55 | P.DS ---
Date of admission: 05/18/18 14:56 Primary care physician: UNKNOWN Brief History from admission: Mr. Ulrich is a 68yo white male with PMH of per chart review A fib, HTN, and GERD presenting to the ED after a seizure. Pt unable to answer any questions and was incoherent when he spoke. Per ED nursing staff, he was able to give some history initially. He stated that he was getting dressed at his home and then remembers waking up in the ED. His last drink was 2 days ago and he has been trying to quit alcohol. They state per witness report that he was walking and then fell. No tonic-clonic activity. He was taken to the ED where he had another seizure and was admitted. This am he is stable in the [facility] as far as no seizure activity. He has become bradycardic. He had a fib at a rate up into the 190s in the ED and was started on a cardizem drip but now is very bradycardic into the low 40s. His sedation was stopped because of the bradycardia. He was still sedated this morning but would open his eyes when his shoulder was shaken gently. He had no tremors or signs of alcohol withdrawal this morning. DS: Diagnosis - Discharge Diagnosis (1) Alcohol withdrawal Status: Acute (2) Seizure Status: Acute (3) Seborrheic keratoses, inflamed Status: Acute (4) Atrial fibrillation with RVR Status: Acute (5) Normocytic anemia Status: Chronic (6) Hypertension Status: Chronic (7) Nutrition, metabolism, and development symptoms Status: Acute (8) DVT prophylaxis Status: Acute DS: Medications - Discharge Medications Prescriptions: folic acid 1 mg PO DAILY #30 tab thiamine HCl (vitamin B1) 100 mg PO DAILY #30 tab DS: Summary Hospital Course: 68-year-old male presented to ED with severe alcohol withdrawal due to long history of alcoholism. He was admitted due to seizures including a seizure while in ED. She will protocol were initiated on the ED he received 5 mg total of Ativan, as well as a fosphenytoin thousand milligrams IV. His high was see was score were on the ED was 23 therefore he was transferred to critical care admitted to the ICU. Patient was found to be in A. fib with RVR while on the ED with a heart rate of 161. Atrial fibrillation is a chronic condition for patient however a Cardizem drip was ordered. Patient also presented with a potassium of 2.9 and received 40 mEq of potassium while on the ED, electrolyte protocol was initiated due to patient being taken to the ICU. While on the ICU Precedex drip was initiated, as well as a Keppra 500 mg twice daily. Patient was initially kept n.p.o. during his first night of hospitalization patient's heart rate fluctuated between 30 and 140. He remained lethargic but arousable and had one episode of fever at 102. Bradycardia Precedex drips was stopped and cardiology consult was placed. Neurology recommended to keep off AV mann suppressant drugs believing that his rate control will improve when his alcohol withdrawal symptoms are stabilized. Aspirin was also held due to thrombocytopenia. Day 3 hospitalizations patient continue ICU care with a heart rate ranging from 90s-200. CIWA protocol still in place with its high score on the day of . Patient was started on Librium 25 mg every 8 hours. Cardiology following and recommending adding Cardizem 180 mg every day. Patient condition continues to improve every day, his alcohol withdrawal symptoms now include hallucinations. Therefore hospitalizations medicines were able to be switched to p.o., C was scores decrease significantly and patient was de-escalated of critical care. He was able to tolerate a diet but was still being monitor with continuous telemetry. Overnight patient was confused and was pulling his IV and telemetry. He was placed on soft restraints. The following day patient complains of mild chest pain reproducible on physical exam , likely due to restraints. Did not hospitalization home patient stops having visual or auditory hallucination eating and drinking okay feeling better and cooperative. The following day patient was found to have had moments of incontinence wetting the bed, he had taking his telemetry of therefore there was no recorded activity of possible seizure. These episodes were unwitnessed. We recommended an head MRI due to possible mass effects if those were to seizures. Patient agreed to get a brain MRI which returned within normal limits. Patient was discharged to rehab facility on a stable condition recommendations to follow-up with primary care doctor and to abstain from alcohol drinking. - Time Spent with Patient Total time spent providing and/or coordinating discharge services: Less than 30 minutes - Quality: VTE Deep Vein Thrombosis/Pulmonary Embolism Present on Admission: No Results Procedures completed during hospitalization: Echocardiogram, MRI brain. - Impressions ITS Impressions Head CT 05/18/18 10:55 CONCLUSION: 1. Small left anterior scalp hematoma without underlying bony fracture or acute intracranial abnormality. . Head MRI 05/25/18 00:00 CONCLUSION: 1. No acute infarct, acute hemorrhage, midline shift or extra-axial fluid collections. 2. Mild periventricular white matter small vessel ischemic changes bilaterally. 3. 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 Discharge Plan - Discharge Disposition Patient Disposition: Discharge to SNF - Discharge Condition Condition: Stable - Discharge Order Discharge Orders: Discharge Order (Routine); Ordered 05/26/18 Ordered By: April Nelson - Physicians Team Primary Care Provider: UNKNOWN, Attending Provider: Herminia Suarez Other Providers: Judah Leong MD ; Harrison Gordillo MD ; Sophie Joy,Agustina ; [facility] ; [facility]
== END 2018-05-26 17:46 ==
LOC: NEPE 10:17 → NEDA 14:56 → HIMC 17:59 → N04 05-23 18:55
PROVIDERS: ADMIT Family Medicine; ATTEND Family Medicine